=== PATIENT | female | born 1955 | race Caucasian/White ===

== ENCOUNTER → 2016-08-07 | Outpatient (CLI) | payer MEDICARE, OTHER ==
[2016-08-07 11:21] LABS: Non-African American GFR(MDRD) 60 (>60 ml/min/1.73 sqM)
--- NOTE | 2016-08-07 17:40 | MR ---
EXAMINATION TYPE: MR pancreas wo/w con DATE OF EXAM: 08/07/2016 12:12 PM COMPARISON: Correlation CT 04/28/2016 and 09/28/2015 HISTORY: 61-year-old female with abdominal pain, pancreatic lesion Technique: Multiplanar, multisequence images of the abdomen were obtained before and after administra tion of 15 mL intravenous MultiHance gadolinium contrast. FINDINGS: Liver shows no significant drop in signal on out of phase T1-weighted sequence to suggest fatty infil tration. There is a small 1.1 cm T2 hyperintense lesion along the inferior right hepatic lobe that shows perip heral nodular enhancement and gradual fill-in on the later contrast sequences. Otherwise, no focal li tho lesion. Portal venous system is patent. No biliary ductal dilatation. Gallbladder, adrenal glands, and spleen appear within normal limits. Redemonstrated round lesion along the anterior superior pancreatic body. This shows T2 hyperintensity and T1 dark signal without appreciable enhancement. There is thin rim enhancement without any suspic ious nodular or masslike enhancement. Pancreas otherwise unremarkable. There is moderate stool burden. No lymphadenopathy, ascites fluid, or lymphadenopathy identified in t he upper abdomen. IMPRESSION: 1. A 1.5 cm cystic lesion in the anterior superior pancreatic body is unchanged in size from CT of 09/28/2015. For a lesion with these characteristics, documenting one year of stability would be adequate after which, no further follow-up would be needed. A 6-12 month follow-up CT or MRI can be considered . The MRI could be performed without contrast. 2. Small 1.1 cm lesion inferior right hepatic lobe with enhancement characteristics suggesting a krupa ngioma.
== END | disposition home or self-care (01) ==
LOC: RADMRIMAIN 10:59
PROVIDERS: ATTEND Surgery
DX: K86.9 Disease of pancreas, unspecified (principal); K76.9 Liver disease, unspecified
CPT/HCPCS: 82565; 74183; A9577

== ENCOUNTER 2016-08-19 10:19 | Day surgery (SDC) | payer MEDICARE, OTHER ==
[2016-08-18 14:07] VITALS: BMI 30.9
[~2016-08-19 10:19] MED LIST: DEXAMETHASONE SOD PHOSPHATE 10 MG/ML 1 ML VIAL IV ONE; DEXAMETHASONE SOD PHOSPHATE 4 MG/ML 1 ML VIAL IV ONE; FAMOTIDINE 20 MG/2 ML VIAL IV ONE; LACTATED RINGERS 1,000 ML IV SCH; LIDOCAINE 1% 20 ML VIAL (10MG/ML) FOR IV START INTRADERMA PRN; MIDAZOLAM 2 MG/2 ML VIAL IV PRN; ONDANSETRON 4 MG/2 ML VIAL IVP ONE; SCOPOLAMINE 1.5MG/72HR PATCH TRANSDERM ONE; ceFAZolin 2 GM in SODIUM CHLORIDE 0.9% 100 ML IVPB ONE; metroNIDAZOLE-NS PMX 500 MG in SALINE 1 100ML.BAG IVPB ONE
[2016-08-19] MEDS ORDERED: LIDOCAINE 1% 20 ML VIAL (10MG/ML) FOR IV START INTRADERMA ONE (11:21)
[2016-08-19] MEDS ORDERED: DEXAMETHASONE SOD PHOS (MDV) 100 MG/10 ML VIAL ONE (14:03)
[2016-08-19] MEDS ORDERED: fentaNYL (PF) 50 MCG/ML 2 ML AMP ONE (14:03)
[2016-08-19] MEDS ORDERED: diphenhydrAMINE 50 MG/ML 1 ML VIAL ONE (14:03)
[2016-08-19] MEDS ORDERED: MIDAZOLAM 2 MG/2 ML VIAL ONE (14:03)
[2016-08-19] MEDS ORDERED: SODIUM BICARB 8.4% 50 ML VIAL (1 MEQ/ML) MISCELLANE ONE ×2 (14:24)
[2016-08-19] MEDS ORDERED: LIDOCAINE 1%-EPI 1:100,000 20 ML VIAL SQ ONE ×2 (14:24)
[2016-08-19] MEDS: HYDROmorphone 1 MG/ML 1 ML SYRINGE IVP PRN ×2 (16:06→16:11)
[2016-08-19 16:14] VITALS: TEMP 98.6
[2016-08-19] MEDS ORDERED: LACTATED RINGERS 1,000 ML IV ONE ×2 (16:29)
[2016-08-19 16:51] VITALS: PULSE 98; RESP 18
--- NOTE | 2016-08-19 16:54 | P.OP ---
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 There was no resolution the medialization was recommended. All risks benefits alternative therapies and complications were discussed in detail. Consent was obtained and all questions were answered. Operative Findings: Left vocal cord paralysis. Patient had excellent voice after #8 implant was inserted Description of Procedure: This patient was taken to the operative room and placed in the supine position. IV sedation was administered to the patient through a functioning IV line and monitored throughout the entire case by the department of anesthesia. A direct microscopic laryngoscopy was performed with use of a Zeiss microscope. Direct visualization was performed. We found a-LEFT VOCAL CORD PARALYSIS IN THE PARAMEDIAN POSITION. The neck was sterilely prepped and draped in usual fashion and the incision was marked. With use of lidocaine 1% with epinephrine 12 1000, the skin and deeper strap muscles were anesthetized. An incision was made over the lower portion of the thyroid cartilage horizontally in the neck. Hemostasis was obtained with use of electrocoagulation realizing a #12 setting without the flow of oxygen to prevent any fire risk. We dissected through the platysmas muscle to the strap muscles. We the strap muscles in the midline. We then exposed the thyroid cartilage the appropriate side of surgery. We then made a window into the lower portion of the thyroid cartilage in the usual fashion for Jones implant to be inserted. We then used with the sizer several different implants resistant to the voice and checked for stridor utilizing implants from #7-10. WE UTILIZED A #8 FEMALE JONES IMPLANT ON THE RIGHT SIDE. This was secured into position in the usual fashion. We then irrigated and then closed the strap muscles with 4-0 Vicryl in an interrupted type fashion. The close the platysmas layer of 4-0 Vicryl in an interrupted type fashion. We then closed the deep subcutaneous tissue with 4 -0 Monocryl in an interrupted type fashion. We then closed the skin with a 5-0 Prolene in a running nonlocking fashion. Bacitracin ointment and Telfa were applied along with a Medpor tape. The patient tolerated this well and the patient is to follow up with me in the office in 1 week. One week voice rest restrictions were given that her absolute area and no heavy lifting or bending. She was also advised that if any stridor should occur she should come to the emergency room. They have been given my cell phone number and contact information.
[2016-08-19 17:05] VITALS: BP 131/83
== END 2016-08-19 17:37 | disposition home or self-care (01) ==
LOC: OR 10:19
PROVIDERS: ATTEND Otolaryngology
DX: J38.01 Paralysis of vocal cords and larynx, unilateral (principal); J44.9 Chronic obstructive pulmonary disease, unspecified; J45.909 Unspecified asthma, uncomplicated; Z87.891 Personal history of nicotine dependence; G47.33 Obstructive sleep apnea (adult) (pediatric); F51.9 Sleep disorder not due to a substance or known physiological condition, unspecified; E07.9 Disorder of thyroid, unspecified; K21.9 Gastro-esophageal reflux disease without esophagitis; M06.9 Rheumatoid arthritis, unspecified; Z79.899 Other long term (current) drug therapy; Z91.09 Other allergy status, other than to drugs and biological substances
CPT/HCPCS: 31591; L8509; J2250; J1200; J1100 ×2; J0690; J2405; J3010; J1170

== ENCOUNTER → 2016-11-17 | Outpatient (CLI) | payer MEDICARE ==
--- NOTE | 2016-11-17 12:07 | FL ---
Modified barium swallow. HISTORY: Dysphagia. Modified barium swallow was performed with the department of speech pathology. The patient was prese nted with various consistencies of barium. There is no evidence for aspiration or penetration. Full report is to follow from the department of speech pathology. Impression: Normal study.
== END | disposition home or self-care (01) ==
LOC: RADFLMAIN 11:19
PROVIDERS: ATTEND Otolaryngology
DX: R13.10 Dysphagia, unspecified (principal); R49.0 Dysphonia
CPT/HCPCS: 74230

== ENCOUNTER 2017-09-07 09:53 | Emergency (ER) | payer MEDICARE ==
[2017-09-07 10:03] VITALS: RESP 18
[2017-09-07] MEDS ORDERED: HYDROcodone/APAP 5-325MG 1 EACH TAB PO STA (10:50)
[2017-09-07] MEDS ORDERED: IBUPROFEN 800 MG TAB PO STA (10:50)
--- NOTE | 2017-09-07 11:31 | XR ---
EXAMINATION TYPE: XR lumbar spine 3V DATE OF EXAM: 09/07/2017 COMPARISON: None HISTORY: 62-year-old female with low back pain after fall FINDINGS: 5 lumbar type vertebral bodies. There is osteopenia. Hypertrophic facet arthropathy throughout greate st in the mid to lower lumbar spine. Grade 1 anterolisthesis at L4-L5. Vertebral body heights are garima ntained. Mild endplate spondylosis throughout. IMPRESSION: 1. Osteopenia without vertebral compression collapse. 2. Hypertrophic facet arthropathy with grade 1 anterolisthesis at L4-L5. Mild endplate spondylosis th roughout.
--- NOTE | 2017-09-07 11:32 | XR ---
EXAMINATION TYPE: XR Hip Complete LT DATE OF EXAM: 09/07/2017 COMPARISON: NONE HISTORY: 62-year-old female with left hip pain after fall today TECHNIQUE: 2 views FINDINGS: There is osteopenia. Hip joint spaces relatively maintained. Minimal marginal spurring is present. No acute fracture, subluxation, or dislocation seen. IMPRESSION: Osteopenia without evidence for displaced hip fracture.
--- NOTE | 2017-09-07 11:39 | XR ---
Left knee HISTORY: Trauma and pain 3 views of the left knee No comparisons There is remodeling, marginal spurring is extensive with joint space loss especially in the medial co mpartment. Some lateral subluxation may be chronic at the knee joint. Bone mineralization mildly redu christiano. Suprapatellar joint effusion is present. Small ossific densities appear well-corticated and may represent loose bodies. IMPRESSION: No acute fracture or dislocation is suspected. Severe osteoarthritic changes are suspecte d with possible loose bodies, knee MRI to assess for internal derangement may be of benefit.
--- NOTE | 2017-09-07 11:58 | ED ---
General Adult HPI - General Chief complaint: Fall Stated complaint: Fall Time Seen by Provider: 09/07/17 10:32 Source: patient, EMS, RN notes reviewed, old records reviewed Mode of arrival: EMS Limitations: no limitations - History of Present Illness Initial comments: This is a 62-year-old female to the ER for evaluation status post fall. Patient fall and went to work today. Complaining of left leg pain. No other traumatic injury from fall. Patient had difficulty standing up at the time, no modifying factors for pain, patient no medications. - Related Data Home Medications Medication Instructions Recorded Confirmed Simvastatin [Zocor] 40 mg PO DAILY 09/28/15 09/07/17 Amitriptyline HCl [Elavil] 75 mg PO HS 09/29/15 09/07/17 Divalproex [Depakote] 500 mg PO BID 02/11/16 09/07/17 Folic Acid 0.8 mg PO HS 02/11/16 09/07/17 Methotrexate Sodium [Methotrexate] 10 mg PO FREY 02/11/16 09/07/17 Levothyroxine Sodium [Synthroid] 112 mcg PO DAILY 04/28/16 09/07/17 Ranitidine HCl [Zantac] 150 mg PO BID 04/28/16 09/07/17 Melatonin 10 mg PO HS 08/18/16 09/07/17 Citalopram Hydrobromide [CeleXA] 40 mg PO BID 09/07/17 09/07/17 Previous Rx's Medication Instructions Recorded HYDROcodone/APAP 5-325MG [Largo 1 tab PO Q6HR PRN #10 tab 09/07/17 5-325] Allergies Allergy/AdvReac Type Severity Reaction Status Date / Time Penicillins Allergy Rash/Hives Verified 09/07/17 10:26 Review of Systems ROS Statement: Those systems with pertinent positive or pertinent negative responses have been documented in the HPI. ROS Other: All systems not noted in ROS Statement are negative. Past Medical History Past Medical History: COPD, GERD/Reflux, Hyperlipidemia, Rheumatoid Arthritis ( RA), Sleep Apnea/CPAP/BIPAP, Thyroid Disorder Additional Past Medical History / Comment(s): GOUT, migraines, no cpap used, diff swallowing, colitis, pancreatitis, History of Any Multi-Drug Resistant Organisms: None Reported Past Surgical History: Orthopedic Surgery, Tonsillectomy Additional Past Surgical History / Comment(s): rt knee arthroscopy Past Anesthesia/Blood Transfusion Reactions: Motion Sickness Past Psychological History: Anxiety, Bipolar, Depression, Panic Disorder Smoking Status: Former smoker Past Alcohol Use History: None Reported Past Drug Use History: None Reported - Past Family History Father History Unknown: Yes Family Medical History: Dementia Additional Family Medical History / Comment(s): LEG AMP AT AGE 13 FROM TRAIN ACCIDENT. Mother History Unknown: Yes Family Medical History: No Reported History Additional Family Medical History / Comment(s): AGE 34 KIDNEY FAILURE General Exam Limitations: no limitations General appearance: alert, in no apparent distress Head exam: Present: atraumatic, normocephalic, normal inspection Eye exam: Present: normal appearance, PERRL, EOMI. Absent: scleral icterus, conjunctival injection, periorbital swelling ENT exam: Present: normal exam, mucous membranes moist Neck exam: Present: normal inspection. Absent: tenderness, meningismus, lymphadenopathy Respiratory exam: Present: normal lung sounds bilaterally. Absent: respiratory distress, wheezes, rales, rhonchi, stridor Cardiovascular Exam: Present: regular rate, normal rhythm, normal heart sounds. Absent: systolic murmur, diastolic murmur, rubs, gallop, clicks GI/Abdominal exam: Present: soft, normal bowel sounds. Absent: distended, tenderness, guarding, rebound, rigid Extremities exam: Present: normal inspection, full ROM, normal capillary refill. Absent: tenderness, pedal edema, joint swelling, calf tenderness Back exam: Present: normal inspection Neurological exam: Present: alert, oriented X3, CN II-XII intact Psychiatric exam: Present: normal affect, normal mood Skin exam: Present: warm, dry, intact, normal color. Absent: rash Course Vital Signs 09/07/17 09/07/17 10:01 12:26 Temperature 98.7 F 97.9 F Pulse Rate 83 81 Respiratory 18 18 Rate Blood Pressure 138/63 152/70 O2 Sat by Pulse 94 L 94 L Oximetry - Reevaluation(s) Reevaluation #1: Mild tenderness with range of motion Reevaluation #2: Patient is able to ambulate after pain control Medical Decision Making - Medical Decision Making 62 female the ER for evaluation of a mechanical trip and fall, no injury noted, sprain strain of left lower Shorty. Patient given pain control can be discharged home - Radiology Data Radiology results: report reviewed (X-ray last night, x-ray left hip x-ray left knee is negative for acute disease), image reviewed Disposition Clinical Impression: Fall, Left leg pain Disposition: HOME SELF-CARE Condition: Good Instructions: Fall Prevention for Older Adults (ED), Leg Pain (ED) Prescriptions: HYDROcodone/APAP 5-325MG [Largo 5-325] 1 tab PO Q6HR PRN #10 tab PRN Reason: Pain Referrals: Gregorio Dang MD [Primary Care Provider] - 1-2 days
[2017-09-07 12:28] VITALS: BP 152/70; PULSE 81; TEMP 97.9
== END 2017-09-07 12:27 | disposition home or self-care (01) ==
LOC: EC 09:53
DX: M79.605 Pain in left leg (principal); E78.5 Hyperlipidemia, unspecified; F41.9 Anxiety disorder, unspecified; F31.9 Bipolar disorder, unspecified; M06.9 Rheumatoid arthritis, unspecified; E07.9 Disorder of thyroid, unspecified; K21.9 Gastro-esophageal reflux disease without esophagitis; Z87.891 Personal history of nicotine dependence; Z79.899 Other long term (current) drug therapy; Z88.0 Allergy status to penicillin; W00.0XXA Fall on same level due to ice and snow, initial encounter; Z86.69 Personal history of other diseases of the nervous system and sense organs; Y93.K1 Activity, walking an animal; Y92.89 Other specified places as the place of occurrence of the external cause
CPT/HCPCS: 72100; 73502; 99284

== ENCOUNTER 2018-11-21 18:28 | Observation (INO) | payer MEDICARE ==
[2018-11-21] MEDS ORDERED: SODIUM CHLORIDE 0.9% 1,000 ML IV STA (18:51)
--- NOTE | 2018-11-21 18:52 | ED ---
Chest Pain HPI - General Chief Complaint: Chest Pain Stated Complaint: chest pain Time Seen by Provider: 11/21/18 18:30 Source: patient, RN notes reviewed, old records reviewed Mode of arrival: wheelchair - History of Present Illness Initial Comments: This is a 63 female the ER for evaluation presented today for evaluation chest pain and tightness and left-sided chest history of high cholesterol smoking. No prior history of chest pain. No chest pain today that is been going on and off for about 4 days. Patient has no fevers no cough or congestion recent travel history no sick contacts MD Complaint: chest pain -: days(s) (4) Onset: during rest Pain Location: left chest Pain Radiation: LUE, jaw/teeth Severity: moderate Quality: tightness, heaviness Consistency: intermittent Improves With: nothing Worsens With: nothing Treatments Prior to Arrival: none - Related Data Home Medications Medication Instructions Recorded Confirmed Simvastatin [Zocor] 40 mg PO HS 09/28/15 11/21/18 Amitriptyline HCl [Elavil] 75 mg PO HS 09/29/15 11/21/18 Divalproex [Depakote] 500 mg PO BID 02/11/16 11/21/18 Folic Acid 0.8 mg PO HS 02/11/16 11/21/18 Methotrexate Sodium [Methotrexate] 20 mg PO WE 02/11/16 11/21/18 Ranitidine HCl [Zantac] 150 mg PO BID 04/28/16 11/21/18 DULoxetine HCL [Cymbalta] 40 mg PO DAILY 11/21/18 11/21/18 Levothyroxine Sodium [Synthroid] 125 mcg PO DAILY 11/21/18 11/21/18 Potassium Chloride 10 meq PO BID 11/21/18 11/21/18 QUEtiapine [SEROquel] 100 mg PO HS 11/21/18 11/21/18 Allergies Allergy/AdvReac Type Severity Reaction Status Date / Time Penicillins Allergy Rash/Hives Verified 11/21/18 18:47 Review of Systems ROS Statement: Those systems with pertinent positive or pertinent negative responses have been documented in the HPI. ROS Other: All systems not noted in ROS Statement are negative. EKG Findings - EKG Comments: EKG Findings:: EKG shows normal sinus rhythm rate of 88, TN 142, QRS 90, QTc 445 Past Medical History Past Medical History: COPD, GERD/Reflux, Hyperlipidemia, Rheumatoid Arthritis (RA), Sleep Apnea/CPAP/BIPAP, Thyroid Disorder Additional Past Medical History / Comment(s): GOUT, migraines, no cpap used, diff swallowing, colitis, pancreatitis, History of Any Multi-Drug Resistant Organisms: None Reported Past Surgical History: Orthopedic Surgery, Tonsillectomy Additional Past Surgical History / Comment(s): rt knee arthroscopy Past Anesthesia/Blood Transfusion Reactions: Motion Sickness Past Psychological History: Anxiety, Bipolar, Depression, Panic Disorder Smoking Status: Former smoker Past Alcohol Use History: None Reported Past Drug Use History: None Reported - Past Family History Father History Unknown: Yes Family Medical History: Dementia Additional Family Medical History / Comment(s): LEG AMP AT AGE 13 FROM TRAIN ACCIDENT. Mother History Unknown: Yes Family Medical History: No Reported History Additional Family Medical History / Comment(s): AGE 34 KIDNEY FAILURE General Exam General appearance: alert, in no apparent distress Head exam: Present: atraumatic, normocephalic, normal inspection Eye exam: Present: normal appearance, PERRL, EOMI. Absent: scleral icterus, conjunctival injection, periorbital swelling ENT exam: Present: normal exam, mucous membranes moist Neck exam: Present: normal inspection. Absent: tenderness, meningismus, lymphadenopathy Respiratory exam: Present: normal lung sounds bilaterally. Absent: respiratory distress, wheezes, rales, rhonchi, stridor Cardiovascular Exam: Present: regular rate, normal rhythm, normal heart sounds. Absent: systolic murmur, diastolic murmur, rubs, gallop, clicks GI/Abdominal exam: Present: soft, normal bowel sounds. Absent: distended, tenderness, guarding, rebound, rigid Extremities exam: Present: normal inspection, full ROM, normal capillary refill. Absent: tenderness, pedal edema, joint swelling, calf tenderness Back exam: Present: normal inspection Neurological exam: Present: alert, oriented X3, CN II-XII intact Psychiatric exam: Present: normal affect, normal mood Skin exam: Present: warm, dry, intact, normal color. Absent: rash Course Vital Signs 11/21/18 11/21/18 18:41 19:31 Temperature 98.4 F Pulse Rate 86 82 Respiratory 20 16 Rate Blood Pressure 138/88 134/81 O2 Sat by Pulse 96 98 Oximetry - Reevaluation(s) Reevaluation #1: 11/21/18 20:04 Medical record is reviewed Reevaluation #2: 11/21/18 20:04 A she has recurrent chest pain Reevaluation #3: 11/21/18 20:05 Studies CTA chest negative for acute disease Chest Pain MDM - MDM 63 female the ER for evaluation, patient presents today for evaluation regards to chest pain positive for chest pain. Patient is having persistent chest pain. Patient is to be admitted for chest pain observation Critical Care Time Critical Care Time: Yes Total Critical Care Time: 31 Disposition Clinical Impression: Chest pain Disposition: ADMITTED IP TO THIS HOSP Condition: Undetermined Instructions (If sedation given, give patient instructions): Chest Pain (ED) Is patient prescribed a controlled substance at d/c from ED?: No Referrals: Bhumi Mcneill DO [Primary Care Provider] - 1-2 days
[2018-11-21 19:13] LABS: Basophils % (A) 0 %; Eosinophils # (A) 0.1 k/uL (0-0.7); Eosinophils % (A) 2 %; HCT 37.6 % (34.0-46.0); HGB 12.1 gm/dL (11.4-16.0); Lymphocytes # (A) 1.6 k/uL (1.0-4.8); Lymphocytes % (A) 26 %; MCH 30.2 pg (25.0-35.0); MCHC 32.2 g/dL (31.0-37.0); MCV 93.8 fL (80.0-100.0); Monocytes # (A) 0.3 k/uL (0-1.0); Monocytes % (A) 5 %; Neutrophils # (A) 4.1 k/uL (1.3-7.7); Neutrophils % (A) 65 %; Platelet Count 216 k/uL (150-450); RBC 4.01 m/uL (3.80-5.40); RDW 14.5 % (11.5-15.5); WBC 6.3 k/uL (3.8-10.6)
[2018-11-21 19:27] LABS: ALT 16 U/L (9-52); AST 19 U/L (14-36); Albumin 3.5 g/dL (3.5-5.0); Alkaline Phosphatase 78 U/L (38-126); Anion Gap 9 mmol/L; Blood Urea Nitrogen 7 mg/dL (7-17); Calcium 8.8 mg/dL (8.4-10.2); Carbon Dioxide 23 mmol/L (22-30); Chloride 107 mmol/L (98-107); Glucose 84 mg/dL (74-99); Lipase 69 U/L (23-300); Magnesium 1.8 mg/dL (1.6-2.3); Potassium 3.9 mmol/L (3.5-5.1); Sodium 139 mmol/L (137-145); Total Bilirubin 0.3 mg/dL (0.2-1.3); Total Protein 6.2 g/dL (6.3-8.2)
[2018-11-21 19:28] LABS: D-Dimer 0.45 mg/L FEU (<0.60); Prothrombin Time 10.6 sec (9.0-12.0)
--- NOTE | 2018-11-21 19:36 | CT ---
EXAMINATION TYPE: CT angio chest with contrast and with 3-D Reconstruction rendering DATE OF EXAM: 11/21/2018 7:15 PM COMPARISON: None HISTORY: Chest pain x4 days. CT DLP: 311.3 mGycm Automated exposure control for dose reduction was used. CONTRAST: 3-D reconstructionsCTA scan of the thorax is performed with IV Contrast, patient injected w ith 58ml mL of Isovue 370, pulmonary embolism protocol. . FINDINGS: AIRWAYS, LUNGS, PLEURAL SPACES: Severe emphysematous changes are noted, with associated mild diffuse cylindrical bronchiectasis. The lungs are clear. There is no pleural effusion or pneumothorax seen. T he tracheobronchial tree is patent. MEDIASTINUM: There is satisfactory enhancement of the pulmonary artery and its branches, there is no CT evidence for pulmonary embolism. Cardiac size top normal, with left and right coronary calcificat ions noted. No pericardial effusion is seen. No acute aortic findings. There are no greater than 1 cm hilar or mediastinal lymph nodes. OTHER: No additional significant abnormality is seen. IMPRESSION: 1. NEGATIVE FOR PULMONARY EMBOLISM. 2. INCIDENTAL: CORONARY CALCIFICATIONS. 3. EMPHYSEMA.
[2018-11-21] MEDS ORDERED: ASPIRIN 81 MG PO STA (19:56)
[2018-11-21] MEDS ORDERED: HEPARIN SODIUM,PORCINE 5,000 UNIT/ML 1 ML VIAL IV ONE (19:56)
[2018-11-21] MEDS ORDERED: HEPARIN SODIUM,PORCINE 5,000 UNIT/ML 1 ML VIAL IV PRN (19:56)
[2018-11-21] MEDS ORDERED: NITROGLYCERIN SL TABS 0.4 MG TAB SUBLINGUAL PRN (19:56)
[2018-11-21] MEDS ORDERED: HEPARIN SOD,PORK IN 0.45% NACL 25,000 UNIT in 0.45% NACL 1 250ML.BAG IV SCH (20:00)
[2018-11-21] MEDS ORDERED: ATORVASTATIN 20 MG TAB PO SCH (22:30)
[2018-11-21] MEDS ORDERED: FOLIC ACID 1 MG TAB PO SCH (22:30)
[2018-11-21] MEDS ORDERED: QUEtiapine 100 MG TAB PO SCH (22:30)
[2018-11-21] MEDS ORDERED: AMITRIPTYLINE HCL 25 MG TAB PO SCH (22:30)
[2018-11-21] MEDS: METOPROLOL TARTRATE 25 MG TAB PO SCH (22:37)
[2018-11-21] MEDS: FAMOTIDINE 20 MG TAB PO SCH (22:38)
[2018-11-21] MEDS: DIVALPROEX 500 MG TABLET.DR PO SCH (22:38)
[2018-11-22] MEDS ORDERED: LEVOTHYROXINE 125 MCG TAB PO SCH (06:30)
[2018-11-22 08:02] LABS: Mean Platelet Volume 7.1; Platelet Count 231 k/uL (150-450)
[2018-11-22 08:13] LABS: Cholesterol 157 mg/dL (<200); HDL Cholesterol 47 mg/dL (40-60); LDL Cholesterol,Calculated 91 mg/dL (0-99); Triglycerides 93 mg/dL (<150)
[2018-11-22 08:18] VITALS: RESP 18
[2018-11-22] MEDS ORDERED: DOBUTamine DRIP for NUC MED 500 MG in DEXTROSE/WATER 1 250ML.BAG IV ONE (08:39)
[2018-11-22] MEDS ORDERED: METHOTREXATE SODIUM 2.5 MG TAB PO SCH (09:00)
[2018-11-22] MEDS ORDERED: ASPIRIN 325 MG TAB PO SCH (09:00)
[2018-11-22] MEDS ORDERED: DULoxetine HCL 20 MG CAPSULE.DR PO SCH (09:00)
[2018-11-22] MEDS ORDERED: POTASSIUM CHLORIDE ER 10 MEQ TAB.ER.PRT PO SCH (09:00)
[2018-11-22] MEDS ORDERED: ATORVASTATIN 80 MG TAB PO SCH (09:00)
[2018-11-22 09:36] LABS: Basophils % (A) 0 %; Eosinophils # (A) 0.2 k/uL (0-0.7); Eosinophils % (A) 2 %; HCT 38.4 % (34.0-46.0); HGB 12.4 gm/dL (11.4-16.0); Lymphocytes # (A) 2.9 k/uL (1.0-4.8); Lymphocytes % (A) 47 %; MCH 30.2 pg (25.0-35.0); MCHC 32.3 g/dL (31.0-37.0); MCV 93.7 fL (80.0-100.0); Mean Platelet Volume 7.4; Monocytes # (A) 0.4 k/uL (0-1.0); Monocytes % (A) 7 %; Neutrophils # (A) 2.5 k/uL (1.3-7.7); Neutrophils % (A) 40 %; RBC 4.09 m/uL (3.80-5.40); RDW 14.9 % (11.5-15.5); WBC 6.2 k/uL (3.8-10.6)
[2018-11-22 09:41] LABS: Platelet Count 231 k/uL (150-450)
--- NOTE | 2018-11-22 10:08 | XR ---
EXAMINATION TYPE: XR ribs bilateral DATE OF EXAM: 11/22/2018 COMPARISON: NONE HISTORY: Pain post fall TECHNIQUE: 4 views of the ribs are obtained bilaterally. FINDINGS: Hypertrophic and degenerative change of the spine. There is a subtle deformity involving th e anterolateral left 10th rib. Remaining bilateral rib cage appears intact. Small nodules are seen in the right lung measuring less than 5 mm. May represent small granuloma IMPRESSION: 1. Correlate for a nondisplaced hairline fracture anterolateral margin left 10th rib.
[2018-11-22] MEDS: FAMOTIDINE 20 MG TAB PO SCH (10:24)
[2018-11-22] MEDS: METOPROLOL TARTRATE 25 MG TAB PO SCH (10:24)
[2018-11-22] MEDS: DIVALPROEX 500 MG TABLET.DR PO SCH (10:25)
--- NOTE | 2018-11-22 10:31 | ECHOF ---
Referral Reason:cp MEASUREMENTS -------- HEIGHT: 149.9 cm WEIGHT: 74.4 kg BP: 167/87 RVIDd: 3.0 cm (< 3.3) IVSd: 1.1 cm (0.6 - 1.1) LVIDd: 3.7 cm (3.9 - 5.3) LVPWd: 1.1 cm (0.6 - 1.1) IVSs: 1.5 cm LVIDs: 2.4 cm LVPWs: 1.6 cm LA Diam: 3.0 cm (2.7 - 3.8) LAESV Index (A-L): 23.13 ml/m Ao Diam: 3.0 cm (2.0 - 3.7) AV Cusp: 2.2 cm (1.5 - 2.6) MV EXCURSION: 11.540 mm (> 18.000) MV EF SLOPE: 33 mm/s (70 - 150) EPSS: 0.4 cm MV E Camilo: 1.04 m/s MV DecT: 212 ms MV A Camilo: 1.12 m/s MV E/A Ratio: 0.92 AR PHT: 624 ms RAP: 5.00 mmHg RVSP: 25.99 mmHg FINDINGS -------- Sinus rhythm. This was a technically good study. The left ventricular size is normal. There is borderline concentric left ventricular hypertrophy. Overall left ventricular systolic function is normal with, an EF between 60 - 65 %. The right ventricle is normal in size. Normal LA size by volume 22+/-6 ml/m2. The right atrium is normal in size. There is mild aortic valve sclerosis. There is mild aortic regurgitation. Moderate mitral annular calcification present. Mild tricuspid regurgitation present. Right ventricular systolic pressure is normal at < 35 mmHg. Trace/mild (physiologic) pulmonic regurgitation. The aortic root size is normal. Normal inferior vena cava with normal inspiratory collapse consistent with estimated right atrial pre ssure of 5 mmHg. There is no pericardial effusion. CONCLUSIONS -------- 1. Sinus rhythm. 2. This was a technically good study. 3. The left ventricular size is normal. 4. There is borderline concentric left ventricular hypertrophy. 5. Overall left ventricular systolic function is normal with, an EF between 60 - 65 %. 6. The right ventricle is normal in size. 7. Normal LA size by volume 22+/-6 ml/m2. 8. The right atrium is normal in size. 9. There is mild aortic valve sclerosis. 10. There is mild aortic regurgitation. 11. Moderate mitral annular calcification present. 12. Mild tricuspid regurgitation present. 13. Right ventricular systolic pressure is normal at < 35 mmHg. 14. Trace/mild (physiologic) pulmonic regurgitation. 15. The aortic root size is normal. 16. Normal inferior vena cava with normal inspiratory collapse consistent with estimated right atrial pressure of 5 mmHg. 17. There is no pericardial effusion. MACHINE WORKER: Felisa Pedroza RDCS
--- NOTE | 2018-11-22 10:31 | P.CRDCN ---
History of Present Illness History of present illness: This is a pleasant 63-year-old female past medical history significant for COPD, dyslipidemia, bipolar, depression and anxiety. She states approximately one week ago she suffered a fall at home. She did not get dizzy or have loss of consciousness. She simply tripped and fell ending on the left side of her body. She states it was a pretty significant fall and she has been pretty sore since this occurred. 4 days ago she started developing a pain in the left precordial region that was worse at night when she would lay down to sleep. The pain was described as a pressure sensation with radiation slightly into the left shoulder. She sat up her pain improved and it would come back every time she tried to lay down. She states she does have a history of having some reflux disease in the past however this did feel very different her typically her reflexes in the midsternal region burning sensation this was a pressure in the left precordial region. There was no shortness of breath, dizziness, nausea, vomiting or diaphoresis. EKG reveals sinus mechanism with minimal ST depression noted in the lateral leads. Consistent with EKG performed in 2016. No acute changes noted. CTA chest negative for pulmonary embolism with evidence of left and right coronary calcifications and underlying emphysema. Laboratory data reviewed, WBC 6.3, hemoglobin 12.1, platelets 231, d-dimer 0.45, sodium 139, potassium 3.9, creatinine 0.73, magnesium 1.8, cardiac enzymes negative 3, NT proBNP 144, LDL 91. Current cardiac medications include simvastatin 40 mg daily. At the time of my exam: CONSTITUTIONAL: Denies fever. Denies chills. EYES: Denies blurred vision. Denies vision changes. Denies eye pain. EARS, NOSE, MOUTH & THROAT: Denies headache. Denies sore throat. Denies ear pain. CARDIOVASCULAR: Denies chest pain. Denies shortness of breath. Denies orthopnea. Denies PND. Denies palpitations. RESPIRATORY: Denies cough. GASTROINTESTINAL: Denies abdominal pain. Denies diarrhea. Denies constipation. Denies nausea. Denies vomiting. MUSCULOSKELETAL: Denies myalgias. INTEGUMENTARY: Denies pruitis. Denies rash. NEUROLOGIC: Denies numbness. Denies tingling. Denies weakness. PSYCHIATRIC: Denies anxiety. Denies depression. ENDOCRINE: Denies fatigue. Denies weight change. Denies polydipsia. Denies polyurina. GENITOURINARY: Denies burning, hematuria or urgency with micturation. HEMATOLOGIC: Denies history of anemia. Denies bleeding. Blood pressure 130/75 heart rate 85 afebrile maintaining oxygen saturation on room air GENERAL: This is a 63-year-old female in no apparent distress at the time of my examination. HEENT: Head is atraumatic, normocephalic. Pupils are equal, round. Sclerae anicteric. Conjunctivae are clear. Mucous membranes of the mouth are moist. Neck is supple. There is no jugular venous distention. No carotid bruit is heard. LUNGS: Clear to auscultation no wheezes, rales or rhonchi. No chest wall tenderness is noted on palpation or with deep breathing. HEART: Regular rate and rhythm without murmurs, rubs or gallops. S1 and S2 heard. ABDOMEN: Soft, nontender. Bowel sounds are heard. No organomegaly noted. EXTREMITIES: No evidence of peripheral edema and no calf tenderness noted. VASCULAR: Radial and dorsalis pedis pulses palpated, no evidence of clubbing. NEUROLOGIC: Patient is awake, alert and oriented x3. ASSESSMENT Chest pain, atypical. An acute coronary event has been ruled out. Possibly related to recent fall with some musculoskeletal features. Recent mechanical fall on the left side of her body. Dyslipidemia COPD Former nicotine dependence Bipolar, depression and anxiety PLAN An acute coronary event has been ruled out. Obtain 2D echocardiogram and doppler study to assess cardiac structure and function. Check an xray of her ribs, if unremarkable we will pursue a stress test. Thank you kindly for this consultation. Nurse Practitioner note has been reviewed, I agree with a documented findings and plan of care. Patient was seen and examined. Past Medical History Past Medical History: Chest Pain / Angina, COPD, GERD/Reflux, Hyperlipidemia, Hypertension, Rheumatoid Arthritis (RA), Sleep Apnea/CPAP/BIPAP, Thyroid Disorder Additional Past Medical History / Comment(s): GOUT, migraines, no cpap used, diff swallowing, colitis, pancreatitis, History of Any Multi-Drug Resistant Organisms: None Reported Past Surgical History: Orthopedic Surgery, Tonsillectomy Additional Past Surgical History / Comment(s): rt knee arthroscopy,left thyroplasty Past Anesthesia/Blood Transfusion Reactions: Motion Sickness Past Psychological History: Anxiety, Bipolar, Depression, Panic Disorder Additional Psychological History / Comment(s): take depakote for bipolar and depression medication Smoking Status: Former smoker Past Alcohol Use History: None Reported Additional Past Alcohol Use History / Comment(s): STARTED SMOKING AT AGE 12, QUIT IN 2013,SMOKED 1 PPD Past Drug Use History: None Reported - Past Family History Father History Unknown: Yes Family Medical History: Dementia Additional Family Medical History / Comment(s): LEG AMP AT AGE 13 FROM TRAIN ACCIDENT. Mother History Unknown: Yes Family Medical History: No Reported History Additional Family Medical History / Comment(s): AGE 34 KIDNEY FAILURE Medications and Allergies Home Medications Medication Instructions Recorded Confirmed Type Simvastatin [Zocor] 40 mg PO HS 09/28/15 11/21/18 History Amitriptyline HCl [Elavil] 75 mg PO HS 09/29/15 11/21/18 History Divalproex [Depakote] 500 mg PO BID 02/11/16 11/21/18 History Folic Acid 0.8 mg PO HS 02/11/16 11/21/18 History Methotrexate Sodium [Methotrexate] 20 mg PO WE 02/11/16 11/21/18 History Ranitidine HCl [Zantac] 150 mg PO BID 04/28/16 11/21/18 History DULoxetine HCL [Cymbalta] 40 mg PO DAILY 11/21/18 11/21/18 History Levothyroxine Sodium [Synthroid] 125 mcg PO DAILY 11/21/18 11/21/18 History Potassium Chloride 10 meq PO BID 11/21/18 11/21/18 History QUEtiapine [SEROquel] 100 mg PO HS 11/21/18 11/21/18 History Allergies Allergy/AdvReac Type Severity Reaction Status Date / Time Penicillins Allergy Rash/Hives Verified 11/21/18 18:47 Physical Exam Vitals: Vital Signs Temp Pulse Pulse Resp BP BP Pulse Ox 11/22/18 08:00 85 18 11/22/18 07:25 97.7 F 85 18 130/75 97 11/22/18 04:10 79 16 11/22/18 03:54 97.8 F 77 16 132/78 95 11/22/18 01:05 72 16 11/21/18 23:40 97.5 F L 100 18 170/91 98 11/21/18 21:09 97.5 F L 85 16 160/87 97 11/21/18 21:00 87 18 11/21/18 20:47 98.4 F 91 16 150/70 96 11/21/18 19:31 82 16 134/81 98 11/21/18 18:41 98.4 F 86 20 138/88 96 Intake and Output 11/21/18 11/22/18 11/22/18 22:59 06:59 14:59 Intake Total 314.243 Balance 314.243 Intake: Intake, IV Titration 74.243 Amount Heparin Sod,Pork in 0.45% 74.243 NaCl 25,000 unit In 0.45 % NaCl 1 250ml.bag @ 12 UNITS/KG/HR 8.927 mls/hr IV .Q24H [facility] Rx#: [id number] Oral 240 Other: Voiding Method Toilet Toilet Toilet # Voids 3 Weight 74.389 kg Results 11/22/18 07:45 11/21/18 18:45 Cardiac Enzymes 11/21/18 11/21/18 11/22/18 Range/Units 18:45 18:45 00:36 AST 19 (14-36) U/L Troponin I <0.012 <0.012 (0.000-0.034) ng/mL 11/22/18 Range/Units 07:45 AST (14-36) U/L Troponin I <0.012 (0.000-0.034) ng/mL Coagulation 11/21/18 11/22/18 11/22/18 Range/Units 18:45 02:23 07:45 PT 10.6 (9.0-12.0) sec APTT 23.0 37.9 H 56.6 H (22.0-30.0) sec Lipids 11/22/18 Range/Units 07:45 Triglycerides 93 (<150) mg/dL Cholesterol 157 (<200) mg/dL HDL Cholesterol 47 (40-60) mg/dL CBC 11/21/18 11/22/18 Range/Units 18:45 07:45 WBC 6.3 (3.8-10.6) k/uL RBC 4.01 (3.80-5.40) m/uL Hgb 12.1 (11.4-16.0) gm/dL Hct 37.6 (34.0-46.0) % Plt Count 216 231 (150-450) k/uL Comprehensive Metabolic Panel 11/21/18 Range/Units 18:45 Sodium 139 (137-145) mmol/L Potassium 3.9 (3.5-5.1) mmol/L Chloride 107 (98-107) mmol/L Carbon Dioxide 23 (22-30) mmol/L BUN 7 (7-17) mg/dL Creatinine 0.73 (0.52-1.04) mg/dL Glucose 84 (74-99) mg/dL Calcium 8.8 (8.4-10.2) mg/dL AST 19 (14-36) U/L ALT 16 (9-52) U/L Alkaline Phosphatase 78 (38-126) U/L Total Protein 6.2 L (6.3-8.2) g/dL Albumin 3.5 (3.5-5.0) g/dL Current Medications Generic Name Dose Route Start Last Admin Trade Name Freq PRN Reason Stop Dose Admin Amitriptyline HCl 75 mg 11/21/18 22:30 11/21/18 22:38 Elavil PO 75 mg HS [facility] Administration Aspirin 325 mg 11/22/18 09:00 Aspirin PO DAILY [facility] Atorvastatin Calcium 20 mg 11/21/18 22:30 11/21/18 22:38 Lipitor PO 20 mg HS [facility] Administration Divalproex Sodium 500 mg 11/21/18 22:30 11/21/18 22:38 Depakote PO 500 mg BID [facility] Administration Duloxetine HCl 40 mg 11/22/18 09:00 Cymbalta PO DAILY [facility] Famotidine 20 mg 11/21/18 22:30 11/21/18 22:38 Pepcid PO 20 mg BID [facility] Administration Folic Acid 1 mg 11/21/18 22:30 11/21/18 22:39 Folic Acid PO 1 mg HS [facility] Administration Heparin Sodium (Porcine) 0 unit 11/21/18 19:56 Heparin IV Q6HR PRN Low PTT Protocol Dobutamine HCl/Dextrose 500 mg 250 mls @ 22.317 mls/hr 11/22/18 08:39 / IV Solution IV 11/22/18 19:51 .[id number] ONE Protocol 10 MCG/KG/MIN Levothyroxine Sodium 125 mcg 11/22/18 06:30 Synthroid PO DAILY@0630 [facility] Methotrexate 20 mg 11/22/18 09:00 Methotrexate PO We@0900 [facility] Metoprolol Tartrate 25 mg 11/21/18 21:00 11/21/18 22:37 Lopressor PO Not Given BID [facility] Nitroglycerin 0.4 mg 11/21/18 19:56 Nitrostat SUBLINGUAL Q5M PRN Chest Pain Potassium Chloride 10 meq 11/22/18 09:00 K-Dur 10 PO BID [facility] Quetiapine Fumarate 100 mg 11/21/18 22:30 11/21/18 22:39 Seroquel PO 100 mg HS [facility] Administration Intake and Output 11/21/18 11/22/18 11/22/18 22:59 06:59 14:59 Intake Total 314.243 Balance 314.243 Intake: Intake, IV Titration 74.243 Amount Heparin Sod,Pork in 0.45% 74.243 NaCl 25,000 unit In 0.45 % NaCl 1 250ml.bag @ 12 UNITS/KG/HR 8.927 mls/hr IV .Q24H [facility] Rx#: [id number] Oral 240 Other: Voiding Method Toilet Toilet Toilet # Voids 3 Weight 74.389 kg 11/22/18 07:45 11/21/18 18:45
[2018-11-22 10:44] LABS: ALT 17 U/L (9-52); AST 18 U/L (14-36); Albumin 3.2 g/dL (3.5-5.0); Alkaline Phosphatase 88 U/L (38-126); Anion Gap 8 mmol/L; Blood Urea Nitrogen 6 mg/dL (7-17); Calcium 8.8 mg/dL (8.4-10.2); Carbon Dioxide 24 mmol/L (22-30); Chloride 110 mmol/L (98-107); Glucose 85 mg/dL (74-99); Potassium 3.8 mmol/L (3.5-5.1); Sodium 142 mmol/L (137-145); Total Bilirubin 0.3 mg/dL (0.2-1.3); Total Protein 5.9 g/dL (6.3-8.2)
--- NOTE | 2018-11-22 10:50 | P.HPIM ---
History of Present Illness H&P Date: 11/22/18 This is a 63-year-old female patient who presented with complaints of chest pain. Patient reports that the chest pain has been intermittent for the past 4 days and feels like chest pressure. She also reports that she fell in the bathroom approximately 6 days ago and landed on the left side of her body on the floor. Patient denies loss of consciousness. Patient also reports that the pain does occur more with movement and stretching. Patient does have has been cleared history of COPD, GERD, hyperlipidemia, rheumatoid arthritis, sleep apnea, bowel, migraines, anxiety, bipolar and PTSD. Chest CT completed showing negative for pulmonary edema with some. Incidental coronary calcifications and emphysema. Troponins negative 3. EKG showing normal sinus rhythm. Moderate voltage criteria for LVH, maybe normal variant. At time cardiology services have been consulted. Repeat x-ray ordered. At this time patient denies chest pain or shortness breath. Patient denies nausea vomiting or diarrhea. Patient denies any urinary burning or frequency Review of Systems Please refer to HPI otherwise unremarkable Past Medical History Past Medical History: Chest Pain / Angina, COPD, GERD/Reflux, Hyperlipidemia, Hypertension, Rheumatoid Arthritis (RA), Sleep Apnea/CPAP/BIPAP, Thyroid Disorder Additional Past Medical History / Comment(s): GOUT, migraines, no cpap used, diff swallowing, colitis, pancreatitis, History of Any Multi-Drug Resistant Organisms: None Reported Past Surgical History: Orthopedic Surgery, Tonsillectomy Additional Past Surgical History / Comment(s): rt knee arthroscopy,left thyroplasty Past Anesthesia/Blood Transfusion Reactions: Motion Sickness Past Psychological History: Anxiety, Bipolar, Depression, Panic Disorder Additional Psychological History / Comment(s): take depakote for bipolar and depression medication Smoking Status: Former smoker Past Alcohol Use History: None Reported Additional Past Alcohol Use History / Comment(s): STARTED SMOKING AT AGE 12, QUIT IN 2013,SMOKED 1 PPD Past Drug Use History: None Reported - Past Family History Father History Unknown: Yes Family Medical History: Dementia Additional Family Medical History / Comment(s): LEG AMP AT AGE 13 FROM TRAIN ACCIDENT. Mother History Unknown: Yes Family Medical History: No Reported History Additional Family Medical History / Comment(s): AGE 34 KIDNEY FAILURE Medications and Allergies Home Medications Medication Instructions Recorded Confirmed Type Simvastatin [Zocor] 40 mg PO HS 09/28/15 11/21/18 History Amitriptyline HCl [Elavil] 75 mg PO HS 09/29/15 11/21/18 History Divalproex [Depakote] 500 mg PO BID 02/11/16 11/21/18 History Folic Acid 0.8 mg PO HS 02/11/16 11/21/18 History Methotrexate Sodium [Methotrexate] 20 mg PO WE 02/11/16 11/21/18 History Ranitidine HCl [Zantac] 150 mg PO BID 04/28/16 11/21/18 History DULoxetine HCL [Cymbalta] 40 mg PO DAILY 11/21/18 11/21/18 History Levothyroxine Sodium [Synthroid] 125 mcg PO DAILY 11/21/18 11/21/18 History Potassium Chloride 10 meq PO BID 11/21/18 11/21/18 History QUEtiapine [SEROquel] 100 mg PO HS 11/21/18 11/21/18 History Allergies Allergy/AdvReac Type Severity Reaction Status Date / Time Penicillins Allergy Rash/Hives Verified 11/21/18 18:47 Physical Exam Vitals: Vital Signs Temp Pulse Pulse Resp BP BP Pulse Ox 11/22/18 08:00 85 18 11/22/18 07:25 97.7 F 85 18 130/75 97 11/22/18 04:10 79 16 11/22/18 03:54 97.8 F 77 16 132/78 95 11/22/18 01:05 72 16 11/21/18 23:40 97.5 F L 100 18 170/91 98 11/21/18 21:09 97.5 F L 85 16 160/87 97 11/21/18 21:00 87 18 11/21/18 20:47 98.4 F 91 16 150/70 96 11/21/18 19:31 82 16 134/81 98 11/21/18 18:41 98.4 F 86 20 138/88 96 Intake and Output 11/21/18 11/22/18 11/22/18 22:59 06:59 14:59 Intake Total 314.243 Balance 314.243 Intake: Intake, IV Titration 74.243 Amount Heparin Sod,Pork in 0.45% 74.243 NaCl 25,000 unit In 0.45 % NaCl 1 250ml.bag @ 12 UNITS/KG/HR 8.927 mls/hr IV .Q24H [facility] Rx#: [id number] Oral 240 Other: Voiding Method Toilet Toilet Toilet # Voids 3 Weight 74.389 kg Head normocephalic Neck supple Lungs clear to auscultation bilaterally no wheezing or crackles Heart regular rate and rhythm S1-S2, no rub or gallop Abdomen is soft nontender nondistended positive bowel sounds no hepatosplenomegaly Extremities no edema Neuro alert and orientated to 3 Results CBC & Chem 7: 11/22/18 07:45 11/21/18 18:45 Labs: Abnormal Lab Results - Last 24 Hours (Table) 11/21/18 11/22/18 11/22/18 Range/Units 18:45 02:23 07:45 APTT 37.9 H 56.6 H (22.0-30.0) sec Total Protein 6.2 L (6.3-8.2) g/dL Thrombosis Risk Factor Assmnt - Choose All That Apply Any of the Below Risk Factors Present?: Yes Each Factor Represents 1 point: Abnormal pulmonary function (COPD), Obesity (BMI >25) Other Risk Factors: Yes Each Risk Factor Represents 2 Points: Age 61-74 years Other congenital or acquired thrombophilia - If yes, enter type in comment: No Thrombosis Risk Factor Assessment Total Risk Factor Score: 4 Thrombosis Risk Factor Assessment Level: Moderate Risk Assessment and Plan Assessment: 1. Chest pain. Cardiology services CTA of chest completed showing no evidence of PE. incidental coronary calcifications and emphysema. Troponins negative 3. 2-D echo completed showing EF 60-65%. Cardiology services are following stress test has been ordered 2. Rib fracture from fall. Rib x-ray completed showing correlation for a nondisplaced hairline fracture anterior lateral margin left 10th rib. 3. History of hyperlipidemia 4. History of COPD 5. Ex-smoker 6. History of bipolar depression and anxiety 7. History of GERD 8. History of essential hypertension 9. History of rheumatoid arthritis 10. History of sleep apnea 11. History of hypothyroidism 12. History of gout 13. History of migraines 14. History of pancreatitis Time with Patient: Greater than 30 (Greater than 60% of the total time spent in counseling and coordination of care. I performed an examination of the patient and discussed their management with the Nurse Practitioner. I have reviewed the Nurse Practitioner's notes and agree with the documented findings and plan of care)
[2018-11-22 11:30] VITALS: BP 161/74; PULSE 82; TEMP 97.5
--- NOTE | 2018-11-22 14:28 | P.DS ---
Providers Date of admission: 11/21/18 19:56 Expected date of discharge: 11/22/18 Attending physician: Raul Mariano Consults: 11/21/18 19:56 Consult Physician Urgent Consulting Provider: Marifer Drake Consult Reason/Comments: cp Do you want consulting provider notified?: Yes Primary care physician: Bhumi Mcne[facility] Course: Discharge diagnosis 1. Chest pain. Cardiology services CTA of chest completed showing no evidence of PE. incidental coronary calcifications and emphysema. Troponins negative 3. 2-D echo completed showing EF 60-65%. No stress test per cardiology has been likely from rib fracture. Patient to follow-up with cardiac services in 4 weeks 2. Rib fracture from fall. Rib x-ray completed showing correlation for a non displaced hairline fracture anterior lateral margin left 10th rib. Recommend limited left arm movement and lifting. Patient to follow-up with PCP for further monitoring and management 3. History of hyperlipidemia 4. History of COPD 5. Ex-smoker 6. History of bipolar depression and anxiety 7. History of GERD 8. History of essential hypertension. Patient having elevated blood pressure Lopressor 25 mg added per ER. Will resume and follow up with cardiology services 9. History of rheumatoid arthritis 10. History of sleep apnea 11. History of hypothyroidism 12. History of gout 13. History of migraines 14. History of pancreatitis Hospital course This is a 63-year-old female patient who presented with complaints of chest pain. Patient reports that the chest pain has been intermittent for the past 4 days and feels like chest pressure. She also reports that she fell in the bathroom approximately 6 days ago and landed on the left side of her body on the floor. Patient denies loss of consciousness. Patient also reports that the pain does occur more with movement and stretching. Patient does have has been cleared history of COPD, GERD, hyperlipidemia, rheumatoid arthritis, sleep apnea, bowel, migraines, anxiety, bipolar and PTSD. Chest CT completed showing negative for pulmonary edema with some. Incidental coronary calcifications and emphysema. Troponins negative 3. EKG showing normal sinus rhythm. Moderate voltage criteria for LVH, maybe normal variant. At time cardiology services have been consulted. Repeat x-ray ordered. At this time patient denies chest pain or shortness breath. Patient denies nausea vomiting or diarrhea. Patient denies any urinary burning or frequency Patient has been cleared for discharge from neurology standpoint. Chest pain likely due to rib fracture. Troponins negative 3. 2-D echo has confirmed been completed. Patient to follow-up with her PCP for further management. Patient follow-up with cardiology services in 4 weeks. Patient will be DC'd on Lopressor 25 twice a day for blood pressure control. Patient to follow-up with cardiology for further management. At this time patient denies chest pain or shortness breath. Patient denies nausea vomiting or diarrhea. Patient denies any urinary burning or frequency I performed an examination of the patient and discussed their management with the Nurse Practitioner. I have reviewed the Nurse Practitioner's notes and agree with the documented findings and plan of care Patient Condition at Discharge: Stable Plan - Discharge Summary Discharge Rx Participant: No New Discharge Prescriptions: New Metoprolol Tartrate [Lopressor] 25 mg PO BID 30 Days #60 tab Continue Simvastatin [Zocor] 40 mg PO HS Amitriptyline HCl [Elavil] 75 mg PO HS Methotrexate Sodium [Methotrexate] 20 mg PO WE Folic Acid 0.8 mg PO HS Divalproex [Depakote] 500 mg PO BID Ranitidine HCl [Zantac] 150 mg PO BID QUEtiapine [SEROquel] 100 mg PO HS Levothyroxine Sodium [Synthroid] 125 mcg PO DAILY DULoxetine HCL [Cymbalta] 40 mg PO DAILY Potassium Chloride 10 meq PO BID Discharge Medication List Simvastatin [Zocor] 40 mg PO HS 09/28/15 [History] Amitriptyline HCl [Elavil] 75 mg PO HS 09/29/15 [History] Divalproex [Depakote] 500 mg PO BID 02/11/16 [History] Folic Acid 0.8 mg PO HS 02/11/16 [History] Methotrexate Sodium [Methotrexate] 20 mg PO WE 02/11/16 [History] Ranitidine HCl [Zantac] 150 mg PO BID 04/28/16 [History] DULoxetine HCL [Cymbalta] 40 mg PO DAILY 11/21/18 [History] Levothyroxine Sodium [Synthroid] 125 mcg PO DAILY 11/21/18 [History] Potassium Chloride 10 meq PO BID 11/21/18 [History] QUEtiapine [SEROquel] 100 mg PO HS 11/21/18 [History] Metoprolol Tartrate [Lopressor] 25 mg PO BID 30 Days #60 tab 11/22/18 [Rx] Follow up Appointment(s)/Referral(s): Chan Farris MD [STAFF PHYSICIAN] - 4 Weeks Bhumi Mcneill DO [Primary Care Provider] - 1-2 days Activity/Diet/Wound Care/Special Instructions: Rib fracture, don't lift over 1 pound. Limited left arm movement for 6 weeks Diet regular
== END 2018-11-22 15:40 | disposition home or self-care (01) ==
LOC: EC 18:28 → 1SOBS 19:56
PROVIDERS: ADMIT Internal Medicine; ATTEND Internal Medicine
DX: R07.2 Precordial pain (principal); R07.89 Other chest pain; S22.32XA Fracture of one rib, left side, initial encounter for closed fracture; E78.5 Hyperlipidemia, unspecified; J44.9 Chronic obstructive pulmonary disease, unspecified; F31.9 Bipolar disorder, unspecified; F41.0 Panic disorder [episodic paroxysmal anxiety]; F43.10 Post-traumatic stress disorder, unspecified; K21.9 Gastro-esophageal reflux disease without esophagitis; I10 Essential (primary) hypertension; M06.9 Rheumatoid arthritis, unspecified; G47.30 Sleep apnea, unspecified; E03.9 Hypothyroidism, unspecified; M10.9 Gout, unspecified; G43.909 Migraine, unspecified, not intractable, without status migrainosus; E66.9 Obesity, unspecified; Z68.33 Body mass index [BMI] 33.0-33.9, adult; W01.0XXA Fall on same level from slipping, tripping and stumbling without subsequent striking against object, initial encounter; Z87.891 Personal history of nicotine dependence; Y92.002 Bathroom of unspecified non-institutional (private) residence as the place of occurrence of the external cause; Z79.899 Other long term (current) drug therapy; Z79.890 Hormone replacement therapy; Z88.0 Allergy status to penicillin; Z81.8 Family history of other mental and behavioral disorders; Z84.1 Family history of disorders of kidney and ureter
CPT/HCPCS: 96366 ×2; 96376; 96361; 96365; 99291; 36415; 93005; 93306; 85379; 83880; 80061; 80053 ×2; 83690; 83735; 84484 ×2; 85025 ×2; 85049; 85610; 85730 ×2; 71110; 71275; G0378 ×2; J1644 ×2; J8610; Q9967

== ENCOUNTER 2018-12-27 20:31 | Emergency (ER) | payer MEDICARE ==
[2018-12-27 20:44] VITALS: TEMP 97.9
--- NOTE | 2018-12-27 21:19 | ED ---
Fall HPI - General Chief Complaint: Fall Stated Complaint: Fall Time Seen by Provider: 12/27/18 21:09 Source: patient Mode of arrival: ambulatory - History of Present Illness Initial Comments: Mayito is a 63yo female who presents to the ED today for evaluation of buttock pain. Patient states she was standing on a chair when she lost her balance falling backward striking her buttock on the coffee table then falling backward and hitting her head. She did not lose consciousness, she is not on any anticoagulant or antiplatelet medications. Patient complains of pain in her buttock bilaterally. - Related Data Home Medications Medication Instructions Recorded Confirmed Simvastatin [Zocor] 40 mg PO HS 09/28/15 12/27/18 Divalproex [Depakote] 500 mg PO BID 02/11/16 12/27/18 Folic Acid 0.8 mg PO HS 02/11/16 12/27/18 Methotrexate Sodium [Methotrexate] 20 mg PO WE 02/11/16 12/27/18 Ranitidine HCl [Zantac] 150 mg PO BID 04/28/16 12/27/18 DULoxetine HCL [Cymbalta] 40 mg PO DAILY 11/21/18 12/27/18 Levothyroxine Sodium [Synthroid] 125 mcg PO DAILY 11/21/18 12/27/18 Potassium Chloride 10 meq PO DAILY 11/21/18 12/27/18 QUEtiapine [SEROquel] 100 mg PO HS 11/21/18 12/27/18 Amitriptyline HCl [Elavil] 100 mg PO HS 12/27/18 12/27/18 Previous Rx's Medication Instructions Recorded Cyclobenzaprine [Flexeril] 10 mg PO TID #60 tab 12/27/18 Ibuprofen [Motrin] 800 mg PO TID #60 tab 12/27/18 Allergies Allergy/AdvReac Type Severity Reaction Status Date / Time Penicillins Allergy Rash/Hives Verified 12/27/18 21:51 Review of Systems ROS Statement: Those systems with pertinent positive or pertinent negative responses have been documented in the HPI. ROS Other: All systems not noted in ROS Statement are negative. Past Medical History Past Medical History: Chest Pain / Angina, COPD, GERD/Reflux, Hyperlipidemia, Hypertension, Rheumatoid Arthritis (RA), Sleep Apnea/CPAP/BIPAP, Thyroid Disorder Additional Past Medical History / Comment(s): GOUT, migraines, no cpap used, diff swallowing, colitis, pancreatitis History of Any Multi-Drug Resistant Organisms: None Reported Past Surgical History: Orthopedic Surgery, Tonsillectomy Additional Past Surgical History / Comment(s): rt knee arthroscopy,left thyroplasty, Past Anesthesia/Blood Transfusion Reactions: Motion Sickness Past Psychological History: Anxiety, Bipolar, Depression, Panic Disorder Smoking Status: Former smoker Past Alcohol Use History: None Reported Past Drug Use History: None Reported - Past Family History Father History Unknown: Yes Family Medical History: Dementia Additional Family Medical History / Comment(s): LEG AMP AT AGE 13 FROM TRAIN ACCIDENT. Mother History Unknown: Yes Family Medical History: No Reported History Additional Family Medical History / Comment(s): AGE 34 KIDNEY FAILURE General Exam - General Exam Comments Initial Comments: Physical Exam GENERAL: Patient is well-developed and well-nourished. Patient is nontoxic and well-hydrated and is in no distress. HENT: Normocephalic, Atraumatic. EYES: PERRL, EOMI PULMONARY: Unlabored respirations. No audible rales rhonchi or wheezing was noted. CARDIOVASCULAR: RRR ABDOMEN: Soft and nontender with normal bowel sounds. SKIN: Skin is clear with no lesions or rashes and otherwise unremarkable. : Deferred NEUROLOGIC: Patient is alert and oriented x3. Moving all extremities spontaneously MUSCULOSKELETAL: Tenderness to palpation of bilateral ischial tuberosity, no tenderness to sacrum or coccyx Full ROM of hips, normal gait PSYCHIATRIC: Normal psychiatric evaluation Limitations: no limitations Course Vital Signs 12/27/18 12/28/18 20:41 00:39 Temperature 97.9 F Pulse Rate 93 68 Respiratory 18 16 Rate Blood Pressure 130/72 144/93 O2 Sat by Pulse 95 100 Oximetry Medical Decision Making - Medical Decision Making She was seen and evaluated history is obtained from the patient Patient had a fall from chair landing in a sitting position on a coffee table and then falling backwards and hitting her head of the ground she had no LOC she has no obvious head injuries Upon initial evaluation the patient was hunched over complaining of pain in her bilateral ischial tuberosities, no obvious bruising or injury Trauma workup was initiated Morphine was given for pain Imaging with no acute injuries noted She reported significant improvement in her pain after morphine she reports now she just feels as though her entire body has a "toothache" she requesting discharge home We'll give patient muscle relaxers and discharged home with Motrin and muscle relaxers patient's agreeable with this plan All questions pertaining care were answered return parameters were discussed patient was discharged home in stable condition. - Lab Data Result diagrams: 12/27/18 21:30 12/27/18 21:30 Lab Results 12/27/18 12/27/18 12/27/18 Range/Units 21:30 21:30 21:30 WBC 7.7 (3.8-10.6) k/uL RBC 4.40 (3.80-5.40) m/uL Hgb 13.0 (11.4-16.0) gm/dL Hct 41.5 (34.0-46.0) % MCV 94.2 (80.0-100.0) fL MCH 29.7 (25.0-35.0) pg MCHC 31.5 (31.0-37.0) g/dL RDW 15.3 (11.5-15.5) % Plt Count 253 (150-450) k/uL Neutrophils % 60 % Lymphocytes % 28 % Monocytes % 8 % Eosinophils % 3 % Basophils % 0 % Neutrophils # 4.6 (1.3-7.7) k/uL Lymphocytes # 2.2 (1.0-4.8) k/uL Monocytes # 0.6 (0-1.0) k/uL Eosinophils # 0.2 (0-0.7) k/uL Basophils # 0.0 (0-0.2) k/uL PT 10.1 (9.0-12.0) sec INR 0.9 (<1.2) APTT 23.8 (22.0-30.0) sec Sodium 141 (137-145) mmol/L Potassium 4.1 (3.5-5.1) mmol/L Chloride 105 (98-107) mmol/L Carbon Dioxide 27 (22-30) mmol/L Anion Gap 9 mmol/L BUN 13 (7-17) mg/dL Creatinine 1.07 H (0.52-1.04) mg/dL Est GFR (CKD-EPI)AfAm 64 (>60 ml/min/1.73 sqM) Est GFR (CKD-EPI)NonAf 56 (>60 ml/min/1.73 sqM) Glucose 90 (74-99) mg/dL Calcium 9.5 (8.4-10.2) mg/dL Total Bilirubin 0.2 (0.2-1.3) mg/dL AST 31 (14-36) U/L ALT 20 (9-52) U/L Alkaline Phosphatase 96 (38-126) U/L Troponin I (0.000-0.034) ng/mL Total Protein 7.4 (6.3-8.2) g/dL Albumin 4.2 (3.5-5.0) g/dL Serum Alcohol <10 mg/dL Blood Type Blood Type Recheck Antibody Screen Spec Expiration Date 12/27/18 12/27/18 Range/Units 21:30 21:30 WBC (3.8-10.6) k/uL RBC (3.80-5.40) m/uL Hgb (11.4-16.0) gm/dL Hct (34.0-46.0) % MCV (80.0-100.0) fL MCH (25.0-35.0) pg MCHC (31.0-37.0) g/dL RDW (11.5-15.5) % Plt Count (150-450) k/uL Neutrophils % % Lymphocytes % % Monocytes % % Eosinophils % % Basophils % % Neutrophils # (1.3-7.7) k/uL Lymphocytes # (1.0-4.8) k/uL Monocytes # (0-1.0) k/uL Eosinophils # (0-0.7) k/uL Basophils # (0-0.2) k/uL PT (9.0-12.0) sec INR (<1.2) APTT (22.0-30.0) sec Sodium (137-145) mmol/L Potassium (3.5-5.1) mmol/L Chloride (98-107) mmol/L Carbon Dioxide (22-30) mmol/L Anion Gap mmol/L BUN (7-17) mg/dL Creatinine (0.52-1.04) mg/dL Est GFR (CKD-EPI)AfAm (>60 ml/min/1.73 sqM) Est GFR (CKD-EPI)NonAf (>60 ml/min/1.73 sqM) Glucose (74-99) mg/dL Calcium (8.4-10.2) mg/dL Total Bilirubin (0.2-1.3) mg/dL AST (14-36) U/L ALT (9-52) U/L Alkaline Phosphatase (38-126) U/L Troponin I <0.012 (0.000-0.034) ng/mL Total Protein (6.3-8.2) g/dL Albumin (3.5-5.0) g/dL Serum Alcohol mg/dL Blood Type A Positive Blood Type Recheck CABO Indicated Antibody Screen NEGATIVE Spec Expiration Date 12/30/2018 - 233 Disposition Clinical Impression: Fall Disposition: HOME SELF-CARE Condition: Stable Instructions (If sedation given, give patient instructions): Fall Prevention for Older Adults (ED) Prescriptions: Cyclobenzaprine [Flexeril] 10 mg PO TID #60 tab Ibuprofen [Motrin] 800 mg PO TID #60 tab Is patient prescribed a controlled substance at d/c from ED?: No Referrals: Bhumi Mcneill DO [Primary Care Provider] - 1-2 days
[2018-12-27] MEDS ORDERED: MORPHINE SULFATE 4 MG/ML SYRINGE IVP STA (21:25)
[2018-12-27 21:58] LABS: Basophils % (A) 0 %; Eosinophils # (A) 0.2 k/uL (0-0.7); Eosinophils % (A) 3 %; HCT 41.5 % (34.0-46.0); Lymphocytes # (A) 2.2 k/uL (1.0-4.8); Lymphocytes % (A) 28 %; MCH 29.7 pg (25.0-35.0); MCHC 31.5 g/dL (31.0-37.0); MCV 94.2 fL (80.0-100.0); Monocytes # (A) 0.6 k/uL (0-1.0); Monocytes % (A) 8 %; Neutrophils # (A) 4.6 k/uL (1.3-7.7); Neutrophils % (A) 60 %; Platelet Count 253 k/uL (150-450); RDW 15.3 % (11.5-15.5); WBC 7.7 k/uL (3.8-10.6)
[2018-12-27 22:03] LABS: ALT 20 U/L (9-52); AST 31 U/L (14-36); Albumin 4.2 g/dL (3.5-5.0); Alcohol <10 mg/dL; Alkaline Phosphatase 96 U/L (38-126); Anion Gap 9 mmol/L; Blood Urea Nitrogen 13 mg/dL (7-17); Calcium 9.5 mg/dL (8.4-10.2); Carbon Dioxide 27 mmol/L (22-30); Chloride 105 mmol/L (98-107); Glucose 90 mg/dL (74-99); Potassium 4.1 mmol/L (3.5-5.1); Sodium 141 mmol/L (137-145); Total Bilirubin 0.2 mg/dL (0.2-1.3); Total Protein 7.4 g/dL (6.3-8.2)
[2018-12-27 22:18] LABS: INR 0.9 (<1.2); Partial Thromboplastin Time 23.8 sec (22.0-30.0); Prothrombin Time 10.1 sec (9.0-12.0)
--- NOTE | 2018-12-27 22:54 | CT ---
EXAM: CT Head Without Intravenous Contrast CLINICAL HISTORY: ITS.REASON CT Reason: trauma TECHNIQUE: Axial computed tomography images of the head/brain without intravenous contrast. CTDI is 45.2 mGy and DLP is 1048 mGy-cm. This CT exam was performed using one or more of the following dose reduction techniques: automated exposure control, adjustment of the mA and/or kV according to patient size, and/or use of iterative reconstruction technique. COMPARISON: CT head on 02/11/2016 and MRI brain on 02/11/2016. FINDINGS: Brain: No acute infarct or hemorrhage identified. No extra-axial fluid collection. No mass effect or midline shift. Stable areas of hypoattenuation in the supratentorial white matter likely represent chronic small vessel ischemic changes. Ventricles and sulci: Stable prominence of the ventricles and sulci is likely secondary to cerebral volume loss. Skull: Hyperostosis frontalis interna. No bony lesion or fracture. Subcutaneous tissues: Normal. Sinuses: Normal. No air-fluid levels or mucosal thickening. Orbits: Grossly unremarkable. Other: Atherosclerotic calcifications in the intracranial vasculature. Dental disease. IMPRESSION: 1. No acute intracranial abnormality. 2. Stable mild chronic small vessel ischemic changes and cerebral volume loss. EXAM: CT Cervical Spine Without Intravenous Contrast CLINICAL HISTORY: ITS.REASON CT Reason: trauma TECHNIQUE: Axial computed tomography images of the cervical spine without intravenous contrast. CTDI is 11.4 mGy and DLP is 322.8 mGy-cm. This CT exam was performed using one or more of the following dose reduction techniques: automated exposure control, adjustment of the mA and/or kV according to patient size, and/or use of iterative reconstruction technique. COMPARISON: None FINDINGS: Bones: Normal alignment. No acute fracture or bony lesion in the cervical spine. Small ossification in the nuchal ligament is likely related to remote trauma. Age indeterminate but possibly chronic mild superior endplate compression deformity of the T3 vertebral body. Disc spaces: No subluxation. Degenerative changes of the spine. Soft tissues: Normal. Other: Emphysematous changes in the visualized upper lungs. Atherosclerotic changes of the vasculature. IMPRESSION: No acute traumatic abnormality in the cervical spine. Age indeterminate but possibly chronic mild superior endplate compression deformity of the T3 vertebral body.
--- NOTE | 2018-12-27 23:04 | CT ---
EXAM: CT Chest With Intravenous Contrast CLINICAL HISTORY: ITS.REASON CT Reason: trauma TECHNIQUE: Axial computed tomography images of the chest with intravenous contrast. CTDI is 10.2 mGy and DLP is 740 mGy-cm. This CT exam was performed using one or more of the following dose reduction techniques: automated exposure control, adjustment of the mA and/or kV according to patient size, and/or use of iterative reconstruction technique. COMPARISON: CT chest on 11/21/2018 FINDINGS: Lung parenchyma: Centrilobular emphysematous changes. Mild dependent atelectasis bilaterally. No focal consolidation. No nodule. Pleural space: Normal. No pleural effusion or pneumothorax. Mediastinum/marcin: Nonspecific small mediastinal lymph nodes which may be reactive. Heart: Normal. No cardiomegaly or pericardial effusion. Vasculature: No pulmonary embolus, but this was not performed as a PE study. Aorta: Mild atherosclerotic calcifications. No aneurysm or dissection. Airways: Patent. Bones: Old left-sided rib fracture deformities. Degenerative changes of the spine. Stable chronic mild superior endplate compression deformity of the T3 vertebral body. Muscles: No mass. Subcutaneous tissues: Normal. IMPRESSION: No acute traumatic abnormality in the chest. EXAM: CT Abdomen and Pelvis With Intravenous Contrast CLINICAL HISTORY: ITS.REASON CT Reason: trauma TECHNIQUE: Axial computed tomography images of the abdomen and pelvis with intravenous contrast. CTDI is 10.2 mGy and DLP is 740 mGy-cm. This CT exam was performed using one or more of the following dose reduction techniques: automated exposure control, adjustment of the mA and/or kV according to patient size, and/or use of iterative reconstruction technique. COMPARISON: CT abdomen/pelvis on 04/28/2016 FINDINGS: Liver: Normal. No focal lesion. Spleen: Lobulated spleen. No focal lesion. Gallbladder: Normal. No stones or biliary dilatation. Pancreas: No acute inflammation. Similar nonspecific 1.3 cm hypodense lesion in the pancreatic body. Adrenal glands: Normal. No mass. Kidneys: Normal. No hydronephrosis or stone. No mass. Bowel: Diverticulosis without evidence of diverticulitis. Large amount of stool in the colon. Normal appendix. No bowel obstruction or inflammation. Urinary bladder: Nonspecific mild prominence of the bladder wall. Reproductive organs: Calcified uterine fibroids. Retroverted uterus. Muscles: No mass. Subcutaneous tissues: Small fat-containing umbilical hernia. Peritoneal space: Normal. No free fluid. Lymph nodes: Normal. No lymphadenopathy. Vessels: Atherosclerotic changes of the vasculature. No aneurysm or dissection. Bones: Degenerative changes of the spine. Degenerative grade 1 anterolisthesis of L4 on L5. No acute fracture or bony lesion. IMPRESSION: No acute traumatic abnormality in the abdomen or pelvis. Again seen is a similar 1.3 cm hypodense lesion in the pancreatic body.
--- NOTE | 2018-12-27 23:10 | CT ---
EXAM: CT Thoracic Spine Without Intravenous Contrast CLINICAL HISTORY: ITS.REASON CT Reason: trauma TECHNIQUE: Axial computed tomography images of the thoracic spine without intravenous contrast. CTDI is 10.2 mGy and DLP is 740 mGy-cm. This CT exam was performed using one or more of the following dose reduction techniques: automated exposure control, adjustment of the mA and/or kV according to patient size, and/or use of iterative reconstruction technique. COMPARISON: CT chest on 11/21/2018 FINDINGS: Bones: Normal alignment. No acute fracture or bony lesion. Stable mild superior endplate compression deformity of the T3 vertebral body. Disc spaces: No subluxation. Degenerative changes of the spine. Soft tissues: Normal. Other: Please see accompanying CT chest. IMPRESSION: No acute traumatic abnormality in the thoracic spine. EXAM: CT Lumbar Spine Without Intravenous Contrast CLINICAL HISTORY: ITS.REASON CT Reason: trauma TECHNIQUE: Axial computed tomography images of the lumbar spine without intravenous contrast. CTDI is 10.2 mGy and DLP is 740 mGy-cm. This CT exam was performed using one or more of the following dose reduction techniques: automated exposure control, adjustment of the mA and/or kV according to patient size, and/or use of iterative reconstruction technique. COMPARISON: CT abdomen/pelvis on 04/28/2016 FINDINGS: Bones: Normal alignment. No acute fracture or bony lesion. Disc spaces: Degenerative changes of the spine. Degenerative grade 1 anterolisthesis of L4 on L5. Soft tissues: Normal. Other: Please see accompanying CT abdomen/pelvis. IMPRESSION: No acute traumatic abnormality in the lumbar spine.
[2018-12-27] MEDS ORDERED: DIAZEPAM 5 MG/ML 2 ML INJ IVP STA (23:49)
[2018-12-28 00:41] VITALS: BP 144/93; PULSE 68; RESP 16
== END 2018-12-28 00:41 | disposition home or self-care (01) ==
LOC: EC 20:31
DX: M54.5 Low back pain (principal); E78.5 Hyperlipidemia, unspecified; I10 Essential (primary) hypertension; K21.9 Gastro-esophageal reflux disease without esophagitis; M06.9 Rheumatoid arthritis, unspecified; F31.9 Bipolar disorder, unspecified; F41.0 Panic disorder [episodic paroxysmal anxiety]; Z87.891 Personal history of nicotine dependence; Z79.890 Hormone replacement therapy; Z79.899 Other long term (current) drug therapy; Z88.0 Allergy status to penicillin; W07.XXXA Fall from chair, initial encounter
CPT/HCPCS: 36415; 86900; 86901; 80053; 84484; 85025; 85610; 85730; 86850; 72129; 72125; 72132; 70450; 71260; 74177; 99284; 96374; 96375; G0480; J2270; Q9967; 80320

== ENCOUNTER 2019-01-18 23:46 | Emergency (ER) | payer MEDICARE ==
[2019-01-19] MEDS ORDERED: SODIUM CHLORIDE 0.9% 500 ML 500 ML IV ONE ×2 (00:25→01:12)
[2019-01-19] MEDS ORDERED: HYDROcodone/APAP 5-325MG 1 EACH TAB PO STA (00:26)
[2019-01-19 00:41] LABS: Basophils % (A) 0 %; Eosinophils # (A) 0.3 k/uL (0-0.7); Eosinophils % (A) 3 %; HCT 40.8 % (34.0-46.0); HGB 12.9 gm/dL (11.4-16.0); Lymphocytes # (A) 1.6 k/uL (1.0-4.8); Lymphocytes % (A) 18 %; MCH 29.7 pg (25.0-35.0); MCHC 31.5 g/dL (31.0-37.0); MCV 94.3 fL (80.0-100.0); Mean Platelet Volume 6.8; Monocytes # (A) 0.6 k/uL (0-1.0); Monocytes % (A) 7 %; Neutrophils # (A) 6.4 k/uL (1.3-7.7); Neutrophils % (A) 70 %; Platelet Count 290 k/uL (150-450); RBC 4.33 m/uL (3.80-5.40); RDW 15.5 % (11.5-15.5); WBC 9.1 k/uL (3.8-10.6)
[2019-01-19 00:52] LABS: Albumin 4.1 g/dL (3.5-5.0); Calcium 9.2 mg/dL (8.4-10.2); Magnesium 2.1 mg/dL (1.6-2.3); Total Bilirubin 0.4 mg/dL (0.2-1.3); Total Protein 7.3 g/dL (6.3-8.2)
--- NOTE | 2019-01-19 00:55 | XR ---
EXAM: XR Lumbar Spine, 2 or 3 Views CLINICAL HISTORY: Its. reason XR Reason: Pain TECHNIQUE: Frontal and lateral views of the lumbar spine. COMPARISON: L-spine radiography 09/07/17 FINDINGS: Vertebrae: Grade 1 degenerative anterolisthesis of L4 on L5. No acute or healing fracture or other malalignment. Disc spaces: No acute findings. No significant narrowing. Soft tissues: Unremarkable. IMPRESSION: Grade 1 degenerative anterolisthesis of L4 on L5. No acute or healing fracture or other malalignment.
[2019-01-19 01:58] LABS: Appearance,Urine Clear (Clear); Bacteria,Urine Rare /hpf; Bilirubin,Urine Negative (Negative); Blood,Urine Negative (Negative); Cellular Casts,Urine 3 /lpf (0); Color,Urine Yellow; Glucose,Urine (UA) Negative (Negative); Hyaline Casts,Urine 28 /lpf (0-2); Ketones,Urine Negative (Negative); Leukocyte Esterase,Urine Large (Negative); Mucus,Urine Rare /hpf; Nitrite,Urine Negative (Negative); PH, Urine 6.5 (5.0-8.0); Protein,Urine Trace (Negative); RBC,Urine 1 /hpf (0-5); Specific Gravity,Urine 1.017 (1.001-1.035); Squamous Epithelial Cell,Urine 3 /hpf (0-4); Urobilinogen,Urine <2.0 mg/dL (<2.0)
--- NOTE | 2019-01-19 02:15 | ED ---
General Adult HPI - General Chief complaint: Fall Stated complaint: Fall Time Seen by Provider: 01/18/19 23:52 Source: patient Mode of arrival: ambulatory - History of Present Illness Initial comments: 63-year-old female patient presents to the emergency department today for evalu ation of low back pain and frequent falls. Patient states that over the last month she has had 4 falls. Patient states that her last fall was one week ago. States that she did fall landing on her buttocks. States she's been having pain just above her gluteal cleft since. Patient states that the pain is a throbbing type pain. States she cannot take it any longer so she presented here for furt her evaluation. Patient states she is able to walk without assistance however occasionally her legs give out causing the falls. States occasionally she feels dizzy but this is not new for her. She denies any numbness or tingling to the lower extremities. Denies any loss of bowel or bladder control. Denies any saddle anesthesia. She denies hitting her head or losing consciousness with the falls. Denies any chest pain or shortness of breath. Patient denies any recent rash, fever, chills, abdominal pain, nausea, vomiting, diarrhea, constipation, dizziness, weakness, hematuria, dysuria, urinary urgency, urinary frequency, headache, visual changes, or any other complaints. - Related Data Home Medications Medication Instructions Recorded Confirmed Simvastatin [Zocor] 40 mg PO HS 09/28/15 12/27/18 Divalproex [Depakote] 500 mg PO BID 02/11/16 12/27/18 Folic Acid 0.8 mg PO HS 02/11/16 12/27/18 Methotrexate Sodium [Methotrexate] 20 mg PO WE 02/11/16 12/27/18 Ranitidine HCl [Zantac] 150 mg PO BID 04/28/16 12/27/18 DULoxetine HCL [Cymbalta] 40 mg PO DAILY 11/21/18 12/27/18 Levothyroxine Sodium [Synthroid] 125 mcg PO DAILY 11/21/18 12/27/18 Potassium Chloride 10 meq PO DAILY 11/21/18 12/27/18 QUEtiapine [SEROquel] 100 mg PO HS 11/21/18 12/27/18 Amitriptyline HCl [Elavil] 100 mg PO HS 12/27/18 12/27/18 Previous Rx's Medication Instructions Recorded Cyclobenzaprine [Flexeril] 10 mg PO TID #60 tab 12/27/18 Ibuprofen [Motrin] 800 mg PO TID #60 tab 12/27/18 Allergies Allergy/AdvReac Type Severity Reaction Status Date / Time Penicillins Allergy Rash/Hives Verified 12/27/18 21:51 Review of Systems ROS Statement: Those systems with pertinent positive or pertinent negative responses have been documented in the HPI. ROS Other: All systems not noted in ROS Statement are negative. Past Medical History Past Medical History: Chest Pain / Angina, COPD, GERD/Reflux, Hyperlipidemia, Hypertension, Rheumatoid Arthritis (RA), Sleep Apnea/CPAP/BIPAP, Thyroid Disorder Additional Past Medical History / Comment(s): GOUT, migraines, no cpap used, diff swallowing, colitis, pancreatitis History of Any Multi-Drug Resistant Organisms: None Reported Past Surgical History: Orthopedic Surgery, Tonsillectomy Additional Past Surgical History / Comment(s): rt knee arthroscopy,left thyroplasty, Past Anesthesia/Blood Transfusion Reactions: Motion Sickness Past Psychological History: Anxiety, Bipolar, Depression, Panic Disorder Smoking Status: Former smoker Past Alcohol Use History: None Reported Past Drug Use History: None Reported - Past Family History Father History Unknown: Yes Family Medical History: Dementia Additional Family Medical History / Comment(s): LEG AMP AT AGE 13 FROM TRAIN ACCIDENT. Mother History Unknown: Yes Family Medical History: No Reported History Additional Family Medical History / Comment(s): AGE 34 KIDNEY FAILURE General Exam General appearance: alert, in no apparent distress, other (This is a well- developed, well-nourished adult female patient in no acute distress. Vital signs upon presentation are temperature 98.1F, pulse 81, respirations 16, blood pressure 127/79, pulse ox 96% on room air.) Eye exam: Present: normal appearance, PERRL, EOMI. Absent: scleral icterus, conjunctival injection, periorbital swelling ENT exam: Present: normal exam, normal oropharynx, mucous membranes moist, TM's normal bilaterally Neck exam: Present: normal inspection, full ROM, other (Nontender, no step-off, no deformity to firm midline palpation of the posterior cervical spine. Full range of motion without pain or limitation.). Absent: tenderness, meningismus, lymphadenopathy Respiratory exam: Present: normal lung sounds bilaterally. Absent: respiratory distress, wheezes, rales, rhonchi, stridor Cardiovascular Exam: Present: regular rate, normal rhythm, normal heart sounds. Absent: systolic murmur, diastolic murmur, rubs, gallop, clicks GI/Abdominal exam: Present: soft, normal bowel sounds. Absent: distended, ten derness, guarding, rebound, rigid Extremities exam: Present: normal inspection, full ROM, normal capillary refill, other (Skin to the lower extremities is pink, warm, dry. Cap refills less than 3 seconds. Pedal pulses 2+ and equal bilaterally.). Absent: tenderness, pedal edema, joint swelling, calf tenderness Back exam: Present: normal inspection, vertebral tenderness (Lower lumbar tenderness) Neurological exam: Present: alert, oriented X3, CN II-XII intact Psychiatric exam: Present: normal affect, normal mood Skin exam: Present: warm, dry, intact, normal color. Absent: rash Course Vital Signs 01/18/19 01/19/19 01/19/19 23:51 02:18 02:59 Temperature 98.1 F 98.6 F Pulse Rate 81 70 Respiratory 16 14 Rate Blood Pressure 127/79 139/95 146/80 O2 Sat by Pulse 96 96 98 Oximetry EKG Findings - EKG Comments: EKG Findings:: EKG obtained at 0002 shows normal sinus rhythm with a ventricular rate of 76, ME interval 170, QRS duration 90, QT 386, QTc 434. No evidence of ST elevation or depression. Medical Decision Making - Medical Decision Making 63-year-old female patient presents to the emergency department today for evaluation of low back pain after experiencing multiple falls this month. Physical examination did reveal some lower lumbar tenderness. She was neurologically intact with no focal deficits. No concerning symptoms for cauda equina. Labs reviewed and are unremarkable. Urinalysis showed large leukocyte esterase, no white blood cells, presence of bacteria, this was sent for culture. She is not having any urinary symptoms at this time. X-ray of the lumbar sacral spine was obtained and showed no acute fractures noted healing fractures, there was L4 and L5 anterolisthesis noted. I did discuss findings and results with the patient. We did discuss using ambulatory aides to prevent falling. She is instructed to follow-up with her primary care physician for further evaluation and any further pain medication. Return parameters were discussed in detail. She verbalizes understanding and agrees with this plan. - Lab Data Result diagrams: 01/19/19 00:18 01/19/19 00:18 Lab Results 01/19/19 01/19/19 01/19/19 Range/Units 00:18 00:18 01:40 WBC 9.1 (3.8-10.6) k/uL RBC 4.33 (3.80-5.40) m/uL Hgb 12.9 (11.4-16.0) gm/dL Hct 40.8 (34.0-46.0) % MCV 94.3 (80.0-100.0) fL MCH 29.7 (25.0-35.0) pg MCHC 31.5 (31.0-37.0) g/dL RDW 15.5 (11.5-15.5) % Plt Count 290 (150-450) k/uL Neutrophils % 70 % Lymphocytes % 18 % Monocytes % 7 % Eosinophils % 3 % Basophils % 0 % Neutrophils # 6.4 (1.3-7.7) k/uL Lymphocytes # 1.6 (1.0-4.8) k/uL Monocytes # 0.6 (0-1.0) k/uL Eosinophils # 0.3 (0-0.7) k/uL Basophils # 0.0 (0-0.2) k/uL Sodium 141 (137-145) mmol/L Potassium 4.0 (3.5-5.1) mmol/L Chloride 106 (98-107) mmol/L Carbon Dioxide 24 (22-30) mmol/L Anion Gap 11 mmol/L BUN 27 H (7-17) mg/dL Creatinine 1.15 H (0.52-1.04) mg/dL Est GFR (CKD-EPI)AfAm 59 (>60 ml/min/1.73 sqM) Est GFR (CKD-EPI)NonAf 51 (>60 ml/min/1.73 sqM) Glucose 82 (74-99) mg/dL Calcium 9.2 (8.4-10.2) mg/dL Magnesium 2.1 (1.6-2.3) mg/dL Total Bilirubin 0.4 (0.2-1.3) mg/dL AST 35 (14-36) U/L ALT 27 (9-52) U/L Alkaline Phosphatase 142 H (38-126) U/L Total Protein 7.3 (6.3-8.2) g/dL Albumin 4.1 (3.5-5.0) g/dL Urine Color Yellow Urine Appearance Clear (Clear) Urine pH 6.5 (5.0-8.0) Ur Specific [place] 1.017 (1.001-1.035) Urine Protein Trace H (Negative) Urine Glucose (UA) Negative (Negative) Urine Ketones Negative (Negative) Urine Blood Negative (Negative) Urine Nitrite Negative (Negative) Urine Bilirubin Negative (Negative) Urine Urobilinogen <2.0 (<2.0) mg/dL Ur Leukocyte Esterase Large H (Negative) Urine RBC 1 (0-5) /hpf Urine WBC 25 H (0-5) /hpf Ur Squamous Epith Cells 3 (0-4) /hpf Urine Bacteria Rare H (None) /hpf Cellular Casts 3 (0) /lpf Hyaline Casts 28 H (0-2) /lpf Urine Mucus Rare H (None) /hpf - Radiology Data Radiology results: report reviewed, image reviewed 3 views of the lumbar sacral spine was obtained. Report was reviewed in its entirety. Impression by Dr. House shows grade 1 degenerative anterolisthesis of L4 on L5. No acute or healing fracture or other malalignment. Disposition Clinical Impression: Acute low back pain Disposition: HOME SELF-CARE Condition: Good Instructions (If sedation given, give patient instructions): Fall Prevention for Older Adults (ED), Back Pain (ED) Additional Instructions: Increase fluids. Follow-up with your primary care physician for recheck in 1-2 days. Use ambulatory aid such as a walker or cane to assist with prevention of falling. Return to the emergency department immediately for any new, worsening, or concerning symptoms. Is patient prescribed a controlled substance at d/c from ED?: No Referrals: Bhumi Mcneill DO [Primary Care Provider] - 1-2 days Time of Disposition: 02:19
[2019-01-19 03:03] VITALS: BP 146/80; PULSE 70; RESP 14; TEMP 98.6
[2019-01-19] MEDS ORDERED: ACET/COD 300 MG/30 MG STARTER PACK 6 TAB BTL PO STA (03:08)
== END 2019-01-19 02:59 | disposition home or self-care (01) ==
LOC: EC 23:46
DX: M54.5 Low back pain (principal); M43.16 Spondylolisthesis, lumbar region; E78.5 Hyperlipidemia, unspecified; M06.9 Rheumatoid arthritis, unspecified; K21.9 Gastro-esophageal reflux disease without esophagitis; I10 Essential (primary) hypertension; E07.9 Disorder of thyroid, unspecified; F41.0 Panic disorder [episodic paroxysmal anxiety]; G47.30 Sleep apnea, unspecified; F31.9 Bipolar disorder, unspecified; Z79.899 Other long term (current) drug therapy; Z79.890 Hormone replacement therapy; Z88.0 Allergy status to penicillin; Z87.891 Personal history of nicotine dependence
CPT/HCPCS: 36415; 72110; 80053; 81001; 83735; 85025; 87086; 99284

== ENCOUNTER 2019-01-23 14:13 | Emergency (ER) | payer MEDICARE ==
[2019-01-23 14:25] VITALS: BP 130/59; PULSE 83; RESP 18; TEMP 98.2
[2019-01-23] MEDS ORDERED: KETOROLAC 60 MG/2 ML VIAL IM STA (14:36)
[2019-01-23] MEDS ORDERED: HYDROcodone/APAP 5-325MG 1 EACH TAB PO STA (14:36)
[2019-01-23] MEDS ORDERED: CYCLOBENZAPRINE 10 MG TAB PO STA (14:36)
--- NOTE | 2019-01-23 14:55 | XR ---
Right hip HISTORY: Pain 2 views of the right hip Bone mineralization slightly reduced, joint spaces and alignment are maintained. IMPRESSION: No fracture or dislocation. If occult fracture is suspected clinically then alternate denton ging may be of increased sensitivity.
--- NOTE | 2019-01-23 15:08 | ED ---
Back Pain HPI - General Chief Complaint: Back Pain/Injury Stated Complaint: lower back pain Time Seen by Provider: 01/23/19 14:17 Source: patient Limitations: no limitations - History of Present Illness Initial Comments: 63yo female presenting today for cc of low back pain x 4 weeks. Patient states that she has had multiple falls over the course of the past 4 weeks. With last b eing 1-2 weeks ago. Patient states that since she hasn't had a knot like feeling in the center of her low back. Near her tailbone. Patient denies loss of bowel bladder control urinary retention or urinary incontinence. Patient denies leg weakness or loss sensation lower extremity. Patient denies fevers. Patient states she is able to walk on his increases the pain in the back. Patient denies any radiation of the pain down the legs. Patient denies any head injury or recent falls the last week. Remaining review of systems negative upon arrival patient appears well no signs acute distress. Patient was put into the emergency room by EMS. Patient states she presented because of pain with is not controlled. - Related Data Home Medications Medication Instructions Recorded Confirmed Simvastatin [Zocor] 40 mg PO HS 09/28/15 12/27/18 Divalproex [Depakote] 500 mg PO BID 02/11/16 12/27/18 Folic Acid 0.8 mg PO HS 02/11/16 12/27/18 Methotrexate Sodium [Methotrexate] 20 mg PO WE 02/11/16 12/27/18 Ranitidine HCl [Zantac] 150 mg PO BID 04/28/16 12/27/18 DULoxetine HCL [Cymbalta] 40 mg PO DAILY 11/21/18 12/27/18 Levothyroxine Sodium [Synthroid] 125 mcg PO DAILY 11/21/18 12/27/18 Potassium Chloride 10 meq PO DAILY 11/21/18 12/27/18 QUEtiapine [SEROquel] 100 mg PO HS 11/21/18 12/27/18 Amitriptyline HCl [Elavil] 100 mg PO HS 12/27/18 12/27/18 Previous Rx's Medication Instructions Recorded Cyclobenzaprine [Flexeril] 10 mg PO TID #60 tab 12/27/18 Ibuprofen [Motrin] 800 mg PO TID #60 tab 12/27/18 Cyclobenzaprine [Flexeril] 10 mg PO HS PRN 7 Days #7 tab 01/23/19 HYDROcodone/APAP 5-325MG [[place] 1 tab PO Q6HR PRN 3 Days #12 tab 01/23/19 5-325] Sulfamethox-Tmp 800-160Mg [Bactrim 1 tab PO Q12HR 3 Days #6 tab 01/23/19 DS 800-160 mg] Allergies Allergy/AdvReac Type Severity Reaction Status Date / Time Penicillins Allergy Rash/Hives Verified 12/27/18 21:51 Review of Systems ROS Statement: Those systems with pertinent positive or pertinent negative responses have been documented in the HPI. ROS Other: All systems not noted in ROS Statement are negative. Past Medical History Past Medical History: Chest Pain / Angina, COPD, GERD/Reflux, Hyperlipidemia, Hypertension, Rheumatoid Arthritis (RA), Sleep Apnea/CPAP/BIPAP, Thyroid Disorder Additional Past Medical History / Comment(s): GOUT, migraines, no cpap used, d iff swallowing, colitis, pancreatitis bells palsy History of Any Multi-Drug Resistant Organisms: None Reported Past Surgical History: Orthopedic Surgery, Tonsillectomy Additional Past Surgical History / Comment(s): rt knee arthroscopy,left thyroplasty, Past Anesthesia/Blood Transfusion Reactions: Motion Sickness Past Psychological History: Anxiety, Bipolar, Depression, Panic Disorder Smoking Status: Former smoker Past Alcohol Use History: None Reported Past Drug Use History: None Reported - Past Family History Father History Unknown: Yes Family Medical History: Dementia Additional Family Medical History / Comment(s): LEG AMP AT AGE 13 FROM TRAIN ACCIDENT. Mother History Unknown: Yes Family Medical History: No Reported History Additional Family Medical History / Comment(s): AGE 34 KIDNEY FAILURE General Exam - General Exam Comments Initial Comments: General: The patient is awake and alert, in no distress, and does not appear a cutely ill. Eye: +2 mm pupils are equal, round and reactive to light, extra-ocular movements are intact. No nystagmus. There is normal conjunctiva bilaterally. No signs of icterus. Ears, nose, mouth and throat: There are moist mucous membranes and no oral lesions. Neck: The neck is supple, there is no tenderness or JVD. Cardiovascular: There is a regular rate and rhythm. No murmur, rub or gallop is appreciated. Respiratory: Lungs are clear to auscultation, respirations are non-labored, breath sounds are equal. No wheezes, stridor, rales, or rhonchi. Gastrointestinal: Soft, non-distended, non-tender abdomen without masses or or ganomegaly noted. There is no rebound or guarding present. No CVA tenderness. Bowel sounds are unremarkable. Musculoskeletal: Normal inspection cervical thoracic and lumbar spine. Patient has midline tenderness to palpation near the coccyx/sacral region. No thigh number paravertebral tenderness. Normal ROM, no tenderness. Strength 5/5 of the lower extremities equal and comparison bilaterally.. Negative logroll Sensation intact of the lower extremities equal comparison bilaterally including the saddle region. DP pulses equal bilaterally 2+. Patient able to ambualte without difficulty, patient climbed back into the bed independently. Neurological: A&O x 3. CN II-XII intact, There are no obvious motor or sensory deficits. Coordination appears grossly intact. Speech is normal. Skin: Skin is warm and dry and no rashes or lesions are noted. Psychiatric: Cooperative, appropriate mood & affect, normal judgment. Limitations: no limitations Course Vital Signs 01/23/19 01/23/19 14:21 15:29 Temperature 98.2 F 98.2 F Pulse Rate 83 83 Respiratory 18 18 Rate Blood Pressure 130/59 130/59 O2 Sat by Pulse 97 97 Oximetry Medical Decision Making - Medical Decision Making Well-appearing 63-year-old female presented for low back pain. Patient has history of recent fall. Patient did have CT of the lumbar spine as well as the abdomen and pelvis revealing no fractures. Patient states she did fall last week and her lumbar spine x-rays revealed no fractures. Patient pain was midline near the area of the sacrum or coccyx. X-ray of the right hip has patient states he felt more right-sided were obtained today revealing no acute osseous injury. Patient has negative leg roll. Patient able to ambulate and get into the bed independently. Patient is neurovascularly intact. There is no history findings or physical examination findings consistent with cauda equina. At this time feel patient is stable for discharge she will be given a prescription of [place] for breakthrough pain as well as muscle relaxant. The use of medications were discussed at length as well as the risks involved. Patient is agreeable For discharge at this time, as well a return parameters. I discussed the case with any provider Dr. Okeefe was agreeable to plan patient's discharge at this time. Patient states she was also told she had a UTI last visit and was not treated and is concerned, admits to occasional dysuria, denies fevers, abdominal pain, flank pain. Patient will be treated with bactrim. Disposition Clinical Impression: Low back pain, History of fall, UTI (urinary tract infection) Disposition: HOME SELF-CARE Condition: Good Instructions (If sedation given, give patient instructions): Acute Low Back Pain (ED) Additional Instructions: Please use medication as discussed. Do not use the Flexeril and [place] together, do not use medications while driving or operating machinery are working. Please follow-up with family doctor in the next 2 days. Please follow-up with orthopedic surgery if symptoms persist > 2 weeks. Please return to emergency room if the symptoms increase or worsen or for any other concerns, loss of bowel bladder control loss of sensation or weakness of the legs bilaterally. Prescriptions: Sulfamethox-Tmp 800-160Mg [Bactrim DS 800-160 mg] 1 tab PO Q12HR 3 Days #6 tab Cyclobenzaprine [Flexeril] 10 mg PO HS PRN 7 Days #7 tab PRN Reason: Muscle Spasm HYDROcodone/APAP 5-325MG [[place] 5-325] 1 tab PO Q6HR PRN 3 Days #12 tab PRN Reason: Severe Pain Is patient prescribed a controlled substance at d/c from ED?: Yes When asked, does pt state using other controlled substances?: No If prescribed controlled substance>3 days was MAPS reviewed?: Yes If opioid is for acute pain is fill amount 7 days or less?: Yes If Rx opioid, was Start Talking consent form obtained?: Yes Referrals: Bhumi Mcneill DO [Primary Care Provider] - 1-2 days
== END 2019-01-23 15:29 | disposition home or self-care (01) ==
LOC: EC 14:13
DX: N39.0 Urinary tract infection, site not specified (principal); M54.5 Low back pain; K21.9 Gastro-esophageal reflux disease without esophagitis; E78.5 Hyperlipidemia, unspecified; I10 Essential (primary) hypertension; M06.9 Rheumatoid arthritis, unspecified; E07.9 Disorder of thyroid, unspecified; G43.909 Migraine, unspecified, not intractable, without status migrainosus; F31.9 Bipolar disorder, unspecified; F41.0 Panic disorder [episodic paroxysmal anxiety]; Z87.891 Personal history of nicotine dependence; Z79.890 Hormone replacement therapy; Z79.899 Other long term (current) drug therapy; Z88.0 Allergy status to penicillin; Z91.81 History of falling
CPT/HCPCS: 73502; 96372; 99284; J1885

== ENCOUNTER 2020-01-19 10:56 | Inpatient (IN) | payer MEDICARE ==
--- NOTE | 2020-01-19 12:28 | XR ---
EXAMINATION TYPE: XR chest 2V DATE OF EXAM: 01/19/2020 HISTORY: Weakness. REFERENCE: Previous study dated 04/28/2016. FINDINGS: The lungs are clear. Pleural space are clear. The heart is not enlarged. IMPRESSION: NO ACTIVE INTRATHORACIC DISEASE.
--- NOTE | 2020-01-19 12:31 | XR ---
EXAMINATION TYPE: XR knee complete bilateral , 6 VIEWS DATE OF EXAM ORDERED: 01/19/2020 HISTORY: fall. COMPARISON: Previous study dated 09/07/2017. FINDINGS: There is medial joint space loss bilaterally. There is tricompartment remodeling change bi laterally. There are intra-articular loose bodies present on the right and I suspect also on the left . There is a small left knee joint effusion. No acute fracture or dislocation is seen. IMPRESSION: 1. NO ACUTE FRACTURES IDENTIFIED. 2. SEVERE TRICOMPARTMENT OSTEOARTHRITIS. 3. INTRA-ARTICULAR LOOSE BODIES ON THE RIGHT AND PROBABLY ON THE LEFT. 4. LEFT KNEE JOINT EFFUSION.
--- NOTE | 2020-01-19 12:34 | ED ---
Weakness HPI - General Chief complaint: Weakness Stated complaint: Weakness Time Seen by Provider: 01/19/20 11:00 Source: EMS Mode of arrival: EMS Limitations: no limitations - History of Present Illness Initial comments: Patient is a 64-year-old female past history of COPD, hypertension, hyperlipidemia, rheumatoid arthritis and bipolar disorder who presents emergency Department with reported weakness. States that she has felt lightheaded over the past several weeks. She has sustained multiple falls. Patient reports that she fell last night and also this morning. States that today she was putting down to crab picker her dog, felt lightheaded and fell. Denies losing consciousness. She had her head and has a mild headache rated 2 out of 10. She denies any neck or back pain. No flank pain. No chest pain or shortness of breath. Denies any abdominal pain. No pain in her extremities. She was unable to get up and therefore called on the floor. EMS was called. States she has a history of bipolar but has not been taking her meds for the past 6 days. Recently had her Seroquel adjusted. States she is taking all of her other medications. No fevers or chills. No other alleviating, precipitating or modifying factors - Related Data Home Medications Medication Instructions Recorded Confirmed Simvastatin [Zocor] 40 mg PO HS 09/28/15 01/19/20 Divalproex [Depakote] 500 mg PO BID 02/11/16 01/19/20 Methotrexate Sodium [Methotrexate] 20 mg PO FR 02/11/16 01/19/20 Ranitidine HCl [Zantac] 150 mg PO BID 04/28/16 01/19/20 DULoxetine HCL [Cymbalta] 40 mg PO DAILY 11/21/18 01/19/20 Levothyroxine Sodium [Synthroid] 125 mcg PO DAILY 11/21/18 01/19/20 QUEtiapine [SEROquel] 100 mg PO HS 11/21/18 01/19/20 Amitriptyline HCl [Elavil] 100 mg PO HS 12/27/18 01/19/20 Ketorolac [Toradol] 10 mg PO QID PRN 01/19/20 01/19/20 Previous Rx's Medication Instructions Recorded Fludrocortisone [Florinef] 0.1 mg PO DAILY #7 tab 01/22/20 Folic Acid 1 mg PO DAILY@1200 #0 tab 01/22/20 Multivitamins, Thera [Multivitamin 1 each PO DAILY@1200 #0 tab 01/22/20 (formulary)] Thiamine [Vitamin B-1] 100 mg PO DAILY@1200 tab 01/22/20 Allergies Allergy/AdvReac Type Severity Reaction Status Date / Time Penicillins Allergy Rash/Hives Verified 01/19/20 15:19 Review of Systems ROS Statement: Those systems with pertinent positive or pertinent negative responses have been documented in the HPI. ROS Other: All systems not noted in ROS Statement are negative. Past Medical History Past Medical History: Chest Pain / Angina, COPD, GERD/Reflux, Hyperlipidemia, Hypertension, Rheumatoid Arthritis (RA), Sleep Apnea/CPAP/BIPAP, Thyroid Disorder Additional Past Medical History / Comment(s): GOUT, migraines, no cpap used, diff swallowing, colitis, pancreatitis bells palsy History of Any Multi-Drug Resistant Organisms: None Reported Past Surgical History: Orthopedic Surgery, Tonsillectomy Additional Past Surgical History / Comment(s): rt knee arthroscopy,left thyroplasty, Past Anesthesia/Blood Transfusion Reactions: Motion Sickness Past Psychological History: Anxiety, Bipolar, Depression, Panic Disorder Smoking Status: Former smoker Past Alcohol Use History: None Reported Past Drug Use History: None Reported - Past Family History Father History Unknown: Yes Family Medical History: Dementia Additional Family Medical History / Comment(s): LEG AMP AT AGE 13 FROM TRAIN ACCIDENT. Mother History Unknown: Yes Family Medical History: No Reported History Additional Family Medical History / Comment(s): AGE 34 KIDNEY FAILURE General Exam Limitations: no limitations General appearance: alert, in no apparent distress Head exam: Present: normocephalic, normal inspection, other (bruise left jaw) Eye exam: Present: normal appearance, PERRL, EOMI. Absent: scleral icterus, conjunctival injection, periorbital swelling ENT exam: Present: normal exam, mucous membranes moist Neck exam: Present: normal inspection. Absent: tenderness, meningismus, lymphadenopathy Respiratory exam: Present: normal lung sounds bilaterally. Absent: respiratory distress, wheezes, rales, rhonchi, stridor Cardiovascular Exam: Present: regular rate, normal rhythm, normal heart sounds. Absent: systolic murmur, diastolic murmur, rubs, gallop, clicks GI/Abdominal exam: Present: soft, normal bowel sounds. Absent: distended, tenderness, guarding, rebound, rigid Extremities exam: Present: normal inspection, full ROM, normal capillary refill. Absent: tenderness, pedal edema, joint swelling, calf tenderness Back exam: Present: normal inspection Neurological exam: Present: alert, oriented X3, CN II-XII intact Psychiatric exam: Present: normal affect, normal mood Skin exam: Present: warm, dry, intact, normal color, abrasion (bilateral anterior knees). Absent: rash Course Vital Signs 01/19/20 01/19/20 01/19/20 10:56 15:33 16:00 Temperature 98.1 F Pulse Rate 85 82 Respiratory 18 18 16 Rate Blood Pressure 126/85 138/81 O2 Sat by Pulse 94 L 97 Oximetry EKG Findings - EKG Comments: EKG Findings:: EKG demonstrates sinus rhythm with frequent PVCs. Rate of 85. RI interval 200. QRS 94. QTC of 45. No acute ST segment elevations or depressions concerning for ischemic changes Medical Decision Making - Medical Decision Making Upon arrival patient placed into room 8. A thorough history and physical exam was performed. Peripheral IV was established. The patient was started on gentle fluid hydration. Laboratory studies were conducted. Lactic acid is elevated at 4.5. CK is 5253. Valproic acid is 75.5. CT of the brain and cervical spine demonstrates no acute intra-cranial process or cervical fractures. Bilateral knee x-ray demonstrates significant arthritis changes. Chest x-ray demonstrates no acute intrathoracic process. Patient does provide a urine sample however does missed the toilet. Urinalysis is still pending at this time. I recommended hospital admission for fluid hydration for to patient did agree to. I discussed the case with Dr. Galvin who accepted admission. She is pending transfer the floor - Lab Data Result diagrams: 01/22/20 06:46 01/22/20 06:46 Lab Results 01/19/20 01/19/20 01/19/20 Range/Units 11:44 11:44 11:44 WBC 11.2 H (3.8-10.6) k/uL RBC 3.85 (3.80-5.40) m/uL Hgb 12.3 (11.4-16.0) gm/dL Hct 37.5 (34.0-46.0) % MCV 97.3 (80.0-100.0) fL MCH 31.9 (25.0-35.0) pg MCHC 32.7 (31.0-37.0) g/dL RDW 13.9 (11.5-15.5) % Plt Count 151 (150-450) k/uL Neutrophils % 81 % Lymphocytes % 11 % Monocytes % 6 % Eosinophils % 1 % Basophils % 0 % Neutrophils # 9.1 H (1.3-7.7) k/uL Lymphocytes # 1.2 (1.0-4.8) k/uL Monocytes # 0.7 (0-1.0) k/uL Eosinophils # 0.1 (0-0.7) k/uL Basophils # 0.0 (0-0.2) k/uL PT 10.5 (9.0-12.0) sec INR 1.0 (<1.2) APTT 22.6 (22.0-30.0) sec Sodium 138 (137-145) mmol/L Potassium 3.7 (3.5-5.1) mmol/L Chloride 104 (98-107) mmol/L Carbon Dioxide 22 (22-30) mmol/L Anion Gap 12 mmol/L BUN 16 (7-17) mg/dL Creatinine 0.77 (0.52-1.04) mg/dL Est GFR (CKD-EPI)AfAm >90 (>60 ml/min/1.73 sqM) Est GFR (CKD-EPI)NonAf 82 (>60 ml/min/1.73 sqM) Glucose 93 (74-99) mg/dL Lactic Ac Sepsis Rflx Plasma Lactic Acid Aurelio (0.7-2.0) mmol/L Calcium 9.1 (8.4-10.2) mg/dL Magnesium 1.9 (1.6-2.3) mg/dL Total Bilirubin 0.4 (0.2-1.3) mg/dL AST 56 H (14-36) U/L ALT 22 (4-34) U/L Alkaline Phosphatase 71 (38-126) U/L Creatine Kinase 5253 H* (30-135) U/L Troponin I (0.000-0.034) ng/mL Total Protein 6.4 (6.3-8.2) g/dL Albumin 3.5 (3.5-5.0) g/dL TSH 0.184 L (0.465-4.680) mIU/L Free T4 1.45 (0.78-2.19) ng/dL Valproic Acid 75.5 ug/mL 01/19/20 01/19/20 01/19/20 Range/Units 11:44 11:44 13:00 WBC (3.8-10.6) k/uL RBC (3.80-5.40) m/uL Hgb (11.4-16.0) gm/dL Hct (34.0-46.0) % MCV (80.0-100.0) fL MCH (25.0-35.0) pg MCHC (31.0-37.0) g/dL RDW (11.5-15.5) % Plt Count (150-450) k/uL Neutrophils % % Lymphocytes % % Monocytes % % Eosinophils % % Basophils % % Neutrophils # (1.3-7.7) k/uL Lymphocytes # (1.0-4.8) k/uL Monocytes # (0-1.0) k/uL Eosinophils # (0-0.7) k/uL Basophils # (0-0.2) k/uL PT (9.0-12.0) sec INR (<1.2) APTT (22.0-30.0) sec Sodium (137-145) mmol/L Potassium (3.5-5.1) mmol/L Chloride (98-107) mmol/L Carbon Dioxide (22-30) mmol/L Anion Gap mmol/L BUN (7-17) mg/dL Creatinine (0.52-1.04) mg/dL Est GFR (CKD-EPI)AfAm (>60 ml/min/1.73 sqM) Est GFR (CKD-EPI)NonAf (>60 ml/min/1.73 sqM) Glucose (74-99) mg/dL Lactic Ac Sepsis Rflx Y Plasma Lactic Acid Aurelio 4.5 H* (0.7-2.0) mmol/L Calcium (8.4-10.2) mg/dL Magnesium (1.6-2.3) mg/dL Total Bilirubin (0.2-1.3) mg/dL AST (14-36) U/L ALT (4-34) U/L Alkaline Phosphatase (38-126) U/L Creatine Kinase (30-135) U/L Troponin I <0.012 (0.000-0.034) ng/mL Total Protein (6.3-8.2) g/dL Albumin (3.5-5.0) g/dL TSH (0.465-4.680) mIU/L Free T4 (0.78-2.19) ng/dL Valproic Acid ug/mL Disposition Clinical Impression: Lactic acidosis, Rhabdomyolysis, Frequent falls, Blunt head trauma Disposition: ADMITTED IP TO THIS HOSP Is patient prescribed a controlled substance at d/c from ED?: No Decision to Admit Reason: Admit from EC Decision Date: 01/19/20 Decision Time: 14:40
[2020-01-19 12:36] LABS: Partial Thromboplastin Time 22.6 sec (22.0-30.0); Prothrombin Time 10.5 sec (9.0-12.0)
[2020-01-19 12:37] LABS: ALT 22 U/L (4-34); AST 56 U/L (14-36); African American GFR (CKD) >90 (>60 ml/min/1.73 sqM); Albumin 3.5 g/dL (3.5-5.0); Alkaline Phosphatase 71 U/L (38-126); Anion Gap 12 mmol/L; Blood Urea Nitrogen 16 mg/dL (7-17); Calcium 9.1 mg/dL (8.4-10.2); Carbon Dioxide 22 mmol/L (22-30); Chloride 104 mmol/L (98-107); Glucose 93 mg/dL (74-99); Magnesium 1.9 mg/dL (1.6-2.3); Non-African American GFR(CKD) 82 (>60 ml/min/1.73 sqM); Potassium 3.7 mmol/L (3.5-5.1); Sodium 138 mmol/L (137-145); Total Bilirubin 0.4 mg/dL (0.2-1.3); Total Protein 6.4 g/dL (6.3-8.2)
--- NOTE | 2020-01-19 12:41 | CT ---
EXAMINATION TYPE: CT brain traeine wo con DATE OF EXAM: 01/19/2020 COMPARISON: Previous study dated 12/27/2018. HISTORY: Frequent falls, generalized weakness CT DLP: 1401.7 mGycm Automated exposure control for dose reduction was used. TECHNIQUE: CT scan of the head and cervical spine are performed without contrast. FINDINGS: BRAIN: There are generalized changes of sulcal prominence and ventriculomegaly, compatible with mild atrophic change. There is diffuse periventricular white matter lucency, compatible with chronic white matter ischemic change. There is no acute focal lesion, mass effect or midline shift identified. I d o not see evidence of intracranial blood. Visualized portions of the paranasal sinuses and mastoids are clear. The bony calvarium is intact. IMPRESSION: 1. NO ACUTE INTRACRANIAL ABNORMALITY. 2. MILD DEGENERATIVE CHANGE. CERVICAL SPINE: There are diffuse changes of emphysema throughout the visualized lungs. There is ther e is groundglass opacity suggesting ongoing alveolitis. The thyroid gland is not visualized. Preverte bral soft tissues are otherwise unremarkable. Vertebral body height and alignment are maintained. Atlantoaxial relationships are normal. There is hypertrophic spondylosis throughout the lower cervical spine. No definite protrusion is seen . No fracture is identified. IMPRESSION: 1. NO ACUTE OSSEOUS LESION. 2. DEGENERATIVE CHANGE.
[2020-01-19 12:56] LABS: Basophils % (A) 0 %; Eosinophils # (A) 0.1 k/uL (0-0.7); Eosinophils % (A) 1 %; HCT 37.5 % (34.0-46.0); HGB 12.3 gm/dL (11.4-16.0); Lymphocytes # (A) 1.2 k/uL (1.0-4.8); Lymphocytes % (A) 11 %; MCH 31.9 pg (25.0-35.0); MCHC 32.7 g/dL (31.0-37.0); MCV 97.3 fL (80.0-100.0); Mean Platelet Volume 9.1; Monocytes # (A) 0.7 k/uL (0-1.0); Monocytes % (A) 6 %; Neutrophils # (A) 9.1 k/uL (1.3-7.7); Neutrophils % (A) 81 %; Platelet Count 151 k/uL (150-450); RBC 3.85 m/uL (3.80-5.40); RDW 13.9 % (11.5-15.5); WBC 11.2 k/uL (3.8-10.6)
[2020-01-19] MEDS ORDERED: SODIUM CHLORIDE 0.9% 1,000 ML IV ONE (13:05)
[2020-01-19 13:26] LABS: Creatine Kinase 5253 U/L (30-135)
[2020-01-19 13:41] LABS: Valproic Acid (Depakene) 75.5 ug/mL
[2020-01-19 13:56] LABS: T4, Free (Free Thyroxine) 1.45 ng/dL (0.78-2.19)
[2020-01-19] MEDS ORDERED: NALOXONE 0.4 MG/ML 1 ML VIAL IV PRN (14:40)
[2020-01-19 15:11] LABS: Appearance,Urine Clear (Clear); Bilirubin,Urine Negative (Negative); Blood,Urine Negative (Negative); Color,Urine Light Yellow; Glucose,Urine (UA) Negative (Negative); Ketones,Urine Negative (Negative); Leukocyte Esterase,Urine Negative (Negative); Nitrite,Urine Negative (Negative); PH, Urine 6.5 (5.0-8.0); Protein,Urine Negative (Negative); Specific Gravity,Urine 1.005 (1.001-1.035); Urobilinogen,Urine <2.0 mg/dL (<2.0)
[2020-01-19] MEDS: SODIUM CHLORIDE 0.9% 1,000 ML IV SCH (15:32)
[2020-01-19] MEDS: DULoxetine HCL 20 MG CAPSULE.DR PO SCH (18:08)
[2020-01-19] MEDS ORDERED: HYDROcodone/APAP 5-325MG 1 EACH TAB PO PRN (20:28)
[2020-01-19] MEDS: HEPARIN SODIUM,PORCINE 5,000 UNIT/ML 1 ML VIAL SQ SCH (20:40)
[2020-01-19] MEDS: DIVALPROEX 500 MG TABLET.DR PO SCH (20:40)
[2020-01-19] MEDS: AMITRIPTYLINE HCL 50 MG TAB PO SCH (20:40)
[2020-01-19] MEDS: QUEtiapine 100 MG TAB PO SCH (20:40)
[2020-01-19] MEDS ORDERED: ATORVASTATIN 20 MG TAB PO SCH (21:00)
--- NOTE | 2020-01-19 22:19 | US ---
EXAMINATION TYPE: US carotid duplex BILAT DATE OF EXAM: 01/19/2020 COMPARISON: NONE CLINICAL HISTORY: stroke. Stroke EXAM MEASUREMENTS: RIGHT: Peak Systolic Velocity (PSV) cm/sec ----- Right CCA: 42.6 ----- Right ICA: 65.9 ----- Right ECA: 104.7 ICA/CCA ratio: 1.5 RIGHT: End Diastole cm/sec ----- Right CCA: 12.7 ----- Right ICA: 18.0 ----- Right ECA: 16.7 LEFT: Peak Systolic Velocity (PSV) cm/sec ----- Left CCA: 61.9 ----- Left ICA: 86.7 ----- Left ECA: 74.6 ICA/CCA ratio: 1.4 LEFT: End Diastole cm/sec ----- Left CCA: 15.6 ----- Left ICA: 31.8 ----- Left ECA: 10.9 VERTEBRALS (direction of flow): Right Vertebral: Antegrade Left Vertebral: Antegrade Rhythm: Arrhythmia No significant stenosis seen IMPRESSION: There is antegrade flow in the vertebral arteries. The images and measurements suggest less than 20% stenosis in both internal carotid arteries. Criteria for Assigning % of Stenosis / Diameter reduction (Estimation based on the indirect measurements of the internal carotid artery velocities (ICA PSV). 1. Normal (no stenosis)=ICA PSV < 125 cm/s: ratio < 2.0: ICA EDV<40 cm/s. 2. Less than 50% stenosis=ICA PSV < 125 cm/s: ratio < 2.0: ICA EDV<40 cm/s. 3. 50 to 69% stenosis=ICA PSV of 125 to 230 cm/s: ration 2.0 ? 4.0: ICA EDV 40-100 cm/s. 4. Greater than 70% stenosis to near occlusion= ICA PSV > 230 cm/s: ratio > 4.0: ICA EDV > 100 cm/s. 5. Near occlusion= ICA PSV velocities may be low or undetectable: variable ratio and ICA EDV. 6. Total occlusion=unable to detect flow.
--- NOTE | 2020-01-19 23:17 | HP ---
HISTORY AND PHYSICAL CHIEF COMPLAINT: Weakness and fall. HISTORY OF PRESENT ILLNESS: This 64-year-old woman with a past medical history of multiple medical problems including history of chest pain, COPD, GERD, hypertension, rheumatoid arthritis, history of migraine, being followed by Dr. Bhumi Mcneill, also history of anxiety, bipolar depression, panic disorder. The patient apparently was getting progressively weak and the patient also feeling lightheaded, especially when getting up and patient sustained multiple falls and the patient also fell last night in this morning. Patient has some contusions of face. There is no history of any fever, rigors. No history of seizures. Patient had some mild headache and the patient admitted for further evaluation and treatment. Lab lopez in the ER, the lactic acid was elevated but otherwise WBC 11.2 and creatinine kinase found to be 5253 and AST was 56. There is no history of any alcohol. The patient had multiple evaluations including chest x-ray which showed no active disease and CT scan of the brain and cervical spine was done which was reviewed personally by me showed no acute intracranial abnormalities, mild degenerative changes are noted. PAST MEDICAL HISTORY: History of chest pain, COPD, GERD, hyperlipidemia, hypertension, rheumatoid arthritis, sleep apnea. MEDICATIONS: Prior to admission include home medications are: Motrin 400 mg q.8 p.r.n. and Toradol 10 mg. Zocor, Zantac, Seroquel, methotrexate, Synthroid, Depakene, Cymbalta, Elavil. ALLERGIES: PENICILLIN. FAMILY HISTORY: No history of heart disease, except kidney failure. SOCIAL HISTORY: No history of current smoking. Previous history of smoking. REVIEW OF SYSTEMS: ENT: No diminished vision, hearing. CARDIOVASCULAR SYSTEM: As mentioned earlier. RESPIRATORY: As mentioned earlier. GI no nausea or vomiting. no dysuria. Nervous system: As mentioned earlier. Allergy/Immunology: No asthma or hayfever. Musculoskeletal as mentioned earlier. Hematology/Oncology: No history of anemia. Endocrine: No history of diabetes or hypothyroidism present. Constitutional as mentioned earlier. DERMATOLOGY: Negative. RHEUMATOLOGY negative. PSYCHIATRY as mentioned earlier. PHYSICAL EXAMINATION: Alert and oriented times three. Pulse is 81. Blood pressure 155/87, respirations 16, temperature 97.9, pulse ox 94% on room air. HEENT is conjunctivae normal. Oral mucosa moist. NECK is no jugular venous distention. No carotid bruit. No lymph node enlargement. CARDIOVASCULAR: S1, S2 muffled. Respirations: Breath sounds diminished in the bases. Scattered rhonchi and crackles. ABDOMEN: Soft, nontender. No mass palpable. LEGS: No edema. No swelling. NERVOUS SYSTEM: Higher functions as mentioned earlier. Moves all 4 limbs. No focal motor or sensory deficits. Lymphatics: No lymph nodes palpable in the neck, axillae or groin. JOINTS: No active deforming arthropathy. LABS: WBC 7.2, hemoglobin 12.3. INR is 1. Sodium 138, potassium 3.7. Lactic acid 2.8 and AST is 56 and creatinine kinase 5253 and TSH is 0.184 and free T4 is normal. ASSESSMENT: 1. Multiple falls and gait dysfunction, rule out orthostatic hypotension. 2. Rule out transient ischemic attack. 3. Elevated plasma lactic acid of undetermined etiology, rule out sepsis. 4. Elevated creatinine kinase with rhabdomyolysis. 5. Increased AST. 6. Decreased TSH and normal free T4, possibly sick euthyroid syndrome. 7. Increased WBC. 8. History of chronic obstructive pulmonary disease. 9. Gastroesophageal reflux disease. 10.Hypertension. 11.Hyperlipidemia. 12.Rheumatoid arthritis. 13.Sleep apnea. 14.Hypothyroidism. 15.Migraine. 16.History of pancreatitis. 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 18.History of colitis. 19.History of anxiety/bipolar/depression/panic disorder. 20.Remote history of nicotine dependence. 21.History of ischemic colitis. RECOMMENDATIONS AND DISCUSSION: This 64-year-old woman who presented with multiple complex medical issues, we will recommend to continue the current medications. Continue symptomatic treatment. Otherwise at this time I recommend orthostatic vitals. A full neurovascular workup, 2D echo, carotid Doppler. Recommend to continue the rest of medications. PT/OT evaluation, possible ECF rehab. Prognosis extremely guarded because of multiple complex medical issues. I would also recommend pain medication as well. See orders for details. A copy of dictation will be forwarded to Dr. Bhumi Mcneill who is the primary physician. MMODL / IJN: [id number] /
[2020-01-20] MEDS: SODIUM CHLORIDE 0.9% 1,000 ML IV SCH ×2 (05:23→16:47)
[2020-01-20] MEDS: LEVOTHYROXINE 125 MCG TAB PO SCH (05:44)
[2020-01-20 07:16] LABS: Basophils % (A) 0 %; Eosinophils # (A) 0.1 k/uL (0-0.7); Eosinophils % (A) 2 %; HCT 36.9 % (34.0-46.0); HGB 12.1 gm/dL (11.4-16.0); Lymphocytes % (A) 33 %; MCH 31.8 pg (25.0-35.0); MCHC 32.7 g/dL (31.0-37.0); MCV 97.2 fL (80.0-100.0); Mean Platelet Volume 7.2; Monocytes # (A) 0.3 k/uL (0-1.0); Monocytes % (A) 4 %; Neutrophils # (A) 3.6 k/uL (1.3-7.7); Neutrophils % (A) 60 %; Platelet Count 189 k/uL (150-450); RDW 14.1 % (11.5-15.5)
[2020-01-20 07:24] LABS: ALT 31 U/L (4-34); AST 71 U/L (14-36); African American GFR (CKD) >90 (>60 ml/min/1.73 sqM); Albumin 2.9 g/dL (3.5-5.0); Alkaline Phosphatase 73 U/L (38-126); Anion Gap 5 mmol/L; Blood Urea Nitrogen 9 mg/dL (7-17); Calcium 8.1 mg/dL (8.4-10.2); Carbon Dioxide 26 mmol/L (22-30); Chloride 109 mmol/L (98-107); Glucose 84 mg/dL (74-99); Non-African American GFR(CKD) >90 (>60 ml/min/1.73 sqM); Potassium 3.2 mmol/L (3.5-5.1); Sodium 140 mmol/L (137-145); Total Bilirubin 0.5 mg/dL (0.2-1.3); Total Protein 5.7 g/dL (6.3-8.2)
[2020-01-20 09:17] LABS: Creatine Kinase 5297 U/L (30-135)
[2020-01-20] MEDS ORDERED: Potassium Replacement Protocol 1 EACH MISC MISCELLANE PRN (09:42)
[2020-01-20] MEDS: DIVALPROEX 500 MG TABLET.DR PO SCH ×2 (09:43→21:34)
[2020-01-20] MEDS: HEPARIN SODIUM,PORCINE 5,000 UNIT/ML 1 ML VIAL SQ SCH ×2 (09:43→21:34)
[2020-01-20] MEDS: PANTOPRAZOLE 40 MG TABLET PO SCH (09:43)
[2020-01-20] MEDS: DULoxetine HCL 20 MG CAPSULE.DR PO SCH (09:44)
[2020-01-20] MEDS: POTASSIUM CHLORIDE ER 20 MEQ TAB.ER PO SCH ×2 (09:49→10:21)
[2020-01-20 11:40] LABS: Amphetamine Screen,Urine Not Detected (NotDetected); Barbiturate Screen,Urine Not Detected (NotDetected); Benzodiazepines Screen,Urine Not Detected (NotDetected); Cocaine Screen,Urine Not Detected (NotDetected); Methadone Screen, Urine Not Detected (NotDetected); Opiate Screen,Urine Not Detected (NotDetected); Oxycodone Screen, Urine Not Detected (NotDetected); Phencyclidine Screen,Urine Not Detected (NotDetected); Tricyclic Antidepressant,Urine Detected (NotDetected); Urn Cannabinoid Scrn Not Detected (NotDetected)
[2020-01-20] MEDS: MULTIVITAMINS, THERA 1 EACH TAB PO SCH (12:19)
[2020-01-20] MEDS: FOLIC ACID 1 MG TAB PO SCH (12:19)
[2020-01-20] MEDS: THIAMINE 100 MG TAB PO SCH (12:19)
[2020-01-20 15:01] LABS: Appearance,Urine Clear (Clear); Bilirubin,Urine Negative (Negative); Blood,Urine Negative (Negative); Color,Urine Yellow; Glucose,Urine (UA) Negative (Negative); Ketones,Urine Negative (Negative); Leukocyte Esterase,Urine Negative (Negative); Nitrite,Urine Negative (Negative); PH, Urine 6.5 (5.0-8.0); Protein,Urine Negative (Negative); Specific Gravity,Urine 1.009 (1.001-1.035); Urobilinogen,Urine <2.0 mg/dL (<2.0)
--- NOTE | 2020-01-20 17:07 | PN ---
PROGRESS NOTE DATE OF SERVICE: 01/20/2020 This 64-year-old woman was admitted with weakness and fall, had multiple falls. The patient also had elevated creatinine kinase and rhabdomyolysis also. The patient is being closely monitored. No chest pain. No palpitations. Past medical history reviewed. REVIEW OF SYSTEMS: CARDIOVASCULAR SYSTEM: No angina. RESPIRATION as mentioned earlier. GI as mentioned earlier. : No dysuria or retention. NERVOUS SYSTEM: No numbness or weakness. CURRENT MEDICATIONS: Reviewed and include: Irwin 5 mg q.6 p.r.n., Elavil 100 mg at bedtime, Lipitor, Cymbalta, folic acid, heparin, Synthroid, methotrexate, multivitamins, Narcan, Protonix, Seroquel, Vitamin B1. PHYSICAL EXAM: Patient is alert, oriented times three. Pulse is 86, blood pressure 160/70, respirations 17, temperature 98.2, pulse ox 93 percent on room air. HEENT: Conjunctivae normal. Oral mucosa moist. NECK is no jugular venous distention. No carotid bruit. No lymph node enlargement. CARDIOVASCULAR: S1, S2 muffled. RESPIRATIONS: Breath sounds diminished in the bases. Scattered rhonchi and crackles. ABDOMEN: Soft, nontender. LEGS are no edema. No swelling. NERVOUS SYSTEM: No focal deficits. LABS: CBC within normal limits. Sodium 140. Potassium 3.2, creatinine kinase 5297. The drug screen is positive for tricyclics and antidepressants. ASSESSMENT: 1. Multiple falls and gait dysfunction. Rule out orthostatic hypotension. 2. Rule out transient ischemic attack. 3. Elevated plasma lactic acid, undetermined etiology possibly from dehydration, rule out sepsis. 4. Elevated creatinine kinase with rhabdomyolysis, present on admission. 5. History of increased AST. 6. Decreased TSH and normal free T4 possibly sick euthyroid syndrome. 7. Increased WBC. 8. History of chronic obstructive pulmonary disease. 9. Gastroesophageal reflux disease. 10.Hypertension. 11.Hyperlipidemia. 12.History of rheumatoid arthritis. 13.History of sleep apnea. 14.Hypothyroidism. 15.Migraines. 16.History of pancreatitis. 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 18.History of colitis. 19.History of anxiety, depression/bipolar depression, panic disorder. 20.Remote history of nicotine dependence. 21.History of ischemic colitis. 22.FULL CODE. RECOMMENDATIONS AND DISCUSSION: Recommend to continue current medications, continue to monitoring, and symptomatic treatment. Otherwise, at this time, I would recommend PT/OT evaluation. I would recommend to hold the Lipitor because of elevated CK and repeat labs. DVT prophylaxis. PT/OT evaluation, possible ECF rehab. Guarded prognosis because of multiple complex medical issues. Further recommendations to follow. MMCASHL / RENEN: [id number] /
[2020-01-20] MEDS: AMITRIPTYLINE HCL 50 MG TAB PO SCH (21:34)
[2020-01-20] MEDS: QUEtiapine 100 MG TAB PO SCH (21:34)
[2020-01-21] MEDS: LEVOTHYROXINE 125 MCG TAB PO SCH (06:04)
[2020-01-21] MEDS: SODIUM CHLORIDE 0.9% 1,000 ML IV SCH ×2 (06:06→21:32)
[2020-01-21 07:54] LABS: Basophils % (A) 0 %; Eosinophils # (A) 0.1 k/uL (0-0.7); Eosinophils % (A) 2 %; HCT 35.5 % (34.0-46.0); HGB 11.1 gm/dL (11.4-16.0); Lymphocytes # (A) 2.4 k/uL (1.0-4.8); Lymphocytes % (A) 51 %; MCH 30.4 pg (25.0-35.0); MCHC 31.4 g/dL (31.0-37.0); MCV 96.6 fL (80.0-100.0); Mean Platelet Volume 7.5; Monocytes # (A) 0.2 k/uL (0-1.0); Monocytes % (A) 4 %; Neutrophils % (A) 42 %; Platelet Count 190 k/uL (150-450); RBC 3.67 m/uL (3.80-5.40); RDW 14.1 % (11.5-15.5); WBC 4.7 k/uL (3.8-10.6)
[2020-01-21 08:10] LABS: ALT 35 U/L (4-34); AST 63 U/L (14-36); African American GFR (CKD) >90 (>60 ml/min/1.73 sqM); Albumin 2.8 g/dL (3.5-5.0); Alkaline Phosphatase 70 U/L (38-126); Anion Gap 4 mmol/L; Blood Urea Nitrogen 7 mg/dL (7-17); Calcium 8.1 mg/dL (8.4-10.2); Carbon Dioxide 28 mmol/L (22-30); Chloride 108 mmol/L (98-107); Glucose 81 mg/dL (74-99); Non-African American GFR(CKD) >90 (>60 ml/min/1.73 sqM); Potassium 3.3 mmol/L (3.5-5.1); Sodium 140 mmol/L (137-145); Total Bilirubin 0.4 mg/dL (0.2-1.3); Total Protein 5.5 g/dL (6.3-8.2)
[2020-01-21 08:22] LABS: Creatine Kinase 2238 U/L (30-135)
[2020-01-21] MEDS: HEPARIN SODIUM,PORCINE 5,000 UNIT/ML 1 ML VIAL SQ SCH ×2 (08:26→21:32)
[2020-01-21] MEDS: DIVALPROEX 500 MG TABLET.DR PO SCH ×2 (08:27→21:32)
[2020-01-21] MEDS: PANTOPRAZOLE 40 MG TABLET PO SCH (08:27)
[2020-01-21] MEDS: DULoxetine HCL 20 MG CAPSULE.DR PO SCH (09:39)
[2020-01-21] MEDS: FOLIC ACID 1 MG TAB PO SCH (11:09)
[2020-01-21] MEDS: THIAMINE 100 MG TAB PO SCH (11:09)
[2020-01-21] MEDS: MULTIVITAMINS, THERA 1 EACH TAB PO SCH (11:09)
--- NOTE | 2020-01-21 12:20 | ECHOF ---
Referral Reason:Stroke MEASUREMENTS -------- HEIGHT: 152.4 cm WEIGHT: 65.8 kg BP: 135/74 RVIDd: 2.7 cm (< 3.3) IVSd: 1.2 cm (0.6 - 1.1) LVIDd: 3.6 cm (3.9 - 5.3) LVPWd: 1.2 cm (0.6 - 1.1) IVSs: 1.6 cm LVIDs: 2.4 cm LVPWs: 1.7 cm LA Diam: 2.9 cm (2.7 - 3.8) LAESV Index (A-L): 25.63 ml/m Ao Diam: 3.3 cm (2.0 - 3.7) AV Cusp: 2.0 cm (1.5 - 2.6) MV EXCURSION: 11.351 mm (> 18.000) MV EF SLOPE: 38 mm/s (70 - 150) EPSS: 0.3 cm MV E Camilo: 0.79 m/s MV DecT: 255 ms MV A Camilo: 0.95 m/s MV E/A Ratio: 0.82 AR PHT: 1112 ms RAP: 5.00 mmHg RVSP: 18.98 mmHg FINDINGS -------- Sinus rhythm. This was a technically adequate study. The left ventricular size is normal. There is borderline concentric left ventricular hypertrophy. Overall left ventricular systolic function is normal with, an EF between 60 - 65 %. The right ventricle is normal in size. Normal LA size by volume 22+/-6 ml/m2. The right atrium is normal in size. Interatrial and interventricular septum intact. There is mild aortic valve sclerosis. There is mild aortic regurgitation. The mitral valve leaflets are mildly thickened. Mild mitral annular calcification present. Mild tricuspid regurgitation present. Right ventricular systolic pressure is normal at < 35 mmHg. Trace/mild (physiologic) pulmonic regurgitation. The aortic root size is normal. Normal inferior vena cava with normal inspiratory collapse consistent with estimated right atrial pre ssure of 5 mmHg. There is no pericardial effusion. CONCLUSIONS -------- 1. Sinus rhythm. 2. This was a technically adequate study. 3. The left ventricular size is normal. 4. There is borderline concentric left ventricular hypertrophy. 5. Overall left ventricular systolic function is normal with, an EF between 60 - 65 %. 6. The right ventricle is normal in size. 7. Normal LA size by volume 22+/-6 ml/m2. 8. The right atrium is normal in size. 9. Interatrial and interventricular septum intact. 10. There is mild aortic valve sclerosis. 11. There is mild aortic regurgitation. 12. The mitral valve leaflets are mildly thickened. 13. Mild mitral annular calcification present. 14. Mild tricuspid regurgitation present. 15. Right ventricular systolic pressure is normal at < 35 mmHg. 16. Trace/mild (physiologic) pulmonic regurgitation. 17. The aortic root size is normal. 18. Normal inferior vena cava with normal inspiratory collapse consistent with estimated right atrial pressure of 5 mmHg. 19. There is no pericardial effusion. [employer]: STEFANI Seay
[2020-01-21] MEDS ORDERED: Magnesium Replacement Protocol 1 EACH MISC MISCELLANE PRN (15:12)
--- NOTE | 2020-01-21 15:28 | P.PN ---
Subjective Progress Note Date: 01/21/20 This is a 64-year-old female admitted with generalized weakness, multiple falls, rhabdomyolysis and multiple other medical issues. Maintained on IV fluid hydration. Creatinine kinase down to 2238, creatinine maintained at 0.6. Potassium 3.3. Evaluated by PT with subacute rehab recommended at discharge. Denies chest pain, palpitations or shortness of breath. Positive for orthostatic hypotension last night, orthostatics pending for today. Echo reporting normal LV function, EF 60-65%. Objective - Vital Signs Vital signs: Vital Signs Temp 98.2 F 01/21/20 07:00 Pulse 73 01/21/20 07:00 Resp 16 01/21/20 08:00 BP 129/73 01/21/20 07:00 Pulse Ox 92 L 01/21/20 07:00 Intake & Output 01/20/20 01/21/20 01/21/20 18:59 06:59 18:59 Intake Total 300 200 Output Total 460 1200 Balance -460 -900 200 Intake: Oral 300 200 Output: Urine 360 1200 Straight 360 600 Post Void Residual 100 Other: Voiding Method Toilet Toilet Toilet # Voids 4 0 2 - Exam PHYSICAL EXAM: VITAL SIGNS: As above GENERAL: Sitting up in bed, no acute distress HEENT: Conjunctivae normal. eyes normal. Oral mucosa moist NECK: No JVD. No thyroid enlargement. No LNs CARDIOVASCULAR: S1, S2 regular. No murmur RESPIRATION: Breath sounds diminished in the bases. Scattered rhonchi and crackles. No bronchial breathing. ABDOMEN: Soft, nontender . No guarding. no masses palpable. No ascites, No hepatosplenomegaly.Bowel sounds heard. LEGS: No edema. no swelling PSYCHIATRY: Alert and oriented X3, mood and affect normal. NERVOUS SYSTEM: Cranial N 2-12 grossly normal. Moves all 4 limbs. Diffuse weakness, No focal deficits. Strength and sensation grossly intact.. Skin: Warm and dry, no rash Lymphatic system. No LN neck axilla. - Labs CBC & Chem 7: 01/21/20 07:13 01/21/20 07:13 Labs: Abnormal Lab Results - Last 24 Hours (Table) 01/21/20 01/21/20 Range/Units 07:13 07:13 RBC 3.67 L (3.80-5.40) m/uL Hgb 11.1 L (11.4-16.0) gm/dL Potassium 3.3 L (3.5-5.1) mmol/L Chloride 108 H (98-107) mmol/L Calcium 8.1 L (8.4-10.2) mg/dL AST 63 H (14-36) U/L ALT 35 H (4-34) U/L Creatine Kinase 2238 H* (30-135) U/L Total Protein 5.5 L (6.3-8.2) g/dL Albumin 2.8 L (3.5-5.0) g/dL Assessment and Plan Assessment: Multiple falls, gait dysfunction, positive for orthostatic hypotension Rhabdomyolysis, laid on the floor for greater than 12 hours Possible TIA Possible sick euthyroid syndrome Hypothyroidism COPD stable Gastroesophageal reflux disease Hypertension Hyperlipidemia History of Anxiety, depression, bipolar depression, panic disorder Hypokalemia Plan: Continue on current medication regime ,monitoring and symptomatic treatment. Statin remains on hold secondary to rhabdomyolysis. Coumadin replacement as per protocol, magnesium level pending. Close monitoring of renal function, creatinine kinase, electrolytes with repeat labs ordered for tomorrow. Florinef added to med regime, orthostatic vital signs every shift. Discharge planning in progress for subacute rehab tomorrow. The impression and plan of care has been dictated as directed. : I performed a history and examination of this patient, discussed the same with the dictator. I agree with the dictator's note ,documented as a scribe. Any additional findings or plans will be noted.
[2020-01-21] MEDS: FLUDROCORTISONE 0.1 MG TAB PO SCH (16:50)
[2020-01-21] MEDS: QUEtiapine 100 MG TAB PO SCH (20:14)
[2020-01-21] MEDS: AMITRIPTYLINE HCL 50 MG TAB PO SCH (20:14)
[2020-01-22] MEDS: LEVOTHYROXINE 125 MCG TAB PO SCH (05:30)
[2020-01-22 07:26] LABS: Basophils % (A) 1 %; Eosinophils # (A) 0.2 k/uL (0-0.7); Eosinophils % (A) 3 %; HCT 37.5 % (34.0-46.0); HGB 11.9 gm/dL (11.4-16.0); Lymphocytes # (A) 2.7 k/uL (1.0-4.8); Lymphocytes % (A) 45 %; MCH 30.4 pg (25.0-35.0); MCHC 31.7 g/dL (31.0-37.0); Mean Platelet Volume 7.2; Monocytes # (A) 0.2 k/uL (0-1.0); Monocytes % (A) 4 %; Neutrophils # (A) 2.7 k/uL (1.3-7.7); Neutrophils % (A) 45 %; Platelet Count 219 k/uL (150-450); RBC 3.91 m/uL (3.80-5.40); RDW 13.9 % (11.5-15.5)
[2020-01-22 07:31] LABS: ALT 39 U/L (4-34); AST 55 U/L (14-36); African American GFR (CKD) >90 (>60 ml/min/1.73 sqM); Albumin 3.2 g/dL (3.5-5.0); Alkaline Phosphatase 79 U/L (38-126); Anion Gap 7 mmol/L; Blood Urea Nitrogen 8 mg/dL (7-17); Calcium 8.6 mg/dL (8.4-10.2); Carbon Dioxide 28 mmol/L (22-30); Chloride 104 mmol/L (98-107); Creatine Kinase 903 U/L (30-135); Glucose 86 mg/dL (74-99); Magnesium 1.7 mg/dL (1.6-2.3); Non-African American GFR(CKD) >90 (>60 ml/min/1.73 sqM); Potassium 3.2 mmol/L (3.5-5.1); Sodium 139 mmol/L (137-145); Total Bilirubin 0.4 mg/dL (0.2-1.3); Total Protein 6.2 g/dL (6.3-8.2)
[2020-01-22] MEDS: DIVALPROEX 500 MG TABLET.DR PO SCH (07:42)
[2020-01-22] MEDS: PANTOPRAZOLE 40 MG TABLET PO SCH (07:42)
[2020-01-22] MEDS: FLUDROCORTISONE 0.1 MG TAB PO SCH (07:44)
[2020-01-22] MEDS: HEPARIN SODIUM,PORCINE 5,000 UNIT/ML 1 ML VIAL SQ SCH (07:46)
[2020-01-22] MEDS: SODIUM CHLORIDE 0.9% 1,000 ML IV SCH (07:48)
[2020-01-22 08:38] VITALS: BP 151/91; PULSE 75; RESP 16; TEMP 98.2
[2020-01-22] MEDS: DULoxetine HCL 20 MG CAPSULE.DR PO SCH (09:57)
[2020-01-22] MEDS ORDERED: Potassium Replacement Protocol 1 EACH MISC MISCELLANE PRN (10:09)
--- NOTE | 2020-01-22 10:18 | P.DS ---
Providers Date of admission: 01/19/20 14:40 Expected date of discharge: 01/22/20 Attending physician: Dandy Gregory MD Primary care physician: Bhumi Mcneill [facility] Course: Final Diagnoses: Multiple falls, gait dysfunction, positive for orthostatic hypotension Rhabdomyolysis, laid on the floor for greater than 12 hours Possible TIA Possible sick euthyroid syndrome Hypothyroidism COPD stable Gastroesophageal reflux disease Hypertension Hyperlipidemia History of Anxiety, depression, bipolar depression, panic disorder Hypokalemia Hospital course:This is a 64-year-old female admitted with generalized weakness, multiple falls, rhabdomyolysis and multiple other medical issues. Maintained on IV fluid hydration. Creatinine kinase down to 2238, creatinine maintained at 0.6. Potassium 3.3. Evaluated by PT with subacute rehab recommended at discharge. Denies chest pain, palpitations or shortness of breath. Positive for orthostatic hypotension last night, orthostatics pending for today. Echo reporting normal LV function, EF 60-65%. Evaluated by PT/OT ,subacute rehab recommended. Discussed with patient discharged to subacute rehab, and multiple falls, unsafe for discharge home, patient declining. Patient concerned over her pet. Patient is leaving AMA. The impression and plan of care has been dictated as directed. : I performed a history and examination of this patient, discussed the same with the dictator. I agree with the dictator's note ,documented as a scribe. Any additional findings or plans will be noted. Plan - Discharge Summary Discharge Rx Participant: Yes New Discharge Prescriptions: New Fludrocortisone [Florinef] 0.1 mg PO DAILY #7 tab Folic Acid 1 mg PO DAILY@1200 #0 tab Multivitamins, Thera [Multivitamin (formulary)] 1 each PO DAILY@1200 #0 tab Thiamine [Vitamin B-1] 100 mg PO DAILY@1200 tab Continue Simvastatin [Zocor] 40 mg PO HS Methotrexate Sodium [Methotrexate] 20 mg PO FR Divalproex [Depakote] 500 mg PO BID Ranitidine HCl [Zantac] 150 mg PO BID QUEtiapine [SEROquel] 100 mg PO HS Levothyroxine Sodium [Synthroid] 125 mcg PO DAILY DULoxetine HCL [Cymbalta] 40 mg PO DAILY Amitriptyline HCl [Elavil] 100 mg PO HS Ketorolac [Toradol] 10 mg PO QID PRN PRN Reason: Pain Discontinued Ibuprofen [Motrin Ib] 400 mg PO Q8H PRN PRN Reason: Pain Discharge Medication List Simvastatin [Zocor] 40 mg PO HS 09/28/15 [History] Divalproex [Depakote] 500 mg PO BID 02/11/16 [History] Methotrexate Sodium [Methotrexate] 20 mg PO FR 02/11/16 [History] Ranitidine HCl [Zantac] 150 mg PO BID 04/28/16 [History] DULoxetine HCL [Cymbalta] 40 mg PO DAILY 11/21/18 [History] Levothyroxine Sodium [Synthroid] 125 mcg PO DAILY 11/21/18 [History] QUEtiapine [SEROquel] 100 mg PO HS 11/21/18 [History] Amitriptyline HCl [Elavil] 100 mg PO HS 12/27/18 [History] Ketorolac [Toradol] 10 mg PO QID PRN 01/19/20 [History] Fludrocortisone [Florinef] 0.1 mg PO DAILY #7 tab 01/22/20 [Rx] Folic Acid 1 mg PO DAILY@1200 #0 tab 01/22/20 [Rx] Multivitamins, Thera [Multivitamin (formulary)] 1 each PO DAILY@1200 #0 tab 01/22/20 [Rx] Thiamine [Vitamin B-1] 100 mg PO DAILY@1200 tab 01/22/20 [Rx] Follow up Appointment(s)/Referral(s): [facility], [NON-STAFF] - Dandy Gregory MD [STAFF PHYSICIAN] - 3 Days Activity/Diet/Wound Care/Special Instructions: Electrolyte supplementation as per replacement protocol as prior to discharge. Recommended subacute rehab, patient declining. Patient will be leaving AMA. Instructed to follow-up with Dr. Dandy Gregory in 2-3 days. Discharge Disposition: Left Against Medical Advice
[2020-01-22] MEDS ORDERED: MAGNESIUM SULFATE-D5W PMX 1 GM in DEXTROSE/WATER 1 100ML.BAG IVPB ONE (10:25)
[2020-01-22] MEDS: POTASSIUM CHLORIDE ER 20 MEQ TAB.ER PO SCH ×2 (10:43→12:11)
[2020-01-22] MEDS: MULTIVITAMINS, THERA 1 EACH TAB PO SCH (12:11)
[2020-01-22] MEDS: FOLIC ACID 1 MG TAB PO SCH (12:11)
[2020-01-22] MEDS: THIAMINE 100 MG TAB PO SCH (12:11)
--- NOTE | 2020-01-24 23:46 | CDI ---
Documentation Clarification Form Date: 01/25/2020 From: Humberto Sanchez Phone: If you have a question about this query, please contact Hoda Chavira Counter Top Maker at [phone] between 8am and 5pm. Admit Date: 01/19/2020 Discharge Date: 01/22/2020 Patient Name: Mayito Salcido Visit Number: [id number] ATTENTION: The Clinical Documentation Specialists (CDI) and [facility] Coding Staff appreciate your assistance in clarifying documentation. Please respond to the clarification below the line at the bottom and electronically sign. The CDI & [facility] Coding staff will review the response and follow-up if needed. Please note: Queries are made part of the Legal Health Record. If you have any questions, please contact the author of this message via ITS. Dear Dandy Amado., This is a 64-year-old female admitted with generalized weakness, multiple falls, rhabdomyolysis and multiple other medical issues. History/Risk Factors: HTN, Repeated falls, COPD, GERD Treatment:Maintained on IV fluid hydration.Creatinine kinase down to 2238, She has sustained multiple falls.Patient reports that she fell last night and also this morning.States that today she was putting down to pickle solution maker her dog, felt lightheaded and fell. Rhabdomyolysis, laid on the floor for greater than 12 hours In your professional opinion, can you please clarify the etiology of the condition? Traumatic rhabdomyolysis due to fall Traumatic rhabdomyolysis due to prolonged immobility Non traumatic rhabdomyolysis_ Other, please specify Unable to determine Traumatic rhabdomyolysis due to prolonged immobility MTDD
[2020-01-25] MEDS ORDERED: METHOTREXATE SODIUM 2.5 MG TAB PO SCH (09:00)
== END 2020-01-22 12:48 | disposition left against medical advice (07) | DRG 565 ==
LOC: EC 10:56 → 4SSUR 14:40
PROVIDERS: ADMIT Family Medicine; ATTEND Family Medicine
DX: T79.6XXA Traumatic ischemia of muscle, initial encounter (principal); F31.30 Bipolar disorder, current episode depressed, mild or moderate severity, unspecified; E87.2 Acidosis; G45.9 Transient cerebral ischemic attack, unspecified; I95.1 Orthostatic hypotension; I10 Essential (primary) hypertension; G47.30 Sleep apnea, unspecified; J44.9 Chronic obstructive pulmonary disease, unspecified; K21.9 Gastro-esophageal reflux disease without esophagitis; M06.9 Rheumatoid arthritis, unspecified; G43.909 Migraine, unspecified, not intractable, without status migrainosus; M19.90 Unspecified osteoarthritis, unspecified site; F41.0 Panic disorder [episodic paroxysmal anxiety]; F41.9 Anxiety disorder, unspecified; S00.83XA Contusion of other part of head, initial encounter; W19.XXXA Unspecified fall, initial encounter; R29.6 Repeated falls; E07.81 Sick-euthyroid syndrome; E78.5 Hyperlipidemia, unspecified; E03.9 Hypothyroidism, unspecified; E87.6 Hypokalemia; Z11.59 Encounter for screening for other viral diseases; Z79.890 Hormone replacement therapy; Z88.0 Allergy status to penicillin; Z90.89 Acquired absence of other organs; Z98.890 Other specified postprocedural states; Z87.891 Personal history of nicotine dependence; Z81.8 Family history of other mental and behavioral disorders; Z84.1 Family history of disorders of kidney and ureter; Z87.19 Personal history of other diseases of the digestive system
CPT/HCPCS: 36415; 70450; 71046; 72125; 80053; 80164; 80306; 80320; 81003; 82550; 83605; 83735; 84132; 84439; 84443; 84484; 85025; 85610; 85730; 93005; 93306; 93880; 96360; 99285

== ENCOUNTER 2020-01-26 19:26 | Emergency (ER) | payer MEDICARE ==
--- NOTE | 2020-01-26 20:44 | ED ---
General Adult HPI - General Chief complaint: Fall Stated complaint: Fall Time Seen by Provider: 01/26/20 19:47 Source: patient, family Mode of arrival: ambulatory Limitations: no limitations - History of Present Illness Initial comments: Dictation was produced using [employer] dictation software. please excuse any grammatical, word or spelling errors. This patient was cared for during a federal and state declared state of emergency secondary to Covid 19 Chief Complaint: 64-year-old female presents after fall. History of Present Illness: She is 64-year-old female she states she was walking her dogs for she tried to step over some sort of metal obstacle when her foot got caught. She fell landing on her left side. She is complaining of left- sided chest pain. Patient states that she deals with chronic dizziness. She states she's been dizzy for several weeks. Patient was seen here last week for dizziness a and fall. States that she is constantly dizzy. She states that her dizziness is worse with movement. She also reports that her dizziness is present when at rest. She states that it's really bad when she looks down. Patient was offered inpatient admission further evaluation of her symptoms however she refused because she has 2 dogs take care of at home. The ROS documented in this emergency department record has been reviewed and confirmed by me. Those systems with pertinent positive or negative responses have been documented in the HPI. All other systems are other negative and/or noncontributory. PHYSICAL EXAM: General Impression: Alert and oriented x3, not in acute distress HEENT: Normocephalic atraumatic, extra-ocular movements intact, pupils equal and reactive to light bilaterally, mucous membranes moist. Cardiovascular: Heart regular rate and rhythm Chest: Able to complete full sentences, no retractions, no tachypnea Abdomen: abdomen soft, non-tender, non-distended, no organomegaly Musculoskeletal: Pulses present and equal in all extremities, no peripheral edema Motor: no focal deficits noted Neurological: CN II-XII grossly intact, no focal motor or sensory deficits noted, no nystagmus Skin: Intact with no visualized rashes Psych: Normal affect and mood ED course: 64-year-old female presents today for mechanical fall. She does have a complaining that she's been very dizzy. She was seen here in emergency department on 01/19/2020. She was advised by Dr. Driscoll at that time. Vital signs upon arrival are within acceptable limits. Chart review was performed. Patient was seen in the emergency department on 01/19/2020. She is advised by Dr. Driscoll. She is found to have acidosis and rhabdomyolysis. She is admitted to the hospital for 3 days. Discharge summary from that admission shows that patient was diagnosed with gait dysfunction, orthostatic hypertension, rhabdomyolysis.Laboratory evaluation obtained. CBC, coag panel, metabolic panel is unremarkable. Abdominal labs unremarkable. No rhabdomyolysis. Urinalysis is negative. Computed tomography scan of the brain and C-spin shows no acute processes. Chest x-ray and rib x-ray shows acute fracture of the left seventh rib. Patient's pain is controlled at bedside after administration of Lidoderm patch. Patient ambulated with no complications. Patient offered admission to the hospital where she refer to go home. Believe this is reasonable disposition considering patient has at home care. Patient given return precautions per she is told to seek medical attention with any worsening chest pain, shortness of breath. Patient given prescription for Lidoderm patches. She states she has pain medications at home that she can take. EKG interpretation: Ventricular rate 84, normal sinus rhythm,. 174, QRS 94, QTC 437. No TX prolongation, no QTC prolongation, no ST or T-wave changes noted. EKG compared to 01/19/2020 showing no changes. Overall, this EKG is unremarkable - Related Data Home Medications Medication Instructions Recorded Confirmed Simvastatin [Zocor] 40 mg PO HS 09/28/15 01/26/20 Divalproex [Depakote] 500 mg PO BID 02/11/16 01/26/20 Methotrexate Sodium [Methotrexate] 20 mg PO FR 02/11/16 01/26/20 DULoxetine HCL [Cymbalta] 40 mg PO DAILY 11/21/18 01/26/20 Levothyroxine Sodium [Synthroid] 125 mcg PO DAILY 11/21/18 01/26/20 QUEtiapine [SEROquel] 100 mg PO HS 11/21/18 01/26/20 Amitriptyline HCl [Elavil] 100 mg PO HS 12/27/18 01/26/20 Ketorolac [Toradol] 10 mg PO DAILY PRN 01/19/20 01/26/20 Previous Rx's Medication Instructions Recorded Fludrocortisone [Florinef] 0.1 mg PO DAILY #7 tab 01/22/20 Folic Acid 1 mg PO DAILY@1200 #0 tab 01/22/20 Multivitamins, Thera [Multivitamin 1 each PO DAILY@1200 #0 tab 01/22/20 (formulary)] Thiamine [Vitamin B-1] 100 mg PO DAILY@1200 tab 01/22/20 Lidocaine [Lidoderm 5% Patch] 1 patch TRANSDERM DAILY 3 Days #3 01/26/20 patch Allergies Allergy/AdvReac Type Severity Reaction Status Date / Time Penicillins Allergy Rash/Hives Verified 01/26/20 22:09 Review of Systems ROS Statement: Those systems with pertinent positive or pertinent negative responses have been documented in the HPI. ROS Other: All systems not noted in ROS Statement are negative. Past Medical History Past Medical History: Chest Pain / Angina, COPD, GERD/Reflux, Hyperlipidemia, Hypertension, Rheumatoid Arthritis (RA), Sleep Apnea/CPAP/BIPAP, Thyroid Disorder Additional Past Medical History / Comment(s): GOUT, migraines, no cpap used, diff swallowing, colitis, pancreatitis bells palsy History of Any Multi-Drug Resistant Organisms: None Reported Past Surgical History: Orthopedic Surgery, Tonsillectomy Additional Past Surgical History / Comment(s): rt knee arthroscopy,left thyroplasty, Past Anesthesia/Blood Transfusion Reactions: Motion Sickness Past Psychological History: Anxiety, Bipolar, Depression, Panic Disorder Smoking Status: Former smoker Past Alcohol Use History: None Reported Past Drug Use History: None Reported - Past Family History Father History Unknown: Yes Family Medical History: Dementia Additional Family Medical History / Comment(s): LEG AMP AT AGE 13 FROM TRAIN ACCIDENT. Mother History Unknown: Yes Family Medical History: No Reported History Additional Family Medical History / Comment(s): AGE 34 KIDNEY FAILURE General Exam Limitations: no limitations Course Vital Signs 01/26/20 01/26/20 01/26/20 19:42 21:12 21:30 Temperature 98.1 F Pulse Rate 84 81 Respiratory 16 19 Rate Blood Pressure 116/64 O2 Sat by Pulse 96 95 97 Oximetry 01/26/20 22:00 Temperature Pulse Rate 80 Respiratory 19 Rate Blood Pressure 151/79 O2 Sat by Pulse 96 Oximetry Medical Decision Making - Lab Data Result diagrams: 01/26/20 21:15 01/26/20 21:15 Lab Results 01/26/20 01/26/20 01/26/20 Range/Units 21:15 21:15 21:15 WBC 8.5 (3.8-10.6) k/uL RBC 4.16 (3.80-5.40) m/uL Hgb 12.9 (11.4-16.0) gm/dL Hct 40.4 (34.0-46.0) % MCV 97.2 (80.0-100.0) fL MCH 30.9 (25.0-35.0) pg MCHC 31.8 (31.0-37.0) g/dL RDW 14.5 (11.5-15.5) % Plt Count 229 (150-450) k/uL Neutrophils % 76 % Lymphocytes % 16 % Monocytes % 5 % Eosinophils % 2 % Basophils % 0 % Neutrophils # 6.4 (1.3-7.7) k/uL Lymphocytes # 1.3 (1.0-4.8) k/uL Monocytes # 0.5 (0-1.0) k/uL Eosinophils # 0.1 (0-0.7) k/uL Basophils # 0.0 (0-0.2) k/uL PT 10.3 (9.0-12.0) sec INR 1.0 (<1.2) APTT 22.5 (22.0-30.0) sec Sodium 139 (137-145) mmol/L Potassium 3.9 (3.5-5.1) mmol/L Chloride 105 (98-107) mmol/L Carbon Dioxide 27 (22-30) mmol/L Anion Gap 7 mmol/L BUN 12 (7-17) mg/dL Creatinine 0.69 (0.52-1.04) mg/dL Est GFR (CKD-EPI)AfAm >90 (>60 ml/min/1.73 sqM) Est GFR (CKD-EPI)NonAf >90 (>60 ml/min/1.73 sqM) Glucose 79 (74-99) mg/dL Plasma Lactic Acid Aurelio (0.7-2.0) mmol/L Calcium 9.1 (8.4-10.2) mg/dL Magnesium 2.0 (1.6-2.3) mg/dL Total Bilirubin 0.4 (0.2-1.3) mg/dL AST 43 H (14-36) U/L ALT 37 H (4-34) U/L Alkaline Phosphatase 95 (38-126) U/L Creatine Kinase 240 H (30-135) U/L Total Protein 6.7 (6.3-8.2) g/dL Albumin 3.9 (3.5-5.0) g/dL Urine Color Urine Appearance (Clear) Urine pH (5.0-8.0) Ur Specific [place] (1.001-1.035) Urine Protein (Negative) Urine Glucose (UA) (Negative) Urine Ketones (Negative) Urine Blood (Negative) Urine Nitrite (Negative) Urine Bilirubin (Negative) Urine Urobilinogen (<2.0) mg/dL Ur Leukocyte Esterase (Negative) Urine RBC (0-5) /hpf Urine WBC (0-5) /hpf Ur Squamous Epith Cells (0-4) /hpf Urine Bacteria (None) /hpf Hyaline Casts (0-2) /lpf Urine Mucus (None) /hpf 01/26/20 01/26/20 Range/Units 21:15 21:25 WBC (3.8-10.6) k/uL RBC (3.80-5.40) m/uL Hgb (11.4-16.0) gm/dL Hct (34.0-46.0) % MCV (80.0-100.0) fL MCH (25.0-35.0) pg MCHC (31.0-37.0) g/dL RDW (11.5-15.5) % Plt Count (150-450) k/uL Neutrophils % % Lymphocytes % % Monocytes % % Eosinophils % % Basophils % % Neutrophils # (1.3-7.7) k/uL Lymphocytes # (1.0-4.8) k/uL Monocytes # (0-1.0) k/uL Eosinophils # (0-0.7) k/uL Basophils # (0-0.2) k/uL PT (9.0-12.0) sec INR (<1.2) APTT (22.0-30.0) sec Sodium (137-145) mmol/L Potassium (3.5-5.1) mmol/L Chloride (98-107) mmol/L Carbon Dioxide (22-30) mmol/L Anion Gap mmol/L BUN (7-17) mg/dL Creatinine (0.52-1.04) mg/dL Est GFR (CKD-EPI)AfAm (>60 ml/min/1.73 sqM) Est GFR (CKD-EPI)NonAf (>60 ml/min/1.73 sqM) Glucose (74-99) mg/dL Plasma Lactic Acid Aurelio 1.4 (0.7-2.0) mmol/L Calcium (8.4-10.2) mg/dL Magnesium (1.6-2.3) mg/dL Total Bilirubin (0.2-1.3) mg/dL AST (14-36) U/L ALT (4-34) U/L Alkaline Phosphatase (38-126) U/L Creatine Kinase (30-135) U/L Total Protein (6.3-8.2) g/dL Albumin (3.5-5.0) g/dL Urine Color Yellow Urine Appearance Cloudy H (Clear) Urine pH 6.5 (5.0-8.0) Ur Specific [place] 1.010 (1.001-1.035) Urine Protein Negative (Negative) Urine Glucose (UA) Negative (Negative) Urine Ketones Negative (Negative) Urine Blood Negative (Negative) Urine Nitrite Negative (Negative) Urine Bilirubin Negative (Negative) Urine Urobilinogen <2.0 (<2.0) mg/dL Ur Leukocyte Esterase Negative (Negative) Urine RBC <1 (0-5) /hpf Urine WBC 1 (0-5) /hpf Ur Squamous Epith Cells 2 (0-4) /hpf Urine Bacteria Rare H (None) /hpf Hyaline Casts 5 H (0-2) /lpf Urine Mucus Few H (None) /hpf Disposition Clinical Impression: Fall, Rib fracture Disposition: HOME SELF-CARE Condition: Fair Instructions (If sedation given, give patient instructions): Fall Prevention for Older Adults (ED), Rib Fracture (ED) Prescriptions: Lidocaine [Lidoderm 5% Patch] 1 patch TRANSDERM DAILY 3 Days #3 patch Is patient prescribed a controlled substance at d/c from ED?: No Referrals: Bhumi Mcneill DO [Primary Care Provider] - 1-2 days Time of Disposition: 22:26
--- NOTE | 2020-01-26 21:00 | CT ---
EXAMINATION TYPE: CT brain [place] wo con DATE OF EXAM: 01/26/2020 COMPARISON: 01/19/2020 HISTORY: Frequent falls. CT DLP: 1412.5 mGycm Automated exposure control for dose reduction was used. Multiple axial sections were obtained of the brain without contrast. Multiple axial sections were obt ained from the skull base to T1 vertebra without contrast. FINDINGS: The ventricles have normal size. There is mild cerebral cortical atrophy. There is no mass effect nor midline shift. There is no sign of intracranial hemorrhage. The calvarium is intact. There is no anna dence of cerebral edema. Skull base is intact. Cervical vertebra have normal alignment. Disc spaces are fairly normal. There is mild anterior spurri ng at C4-5 and C5-6. Facet joints are intact. IMPRESSION: Cerebral atrophy. No acute intracranial abnormality. No change. Mild degenerative disc changes in the cervical spine. No fracture. No change.
--- NOTE | 2020-01-26 21:20 | XR ---
EXAMINATION TYPE: XR chest 2V DATE OF EXAM: 01/26/2020 COMPARISON: 01/19/2020 HISTORY: Fall. Chest pain. TECHNIQUE: FINDINGS: Heart and mediastinum are normal. There is slight coarsening of interstitial markings. Ther e are no hilar masses. Thoracic aorta is atheromatous. I see no thoracic compression fracture. There is slight blunting left costophrenic angle. IMPRESSION: Minimal pleural reaction left lung base. Normal heart. No pneumothorax.
[2020-01-26 21:23] LABS: Basophils % (A) 0 %; Eosinophils # (A) 0.1 k/uL (0-0.7); Eosinophils % (A) 2 %; HCT 40.4 % (34.0-46.0); HGB 12.9 gm/dL (11.4-16.0); Lymphocytes # (A) 1.3 k/uL (1.0-4.8); Lymphocytes % (A) 16 %; MCH 30.9 pg (25.0-35.0); MCHC 31.8 g/dL (31.0-37.0); MCV 97.2 fL (80.0-100.0); Mean Platelet Volume 7.5; Monocytes # (A) 0.5 k/uL (0-1.0); Monocytes % (A) 5 %; Neutrophils # (A) 6.4 k/uL (1.3-7.7); Neutrophils % (A) 76 %; Platelet Count 229 k/uL (150-450); RBC 4.16 m/uL (3.80-5.40); RDW 14.5 % (11.5-15.5); WBC 8.5 k/uL (3.8-10.6)
--- NOTE | 2020-01-26 21:24 | XR ---
EXAMINATION TYPE: XR ribs LT DATE OF EXAM: 01/26/2020 COMPARISON: NONE HISTORY: Left side rib pain TECHNIQUE: 4 views FINDINGS: There is minimal pleural thickening at the lateral left lung base. I see no pneumothorax. T here is nondisplaced fracture lateral left seventh rib. IMPRESSION: Acute fracture left seventh rib. Minimal pleural reaction.
[2020-01-26 21:34] LABS: Partial Thromboplastin Time 22.5 sec (22.0-30.0); Prothrombin Time 10.3 sec (9.0-12.0)
[2020-01-26 21:39] LABS: Appearance,Urine Cloudy (Clear); Bacteria,Urine Rare /hpf; Bilirubin,Urine Negative (Negative); Blood,Urine Negative (Negative); Color,Urine Yellow; Glucose,Urine (UA) Negative (Negative); Hyaline Casts,Urine 5 /lpf (0-2); Ketones,Urine Negative (Negative); Leukocyte Esterase,Urine Negative (Negative); Mucus,Urine Few /hpf; Nitrite,Urine Negative (Negative); PH, Urine 6.5 (5.0-8.0); Protein,Urine Negative (Negative); RBC,Urine <1 /hpf (0-5); Squamous Epithelial Cell,Urine 2 /hpf (0-4); Urobilinogen,Urine <2.0 mg/dL (<2.0); WBC,Urine 1 /hpf (0-5)
[2020-01-26 21:52] LABS: ALT 37 U/L (4-34); AST 43 U/L (14-36); African American GFR (CKD) >90 (>60 ml/min/1.73 sqM); Albumin 3.9 g/dL (3.5-5.0); Alkaline Phosphatase 95 U/L (38-126); Anion Gap 7 mmol/L; Blood Urea Nitrogen 12 mg/dL (7-17); Calcium 9.1 mg/dL (8.4-10.2); Carbon Dioxide 27 mmol/L (22-30); Chloride 105 mmol/L (98-107); Creatine Kinase 240 U/L (30-135); Glucose 79 mg/dL (74-99); Non-African American GFR(CKD) >90 (>60 ml/min/1.73 sqM); Potassium 3.9 mmol/L (3.5-5.1); Sodium 139 mmol/L (137-145); Total Bilirubin 0.4 mg/dL (0.2-1.3); Total Protein 6.7 g/dL (6.3-8.2)
[2020-01-26] MEDS ORDERED: LIDOCAINE 5% PATCH TOPICAL STA (22:07)
[2020-01-26 22:15] VITALS: PULSE 80
[2020-01-26 22:52] VITALS: BP 131/70; RESP 15; TEMP 98.3
== END 2020-01-26 23:03 | disposition home or self-care (01) ==
LOC: EC 19:26
DX: S22.32XA Fracture of one rib, left side, initial encounter for closed fracture (principal); R42 Dizziness and giddiness; E87.2 Acidosis; R26.89 Other abnormalities of gait and mobility; I95.1 Orthostatic hypotension; G47.30 Sleep apnea, unspecified; M62.82 Rhabdomyolysis; E78.5 Hyperlipidemia, unspecified; F41.9 Anxiety disorder, unspecified; F31.9 Bipolar disorder, unspecified; M06.9 Rheumatoid arthritis, unspecified; M19.90 Unspecified osteoarthritis, unspecified site; E07.9 Disorder of thyroid, unspecified; Z79.899 Other long term (current) drug therapy; Z79.890 Hormone replacement therapy; Z88.0 Allergy status to penicillin; Z87.891 Personal history of nicotine dependence; Z99.89 Dependence on other enabling machines and devices; W18.31XA Fall on same level due to stepping on an object, initial encounter; Y93.K1 Activity, walking an animal
CPT/HCPCS: 36415; 70450; 71046; 72125; 80053; 80165; 81001; 82550; 83605; 83735; 85025; 85610; 85730; 93005; 99285

== ENCOUNTER 2020-03-25 01:50 | Inpatient (IN) | payer MEDICARE, OTHER ==
--- NOTE | 2020-03-25 02:41 | CT ---
EXAMINATION TYPE: CT brain wo con DATE OF EXAM: 03/25/2020 COMPARISON: 01/26/2020 HISTORY: Vertigo CT DLP: 1164.4 mGycm Automated exposure control for dose reduction was used. Images were obtained of the brain without contrast. There is cerebral cortical atrophy. There is no mass effect nor midline shift. There is no sign of in tracranial hemorrhage. The calvarium is intact. There is normal aeration of the temporal bones. IMPRESSION: Cerebral atrophy. No acute intracranial abnormality. No change compared to old exam.
[2020-03-25 02:46] LABS: Basophils % (A) 0 %; Eosinophils # (A) 0.2 k/uL (0-0.7); Eosinophils % (A) 2 %; HGB 13.7 gm/dL (11.4-16.0); Lymphocytes # (A) 1.7 k/uL (1.0-4.8); Lymphocytes % (A) 17 %; MCH 31.4 pg (25.0-35.0); MCV 98.2 fL (80.0-100.0); Mean Platelet Volume 7.8; Monocytes # (A) 0.5 k/uL (0-1.0); Monocytes % (A) 5 %; Neutrophils # (A) 7.4 k/uL (1.3-7.7); Neutrophils % (A) 75 %; Platelet Count 205 k/uL (150-450); RBC 4.38 m/uL (3.80-5.40); WBC 9.8 k/uL (3.8-10.6)
[2020-03-25 02:56] LABS: Albumin 4.1 g/dL (3.5-5.0); Calcium 9.3 mg/dL (8.4-10.2); Potassium 3.9 mmol/L (3.5-5.1); Total Bilirubin 0.5 mg/dL (0.2-1.3)
[2020-03-25 03:09] LABS: Appearance,Urine Cloudy (Clear); Bacteria,Urine Moderate /hpf; Bilirubin,Urine Negative (Negative); Blood,Urine Negative (Negative); Color,Urine Yellow; Glucose,Urine (UA) Negative (Negative); Granular Casts,Urine 3 /lpf (0); Hyaline Casts,Urine 399 /lpf (0-2); Ketones,Urine 1+ (Negative); Leukocyte Esterase,Urine Large (Negative); Mucus,Urine Moderate /hpf; Nitrite,Urine Negative (Negative); PH, Urine 6.5 (5.0-8.0); Protein,Urine Trace (Negative); RBC,Urine 14 /hpf (0-5); Specific Gravity,Urine 1.012 (1.001-1.035); Squamous Epithelial Cell,Urine 2 /hpf (0-4); Urobilinogen,Urine <2.0 mg/dL (<2.0); WBC,Urine 93 /hpf (0-5)
[2020-03-25] MEDS ORDERED: MECLIZINE 12.5 MG TAB PO STA (03:24)
--- NOTE | 2020-03-25 03:24 | ED ---
Dizziness HPI - General Chief Complaint: Dizziness Stated Complaint: vertigo Time Seen by Provider: 03/25/20 02:01 Source: patient, EMS Mode of arrival: EMS Limitations: no limitations - History of Present Illness Initial Comments: Mayito is a 64yo female who presents to the ER today via ambulance for evaluation of vertigo and multiple falls. Patient reports tuesday she had vertigo for part of the day. Patient reports she has a history of vertigo but does not take any medications. Patient reports she was feeling better when she went to bed Tuesday night but when she woke up Tuesday she had severe vertigo to the point where she didn't feel safe walking. Patient states that she tried to stand a couple of times but fell backwards striking the back of her head. Patient reports she decided she would scoot around her house rather than trying to walk and did this throughout the day however vertigo persisted which prompted her to come to the ER. Patient denies headache, vision changes or recent illness. - Related Data Home Medications Medication Instructions Recorded Confirmed Simvastatin [Zocor] 40 mg PO HS 09/28/15 03/25/20 Divalproex [Depakote] 500 mg PO BID 02/11/16 03/25/20 metHOTREXate sodium [Methotrexate] 20 mg PO FR 02/11/16 03/25/20 DULoxetine HCL [Cymbalta] 40 mg PO DAILY 11/21/18 03/25/20 QUEtiapine [SEROquel] 100 mg PO HS 11/21/18 03/25/20 Amitriptyline HCl [Elavil] 100 mg PO HS 12/27/18 03/25/20 Ketorolac [Toradol] 10 mg PO DAILY PRN 01/19/20 03/25/20 Folic Acid 1 mg PO DAILY 03/25/20 03/25/20 Levothyroxine Sodium [Synthroid] 112 mcg PO DAILY 03/25/20 03/25/20 Meclizine [Antivert] 25 mg PO TID PRN 03/25/20 03/25/20 Multivitamins, Thera [Multivitamin 1 tab PO DAILY 03/25/20 03/25/20 (formulary)] Thiamine [Vitamin B-1] 100 mg PO DAILY 03/25/20 03/25/20 Allergies Allergy/AdvReac Type Severity Reaction Status Date / Time Penicillins Allergy Rash/Hives Verified 03/25/20 07:04 Review of Systems ROS Statement: Those systems with pertinent positive or pertinent negative responses have been documented in the HPI. ROS Other: All systems not noted in ROS Statement are negative. Past Medical History Past Medical History: Chest Pain / Angina, COPD, GERD/Reflux, Hyperlipidemia, Hypertension, Rheumatoid Arthritis (RA), Sleep Apnea/CPAP/BIPAP, Thyroid Disorder Additional Past Medical History / Comment(s): GOUT, migraines, no cpap used, diff swallowing, colitis, pancreatitis bells palsy History of Any Multi-Drug Resistant Organisms: None Reported Past Surgical History: Orthopedic Surgery, Tonsillectomy Additional Past Surgical History / Comment(s): rt knee arthroscopy,left thyroplasty, Past Anesthesia/Blood Transfusion Reactions: Motion Sickness Past Psychological History: Anxiety, Bipolar, Depression, Panic Disorder Past Alcohol Use History: None Reported Past Drug Use History: None Reported - Past Family History Father History Unknown: Yes Family Medical History: Dementia Additional Family Medical History / Comment(s): LEG AMP AT AGE 13 FROM TRAIN ACCIDENT. Mother History Unknown: Yes Family Medical History: No Reported History Additional Family Medical History / Comment(s): AGE 34 KIDNEY FAILURE General Exam - General Exam Comments Initial Comments: Physical Exam GENERAL: Patient is well-developed and well-nourished. Patient is nontoxic and well- hydrated and is in no distress. HENT: Normocephalic, Atraumatic. EYES: PERRL, EOMI PULMONARY: Unlabored respirations. No audible rales rhonchi or wheezing was noted. CARDIOVASCULAR: There is a regular rate and rhythm without any murmurs gallops or rubs. ABDOMEN: Soft and nontender with normal bowel sounds. SKIN: Skin is clear with no lesions or rashes and otherwise unremarkable. : Deferred NEUROLOGIC: Horizontal nystagmus noted on head turning, more prominent with turning head to the left MUSCULOSKELETAL: Normal extremities with adequate strength and full range of motion. No lower extremity swelling or edema. No calf tenderness. PSYCHIATRIC: Normal psychiatric evaluation. Limitations: no limitations Course Vital Signs 03/25/20 03/25/20 03/25/20 01:53 03:54 05:30 Temperature 98.3 F Pulse Rate 83 69 80 Respiratory 18 18 16 Rate Blood Pressure 136/72 123/69 121/65 O2 Sat by Pulse 96 96 95 Oximetry 03/25/20 06:33 Temperature Pulse Rate 79 Respiratory 16 Rate Blood Pressure 116/59 O2 Sat by Pulse 95 Oximetry Medical Decision Making - Medical Decision Making The patient was seen and evaluated history is obtained from patient is an 64-year-old female with significant vertigo causing multiple falls Labs and CT was ordered results with no acute findings Computed tomography scan of the cervical spine results with arthritic changes no acute injury Urinalysis did reveal urinary tract infection with evidence of dehydration multiple hyaline casts, Rocephin was ordered The patient's age, she lives alone she has had multiple falls and she had significant vertigo we will plan to admit for rehydration, IV antibiotics for urinary tract infection and evaluation by neurology for vertigo - Lab Data Result diagrams: 03/25/20 02:20 03/25/20 02:20 Lab Results 03/25/20 03/25/20 03/25/20 Range/Units 02:20 02:20 02:20 WBC 9.8 (3.8-10.6) k/uL RBC 4.38 (3.80-5.40) m/uL Hgb 13.7 (11.4-16.0) gm/dL Hct 43.0 (34.0-46.0) % MCV 98.2 (80.0-100.0) fL MCH 31.4 (25.0-35.0) pg MCHC 32.0 (31.0-37.0) g/dL RDW 15.0 (11.5-15.5) % Plt Count 205 (150-450) k/uL Neutrophils % 75 % Lymphocytes % 17 % Monocytes % 5 % Eosinophils % 2 % Basophils % 0 % Neutrophils # 7.4 (1.3-7.7) k/uL Lymphocytes # 1.7 (1.0-4.8) k/uL Monocytes # 0.5 (0-1.0) k/uL Eosinophils # 0.2 (0-0.7) k/uL Basophils # 0.0 (0-0.2) k/uL Sodium 138 (137-145) mmol/L Potassium 3.9 (3.5-5.1) mmol/L Chloride 102 (98-107) mmol/L Carbon Dioxide 27 (22-30) mmol/L Anion Gap 9 mmol/L BUN 17 (7-17) mg/dL Creatinine 1.01 (0.52-1.04) mg/dL Est GFR (CKD-EPI)AfAm 68 (>60 ml/min/1.73 sqM) Est GFR (CKD-EPI)NonAf 59 (>60 ml/min/1.73 sqM) Glucose 86 (74-99) mg/dL Calcium 9.3 (8.4-10.2) mg/dL Total Bilirubin 0.5 (0.2-1.3) mg/dL AST 37 H (14-36) U/L ALT 23 (4-34) U/L Alkaline Phosphatase 102 (38-126) U/L Total Protein 7.0 (6.3-8.2) g/dL Albumin 4.1 (3.5-5.0) g/dL Urine Color Yellow Urine Appearance Cloudy H (Clear) Urine pH 6.5 (5.0-8.0) Ur Specific [place] 1.012 (1.001-1.035) Urine Protein Trace H (Negative) Urine Glucose (UA) Negative (Negative) Urine Ketones 1+ H (Negative) Urine Blood Negative (Negative) Urine Nitrite Negative (Negative) Urine Bilirubin Negative (Negative) Urine Urobilinogen <2.0 (<2.0) mg/dL Ur Leukocyte Esterase Large H (Negative) Urine RBC 14 H (0-5) /hpf Urine WBC 93 H (0-5) /hpf Urine WBC Clumps Few H (None) /hpf Ur Squamous Epith Cells 2 (0-4) /hpf Urine Bacteria Moderate H (None) /hpf Hyaline Casts 399 H (0-2) /lpf Granular Casts 3 (0) /lpf Urine Mucus Moderate H (None) /hpf Disposition Clinical Impression: Vertigo, UTI (urinary tract infection) Disposition: ADMITTED IP TO THIS HOSP Condition: Stable Is patient prescribed a controlled substance at d/c from ED?: No
[2020-03-25] MEDS ORDERED: IBUPROFEN 400 MG TAB PO PRN (03:25)
[2020-03-25] MEDS ORDERED: NALOXONE 0.4 MG/ML 1 ML VIAL IV PRN (03:25)
[2020-03-25] MEDS ORDERED: cefTRIAXone IN SWFI 1,000 MG/10 ML SYRINGE IVP STA (03:25)
[2020-03-25] MEDS ORDERED: ACETAMINOPHEN TAB 325 MG TAB PO PRN (03:25)
[2020-03-25] MEDS: SODIUM CHLORIDE 0.9% 1,000 ML IV SCH ×3 (03:48→16:21)
--- NOTE | 2020-03-25 04:01 | CT ---
EXAMINATION TYPE: CT cervical spine wo con DATE OF EXAM: 03/25/2020 COMPARISON: 01/26/2020 HISTORY: Fall Neck pain CT DLP: 317.3 mGycm Automated exposure control for dose reduction was used. The cervical vertebra have fairly normal alignment. There is no significant disc space narrowing. The re is hypertrophic anterior spurring at C4-5 and C5-6. The facet joints are intact. There is mild hyp ertrophic facet arthropathy. Prevertebral soft tissues are not enlarged. The skull base is intact. Te mporal bones appear intact. There are emphysematous changes in the upper lobes. IMPRESSION: Mild spondylotic changes. No fracture. Pulmonary emphysema. No significant change compared to old exa m.
[2020-03-25] MEDS: DIVALPROEX 500 MG TABLET.DR PO SCH ×2 (10:43→20:53)
[2020-03-25] MEDS: DULoxetine HCL 20 MG CAPSULE.DR PO SCH (10:43)
[2020-03-25] MEDS: LEVOTHYROXINE 112 MCG TAB PO SCH (10:43)
[2020-03-25] MEDS ORDERED: MECLIZINE 12.5 MG TAB PO PRN (12:41)
--- NOTE | 2020-03-25 13:00 | P.CNNES ---
History of Present Illness Consult date: 03/25/20 Requesting physician: Cortney Deal Chief complaint: vertigo History of Present Illness: This is a 64-year-old right-handed female with history of Topete's Palsy over the right (5 years ago), hypertension, hyperlipidemia, sleep apnea, hypothyroidism Ex-tobacco use (quit 5 years ago) who presented to the emergency department on 03/25/2020 for vertigo and multiple falls. Yesterday (03/24/20) upon waking up at 9am she felt dizzy and felt the room was spining around her. She noticed the dizziness upon moving and resolved upon resting. Upon walking she felt she was leaning towards the right and felt her right side was weak. She fell about 20 times a result but did not lose consciousness. She denies urinary or bowel incontinence. She denies visual disturbance, slurring speech or numbness or tingling. She denies visual disturbance or hearing loss. But has ringing in bilateral ears for past 15 years. She denies history of stroke or Transient Ischemic Attack. Prior to yesterday patient was last normal the night of Tuesday upon going to bed. She denies fever, cough, chills or night sweats. She denies being on new medication. Regarding patient history of Tobacco use, she smoked 1pack per day for past 40 years and stopped 5 years ago. She is not on ASA at home. She had history of Topete's Palsy affecting the right side and stated it is resolved to completely resolved. Initial vitals was a blood pressure 136/72, heart rate is 83, respiratory is 18, temperature is 98.3 Fahrenheit orally, pulse ox is [address] of the head the on 03/25/2020 was reported as cerebral atrophy. No acute intracranial abnormality. No change compared to old exam (01/26/2020). Personally reviewed the CT of the head and I didn't see any acute ischemia or acute hemorrhage. Also there is no at noticeable encephalomalacia seen. CT of cervical spine was reported as mild spondylitic changes at. There is no fracture. Pulmonary emphysema. No signal change compared to old exam. UA was done and shows the appearance was cloudy urine nitrite was negative leukocyte esterase was large, urine 1 blood cell was few bacteria was moderate, hyaline casts was 399. Review of Systems Review of system: The 12 point system was reviewed and apparent positive and negative per HPI. 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 History of Any Multi-Drug Resistant Organisms: None Reported Past Surgical History: Orthopedic Surgery, Tonsillectomy Additional Past Surgical History / Comment(s): rt knee arthroscopy,left thyroplasty, colonoscopy Past Anesthesia/Blood Transfusion Reactions: No Reported Reaction, Motion Sickness Smoking Status: Former smoker - Past Family History Father History Unknown: Yes Family Medical History: Dementia Additional Family Medical History / Comment(s): LEG AMP AT AGE 13 FROM TRAIN ACCIDENT. Mother History Unknown: Yes Family Medical History: Renal Disease Additional Family Medical History / Comment(s): AGE 34 KIDNEY FAILURE Medications and Allergies Home Medications Medication Instructions Recorded Confirmed Type Simvastatin [Zocor] 40 mg PO HS 09/28/15 03/25/20 History Divalproex [Depakote] 500 mg PO BID 02/11/16 03/25/20 History metHOTREXate sodium [Methotrexate] 20 mg PO FR 02/11/16 03/25/20 History DULoxetine HCL [Cymbalta] 40 mg PO DAILY 11/21/18 03/25/20 History QUEtiapine [SEROquel] 100 mg PO HS 11/21/18 03/25/20 History Amitriptyline HCl [Elavil] 100 mg PO HS 12/27/18 03/25/20 History Ketorolac [Toradol] 10 mg PO DAILY PRN 01/19/20 03/25/20 History Folic Acid 1 mg PO DAILY 03/25/20 03/25/20 History Levothyroxine Sodium [Synthroid] 112 mcg PO DAILY 03/25/20 03/25/20 History Meclizine [Antivert] 25 mg PO TID PRN 03/25/20 03/25/20 History Multivitamins, Thera [Multivitamin 1 tab PO DAILY 03/25/20 03/25/20 History (formulary)] Thiamine [Vitamin B-1] 100 mg PO DAILY 03/25/20 03/25/20 History Allergies Allergy/AdvReac Type Severity Reaction Status Date / Time Penicillins Allergy Rash/Hives Verified 03/25/20 07:04 Physical Examination - Vital Signs Vital Signs: Vital Signs Temp Pulse Resp BP Pulse Ox 03/25/20 10:45 84 18 100/51 93 L 03/25/20 06:33 79 16 116/59 95 03/25/20 05:30 80 16 121/65 95 03/25/20 03:54 69 18 123/69 96 03/25/20 01:53 98.3 F 83 18 136/72 96 Intake and Output 03/24/20 03/25/20 03/25/20 22:59 06:59 14:59 Other: Weight 74.389 kg 74.389 kg GENERAL: The patient is lying in bed and is not in acute distress. CHEST: The heart rate is regular rate rhythm. No murmurs to auscultation. No carotid bruit bilaterally. LUNG: Clear to auscultation bilaterally no wheezing noted throughout. Not labored breathing. ABDOMEN/GI: Bowel sounds present in all 4 quadrants. No tenderness to palpation throughout. NEUROLOGICAL: Higher mental function: The patient is awake, alert, oriented to self, place and time. Patient is following commands. No aphasia and no neglect. Cranial nerves: The pupils are round, equal and reactive to light and accommodation. Visual conklin are full to confrontation throughout. Extraocular movement is intact no nystagmus is noted. Facial sensation is normal to touch throughout. The facial strength, minimal ptosis over the right eye (chronic per patient from Topete's Palsy) otherwise normal throughout. Hearing is normal bilaterally to hand rub. Tongue is midline and moved [id number] without any difficulty. No dysarthria is noted. Shoulder shrug is normal bilaterally. Motor: Gait was attempted but patient was feeling dizzy going from lying position to sitting position. The strength is 5 over 5 throughout. Normal tone and bulk. Cerebellum: Normal finger to nose heel to chin bilaterally. Patient had essential tremor noted on bilateral upper extremities Sensation: Sensation is normal to touch throughout. Reflexes (right/left): 2+ throughout except 1+ bilaterally. Plantars are downgoing bilaterally. Results AST of 37, ALP of 23. - Laboratory Findings CBC and BMP: 03/25/20 02:20 03/25/20 02:20 Abnormal Lab Findings: Abnormal Labs 03/25/20 03/25/20 02:20 02:20 AST 37 H Urine Appearance Cloudy H Urine Protein Trace H Urine Ketones 1+ H Ur Leukocyte Esterase Large H Urine RBC 14 H Urine WBC 93 H Urine WBC Clumps Few H Urine Bacteria Moderate H Hyaline Casts 399 H Urine Mucus Moderate H Assessment and Plan Assessment: 64-year-old right-handed female with history of Topete's Palsy over the right (5 years ago), hypertension, hyperlipidemia, sleep apnea, hypothyroidism Ex-tobacco use (quit 5 years ago) who presented to the emergency department on 03/25/2020 for vertigo and multiple falls that started at 9am on 03/24/20. She stated she felt he right side was weak. Benign Positional Vertigo (patient stated she had weakness on the right side associated with vertigo, so cannot rule out stroke. On examination no focality noted) Urinary tract infection Topete's Palsy (right) Chronic Tinnitus Hyperlipidemia Hypothyroidism Ex-Tobacco use Plan: Regarding the vertigo she was placed on meclizine 25 mg once. Since the patient likely has benign positional vertigo can, I will start the patient on meclizine 12.5 mg twice a day. Regarding the patient's of vertigo as well as mentioning that she had right- sided weakness will get MRI of the brain as well as CTA of the head and neck to rule out the any stroke especially in the posterior circulation distribution. If the patient the images revealed that she has a stroke then we'll proceed with the rest of the stroke workup as well as start her on antiplatelet that. Currently she is on the Lipitor 20 mg daily for her hyperlipidemia. Currently the patient is on ceftriaxone for her UTI. We'll defer the management to the primary team. Thank you for the consult. Aftab Berry M.D. Neuro-hospitalist Time with Patient: Greater than 30
--- NOTE | 2020-03-25 15:44 | CT ---
EXAMINATION TYPE: CT angio head neck DATE OF EXAM: 03/25/2020 COMPARISON: Correlation CT brain same day HISTORY: 64-year-old female Right sided weakness with headache TECHNIQUE: Contiguous axial scanning of the head and neck performed with IV Contrast, patient injecte d with 65 mL of Isovue 370. Coronal/sagittal MIP reconstructions performed. 3-D reconstructions gener ated on a dedicated workstation. CT DLP: 443.2 mGycm Automated exposure control for dose reduction was used. FINDINGS: NECK: Moderate emphysema in the visualized upper lungs. Mild atherosclerotic arch calcifications. Conventional arch vessel branching anatomy. Dominant left vertebral artery. The vertebral arteries are patent throughout the course. The right common carotid artery is patent. Mild atherosclerotic calcifications right carotid bifurcation. Mild atherosclerotic narrowing of less than 25% at the proximal right ICA. The remainder of the right ICA is patent. Left common carotid artery is patent with mild atherosclerotic change at the bifurcation. Minimal, 15% narrowing proximal left ICA. Remainder of the left ICA is patent. There is some soft tissue symmetry at the level of the larynx with some ossification along the left-s ided cartilage defect can be assessed with direct visualization. HEAD: Left vertebral artery is again noted to be dominant. Both vertebral and basilar arteries are patent. Remainder of the posterior circulation is patent. Minimal atherosclerotic calcifications at the carotid siphons, left greater than right, without any a bnormal narrowing. Anterior circulations are patent. No aneurysmal change is seen. IMPRESSION: 1. NECK: MILD, LESS THAN 25% ATHEROSCLEROTIC NARROWING AT THE PROXIMAL ICA'S. DOMINANT LEFT VERTEBRAL ARTERY. COPD WITH MODERATE EMPHYSEMA. 2. NECK: SLIGHT SOFT TISSUE ASYMMETRY AT THE LARYNX WITH SOME LEFT-SIDED CARTILAGINOUS OSSIFICATION. DIRECT VISUALIZATION RECOMMENDED TO EXCLUDE A MUCOSAL LESION. FINDINGS MAY BE SEQUELA OF PRIOR TRAUMA . 3. HEAD: NO LARGE VESSEL INTRACRANIAL ARTERIAL OCCLUSION, SIGNIFICANT STENOSIS, OR ANEURYSMAL CHANGE IS SEEN.
[2020-03-25] MEDS: AMITRIPTYLINE HCL 50 MG TAB PO SCH (21:32)
[2020-03-25] MEDS: QUEtiapine 100 MG TAB PO SCH (21:32)
[2020-03-25] MEDS: ATORVASTATIN 20 MG TAB PO SCH (21:33)
--- NOTE | 2020-03-25 22:08 | P.HPIM ---
History of Present Illness H&P Date: 03/25/20 Chief Complaint: dizzness Mayito Salcido is a 64 yo F with PMH of RA HLD, hx tobacco use who presented to the ED complaining of persistent severe dizziness. She states she had some vertigo initially over the weekend that seemed to come and go, then yesterday when she woke up she felt severely dizzy. She was not able to stand or walk without feeling like she was being pulled to the ground. She stayed home from work and tried to wait for her symptoms to resolve but instead worsened. She endorses nausea, denies vomiting, chest pain, shortness of breath, numbness, tingling, we akness or change in speech. On presentation her vitals and labs were stable, urine with large LE and bacteria. She was given antivert with improvement in her symptoms. Review of Systems All systems: negative Constitutional: Denies chills, Denies fever Eyes: denies blurred vision, denies pain Ears, nose, mouth and throat: Denies headache, Denies sore throat Cardiovascular: Denies chest pain, Denies shortness of breath Respiratory: Denies cough Gastrointestinal: Denies abdominal pain, Denies diarrhea, Denies nausea, Denies vomiting Genitourinary: Denies dysuria, Denies hematuria Musculoskeletal: Denies myalgias Integumentary: Denies pruritus, Denies rash Neurological: Reports as per HPI, Reports vertigo, Denies numbness, Denies weakness Psychiatric: Denies anxiety, Denies depression Endocrine: Denies fatigue, Denies weight change Past Medical History Past Medical History: Chest Pain / Angina, COPD, GERD/Reflux, Hyperlipidemia, Hypertension, Rheumatoid Arthritis (RA), Sleep Apnea/CPAP/BIPAP, Thyroid Disorder Additional Past Medical History / Comment(s): Orthostatic hypotension, vertigo, falls, possible TIA, possible sick euthyroid syndrome, 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 History of Any Multi-Drug Resistant Organisms: None Reported Past Surgical History: Orthopedic Surgery, Tonsillectomy Additional Past Surgical History / Comment(s): rt knee arthroscopy,left thyroplasty, colonoscopy Past Anesthesia/Blood Transfusion Reactions: No Reported Reaction, Motion Sickness Smoking Status: Former smoker - Past Family History Father History Unknown: Yes Family Medical History: Dementia Additional Family Medical History / Comment(s): LEG AMP AT AGE 13 FROM TRAIN ACCIDENT. Mother History Unknown: Yes Family Medical History: Renal Disease Additional Family Medical History / Comment(s): AGE 34 KIDNEY FAILURE Medications and Allergies Home Medications Medication Instructions Recorded Confirmed Type Simvastatin [Zocor] 40 mg PO HS 09/28/15 03/25/20 History Divalproex [Depakote] 500 mg PO BID 02/11/16 03/25/20 History metHOTREXate sodium [Methotrexate] 20 mg PO FR 02/11/16 03/25/20 History DULoxetine HCL [Cymbalta] 40 mg PO DAILY 11/21/18 03/25/20 History QUEtiapine [SEROquel] 100 mg PO HS 11/21/18 03/25/20 History Amitriptyline HCl [Elavil] 100 mg PO HS 12/27/18 03/25/20 History Ketorolac [Toradol] 10 mg PO DAILY PRN 01/19/20 03/25/20 History Folic Acid 1 mg PO DAILY 03/25/20 03/25/20 History Levothyroxine Sodium [Synthroid] 112 mcg PO DAILY 03/25/20 03/25/20 History Meclizine [Antivert] 25 mg PO TID PRN 03/25/20 03/25/20 History Multivitamins, Thera [Multivitamin 1 tab PO DAILY 03/25/20 03/25/20 History (formulary)] Thiamine [Vitamin B-1] 100 mg PO DAILY 03/25/20 03/25/20 History Allergies Allergy/AdvReac Type Severity Reaction Status Date / Time Penicillins Allergy Rash/Hives Verified 03/25/20 07:04 Physical Exam Vitals: Vital Signs Temp Pulse Pulse Resp BP BP Pulse Ox 03/25/20 16:14 98.5 F 85 16 106/69 94 L 03/25/20 15:05 98.3 F 79 18 139/84 95 03/25/20 10:45 84 18 100/51 93 L 03/25/20 06:33 79 16 116/59 95 03/25/20 05:30 80 16 121/65 95 03/25/20 03:54 69 18 123/69 96 03/25/20 01:53 98.3 F 83 18 136/72 96 Intake and Output 03/25/20 03/25/20 03/25/20 06:59 14:59 22:59 Other: Voiding Method Toilet # Voids 0 Weight 74.389 kg 74.389 kg General: well nourished, well developed, NAD. Vitals reviewed Eyes: PERRL, EOMI, conjunctiva normal HENT: normocephalic, mucus membranes moist Neck: supple, no JVD Lungs: normal respiratory effort, no wheezes or rales CV: Regular rate and rhythm, no murmur. Peripheral pulses 2+ Abdomen: soft, nondistended, no organomegaly Lymph: no cervical or axillary LAD Skin: warm and dry. Neuro: A&Ox3, normal mood and affect. no nystagmus. Motor strength normal Results CBC & Chem 7: 03/25/20 02:20 03/25/20 02:20 Labs: Abnormal Lab Results - Last 24 Hours (Table) 03/25/20 03/25/20 Range/Units 02:20 02:20 AST 37 H (14-36) U/L Urine Appearance Cloudy H (Clear) Urine Protein Trace H (Negative) Urine Ketones 1+ H (Negative) Ur Leukocyte Esterase Large H (Negative) Urine RBC 14 H (0-5) /hpf Urine WBC 93 H (0-5) /hpf Urine WBC Clumps Few H (None) /hpf Urine Bacteria Moderate H (None) /hpf Hyaline Casts 399 H (0-2) /lpf Urine Mucus Moderate H (None) /hpf Thrombosis Risk Factor Assmnt - Choose All That Apply Any of the Below Risk Factors Present?: Yes Each Factor Represents 1 point: Abnormal pulmonary function (COPD), Obesity (BMI >25) Other Risk Factors: Yes Each Risk Factor Represents 2 Points: Age 61-74 years Other congenital or acquired thrombophilia - If yes, enter type in comment: No Thrombosis Risk Factor Assessment Total Risk Factor Score: 4 Thrombosis Risk Factor Assessment Level: Moderate Risk Assessment and Plan (1) Vertigo Current Visit: Yes Status: Acute Code(s): R42 - DIZZINESS AND GIDDINESS SNOMED Code(s): 974934287 (2) Acute cystitis Current Visit: Yes Status: Acute Code(s): N30.00 - ACUTE CYSTITIS WITHOUT HEMATURIA SNOMED Code(s): 99282614 (3) Hypertension Current Visit: Yes Status: Acute Code(s): I10 - ESSENTIAL (PRIMARY) HYPERTENSION SNOMED Code(s): 35919927 (4) Hyperlipidemia Current Visit: Yes Status: Acute Code(s): E78.5 - HYPERLIPIDEMIA, UNSPECIFIED SNOMED Code(s): 64117559 Plan: 1. Vertigo. Based on onset suspect BPPV. Neurology consult to rule out CVA. Antivert prn 2. HLD. Continue lipitor 3. Mood disorder. Continue depakote and seroquel 4. Acute cystitis. IV rocephin 1 gm daily 5. RA. Hold MTX while inpatient
[2020-03-26] MEDS: SODIUM CHLORIDE 0.9% 1,000 ML IV SCH ×5 (02:24→23:31)
[2020-03-26] MEDS: LEVOTHYROXINE 112 MCG TAB PO SCH (06:27)
[2020-03-26] MEDS: DIVALPROEX 500 MG TABLET.DR PO SCH ×2 (08:26→21:02)
[2020-03-26] MEDS: DULoxetine HCL 20 MG CAPSULE.DR PO SCH (08:26)
--- NOTE | 2020-03-26 08:55 | CT ---
EXAMINATION TYPE: CT brain wo con DATE OF EXAM: 03/26/2020 COMPARISON: CT brain 03/25/2020, MR brain 03/26/2020 HISTORY: Fall today with injury. CT DLP: 1158.4 mGycm Automated exposure control for dose reduction was used. Helical imaging through the brain. FINDINGS: Cortical atrophy is again noted. Periventricular white matter shows patchy low attenuation. There is no hemorrhage or hydrocephalus. Cerebral vascular calcifications are present. The orbits show symmetr ic appearance. Calvarium is intact. Paranasal sinuses and mastoid air cells as visualized are unremar kable. IMPRESSION: NO ACUTE ABNORMALITY.
--- NOTE | 2020-03-26 08:58 | MR ---
MR brain without contrast HISTORY: Vertigo and right-sided weakness Multiplanar multisequence imaging through the brain Correlation to CT brain same date, prior brain MRI dated 02/11/2016 There is no restricted diffusion. Confluent and scattered hyperintensities are present in the periven tricular, subcortical white matter, juxtacortical white matter similar to prior exam. There is no hem orrhage or hydrocephalus. Orbits show symmetric appearance. Cerebellopontine angles, corpus callosum, pituitary, cervical medullary junction are within normal limits. Paranasal sinuses and mastoid air c ells are well aerated. IMPRESSION: Age-related changes of atrophy and chronic small vessel ischemia. No subacute infarct is evident.
[2020-03-26] MEDS ORDERED: methylPREDNISolone SOD SUCCI 125 MG/2 ML VIAL IV STA (10:16)
--- NOTE | 2020-03-26 11:50 | P.PN ---
Subjective Progress Note Date: 03/26/20 Patient was seen at bedside and and seems somewhat drowsy today compared to yesterday. Per the patient's nurse the patient got up to use the sink and that she was feeling dizzy and the she hit her head. The patient does recall the episode and she denied any urinary incontinence. He stated that she was feeling dizzy. The she is currently on has at at a bed alert. She continues to feel dizzy upon standing but improves upon lying down. Objective - Vital Signs Vital signs: Vital Signs Temp 97.6 F 03/26/20 08:21 Pulse 60 03/26/20 08:51 Resp 16 03/26/20 08:51 BP 97/47 03/26/20 08:21 Pulse Ox 97 03/26/20 08:21 Intake & Output 03/25/20 03/26/20 03/26/20 18:59 06:59 18:59 Intake Total 440 Balance 440 Weight 74.389 kg Intake: Oral 240 Other 200 Other: Voiding Method Toilet Toilet # Voids 0 1 - Exam GENERAL: The patient is lying in bed and is not in acute distress. CHEST: The heart rate is regular rate rhythm. No murmurs to auscultation. LUNG: Clear to auscultation bilaterally no wheezing noted throughout. Not labored breathing. ABDOMEN/GI: Bowel sounds present in all 4 quadrants. No tenderness to palpation throughout. NEUROLOGICAL: Higher mental function: The patient is drowsy but is awakeable to voice. She is oriented to self place regarding the time as she correctly stated that was the 2019 but when he came to the month she initially stated that was the December after that she said December again than later she said it was not December was not January and was in February but we had to ask her what what came after February and she said it was March. She was following commands but was slow the following commands. She was able to perform few complex commands like taking the thumb touching the left ear is taking the tongue but was slow in performing it. No aphasia and no neglect. Cranial nerves: The pupils are round, equal and reactive to light and accommodation. Visual conklin are full to confrontation throughout. Extraocular movement is intact no nystagmus is noted. Facial sensation is normal to touch throughout. The facial strength, minimal ptosis over the right eye (chronic per patient from Topete's Palsy) otherwise normal throughout. Hearing is normal bilaterally to hand rub. Tongue is midline and moved [id number] without any difficulty. No dysarthria is noted. Shoulder shrug is normal bilaterally. Motor: Gait wasn't attempted andwas a having very cautious steps to go very few steps and then she was feeling dizzy. She was leaning towards one side or the other. The strength is 5 over 5 throughout. Normal tone and bulk. Cerebellum: Normal finger to nose heel to chin bilaterally. Patient had essential tremor noted on bilateral upper extremities Sensation: Sensation is normal to touch throughout. Reflexes (right/left): 2+ throughout except 1+ bilaterally. Plantars are downgoing bilaterally. - Labs CBC & Chem 7: 03/25/20 02:20 03/25/20 02:20 Assessment and Plan Assessment: 64-year-old right-handed female with history of Topete's Palsy over the right (5 years ago), hypertension, hyperlipidemia, sleep apnea, hypothyroidism Ex-tobacco use (quit 5 years ago) who presented to the emergency department on 03/25/2020 for vertigo and multiple falls that started at 9am on 03/24/20. She stated she felt he right side was weak. Benign Positional Vertigo Urinary tract infection Topete's Palsy (right) Chronic Tinnitus Hyperlipidemia Hypothyroidism Ex-Tobacco use Plan: Regarding the vertigo she was placed on meclizine 25 mg once. Since the patient likely has benign positional vertigo can, I will start the patient on meclizine 12.5 mg twice a day. MRI Brain: Was reported as age-related changes of atrophy and chronic small vessel ischemia. No subacute acute ischemic infarct is evident. I reviewed the MRI of the brain and I didn't see any evidence of acute ischemia. CT angiogram of the head and neck was reported as the the head there is no large vessel intracranial arterial occlusion, significant stenosis or aneurysm at change is seen. Neck there is mild, less than 25 atherosclerotic narrowing at the proximal ICAs. Dominant left vertebral artery. COPD with multiple moderate emphysema. Also reported as slight soft tissue asymmetry at the larynx was some left-sided cartilaginous ossification. Direct visualization recommended to exclude a mucosal lesion. Finding may be sequela of prior trauma. She had a repeat CT of the head on 03/26/2020 after a fall and that was reported as no acute abnormality. I ordered orthostatic vitals. Currently she is on the Lipitor 20 mg daily for her hyperlipidemia. We'll defer further workup of the larynx finding on the CT angiogram if needed to the primary team. Currently the patient is on ceftriaxone for her UTI. We'll defer the management to the primary team. From a neurology perspective I feel the patient is the not stable to be discharged home she had a recent fall today since she was dizzy also she seemed more drowsy today compared to yesterday. I recommended the patient the to be discharged to rehab since consider the patient will have further falls and the might injure herself. The patient was notified of my recommendation and she said that she wants to go home. The plan was discussed with the patient nurse. Aftab Berry M.D. Neuro-hospitalist Time with Patient: Greater than 30
--- NOTE | 2020-03-26 16:42 | P.PN ---
Subjective Progress Note Date: 03/26/20 Mayito Salcido is a 64 yo F with PMH of RA HLD, hx tobacco use who presented to the ED complaining of persistent severe dizziness. She states she had some vertigo initially over the weekend that seemed to come and go, then yesterday when she woke up she felt severely dizzy. She was not able to stand or walk without feeling like she was being pulled to the ground. She stayed home from work and tried to wait for her symptoms to resolve but instead worsened. She endorses nausea, denies vomiting, chest pain, shortness of breath, numbness, tingling, weakness or change in speech. On presentation her vitals and labs were stable, urine with large LE and bacteria. She was given antivert with improvement in her symptoms. 03/26/20 16. Staff reports patient is up to the bathroom sink became dizzy and sustained a fall. Denies syncope. Positive for orthostatic hypotension. Brain MRI reported no subacute ischemic infarct, age-related atrophy,'s chronic small vessel ischemia. Repeat head CT status post fall reported no acute abnormality. Sensorium improving, conversing appropriately. Objective - Vital Signs Vital signs: Vital Signs Temp 97.6 F 03/26/20 08:21 Pulse 87 03/26/20 11:54 Resp 16 03/26/20 11:40 BP 151/71 03/26/20 11:54 Pulse Ox 93 L 03/26/20 11:40 Intake & Output 03/25/20 03/26/20 03/26/20 18:59 06:59 18:59 Intake Total 440 Balance 440 Weight 74.389 kg Intake: Oral 240 Other 200 Other: Voiding Method Toilet Toilet # Voids 0 1 - Exam General: Sitting up in bed, NAD. Vitals reviewed Eyes: PERRL, EOMI, conjunctiva normal HENT: normocephalic, mucus membranes moist Neck: supple, no JVD Lungs: normal respiratory effort, no wheezes or rales CV: Regular rate and rhythm, no murmur. Peripheral pulses 2+ Abdomen: soft, nondistended, no organomegaly Lymph: no cervical or axillary LAD Skin: warm and dry. Neuro: A&Ox3, normal mood and affect. no nystagmus. Motor strength normal - Labs CBC & Chem 7: 03/25/20 02:20 03/25/20 02:20 Assessment and Plan Assessment: (1) Vertigo, suspect BPV Current Visit: Yes Status: Acute Code(s): R42 - DIZZINESS AND GIDDINESS SNOMED Code(s): 523367653 (2) Acute cystitis Current Visit: Yes Status: Acute Code(s): N30.00 - ACUTE CYSTITIS WITHOUT HEMATURIA SNOMED Code(s): 49136982 (3) Hypertension Current Visit: Yes Status: Acute Code(s): I10 - ESSENTIAL (PRIMARY) HYPERT ENSION SNOMED Code(s): 26284722 (4) Hyperlipidemia Current Visit: Yes Status: Acute Code(s): E78.5 - HYPERLIPIDEMIA, UNSPECIFIED SNOMED Code(s): 25865246 (5) orthostatic hypotension (6) mood disorder (7) rheumatoid arthritis (8) moderate emphysema (9) slight soft tissue asymmetry at the later next with some left-sided cartilaginous ossification, possible mucosal lesion, possibly sequel of prior trauma, per CT. further workup outpatient Plan: Continue current medication regime ,monitoring and symptomatic treatment. Patient sustained a fall, increased confusion, positive orthostatic hypotension. Maintain IV fluid hydration. Orthostatic vital signs every shift. Evaluated by neurology with recommendations noted and appreciated. PT/OT, potential subacute rehab at discharge. Recommend PT/Bonnie-Hallpike maneuvers. The impression and plan of care has been dictated as directed. : I performed a history and examination of this patient, discussed the same with the dictator. I agree with the dictator's note ,documented as a scribe. Any additional findings or plans will be noted.
[2020-03-26] MEDS: ATORVASTATIN 20 MG TAB PO SCH (21:01)
[2020-03-26] MEDS: AMITRIPTYLINE HCL 50 MG TAB PO SCH (21:03)
[2020-03-26] MEDS: QUEtiapine 100 MG TAB PO SCH (21:04)
[2020-03-26] MEDS: MECLIZINE 12.5 MG TAB PO SCH (21:04)
[2020-03-27] MEDS: SODIUM CHLORIDE 0.9% 1,000 ML IV SCH ×4 (03:18→23:50)
[2020-03-27] MEDS: LEVOTHYROXINE 112 MCG TAB PO SCH (06:04)
[2020-03-27 07:47] LABS: Basophils % (A) 0 %; Eosinophils # (A) 0.1 k/uL (0-0.7); Eosinophils % (A) 1 %; HCT 34.2 % (34.0-46.0); HGB 10.8 gm/dL (11.4-16.0); Lymphocytes # (A) 1.2 k/uL (1.0-4.8); Lymphocytes % (A) 13 %; MCH 31.5 pg (25.0-35.0); MCHC 31.6 g/dL (31.0-37.0); MCV 99.6 fL (80.0-100.0); Macrocytosis Slight; Mean Platelet Volume 7.9; Monocytes # (A) 0.6 k/uL (0-1.0); Monocytes % (A) 6 %; Neutrophils # (A) 7.4 k/uL (1.3-7.7); Neutrophils % (A) 79 %; Platelet Count 166 k/uL (150-450); RBC 3.43 m/uL (3.80-5.40); RDW 15.2 % (11.5-15.5); WBC 9.4 k/uL (3.8-10.6)
[2020-03-27 08:01] LABS: African American GFR (CKD) >90 (>60 ml/min/1.73 sqM); Anion Gap 4 mmol/L; Blood Urea Nitrogen 9 mg/dL (7-17); Calcium 8.4 mg/dL (8.4-10.2); Carbon Dioxide 24 mmol/L (22-30); Chloride 112 mmol/L (98-107); Glucose 84 mg/dL (74-99); Non-African American GFR(CKD) >90 (>60 ml/min/1.73 sqM); Potassium 3.5 mmol/L (3.5-5.1); Sodium 140 mmol/L (137-145)
[2020-03-27] MEDS: DIVALPROEX 500 MG TABLET.DR PO SCH ×2 (09:13→21:17)
[2020-03-27] MEDS: MECLIZINE 12.5 MG TAB PO SCH ×2 (09:14→21:19)
[2020-03-27] MEDS: DULoxetine HCL 20 MG CAPSULE.DR PO SCH (09:14)
[2020-03-27] MEDS: SODIUM CHLORIDE TAB 1 GM TAB PO SCH ×2 (10:17→21:18)
--- NOTE | 2020-03-27 13:13 | P.PN ---
Subjective Progress Note Date: 03/27/20 Patient was seen at bedside and she said that she's doing better she wants to go home. She said that the she continues to feel somewhat dizzy if she gets up and is improved when the she is lying. Objective - Vital Signs Vital signs: Vital Signs Temp 98.0 F 03/27/20 07:45 Pulse 83 03/27/20 07:45 Resp 17 03/27/20 07:45 BP 174/76 03/27/20 07:45 Pulse Ox 90 L 03/27/20 07:45 Intake & Output 03/26/20 03/27/20 03/27/20 18:59 06:59 18:59 Intake Total 440 1395 Output Total 600 Balance 440 795 Intake: Intake, IV Titration 1275 Amount Sodium Chloride 0.9% 1, 1275 000 ml @ 130 mls/hr IV . [facility] Rx#:[id number] Oral 240 120 Other 200 Output: Urine 600 Other: Voiding Method Toilet Bedside Commode Bedside Commode # Voids 1 3 - Exam GENERAL: The patient is lying in bed and is not in acute distress. CHEST: The heart rate is regular rate rhythm. No murmurs to auscultation. LUNG: Clear to auscultation bilaterally no wheezing noted throughout. Not labored breathing. ABDOMEN/GI: Bowel sounds present in all 4 quadrants. No tenderness to palpation throughout. NEUROLOGICAL: Higher mental function: The patient is drowsy but is awakeable to voice. She is oriented to self place regarding the time as she correctly stated that was the 2019 but when he came to the month she initially stated that was the December after that she said December again than later she said it was not December was not January and was in February but we had to ask her what what came after February and she said it was March. She was following commands but was slow the following commands. She was able to perform few complex commands like taking the thumb touching the left ear is taking the tongue but was slow in performing it. No aphasia and no neglect. Cranial nerves: The pupils are round, equal and reactive to light and accommodation. Visual conklin are full to confrontation throughout. Proptosis of left eye. Extraocular movement is intact no nystagmus is noted. Facial sensation is normal to touch throughout. The facial strength, minimal ptosis over the right eye (chronic per patient from Topete's Palsy) otherwise normal throughout. Hearing is normal bilaterally to hand rub. Tongue is midline and moved [id number] without any difficulty. No dysarthria is noted. Shoulder shrug is normal bilaterally. Motor: Gait wasn't attempted andwas a having very cautious steps to go very few steps and then she was feeling dizzy. She was leaning towards one side or the other. The strength is 5 over 5 throughout. Normal tone and bulk. Cerebellum: Normal finger to nose heel to chin bilaterally. Patient has very subtle tremor with both hands upon getting close to the objects. Sensation: Sensation is normal to touch throughout. Reflexes (right/left): 2+ throughout except 1+ bilaterally. Plantars are downgoing bilaterally. - Labs CBC & Chem 7: 03/27/20 07:02 03/27/20 07:02 Labs: Abnormal Lab Results - Last 24 Hours (Table) 03/27/20 03/27/20 Range/Units 07:02 07:02 RBC 3.43 L (3.80-5.40) m/uL Hgb 10.8 L (11.4-16.0) gm/dL Chloride 112 H (98-107) mmol/L Assessment and Plan Assessment: 64-year-old right-handed female with history of Topete's Palsy over the right (5 years ago), hypertension, hyperlipidemia, sleep apnea, hypothyroidism Ex-tobacco use (quit 5 years ago) who presented to the emergency department on 03/25/2020 for vertigo and multiple falls that started at 9am on 03/24/20. She stated she felt he right side was weak. Orthostatic hypotension (felt dizzy with movement and had +ve orthostatic). Urinary tract infection Topete's Palsy (right) Chronic Tinnitus Hyperlipidemia Hypothyroidism Ex-Tobacco use Plan: Regarding the vertigo she was placed on meclizine 25 mg once. Since the patient likely has benign positional vertigo can, I will start the patient on meclizine 12.5 mg twice a day. MRI Brain: Was reported as age-related changes of atrophy and chronic small vessel ischemia. No subacute acute ischemic infarct is evident. I reviewed the MRI of the brain and I didn't see any evidence of acute ischemia. CT angiogram of the head and neck was reported as the the head there is no large vessel intracranial arterial occlusion, significant stenosis or aneurysm at change is seen. Neck there is mild, less than 25 atherosclerotic narrowing at the proximal ICAs. Dominant left vertebral artery. COPD with multiple moderate emphysema. Also reported as slight soft tissue asymmetry at the larynx was some left-sided cartilaginous ossification. Direct visualization recommended to exclude a mucosal lesion. Finding may be sequela of prior trauma. She had a repeat CT of the head on 03/26/2020 after a fall and that was reported as no acute abnormality. Orthostatic vitals (03/26/20): Supine blood pressure was 170/69 with a heart rate of 56; sitting blood pressure of 143/64 with a heart rate of 62; standing blood [id number] and a heart rate is 80. Her orthostatic were consistent of orthostatic hypotension. The patient was placed on the sodium salt 1 g twice a day. The recommend head of the bed elevated about 30. Recommend compression stocking. Patient is on meclizine 12.5 mg twice a day as since benign positional vertigo was a possible differential. Currently she is on the Lipitor 20 mg daily for her hyperlipidemia. We'll defer further workup of the larynx finding on the CT angiogram that was detected to the primary team. Currently the patient is on ceftriaxone for her UTI. We'll defer the management to the primary team. Aftab Berry M.D. Neuro-hospitalist Time with Patient: Greater than 30
--- NOTE | 2020-03-27 13:24 | P.CN ---
Psychiatric Consult - . Consult date: 03/27/20 Consult:: 03/27/20 13:12 IDENTIFYING DATA: This patient is a 64-year-old female currently lives alone in apartment is currently and has 2 kids and collects Social Security disability. HISTORY OF PRESENT ILLNESS: The patient presented to the hospital initially for planes of vertigo and multiple falls at home. Patient does have a chronic history of vertigo and claimed that she woke up Tuesday morning with severe vertigo and was not able to get out of bed and was not able to stand and fell backwards. Patient claimed that she called the fire Department who took her into the hospital. On examination in the ER patient has horizontal nystagmus on head turning and especially on the left side. Patient had a CT scan of her head which was negative for any acute changes. Patient had a UTI and was dehydrated and admitted for treatment. Psychiatrist consulted for "cognitive depression and capacity". Patient was seen at bedside and was able to speak with the business writer today. She claims that she was having falls and fell against the cement. She states that it was hard for her to get up and claims that the vertigo has been getting worse for the past 2 months. She states that she was laying down on the floor and the vertigo gets worse when she stands up. The current plan was to send patient to rehab from the hospital due to her poor condition and then to be discharged home afterwards however patient has been refusing to go to rehab. She spoke mainly about needing to take care of her dogs however did state that her friend is taking care of her dogs at the moment. She was minimizing her condition and her medical problems and claims that she doesn't usually listen to doctors as "they're always after money". She was not able to appropriately evaluate the risks of going home without rehab and states that "the fire department will does bring me back in" and ignores the fact that she cannot care for herself at this time. She claims that she does have a history of manic episodes in the past but states that her mood is "okay now" and denies any depression. She states that she's been sleeping well at night. She was alert and oriented 3 and knows the current president and the previous Pres. She has poor abstraction and fair attention span. At this time patient denies any suicidal or homical ideations, intent or plan. Patient denies any auditory, visual hallucinations and denies any paranoia or delusions. Patients admits to using no recreational drugs or cigarettes. PAST PSYCHIATRIC HISTORY: Patient has a a history of bipolar disorder. Patient is currently on Cymbalta 40 mg daily, Seroquel 100 mg daily at bedtime, Elavil 100 mg daily at bedtime and Depakote 500 mg twice a day Patient denies any previous psychiatric hospitalizations. Patient denies any psychiatric outpatient follow-up however she states that she used to follow up with a psychiatrist that she does not remember who it is and currently follows up with her PCP for her psychiatric medications.. Patient denies any history of suicide attempts in the past. PAST MEDICAL HISTORY: COPD, angina, GERD, HI, hypertension, rheumatoid arthritis, obstructive sleep apnea, thyroid disorder, vertigo and Topete's palsy.. ALLERGIES: as per EMR. CHEMICAL DEPENDENCY HISTORY: as per HPI. FAMILY PSYCHIATRIC/SUBSTANCE USE HISTORY: She states that her brother overdosed and committed suicide. SOCIAL HISTORY: Patient was born and raised in [facility] and claims that she completed her GED. 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 She denies any legal or history. She states that she currently lives alone in an apartment is has 2 kids and collects Social Security disability.. MENTAL STATUS EXAM: General Appearance: Patient appears to be stated age is alert, directable, and cooperative yet was stubborn. Patient appears to have fair hygiene and grooming wearing hospital gown with fair eye contact. Behavior: Patient is calmly lying in bed without any agitated behavior. Stubborn yet tending to be cooperative. Speech: Patient's speech is fluent and nonpressured. Mood/Affect: Patient reports their mood is "ok now", affect is congruent Suicidality/Homicidality: Patient denies having any suicidal or homicidal ideation intent or plan. Perceptions: Patient denies any visual hallucinations and denies any auditory hallucinations Though content/process: There is no evidence of any delusional thought content and thought process is linear. Minimizing her condition and her medical problems. Mistrust towards doctors. Memory and concentration: AOX3, grossly intact for the purposes of this session. Can spell "WORLD" backwards Judgment and insight: poor IMPRESSIONS: Bipolar disorder type I PLAN: -At this time patient DOES NOT meet criteria for inpatient psychiatric admissio n. -Patient DOES NOT have decision making capacity with regards to her care at home and ability to refuse rehab placement at this time and is unable to reason through and communicate/appreciate the risks, benefits and alternatives to treatment and rehab. Patient is in denial about her limitations and minimizing her condition, underestimating the severe risks of going home at this point. -Delirium precautions recommended with patient including - avoiding use of narcotics and SEGMENTAL WALL INSTALLER sedatives, limit anticholinergic medications when possible, frequent re-orientation, minimize use of restraints, open window shades during the day and close them at night -Would recommend the following medication changes/additions: Decreased Elavil to 50 mg daily at bedtime with plan to gradually titrate off as patient may be experiencing adverse reactions and this may be contributing to her dizziness/vertigo. Increase Cymbalta to 30 mg twice a day for anxiety/mood. Increase Seroquel to 150 mg daily at bedtime for mood stabilization/insomnia. Continue with Depakote 500 mg twice a day. -Will continue to follow along to see if medications need to be adjusted further. -Continue with treatment of underlying medical condition and appreciate neurology recommendations, feedback and follow-up. -Agree with plan for eventual discharge to rehab. -Psychiatry will sign off at this point, please contact with any questions.
--- NOTE | 2020-03-27 15:03 | P.PN ---
Subjective Progress Note Date: 03/27/20 Mayito Salcido is a 64 yo F with PMH of RA HLD, hx tobacco use who presented to the ED complaining of persistent severe dizziness. She states she had some vertigo initially over the weekend that seemed to come and go, then yesterday when she woke up she felt severely dizzy. She was not able to stand or walk without feeling like she was being pulled to the ground. She stayed home from work and tried to wait for her symptoms to resolve but instead worsened. She endorses nausea, denies vomiting, chest pain, shortness of breath, numbness, tingling, weakness or change in speech. On presentation her vitals and labs were stable, urine with large LE and bacteria. She was given antivert with improvement in her symptoms. 03/26/20 16. Staff reports patient is up to the bathroom sink became dizzy and sustained a fall. Denies syncope. Positive for orthostatic hypotension. Brain MRI reported no subacute ischemic infarct, age-related atrophy,'s chronic small vessel ischemia. Repeat head CT status post fall reported no acute abnormality. Sensorium improving, conversing appropriately. 2015 reports dizziness has resolved. Orthostatic hypotension resolved Declining rehab, very concerned about her dogs at home, requesting homecare with PT. States she has no means of transportation, uses CABS. Reports she is estranged from her family , daughter in [place] and her son locally does not speak to her .states her friend checks over her addition/subtraction in her checkbook ,when she is writing her bills out. Staff reported confusion throughout the night and this morning. Patient is alert and oriented 3 yet could not answer correctly the majority of questions of mental status exam with the score of about 18/30; unable to spell world, unable to subtract 7 from 100, disoriented to month, day of the week. Denies any chest pain, palpitations or shortness of breath. Objective - Vital Signs Vital signs: Vital Signs Temp 98.0 F 03/27/20 07:45 Pulse 83 03/27/20 07:45 Resp 17 03/27/20 07:45 BP 174/76 03/27/20 07:45 Pulse Ox 90 L 03/27/20 07:45 Intake & Output 03/26/20 03/27/20 03/27/20 18:59 06:59 18:59 Intake Total 440 1395 Output Total 600 Balance 440 795 Intake: Intake, IV Titration 1275 Amount Sodium Chloride 0.9% 1, 1275 000 ml @ 130 mls/hr IV . Q7H42M [facility] Rx#:[id number] Oral 240 120 Other 200 Output: Urine 600 Other: Voiding Method Toilet Bedside Commode Bedside Commode # Voids 1 3 - Exam General: Sitting up in bed, NAD. Vitals reviewed Eyes: PERRL, EOMI, conjunctiva normal HENT: normocephalic, mucus membranes moist Neck: supple, no JVD Lungs: normal respiratory effort, no wheezes or rales CV: Regular rate and rhythm, no murmur. Peripheral pulses 2+ Abdomen: soft, nondistended, no organomegaly Lymph: no cervical or axillary LAD Skin: warm and dry. Neuro: A&Ox3, normal mood and affect. no nystagmus. Motor strength normal - Labs CBC & Chem 7: 03/27/20 07:02 03/27/20 07:02 Labs: Abnormal Lab Results - Last 24 Hours (Table) 03/27/20 03/27/20 Range/Units 07:02 07:02 RBC 3.43 L (3.80-5.40) m/uL Hgb 10.8 L (11.4-16.0) gm/dL Chloride 112 H (98-107) mmol/L Assessment and Plan Assessment: (1) Vertigo, suspect BPV Current Visit: Yes Status: Acute Code(s): R42 - DIZZINESS AND GIDDINESS SNOMED Code(s): 541155562 (2) Acute cystitis Current Visit: Yes Status: Acute Code(s): N30.00 - ACUTE CYSTITIS WITHOUT HEMATURIA SNOMED Code(s): 43251414 (3) Hypertension Current Visit: Yes Status: Acute Code(s): I10 - ESSENTIAL (PRIMARY) HYPERTENSION SNOMED Code(s): 49667220 (4) Hyperlipidemia Current Visit: Yes Status: Acute Code(s): E78.5 - HYPERLIPIDEMIA, UNSPECIFIED SNOMED Code(s): 30353321 (5) orthostatic hypotension (6) bipolar disorder (7) rheumatoid arthritis (8) moderate emphysema (9) slight soft tissue asymmetry at the later next with some left-sided cartilaginous ossification, possible mucosal lesion, possibly sequel of prior trauma, per CT. further workup outpatient (10) acute delirium, acute metabolic encephalopathy, multifactorial. Plan: Continue current medication regime ,monitoring and symptomatic treatment. Given patient's cognitive impairment,psychiatry consulted. Social work notified regarding disposition planning. Discharge planning pending. The impression and plan of care has been dictated as directed. : I performed a history and examination of this patient, discussed the same with the dictator. I agree with the dictator's note ,documented as a scribe. Any additional findings or plans will be noted.
[2020-03-27] MEDS ORDERED: AMITRIPTYLINE HCL 50 MG TAB PO SCH (21:00)
[2020-03-27] MEDS: ATORVASTATIN 20 MG TAB PO SCH (21:18)
[2020-03-27] MEDS: QUEtiapine 50 MG TAB PO SCH (21:19)
[2020-03-27] MEDS: DULoxetine HCL 30 MG CAPSULE.DR PO SCH (21:19)
[2020-03-28] MEDS: LEVOTHYROXINE 112 MCG TAB PO SCH (05:46)
[2020-03-28] MEDS: SODIUM CHLORIDE 0.9% 1,000 ML IV SCH ×2 (07:02→15:35)
[2020-03-28] MEDS: DIVALPROEX 500 MG TABLET.DR PO SCH ×2 (08:21→21:10)
[2020-03-28] MEDS: DULoxetine HCL 30 MG CAPSULE.DR PO SCH ×2 (08:24→21:10)
[2020-03-28] MEDS: MECLIZINE 12.5 MG TAB PO SCH (08:25)
[2020-03-28] MEDS: SODIUM CHLORIDE TAB 1 GM TAB PO SCH ×2 (08:25→21:09)
--- NOTE | 2020-03-28 13:47 | P.DS ---
Providers Date of admission: 03/26/20 12:42 Expected date of discharge: 03/28/20 Attending physician: Dandy Gregory MD Consults: 03/25/20 07:47 Consult Physician Urgent Consulting Provider: Aftab Berry Consult Reason/Comments: vertigo Do you want consulting provider notified?: Yes, Notify in am 03/27/20 10:11 Consult Physician Routine Consulting Provider: Dheeraj Chan Consult Reason/Comments: COGNITIVE DEPRESSION AND COMPETENCY Do you want consulting provider notified?: Yes Primary care physician: Bhumi Mcneill - Discharge Diagnosis(es) (1) Vertigo Current Visit: Yes Status: Acute (2) Acute cystitis Current Visit: Yes Status: Acute (3) Hypertension Current Visit: Yes Status: Acute (4) Hyperlipidemia Current Visit: Yes Status: Acute Hospital Course: Mayito Salcido is a 64 yo F with PMH of RA HLD, bipolar disorder, hx tobacco use who presented to the ED complaining of persistent severe dizziness. She states she had some vertigo initially over the weekend that seemed to come and go, then yesterday when she woke up she felt severely dizzy. She was not able to stand or walk without feeling like she was being pulled to the ground. She stayed home from work and tried to wait for her symptoms to resolve but instead worsened. She endorses nausea, denies vomiting, chest pain, shortness of breath, numbness, tingling, weakness or change in speech. On presentation her vitals and labs were stable, urine with large LE and bacteria. She was given antivert with improvement in her symptoms. 03/26/20. Staff reports patient is up to the bathroom sink became dizzy and sustained a fall. Denies syncope. Positive for orthostatic hypotension. Brain MRI reported no subacute ischemic infarct, age-related atrophy,'s chronic small vessel ischemia. Repeat head CT status post fall reported no acute abnormality. Sensorium improving, conversing appropriately. 03/27/20. reports dizziness has resolved. Orthostatic hypotension resolved Declining rehab, very concerned about her dogs at home, requesting homecare with PT. States she has no means of transportation, uses CABS. Reports she is estranged from her family , daughter in [place] and her son locally does not speak to her .states her friend checks over her addition/subtraction in her checkbook ,when she is writing her bills out. Staff reported confusion throughout the night and this morning. Patient is alert and oriented 3 yet could not answer correctly the majority of questions of mental status exam with the score of about 18/30; unable to spell world, unable to subtract 7 from 100, disoriented to month, day of the week. Denies any chest pain, palpitations or shortness of breath. She was evaluated by psychiatry and felt to NOT have medical capacity to make own decisions at this time. Her psychiatric medications were adjusted to minimize anticholinergic side effects and possibility of contributing to c onfusion. We discussed benefits of rehab with patient again on day of discharge and she is agreeable to go. She is discharged in stable condition and will work with PT and OT. Her mental status will be reassessed as an outpatient and further recommendations pending. Gen: well developed female in NAD HEENT: nc/at, mmm CV: RRR, no murmur Lungs: normal effort, clear throughout Neuro: AAOx3, no focal deficits. Poor insight and judgement Patient Condition at Discharge: Stable Plan - Discharge Summary Discharge Rx Participant: No New Discharge Prescriptions: New Meclizine [Antivert] 12.5 mg PO TID PRN #30 tablet PRN Reason: Vertigo Cefuroxime Axetil [Ceftin] 500 mg PO BID 3 Days #8 tab DULoxetine HCL [Cymbalta] 30 mg PO BID #60 capsule. Amitriptyline HCl [Elavil] 50 mg PO HS #30 tab QUEtiapine [SEROquel] 150 mg PO HS #30 tab Continue Simvastatin [Zocor] 40 mg PO HS metHOTREXate sodium [Methotrexate] 20 mg PO FR Divalproex [Depakote] 500 mg PO BID QUEtiapine [SEROquel] 100 mg PO HS Ketorolac [Toradol] 10 mg PO DAILY PRN PRN Reason: Pain Meclizine [Antivert] 25 mg PO TID PRN PRN Reason: Vertigo Levothyroxine Sodium [Synthroid] 112 mcg PO DAILY Thiamine [Vitamin B-1] 100 mg PO DAILY Multivitamins, Thera [Multivitamin (formulary)] 1 tab PO DAILY Folic Acid 1 mg PO DAILY Discontinued DULoxetine HCL [Cymbalta] 40 mg PO DAILY Amitriptyline HCl [Elavil] 100 mg PO HS Discharge Medication List Simvastatin [Zocor] 40 mg PO HS 09/28/15 [History] Divalproex [Depakote] 500 mg PO BID 02/11/16 [History] metHOTREXate sodium [Methotrexate] 20 mg PO FR 02/11/16 [History] QUEtiapine [SEROquel] 100 mg PO HS 11/21/18 [History] Ketorolac [Toradol] 10 mg PO DAILY PRN 01/19/20 [History] Folic Acid 1 mg PO DAILY 03/25/20 [History] Levothyroxine Sodium [Synthroid] 112 mcg PO DAILY 03/25/20 [History] Meclizine [Antivert] 25 mg PO TID PRN 03/25/20 [History] Multivitamins, Thera [Multivitamin (formulary)] 1 tab PO DAILY 03/25/20 [History] Thiamine [Vitamin B-1] 100 mg PO DAILY 03/25/20 [History] Cefuroxime Axetil [Ceftin] 500 mg PO BID 3 Days #8 tab 03/26/20 [Rx] Meclizine [Antivert] 12.5 mg PO TID PRN #30 tablet 03/26/20 [Rx] Amitriptyline HCl [Elavil] 50 mg PO HS #30 tab 03/28/20 [Rx] DULoxetine HCL [Cymbalta] 30 mg PO BID #60 capsule. 03/28/20 [Rx] QUEtiapine [SEROquel] 150 mg PO HS #30 tab 03/28/20 [Rx] Follow up Appointment(s)/Referral(s): Bhumi Mcneill DO [Primary Care Provider] - 3 Days Activity/Diet/Wound Care/Special Instructions: Pending final DC recommendations and clearance from neurology Follow-up blood pressure pending Bonnie-Hallpike exercises as per outpatient PT, re:vertigo Discharge Disposition: TRANSFER TO SNF/ECF
--- NOTE | 2020-03-28 13:48 | P.PN ---
Subjective Progress Note Date: 03/28/20 Patient was seen at bedside and wants to go home and is persistent is going. She said she is doing better and has no issues. Objective - Vital Signs Vital signs: Vital Signs Temp 97.8 F 03/28/20 07:30 Pulse 79 03/28/20 07:30 Resp 14 03/28/20 08:31 BP 154/76 03/28/20 07:30 Pulse Ox 92 L 03/28/20 07:30 Intake & Output 03/27/20 03/28/20 03/28/20 18:59 06:59 18:59 Intake Total 1220 Output Total 425 Balance 795 Intake: Intake, IV Titration 950 Amount Sodium Chloride 0.9% 1, 950 000 ml @ 130 mls/hr IV . Q7H42M [facility] Rx#:[id number] Oral 270 Output: Urine 425 Other: Voiding Method Bedside Commode Bedside Commode Bedside Commode # Voids 1 1 0 # Bowel Movements 1 1 - Exam GENERAL: The patient is lying in bed and is not in acute distress. CHEST: The heart rate is regular rate rhythm. No murmurs to auscultation. LUNG: Clear to auscultation bilaterally no wheezing noted throughout. Not labored breathing. ABDOMEN/GI: Bowel sounds present in all 4 quadrants. No tenderness to palpation throughout. NEUROLOGICAL: Higher mental function: The patient is drowsy but is awakeable to voice. She is oriented to self place regarding the time as she correctly stated that was the 2019 but when he came to the month she initially stated that was the December after that she said December again than later she said it was not Arlene was not January and was in February but we had to ask her what what came after February and she said it was March. She was following commands but was slow the following commands. She was able to perform few complex commands like taking the thumb touching the left ear is taking the tongue but was slow in performing it. No aphasia and no neglect. Cranial nerves: The pupils are round, equal and reactive to light and accommodation. Visual conklin are full to confrontation throughout. Proptosis of left eye. Extraocular movement is intact no nystagmus is noted. Facial sensation is normal to touch throughout. The facial strength, minimal ptosis over the right eye (chronic per patient from Topete's Palsy) otherwise normal throughout. Hearing is normal bilaterally to hand rub. Tongue is midline and moved [id number] without any difficulty. No dysarthria is noted. Shoulder shrug is normal bilaterally. Motor: Gait wasn't attempted andwas a having very cautious steps to go very few steps and then she was feeling dizzy. She was leaning towards one side or the other. The strength is 5 over 5 throughout. Normal tone and bulk. Cerebellum: Normal finger to nose heel to chin bilaterally. Patient has very subtle tremor with both hands upon getting close to the objects. Sensation: Sensation is normal to touch throughout. Reflexes (right/left): 2+ throughout except 1+ bilaterally. Plantars are downgoing bilaterally. - Labs CBC & Chem 7: 03/27/20 07:02 03/27/20 07:02 Assessment and Plan Assessment: 64-year-old right-handed female with history of Topete's Palsy over the right (5 years ago), hypertension, hyperlipidemia, sleep apnea, hypothyroidism Ex-tobacco use (quit 5 years ago) who presented to the emergency department on 03/25/2020 for vertigo and multiple falls that started at 9am on 03/24/20. She stated she felt he right side was weak. Orthostatic hypotension (felt dizzy with movement and had +ve orthostatic). Urinary tract infection Topete's Palsy (right) Chronic Tinnitus Hyperlipidemia Hypothyroidism Ex-Tobacco use Plan: Regarding the vertigo she was placed on meclizine 25 mg once. Since the patient likely has benign positional vertigo can, I will start the patient on meclizine 12.5 mg twice a day. MRI Brain: Was reported as age-related changes of atrophy and chronic small vessel ischemia. No subacute acute ischemic infarct is evident. I reviewed the MRI of the brain and I didn't see any evidence of acute ischemia. CT angiogram of the head and neck was reported as the the head there is no large vessel intracranial arterial occlusion, significant stenosis or aneurysm at change is seen. Neck there is mild, less than 25 atherosclerotic narrowing at the proximal ICAs. Dominant left vertebral artery. COPD with multiple moderate emphysema. Also reported as slight soft tissue asymmetry at the larynx was some left-sided cartilaginous ossification. Direct visualization recommended to exclude a mucosal lesion. Finding may be sequela of prior trauma. She had a repeat CT of the head on 03/26/2020 after a fall and that was reported as no acute abnormality. Orthostatic vitals (03/26/20): Supine blood pressure was 170/69 with a heart rate of 56; sitting blood pressure of 143/64 with a heart rate of 62; standing blood [id number] and a heart rate is 80. Her orthostatic were consistent of orthostatic hypotension. The patient was placed on the sodium salt 1 g twice a day. The recommend head of the bed elevated about 30. Recommend compression stocking. Psychiatry is on board and they felt she does not have decision making capacity. I agree of decreasing Elavil since has anticholingeric effect and worsens mentation. I also stopped Meclizine since has anticholingeric effect and would worsens mentation. Currently she is on the Lipitor 20 mg daily for her hyperlipidemia. We'll defer further workup of the larynx finding on the CT angiogram that was detected to the primary team. Currently the patient is on ceftriaxone for her UTI. We'll defer the management to the primary team. Aftab Berry M.D. Neuro-hospitalist Time with Patient: Greater than 30
[2020-03-28] MEDS ORDERED: HALOPERIDOL LACTATE 5 MG/ML 1 ML VIAL IM PRN (13:49)
--- NOTE | 2020-03-28 14:00 | P.PN ---
Progress Note - Text Progress Note Date: 03/28/20 Interval History: Patient was seen today for psychiatric follow-up related to patient's bipolar disorder. Patients nurse claims that patient has been improving with regards to her physical abilities and her dizziness however appear to be frustrated today and demanding discharge and was refusing to go to rehab and wanting to be released back home to take care of her dogs. Patient was seen today at the bedside and was agreeable to speak with selling underwriter. Patient did recognize selling underwriter from yesterday however appeared to be irritable today and states that she received 2 phone calls from her family members speaking about her dogs and patient became more upset afterwards and was focused on discharge. Patient continues to demonstrate poor insight and poor impulse control. She also accuses selling underwriter of "messing with my medications". She states that her mood is "fine" and denies any depression today or any anxiety. She states that she was able to sleep better last night on the Seroquel. She continues to lack capacity in her decision-making process to refuse medical treatment and placement and cannot go over the potential risks of going home without this care. At this time patient denies any suicidal or homical ideations, intent or plan. Patient denies any auditory, visual hallucinations. Patient denies any side effects from the medications and has been compliant with meds. Mental Status Exam: General Appearance: Patient appears to be stated age is alert, irritable today and difficult to redirect. Patient appears to have fair hygiene and grooming wearing hospital gown with fair eye contact. Behavior: Patient is calmly lying in bed without any agitated behavior. Stubborn and difficult to redirect. Speech: Patient's speech is fluent and nonpressured. Mood/Affect: Patient reports their mood is "fine", affect is congruent and irritable at times. Suicidality/Homicidality: Patient denies having any suicidal or homicidal ideation intent or plan. Perceptions: Patient denies any visual hallucinations and denies any auditory hallucinations Though content/process: There is no evidence of any delusional thought content and thought process is linear. Minimizing her condition and her medical problems. Mistrust towards doctors and staff. Memory and concentration: AOX2-3, believes that it is "sometime in March 2020". grossly intact for the purposes of this session. Can go through the days of the week backwards Judgment and insight: poor/impulsive Assessment Bipolar disorder type I Plan: -At this time patient DOES NOT meet criteria for inpatient psychiatric admission however we'll continue to evaluate patient to see if she may meet criteria for inpatient psychiatric hospitalization. -Patient DOES NOT have decision making capacity with regards to her care at home and ability to refuse rehab placement at this time and is unable to reason through and communicate/appreciate the risks, benefits and alternatives to treatment and rehab. Patient is in denial about her limitations and minimizing her condition, underestimating the severe risks of going home at this point. -Delirium precautions recommended with patient including - avoiding use of narcotics and HOSPITALIST PROGRAM DIRECTOR sedatives, limit anticholinergic medications when possible, frequent re-orientation, minimize use of restraints, open window shades during the day and close them at night -Would recommend the following medication changes/additions: Continue with Elavil to 50 mg daily at bedtime for tonight and decrease to 25 mg daily at bedtime for tomorrow night with plan to gradually titrate off as patient may be experiencing adverse reactions and this may be contributing to her dizziness/vertigo. Continue with Cymbalta to 30 mg twice a day for anxiety/mood. Increase Seroquel to 150 mg daily HS + 25 daily for mood stabilization/insomnia. Continue with Depakote 500 mg twice a day. I added Haldol IM 3 mg every 8 hours when necessary for agitation. -Will continue to follow along -Continue with treatment of underlying medical condition and appreciate neurology recommendations, feedback and follow-up. -Please contact with any questions.
[2020-03-28] MEDS ORDERED: AMITRIPTYLINE HCL 50 MG TAB PO SCH (21:00)
[2020-03-28] MEDS: ATORVASTATIN 20 MG TAB PO SCH (21:09)
[2020-03-28] MEDS: QUEtiapine 50 MG TAB PO SCH (21:10)
[2020-03-29] MEDS: SODIUM CHLORIDE 0.9% 1,000 ML IV SCH ×3 (01:21→14:58)
[2020-03-29] MEDS: LEVOTHYROXINE 112 MCG TAB PO SCH (05:57)
[2020-03-29] MEDS: DIVALPROEX 500 MG TABLET.DR PO SCH ×2 (07:20→21:16)
[2020-03-29] MEDS: SODIUM CHLORIDE TAB 1 GM TAB PO SCH ×2 (07:20→21:16)
[2020-03-29] MEDS: QUEtiapine 25 MG TAB PO SCH (07:20)
[2020-03-29] MEDS: DULoxetine HCL 30 MG CAPSULE.DR PO SCH ×2 (07:20→21:16)
--- NOTE | 2020-03-29 12:59 | P.PN ---
Progress Note - Text Progress Note Date: 03/29/20 Interval History: Patient was seen today for psychiatric follow-up related to patient's bipolar disorder and patient refusing rehab. Patient was seen at the bedside and was sleeping this afternoon. She states that she feels calmer today and appeared to be in brighter mood. She had improvement in her impulse control and mild improvement in her insight. She continues to ask to be discharge home however is more polite today. She spoke about her dogs briefly. She claims that she has visiting PT to help her and states that her dizziness and balance have been improving. She states that her mood is "good" and denies any depression today or any anxiety. She states that she was able to sleep better last night. At this time patient denies any suicidal or homical ideations, intent or plan. Patient denies any auditory, visual hallucinations. Patient denies any side effects from the medications and has been compliant with meds. Mental Status Exam: General Appearance: Patient appears to be stated age is alert, more directable today and attempts to cooperate. Patient appears to have fair hygiene and grooming wearing hospital gown with fair eye contact. Behavior: Patient is calmly lying in bed without any agitated behavior. More cooperative today. Speech: Patient's speech is fluent and nonpressured. Mood/Affect: Patient reports their mood is "good", affect is congruent Suicidality/Homicidality: Patient denies having any suicidal or homicidal ideation intent or plan. Perceptions: Patient denies any visual hallucinations and denies any auditory hallucinations Though content/process: There is no evidence of any delusional thought content and thought process is linear. Continues to be focused on discharge. Memory and concentration: AOX2-3, believes that it is "sometime in March 2020". grossly intact for the purposes of this session. Can go through the days of the week backwards Judgment and insight: poor/impulsive, improving mildly. Assessment Bipolar disorder type I Plan: -At this time patient DOES NOT meet criteria for inpatient psychiatric admission. -Patient DOES NOT have decision making capacity with regards to her care at home and ability to refuse rehab placement at this time and is unable to reason through and communicate/appreciate the risks, benefits and alternatives to treatment and rehab. Patient is in denial about her limitations and minimizing her condition, underestimating the severe risks of going home at this point. -Delirium precautions recommended with patient including - avoiding use of narcotics and ALTERNATIVE ENERGY ENGINEER sedatives, limit anticholinergic medications when possible, frequent re-orientation, minimize use of restraints, open window shades during the day and close them at night -Would recommend the following medication changes/additions: Continue with Elavil 25 mg daily at bedtime for tonight with plan to gradually titrate off as patient may be experiencing adverse reactions and this may be contributing to her dizziness/vertigo. Continue with Cymbalta to 30 mg twice a day for anxiety/mood. Continue with Seroquel to 150 mg daily HS + 25 daily for mood stabilization/insomnia. Continue with Depakote 500 mg twice a day. I added Haldol IM 3 mg every 8 hours when necessary for agitation. -Will continue to follow along if needed. Social work and primary team continue to work with patient to find a reasonable plan for discharge as she is still refusing rehab. Continue with daily PT while in the hospital. -Continue with treatment of underlying medical condition and appreciate neurology recommendations, feedback and follow-up. -We'll sign off at this time and follow along peripherally while patient is in the hospital, please contact with any concerns or questions.
[2020-03-29] MEDS ORDERED: AMITRIPTYLINE HCL 25 MG TAB PO SCH (21:00)
[2020-03-29] MEDS: ATORVASTATIN 20 MG TAB PO SCH (21:16)
[2020-03-29] MEDS: AMITRIPTYLINE HCL 25 MG TAB PO SCH (21:16)
[2020-03-29] MEDS: QUEtiapine 50 MG TAB PO SCH (21:16)
[2020-03-30] MEDS: SODIUM CHLORIDE 0.9% 1,000 ML IV SCH ×4 (01:55→20:26)
[2020-03-30] MEDS: LEVOTHYROXINE 112 MCG TAB PO SCH (04:40)
[2020-03-30] MEDS: DIVALPROEX 500 MG TABLET.DR PO SCH ×2 (08:01→22:28)
[2020-03-30] MEDS: DULoxetine HCL 30 MG CAPSULE.DR PO SCH ×2 (08:01→22:28)
[2020-03-30] MEDS: SODIUM CHLORIDE TAB 1 GM TAB PO SCH ×2 (08:01→22:29)
[2020-03-30] MEDS: QUEtiapine 25 MG TAB PO SCH (08:01)
--- NOTE | 2020-03-30 17:29 | P.PN ---
Subjective Progress Note Date: 03/29/20 Principal diagnosis: UTI Debility 64 yo F with PMH of RA HLD, hx tobacco use who presented to the ED complaining of persistent severe dizziness. She states she had some vertigo initially over the weekend that seemed to come and go, then yesterday when she woke up she felt severely dizzy. She was not able to stand or walk without feeling like she was being pulled to the ground. She stayed home from work and tried to wait for her symptoms to resolve but instead worsened. She endorses nausea, denies vomiting, chest pain, shortness of breath, numbness, tingling, weakness or change in speech. On presentation her vitals and labs were stable, urine with large LE and bacteria. She was given antivert with improvement in her symptoms. 03/29/2020 Patient is seen and evaluated resting comfortably in bed; vital signs remained stable Patient has been evaluated by psych and does not meet inpatient psychiatric admission criteria; according to psych patient does not have decision-making capacity with regards to her care at home versus rehab; psych recommending to avoid use of narcotics and FIELD SCOUT sedatives, limited use of anticholinergic medications and possible with frequent reorientation to minimize use of restraints; patient will be continued on Elavil 50 mg daily tonight after a period we decreased to 25 mg at bedtime, Cymbalta will be resumed as 30 mg twice a day; increase Seroquel to 55 g daily at bedtime with 25 mg 1 time daily use as needed Case management on board for discharge planning Objective - Vital Signs Vital signs: Vital Signs Temp 97.5 F L 03/29/20 07:18 Pulse 75 03/29/20 07:18 Resp 16 03/29/20 07:18 BP 127/74 03/29/20 07:18 Pulse Ox 95 03/29/20 07:18 Intake & Output 03/28/20 03/29/20 03/29/20 18:59 06:59 18:59 Intake Total 425 Balance 425 Intake: Intake, IV Titration 425 Amount Sodium Chloride 0.9% 1, 375 000 ml @ 130 mls/hr IV . Q7H42M [facility] Rx#:[id number] cefTRIAXone 1 gm In 50 Sodium Chloride 0.9% 50 ml @ 100 mls/hr IVPB Q24HR [facility] Rx#:[id number] Other: Voiding Method Bedside Commode # Voids 1 1 3 - Exam - Constitutional General appearance: Present: average body habitus, cooperative, no acute distress - EENT Eyes: Present: anicteric sclerae, EOMI, PERRLA, normal appearance ENT: Present: hearing grossly normal, normal oropharynx Ears: bilateral: normal - Neck Neck: Present: normal ROM. Absent: lymphadenopathy, rigidity, thyromegaly Carotids: negative: bruit present Thyroid: bilateral: normal size, negative: enlarged, nodule - Respiratory Respiratory: bilateral: CTA, negative: rales, rhonchi, wheezing - Cardiovascular Rhythm: regular Heart sounds: normal: S1, S2 Abnormal Heart Sounds: Absent: systolic murmur, diastolic murmur - Gastrointestinal General gastrointestinal: Present: normal bowel sounds, soft. Absent: distended, organomegaly, tenderness - Genitourinary Genitourinary Comment(s): deferred - Integumentary Integumentary: Present: normal turgor. Absent: jaundiced, rash, ulcer - Neurologic Neurologic: Present: CNII-XII intact. Absent: focal deficits - Musculoskeletal Musculoskeletal: Present: gait normal, strength equal bilaterally - Psychiatric Psychiatric: Present: A&O x's 3, appropriate affect, intact judgment & insight - Labs CBC & Chem 7: 03/27/20 07:02 03/27/20 07:02 Assessment and Plan Assessment: 1. Possible BPPV; no further complaints of dizziness 2. Acute cystitis; patient remains on IV ceftriaxone to final culture results are available 3. Hypertension; patient not on any antihypertensive therapy at this time; blood pressure remains stable 4. Hyperlipidemia; Lipitor 20 mg by mouth daily at bedtime 5. Hypothyroidism; levothyroxin 112 MCG daily 5. Bipolar disorder; medications are being adjusted by psych DVT prophylaxis; SCDs CODE STATUS; full code
--- NOTE | 2020-03-30 17:30 | P.PN ---
Subjective Progress Note Date: 03/30/20 Principal diagnosis: UTI Debility 64 yo F with PMH of RA HLD, hx tobacco use who presented to the ED complaining of persistent severe dizziness. She states she had some vertigo initially over the weekend that seemed to come and go, then yesterday when she woke up she felt severely dizzy. She was not able to stand or walk without feeling like she was being pulled to the ground. She stayed home from work and tried to wait for her symptoms to resolve but instead worsened. She endorses nausea, denies vomiting, chest pain, shortness of breath, numbness, tingling, weakness or change in speech. On presentation her vitals and labs were stable, urine with large LE and bacteria. She was given antivert with improvement in her symptoms. 03/29/2020 Patient is seen and evaluated resting comfortably in bed; vital signs remained stable Patient has been evaluated by psych and does not meet inpatient psychiatric admission criteria; according to psych patient does not have decision-making capacity with regards to her care at home versus rehab; psych recommending to avoid use of narcotics and VICE PRESIDENT BUSINESS DEVELOPMENT sedatives, limited use of anticholinergic medications and possible with frequent reorientation to minimize use of restraints; patient will be continued on Elavil 50 mg daily tonight after a period we decreased to 25 mg at bedtime, Cymbalta will be resumed as 30 mg twice a day; increase Seroquel to 55 g daily at bedtime with 25 mg 1 time daily use as needed Case management on board for discharge planning 03/30/2020; patient resting comfortably in bed; no specific complaints reported by nursing staff Medications are being adjusted by psych service; patient is planned to be discharged to skilled rehab however patient remains adamant and refused Case management is on board for discharge planning once arrangements are made Objective - Vital Signs Vital signs: Vital Signs Temp 97.8 F 03/30/20 07:05 Pulse 75 03/30/20 07:05 Resp 16 03/30/20 07:05 BP 140/73 03/30/20 07:05 Pulse Ox 97 03/30/20 07:05 Intake & Output 03/29/20 03/30/20 03/30/20 18:59 06:59 18:59 Intake Total 940 400 50 Balance 940 400 50 Intake: IV 50 cefTRIAXone 1 gm In 50 Sodium Chloride 0.9% 50 ml @ 100 mls/hr IVPB Q24HR [facility] Rx#:[id number] Oral 940 400 Other: Voiding Method Toilet # Voids 3 1 - Exam - Constitutional General appearance: Present: average body habitus, cooperative, no acute distress - EENT Eyes: Present: anicteric sclerae, EOMI, PERRLA, normal appearance ENT: Present: hearing grossly normal, normal oropharynx Ears: bilateral: normal - Neck Neck: Present: normal ROM. Absent: lymphadenopathy, rigidity, thyromegaly Carotids: negative: bruit present Thyroid: bilateral: normal size, negative: enlarged, nodule - Respiratory Respiratory: bilateral: CTA, negative: rales, rhonchi, wheezing - Cardiovascular Rhythm: regular Heart sounds: normal: S1, S2 Abnormal Heart Sounds: Absent: systolic murmur, diastolic murmur - Gastrointestinal General gastrointestinal: Present: normal bowel sounds, soft. Absent: distended, organomegaly, tenderness - Genitourinary Genitourinary Comment(s): deferred - Integumentary Integumentary: Present: normal turgor. Absent: jaundiced, rash, ulcer - Neurologic Neurologic: Present: CNII-XII intact. Absent: focal deficits - Musculoskeletal Musculoskeletal: Present: gait normal, strength equal bilaterally - Psychiatric Psychiatric: Present: A&O x's 3, appropriate affect, intact judgment & insight - Labs CBC & Chem 7: 03/27/20 07:02 03/27/20 07:02 Assessment and Plan Assessment: 1. Possible BPPV; no further complaints of dizziness 2. Acute cystitis; patient remains on IV ceftriaxone to final culture results are available 3. Hypertension; patient not on any antihypertensive therapy at this time; blood pressure remains stable 4. Hyperlipidemia; Lipitor 20 mg by mouth daily at bedtime 5. Hypothyroidism; levothyroxin 112 MCG daily 5. Bipolar disorder; medications are being adjusted by psych DVT prophylaxis; SCDs CODE STATUS; full code
[2020-03-30] MEDS: AMITRIPTYLINE HCL 25 MG TAB PO SCH (22:28)
[2020-03-30] MEDS: ATORVASTATIN 20 MG TAB PO SCH (22:28)
[2020-03-30] MEDS: QUEtiapine 50 MG TAB PO SCH (22:29)
[2020-03-31] MEDS: SODIUM CHLORIDE 0.9% 1,000 ML IV SCH ×3 (01:40→22:53)
[2020-03-31] MEDS: LEVOTHYROXINE 112 MCG TAB PO SCH (05:38)
[2020-03-31] MEDS: DULoxetine HCL 30 MG CAPSULE.DR PO SCH ×2 (07:06→20:09)
[2020-03-31] MEDS: QUEtiapine 25 MG TAB PO SCH (07:07)
[2020-03-31] MEDS: DIVALPROEX 500 MG TABLET.DR PO SCH ×2 (07:07→20:09)
[2020-03-31] MEDS: SODIUM CHLORIDE TAB 1 GM TAB PO SCH ×2 (07:08→20:09)
--- NOTE | 2020-03-31 11:04 | P.PN ---
Subjective Progress Note Date: 03/31/20 Patient was seen at bedside and stated she she's doing well. She denies any further episodes of dizziness lightheadedness upon lying or standing up. Patient orthostatic vitals still showed that the patient continues to have orthostatic hypotension. Patient orthostatic on 03/30/2020 around 1909 supine is 119/62 sitting is 107/66 and standing is 98/56 Objective - Vital Signs Vital signs: Vital Signs Temp 98.1 F 03/31/20 07:00 Pulse 75 03/31/20 07:00 Resp 14 03/31/20 07:00 BP 107/73 03/31/20 08:54 Pulse Ox 97 03/31/20 07:00 Intake & Output 03/30/20 03/31/20 03/31/20 18:59 06:59 18:59 Intake Total 530 100 Balance 530 100 Intake: IV 50 cefTRIAXone 1 gm In 50 Sodium Chloride 0.9% 50 ml @ 100 mls/hr IVPB Q24HR [facility] Rx#:[id number] Oral 480 100 Other: Voiding Method Toilet Toilet # Voids 1 1 - Exam GENERAL: The patient is lying in bed and is not in acute distress. CHEST: The heart rate is regular rate rhythm. No murmurs to auscultation. LUNG: Clear to auscultation bilaterally no wheezing noted throughout. Not labored breathing. ABDOMEN/GI: Bowel sounds present in all 4 quadrants. No tenderness to palpation throughout. NEUROLOGICAL: Higher mental function: The patient is drowsy but is awakeable to voice. She is oriented to self place regarding the time as she correctly stated that was the 2019 but when he came to the month she initially stated that was the December after that she said December again than later she said it was not December was not January and was in February but we had to ask her what what came after February and she said it was March. She was following commands but was slow the following commands. She was able to perform few complex commands like taking the thumb touching the left ear is taking the tongue but was slow in performing it. No aphasia and no neglect. Cranial nerves: The pupils are round, equal and reactive to light and accommodation. Visual conklin are full to confrontation throughout. Proptosis of left eye. Extraocular movement is intact no nystagmus is noted. Facial sensation is normal to touch throughout. The facial strength, minimal ptosis over the right eye (chronic per patient from Topete's Palsy) otherwise normal throughout. Hearing is normal bilaterally to hand rub. Tongue is midline and moved [id number] without any difficulty. No dysarthria is noted. Shoulder shrug is normal bilaterally. Motor: Gait wasn't attempted andwas a having very cautious steps to go very few steps and then she was feeling dizzy. She was leaning towards one side or the other. The strength is 5 over 5 throughout. Normal tone and bulk. Cerebellum: Normal finger to nose bilaterally. Patient has very subtle tremor with both hands upon getting close to the objects. Sensation: Sensation is normal to touch throughout. Reflexes (right/left): 2+ throughout except 1+ bilaterally. Plantars are downgoing bilaterally. - Labs CBC & Chem 7: 03/27/20 07:02 03/27/20 07:02 Assessment and Plan Assessment: 64-year-old right-handed female with history of Topete's Palsy over the right (5 years ago), hypertension, hyperlipidemia, sleep apnea, hypothyroidism Ex-tobacco use (quit 5 years ago) who presented to the emergency department on 03/25/2020 for vertigo and multiple falls that started at 9am on 03/24/20. She stated she felt he right side was weak. Orthostatic hypotension (felt dizzy with movement and had +ve orthostatic). Urinary tract infection ?Topete's Palsy (right) Chronic Tinnitus Hyperlipidemia Hypothyroidism Ex-Tobacco use Plan: Regarding the vertigo she was placed on meclizine 25 mg once. Since the patient likely has benign positional vertigo can, I will start the patient on meclizine 12.5 mg twice a day. MRI Brain: Was reported as age-related changes of atrophy and chronic small vessel ischemia. No subacute acute ischemic infarct is evident. I reviewed the MRI of the brain and I didn't see any evidence of acute ischemia. CT angiogram of the head and neck was reported as the the head there is no large vessel intracranial arterial occlusion, significant stenosis or aneurysm at change is seen. Neck there is mild, less than 25 atherosclerotic narrowing at the proximal ICAs. Dominant left vertebral artery. COPD with multiple moderate emphysema. Also reported as slight soft tissue asymmetry at the larynx was some left-sided cartilaginous ossification. Direct visualization recommended to exclude a mucosal lesion. Finding may be sequela of prior trauma. She had a repeat CT of the head on 03/26/2020 after a fall and that was reported as no acute abnormality. Orthostatic vitals (03/26/20): Supine blood pressure was 170/69 with a heart rate of 56; sitting blood pressure of 143/64 with a heart rate of 62; standing blood [id number] and a heart rate is 80. Her orthostatic were consistent of orthostatic hypotension. The patient was placed on the sodium salt 1 g twice a day. The recommend head of the bed elevated about 30. Recommend compression stocking. I started patient on fludrocortisone 0.1 mg daily. And if continues to have the orthostatic hypotension all increased at 2.1 mg twice a day. Psychiatry is on board and they felt she does not have decision making capacity. I agree of decreasing Elavil since has anticholingeric effect and worsens mentation. I also stopped Meclizine since has anticholingeric effect and would worsens mentation. Currently she is on the Lipitor 20 mg daily for her hyperlipidemia. We'll defer further workup of the larynx finding on the CT angiogram that was detected to the primary team. Currently the patient is on ceftriaxone for her UTI. We'll defer the management to the primary team. Aftab Berry M.D. Neuro-hospitalist Time with Patient: Greater than 30
[2020-03-31] MEDS: FLUDROCORTISONE 0.1 MG TAB PO SCH (12:03)
[2020-03-31] MEDS: QUEtiapine 50 MG TAB PO SCH (20:09)
[2020-03-31] MEDS: ATORVASTATIN 20 MG TAB PO SCH (20:09)
--- NOTE | 2020-04-01 03:01 | PN ---
PROGRESS NOTE I am covering for Dr. Gregory. HISTORY OF PRESENT ILLNESS: This 64-year-old woman was admitted with dizziness, had possibly benign positional vertigo and the patient also also patient on antibiotics. The cultures are negative so far. No chest pain or palpitations. No fever. PHYSICAL EXAMINATION: The patient is alert and oriented x3. Pulse 82, blood pressure 148/95, respiration 20, temperature normal, pulse ox 96% on room air. HEENT: Conjunctivae normal. NECK: No jugular venous distention. CARDIOVASCULAR: S1, S2 muffled. RESPIRATORY: Breath sounds diminished at the bases. No rhonchi, no crackles. ABDOMEN: Soft, nontender. LEGS: No edema. NERVOUS SYSTEM: No focal deficits. LABS: Hemoglobin 10.8. UA noted. ASSESSMENT: 1. Dizziness, possible benign positional vertigo. 2. Acute cystitis and urinary tract infection, present on admission. 3. Hypertension. 4. Hyperlipidemia. 5. Hypothyroidism. 6. Bipolar disorder. 7. Anemia, normocytic anemia of chronic disease. RECOMMENDATIONS AND DISCUSSION: Recommend to continue current medications, continue symptomatic treatment. We will repeat CBC, BMP, and symptomatic treatment. Continue the antibiotics and Dr. Gregory will follow tomorrow. Dr. Berry has seen the patient from Neurology point of view, input appreciated. MMODL / IJN: [id number] /
[2020-04-01] MEDS: SODIUM CHLORIDE 0.9% 1,000 ML IV SCH ×2 (05:44→13:45)
[2020-04-01] MEDS: LEVOTHYROXINE 112 MCG TAB PO SCH (05:45)
[2020-04-01] MEDS: DULoxetine HCL 30 MG CAPSULE.DR PO SCH (07:25)
[2020-04-01] MEDS: FLUDROCORTISONE 0.1 MG TAB PO SCH (07:25)
[2020-04-01] MEDS: DIVALPROEX 500 MG TABLET.DR PO SCH (07:26)
[2020-04-01] MEDS: SODIUM CHLORIDE TAB 1 GM TAB PO SCH (07:26)
[2020-04-01] MEDS: QUEtiapine 25 MG TAB PO SCH (07:26)
[2020-04-01 08:42] VITALS: BP 134/82; PULSE 82; RESP 18; TEMP 98.7
[2020-04-01 09:29] LABS: Basophils % (A) 1 %; Eosinophils # (A) 0.3 k/uL (0-0.7); Eosinophils % (A) 3 %; HCT 38.7 % (34.0-46.0); HGB 11.9 gm/dL (11.4-16.0); Hypochromasia Slight; Lymphocytes # (A) 2.5 k/uL (1.0-4.8); Lymphocytes % (A) 34 %; MCH 31.1 pg (25.0-35.0); MCHC 30.9 g/dL (31.0-37.0); MCV 100.8 fL (80.0-100.0); Macrocytosis Slight; Mean Platelet Volume 7.6; Monocytes # (A) 0.5 k/uL (0-1.0); Monocytes % (A) 6 %; Neutrophils # (A) 4.1 k/uL (1.3-7.7); Neutrophils % (A) 55 %; Platelet Count 204 k/uL (150-450); RBC 3.84 m/uL (3.80-5.40); RDW 15.2 % (11.5-15.5); WBC 7.5 k/uL (3.8-10.6)
[2020-04-01 09:33] LABS: African American GFR (CKD) >90 (>60 ml/min/1.73 sqM); Anion Gap 8 mmol/L; Blood Urea Nitrogen 18 mg/dL (7-17); Calcium 8.5 mg/dL (8.4-10.2); Carbon Dioxide 25 mmol/L (22-30); Chloride 108 mmol/L (98-107); Glucose 120 mg/dL (74-99); Non-African American GFR(CKD) >90 (>60 ml/min/1.73 sqM); Potassium 3.4 mmol/L (3.5-5.1); Sodium 141 mmol/L (137-145)
[2020-04-01 14:12] VITALS: BMI 30.9
--- NOTE | 2020-04-01 15:29 | P.DS ---
Providers Date of admission: 03/26/20 12:42 Expected date of discharge: 04/01/20 Attending physician: Dandy Gregory MD Consults: 03/25/20 07:47 Consult Physician Urgent Consulting Provider: Aftab Berry Consult Reason/Comments: vertigo Do you want consulting provider notified?: Yes, Notify in am 03/27/20 10:11 Consult Physician Routine Consulting Provider: Dheeraj Chan Consult Reason/Comments: COGNITIVE DEPRESSION AND COMPETENCY Do you want consulting provider notified?: Yes Primary care physician: Bhumi Mcneill Hospital Course: Final diagnoses: (1) Vertigo, suspect BPV, meclizine discontinued as per neurology Current Visit: Yes Status: Acute (2) Acute cystitis, completed antibiotic Current Visit: Yes Status: Acute (3) Hypertension Current Visit: Yes Status: Acute (4) Hyperlipidemia Current Visit: Yes Status: Acute Hospital Course: (5) bipolar disorder (6) orthostatic hypotension, improved on Florinef (7) rheumatoid arthritis (8) moderate emphysema, stable (9) slight soft tissue asymmetry at the later next with some left-sided cartilaginous ossification, possible mucosal lesion, possibly sequel of prior trauma, per CT. 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 elavil weaned off. Significant clinical improvement. Hospital course:Mayito Salcido is a 64 yo F with PMH of RA HLD, bipolar disorder, hx tobacco use who presented to the ED complaining of persistent severe dizziness. She states she had some vertigo initially over the weekend that seemed to come and go, then yesterday when she woke up she felt severely dizzy. She was not able to stand or walk without feeling like she was being pulled to the ground. She stayed home from work and tried to wait for her symptoms to resolve but inst ead worsened. She endorses nausea, denies vomiting, chest pain, shortness of breath, numbness, tingling, weakness or change in speech. On presentation her vitals and labs were stable, urine with large LE and bacteria. She was given antivert with improvement in her symptoms. 03/26/20. Staff reports patient is up to the bathroom sink became dizzy and sustained a fall. Denies syncope. Positive for orthostatic hypotension. Brain MRI reported no subacute ischemic infarct, age-related atrophy,'s chronic small vessel ischemia. Repeat head CT status post fall reported no acute abnormality. Sensorium improving, conversing appropriately. 03/27/20. reports dizziness has resolved. Orthostatic hypotension resolved Declining rehab, very concerned about her dogs at home, requesting homecare with PT. States she has no means of transportation, uses [facility]. Reports she is estranged from her family , daughter in [place] and her son locally does not speak to her .states her friend checks over her addition/subtraction in her checkbook ,when she is writing her bills out. Staff reported confusion throughout the night and this morning. Patient is alert and oriented 3 yet could not answer correctly the majority of questions of mental status exam with the score of about 18/30; unable to spell world, unable to subtract 7 from 100, disoriented to month, day of the week. Denies any chest pain, palpitations or shortness of breath. She was evaluated by psychiatry and felt to NOT have medical capacity to make own decisions at this time. Her psychiatric medications were adjusted to minimize anticholinergic side effects and possibility of contributing to confusion. We discussed benefits of rehab with patient again on day of discharge and she is agreeable to go. She is discharged in stable condition and will work with PT and OT. Her mental status will be reassessed as an outpatient and further recommendations pending. Evaluated by psychiatry initially, lack of insight and judgment, not medically competent. Social work, psych and neurology following. Social work was assisting with emergent guardianship. 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 Patient reports both family and friend assistance/support .Today much more alert, good insight and judgment .significant clinical improvement. Patient's case discussed today clintw myronn PCP Dr. Gregory and psychiatrist Dr. Chan. Patient will be discharged home on current med regimen, as mentioned above, in a stable condition with guarded prognosis. Gen: well developed female in NAD HEENT: nc,OMM, CV: RRR, no murmur Lungs: normal effort, clear throughout Neuro: AAOx3, no focal deficits. Appears to have good insight and judgement The impression and plan of care has been dictated as directed. : I performed a history and examination of this patient, discussed the same with the dictator. I agree with the dictator's note ,documented as a scribe. Any additional findings or plans will be noted. Patient Condition at Discharge: Stable Plan - Discharge Summary Discharge Rx Participant: No New Discharge Prescriptions: New DULoxetine HCL [Cymbalta] 30 mg PO BID #60 capsule. QUEtiapine [SEROquel] 150 mg PO HS #30 tab Sodium Chloride Tab 1 gm PO BID #20 tab QUEtiapine [SEROquel] 25 mg PO DAILY #30 tab Fludrocortisone [Florinef] 0.1 mg PO DAILY #30 tab Continue Simvastatin [Zocor] 40 mg PO HS metHOTREXate sodium [Methotrexate] 20 mg PO FR Divalproex [Depakote] 500 mg PO BID Ketorolac [Toradol] 10 mg PO DAILY PRN PRN Reason: Pain Levothyroxine Sodium [Synthroid] 112 mcg PO DAILY Thiamine [Vitamin B-1] 100 mg PO DAILY Multivitamins, Thera [Multivitamin (formulary)] 1 tab PO DAILY Folic Acid 1 mg PO DAILY Discontinued DULoxetine HCL [Cymbalta] 40 mg PO DAILY Amitriptyline HCl [Elavil] 100 mg PO HS Meclizine [Antivert] 25 mg PO TID PRN PRN Reason: Vertigo Discharge Medication List Simvastatin [Zocor] 40 mg PO HS 09/28/15 [History] Divalproex [Depakote] 500 mg PO BID 02/11/16 [History] metHOTREXate sodium [Methotrexate] 20 mg PO FR 02/11/16 [History] Ketorolac [Toradol] 10 mg PO DAILY PRN 01/19/20 [History] Folic Acid 1 mg PO DAILY 03/25/20 [History] Levothyroxine Sodium [Synthroid] 112 mcg PO DAILY 03/25/20 [History] Multivitamins, Thera [Multivitamin (formulary)] 1 tab PO DAILY 03/25/20 [History] Thiamine [Vitamin B-1] 100 mg PO DAILY 03/25/20 [History] DULoxetine HCL [Cymbalta] 30 mg PO BID #60 capsule. 03/28/20 [Rx] QUEtiapine [SEROquel] 150 mg PO HS #30 tab 03/28/20 [Rx] Fludrocortisone [Florinef] 0.1 mg PO DAILY #30 tab 04/01/20 [Rx] QUEtiapine [SEROquel] 25 mg PO DAILY #30 tab 04/01/20 [Rx] Sodium Chloride Tab 1 gm PO BID #20 tab 04/01/20 [Rx] Follow up Appointment(s)/Referral(s): Dr. IOANA psychiatry [Other] - 1 Week Dung Robles DO [Doctor of Osteopathic Medicine] - 1 Week (Re: Slight soft tissue asymmetry of Larynx, some left sided cartilaginous ossification) Bhumi Mcneill DO [Primary Care Provider] - 3 Days Activity/Diet/Wound Care/Special Instructions: Pending final DC recommendations and clearance from neurology. Per discussion between PCP, Dr. Gregory and psychiatrist , both agree that patient may now be dcd home. Completed antibiotic therapy Discharge Disposition: TRANSFER TO SNF/ECF
--- NOTE | 2020-04-01 16:11 | P.PN ---
Subjective Progress Note Date: 04/01/20 She was seen at bedside and she said that she's doing well. As she has no further episode of dizziness lightheadedness. Patient stated today that she was walking through physical and occupation therapy and she had no episodes of dizziness lightheadedness. As she had no further episodes of falls. Objective - Vital Signs Vital signs: Vital Signs Temp 98.7 F 04/01/20 07:29 Pulse 82 04/01/20 07:29 Resp 18 04/01/20 07:29 BP 134/82 04/01/20 07:29 Pulse Ox 92 L 04/01/20 07:29 Intake & Output 03/31/20 04/01/20 04/01/20 18:59 06:59 18:59 Intake Total 180 540 Balance 180 540 Weight 74.389 kg Intake: Oral 180 540 Other: Voiding Method Toilet Toilet Toilet # Voids 3 1 2 - Exam GENERAL: The patient is lying in bed and is not in acute distress. CHEST: The heart rate is regular rate rhythm. No murmurs to auscultation. LUNG: Clear to auscultation bilaterally no wheezing noted throughout. Not labored breathing. ABDOMEN/GI: Bowel sounds present in all 4 quadrants. No tenderness to palpation throughout. NEUROLOGICAL: Higher mental function: Patient is awake alert oriented to self place and time. She was following commands. No aphasia and no neglect. Cranial nerves: The pupils are round, equal and reactive to light and accom modation. Visual conklin are full to confrontation throughout. Proptosis of left eye. Extraocular movement is intact no nystagmus is noted. Facial sensation is normal to touch throughout. The facial strength, minimal ptosis over the right eye (chronic per patient from Topete's Palsy) otherwise normal throughout. Hearing is normal bilaterally to hand rub. Tongue is midline and moved [id number] without any difficulty. No dysarthria is noted. Shoulder shrug is normal bilaterally. Motor: Gait is normal. The strength is 5 over 5 throughout. Normal tone and bulk. Cerebellum: Normal finger to nose bilaterally. Patient has very subtle tremor with both hands upon getting close to the objects. Sensation: Sensation is normal to touch throughout. Reflexes (right/left): 2+ throughout except 1+ bilaterally. Plantars are downgoing bilaterally. - Labs CBC & Chem 7: 04/01/20 08:24 04/01/20 08:24 Labs: Abnormal Lab Results - Last 24 Hours (Table) 04/01/20 04/01/20 Range/Units 08:24 08:24 MCV 100.8 H (80.0-100.0) fL MCHC 30.9 L (31.0-37.0) g/dL Potassium 3.4 L (3.5-5.1) mmol/L Chloride 108 H (98-107) mmol/L BUN 18 H (7-17) mg/dL Glucose 120 H (74-99) mg/dL Assessment and Plan Assessment: 64-year-old right-handed female with history of Topete's Palsy over the right (5 years ago), hypertension, hyperlipidemia, sleep apnea, hypothyroidism Ex-tobacco use (quit 5 years ago) who presented to the emergency department on 03/25/2020 for vertigo and multiple falls that started at 9am on 03/24/20. She stated she felt he right side was weak. Orthostatic hypotension (felt dizzy with movement and had +ve orthostatic). Urinary tract infection ?Topete's Palsy (right) Chronic Tinnitus Hyperlipidemia Hypothyroidism Ex-Tobacco use Plan: Regarding the vertigo she was placed on meclizine 25 mg once. Since the patient likely has benign positional vertigo can, I will start the patient on meclizine 12.5 mg twice a day. MRI Brain: Was reported as age-related changes of atrophy and chronic small vessel ischemia. No subacute acute ischemic infarct is evident. I reviewed the MRI of the brain and I didn't see any evidence of acute ischemia. CT angiogram of the head and neck was reported as the the head there is no large vessel intracranial arterial occlusion, significant stenosis or aneurysm at change is seen. Neck there is mild, less than 25 atherosclerotic narrowing at the proximal ICAs. Dominant left vertebral artery. COPD with multiple moderate emphysema. Also reported as slight soft tissue asymmetry at the larynx was some left-sided cartilaginous ossification. Direct visualization recommended to exclude a mucosal lesion. Finding may be sequela of prior trauma. She had a repeat CT of the head on 03/26/2020 after a fall and that was reported as no acute abnormality. Orthostatic vitals (03/26/20): Supine blood pressure was 170/69 with a heart rate of 56; sitting blood pressure of 143/64 with a heart rate of 62; standing blood [id number] and a heart rate is 80. Her orthostatic were consistent of orthostatic hypotension. The patient was placed on the sodium salt 1 g twice a day. The recommend head of the bed elevated about 30. Recommend compression stocking. Currently on fludrocortisone 0.1 mg daily and seems to be doing better. If she continues to have Drop in systolic blood pressure > 20 from lying to sitting or standing or >10 drop in diastolic then recommend increasing it to 0.1mg bid. Psychiatry is on board and they felt she does not have decision making capacity. I agree of decreasing Elavil since has anticholingeric effect and worsens mentation. I also stopped Meclizine since has anticholingeric effect and would worsens ment ation. Currently she is on the Lipitor 20 mg daily for her hyperlipidemia. We'll defer further workup of the larynx finding on the CT angiogram that was detected to the primary team. Currently the patient is on ceftriaxone for her UTI. We'll defer the management to the primary team. The patient is going to be discharged today. She needs to follow up with a neurologist as an outpatient. There is no further workup from neurology standpoint. Aftab Berry M.D. Neuro-hospitalist Time with Patient: Greater than 30
[2020-04-01] MEDS ORDERED: FLUDROCORTISONE 0.1 MG TAB PO SCH (21:00)
[2020-04-02] MEDS ORDERED: FLUDROCORTISONE 0.1 MG TAB PO SCH (09:00)
== END 2020-04-01 16:59 | disposition home health service (06) | DRG 149 ==
LOC: EC 01:50 → 1SOBS 03:25 → OBSVTOIN 03-26 12:42 → 4SSUR 03-26 17:21
PROVIDERS: ADMIT Family Medicine; ATTEND Family Medicine
DX: H81.10 Benign paroxysmal vertigo, unspecified ear (principal); G92 Toxic encephalopathy; N30.01 Acute cystitis with hematuria; D63.8 Anemia in other chronic diseases classified elsewhere; E03.9 Hypothyroidism, unspecified; E78.5 Hyperlipidemia, unspecified; F31.9 Bipolar disorder, unspecified; F41.0 Panic disorder [episodic paroxysmal anxiety]; G51.0 Bell's palsy; G47.30 Sleep apnea, unspecified; E86.0 Dehydration; H93.19 Tinnitus, unspecified ear; I10 Essential (primary) hypertension; I95.1 Orthostatic hypotension; J43.9 Emphysema, unspecified; Z60.2 Problems related to living alone; M06.9 Rheumatoid arthritis, unspecified; R29.6 Repeated falls; W19.XXXA Unspecified fall, initial encounter; Z63.8 Other specified problems related to primary support group; Z79.890 Hormone replacement therapy; Z79.899 Other long term (current) drug therapy; Z87.891 Personal history of nicotine dependence; Z88.0 Allergy status to penicillin
CPT/HCPCS: 36415; 70450; 70496; 70498; 70551; 72125; 80048; 80053; 81001; 85025; 96374; 99285

== ENCOUNTER 2020-10-25 14:09 | Inpatient (IN) | payer MEDICARE, OTHER ==
[2020-10-25] MEDS ORDERED: SODIUM CHLORIDE 0.9% 1,000 ML IV STA (14:36)
--- NOTE | 2020-10-25 14:44 | ED ---
General Adult HPI - General Chief complaint: Shortness of Breath Stated complaint: Anxiety Time Seen by Provider: 10/25/20 14:28 Source: patient, EMS, RN notes reviewed Mode of arrival: EMS Limitations: no limitations - History of Present Illness Initial comments: 65-year-old white female patient presents to the emergency room with complaints of weakness for the past 2 weeks. Patient had covid diagnosis 2 weeks ago and has been at home. did not need to be hospitalized but states has not been getting better. Patient states feels very weak and gets short of breath with exertion. Patient states does not have much energy to get up and walk to the b athroom she waits until she actually can't hold it anymore because she gets dizzy when she gets up. Patient denies any falls, injuries or chest pain. Patient states has been drinking Coke but not eating much or drinking fluids. Patient denies fevers, nausea, vomiting or diarrhea. Patient states she lives alone in an apartment. -: week(s) (2) Improves with: rest Worsens with: movement (exertion) Associated Symptoms: shortness of breath, weakness Treatments Prior to Arrival: none - Related Data Home Medications Medication Instructions Recorded Confirmed Simvastatin [Zocor] 40 mg PO HS 09/28/15 03/25/20 Divalproex [Depakote] 500 mg PO BID 02/11/16 03/25/20 metHOTREXate sodium [Methotrexate] 20 mg PO FR 02/11/16 03/25/20 Ketorolac [Toradol] 10 mg PO DAILY PRN 01/19/20 03/25/20 Folic Acid 1 mg PO DAILY 03/25/20 03/25/20 Levothyroxine Sodium [Synthroid] 112 mcg PO DAILY 03/25/20 03/25/20 Multivitamins, Thera [Multivitamin 1 tab PO DAILY 03/25/20 03/25/20 (formulary)] Thiamine [Vitamin B-1] 100 mg PO DAILY 03/25/20 03/25/20 Previous Rx's Medication Instructions Recorded DULoxetine HCL [Cymbalta] 30 mg PO BID #60 capsule. 03/28/20 QUEtiapine [SEROquel] 150 mg PO HS #30 tab 03/28/20 Fludrocortisone [Florinef] 0.1 mg PO DAILY #30 tab 04/01/20 QUEtiapine [SEROquel] 25 mg PO DAILY #30 tab 04/01/20 Sodium Chloride Tab 1 gm PO BID #20 tab 04/01/20 Allergies Allergy/AdvReac Type Severity Reaction Status Date / Time Penicillins Allergy Rash/Hives Verified 10/25/20 14:17 Review of Systems ROS Statement: Those systems with pertinent positive or pertinent negative responses have been documented in the HPI. ROS Other: All systems not noted in ROS Statement are negative. 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 History of Any Multi-Drug Resistant Organisms: None Reported Past Surgical History: Orthopedic Surgery, Tonsillectomy Additional Past Surgical History / Comment(s): rt knee arthroscopy,left thyroplasty, colonoscopy Past Anesthesia/Blood Transfusion Reactions: No Reported Reaction, Motion Sickness Past Psychological History: Anxiety, Bipolar, Depression, Panic Disorder Smoking Status: Former smoker Past Alcohol Use History: None Reported Past Drug Use History: None Reported - Past Family History Father History Unknown: Yes Family Medical History: Dementia Additional Family Medical History / Comment(s): LEG AMP AT AGE 13 FROM TRAIN ACCIDENT. Mother History Unknown: Yes Family Medical History: Renal Disease Additional Family Medical History / Comment(s): AGE 34 KIDNEY FAILURE General Exam Limitations: no limitations General appearance: alert, in no apparent distress Head exam: Present: atraumatic, normocephalic, normal inspection Eye exam: Present: normal appearance, PERRL, EOMI. Absent: scleral icterus, conjunctival injection, periorbital swelling ENT exam: Present: mucous membranes dry (sticky), TM's normal bilaterally, normal external ear exam (poor dentition) Neck exam: Present: normal inspection, full ROM. Absent: tenderness, meningismus, lymphadenopathy Respiratory exam: Present: normal lung sounds bilaterally. Absent: respiratory distress, wheezes, rales, rhonchi, stridor, chest wall tenderness, accessory muscle use Cardiovascular Exam: Present: regular rate, normal heart sounds. Absent: JVD (no pedal edema) GI/Abdominal exam: Present: soft, normal bowel sounds. Absent: distended, tende rness, guarding, rebound, rigid Extremities exam: Present: normal inspection, full ROM, normal capillary refill. Absent: tenderness, pedal edema, joint swelling, calf tenderness Back exam: Present: normal inspection. Absent: tenderness, CVA tenderness (R), CVA tenderness (L) Neurological exam: Present: alert, oriented X3, CN II-XII intact Psychiatric exam: Present: normal affect, normal mood Skin exam: Present: warm, dry, intact, normal color. Absent: rash, diaphoretic Course Vital Signs 10/25/20 10/25/20 10/25/20 14:18 14:28 15:00 Temperature 99.4 F Pulse Rate 81 79 Respiratory 18 18 Rate Blood Pressure 82/52 101/60 O2 Sat by Pulse 84 L 92 L 94 L Oximetry 10/25/20 10/25/20 16:30 17:45 Temperature 98.6 F Pulse Rate 83 76 Respiratory 18 18 Rate Blood Pressure 103/60 123/74 O2 Sat by Pulse 90 L 91 L Oximetry Medical Decision Making - Medical Decision Making Chest x-ray shows slight blunting of the left costophrenic angle, bilateral interstitial pulmonary infiltrates increased compared to old exam. Potassium 3.1, replaced with 40 of K-Dur. Patient given IV fluid bolus for rehydration. D-dimer 0.86, troponin 0.059 case discussed with . CTA shows pulmonary emphysema, mild left effusions bilateral posterior infiltrates but negative for PE. Patient will be admitted to Dr. Gonzalez with pulmonary on consult. Blood cultures drawn and antibiotics started. Patient states her ALLERGY to penicillin was many many years ago with red spots on her head - Lab Data Result diagrams: 10/25/20 14:39 10/25/20 14:39 Lab Results 10/25/20 10/25/20 10/25/20 Range/Units 14:39 14:39 14:39 WBC 4.0 (3.8-10.6) k/uL RBC 3.77 L (3.80-5.40) m/uL Hgb 11.9 (11.4-16.0) gm/dL Hct 35.9 (34.0-46.0) % MCV 95.3 (80.0-100.0) fL MCH 31.6 (25.0-35.0) pg MCHC 33.1 (31.0-37.0) g/dL RDW 14.3 (11.5-15.5) % Plt Count 144 L (150-450) k/uL MPV 7.5 Neutrophils % (Manual) 50 % Band Neuts % (Manual) 6 % Lymphocytes % (Manual) 28 % Monocytes % (Manual) 15 % Eosinophils % (Manual) 1 % Metamyelocytes % 2 % Myelocytes % 1 % Neutrophils # (Manual) 2.20 (1.3-7.7) k/uL Lymphocytes # (Manual) 1.12 (1.0-4.8) k/uL Monocytes # (Manual) 0.60 (0-1.0) k/uL Eosinophils # (Manual) 0.04 (0-0.7) k/uL Metamyelocytes # (Man) 0.08 H (0) k/uL Myelocytes # (Manual) 0.04 H (0) k/uL Nucleated RBCs 0 (0-0) /100 WBC Manual Slide Review Performed Toxic Vacuolation Present PT 10.2 (9.0-12.0) sec INR 1.0 (<1.2) APTT 24.9 (22.0-30.0) sec D-Dimer 0.86 H (<0.60) mg/L FEU Sodium 139 (137-145) mmol/L Potassium 3.1 L (3.5-5.1) mmol/L Chloride 103 (98-107) mmol/L Carbon Dioxide 27 (22-30) mmol/L Anion Gap 9 mmol/L BUN 16 (7-17) mg/dL Creatinine 1.09 H (0.52-1.04) mg/dL Est GFR (CKD-EPI)AfAm 62 (>60 ml/min/1.73 sqM) Est GFR (CKD-EPI)NonAf 54 (>60 ml/min/1.73 sqM) Glucose 92 (74-99) mg/dL Plasma Lactic Acid Aurelio (0.7-2.0) mmol/L Calcium 8.0 L (8.4-10.2) mg/dL Magnesium 2.1 (1.6-2.3) mg/dL Total Bilirubin 0.4 (0.2-1.3) mg/dL AST 52 H (14-36) U/L ALT 36 H (4-34) U/L Alkaline Phosphatase 82 (38-126) U/L Troponin I (0.000-0.034) ng/mL NT-Pro-B Natriuret Pep pg/mL Total Protein 5.8 L (6.3-8.2) g/dL Albumin 2.9 L (3.5-5.0) g/dL Coronavirus (PCR) (Not Detectd) 10/25/20 10/25/20 10/25/20 Range/Units 14:39 14:39 14:57 WBC (3.8-10.6) k/uL RBC (3.80-5.40) m/uL Hgb (11.4-16.0) gm/dL Hct (34.0-46.0) % MCV (80.0-100.0) fL MCH (25.0-35.0) pg MCHC (31.0-37.0) g/dL RDW (11.5-15.5) % Plt Count (150-450) k/uL MPV Neutrophils % (Manual) % Band Neuts % (Manual) % Lymphocytes % (Manual) % Monocytes % (Manual) % Eosinophils % (Manual) % Metamyelocytes % % Myelocytes % % Neutrophils # (Manual) (1.3-7.7) k/uL Lymphocytes # (Manual) (1.0-4.8) k/uL Monocytes # (Manual) (0-1.0) k/uL Eosinophils # (Manual) (0-0.7) k/uL Metamyelocytes # (Man) (0) k/uL Myelocytes # (Manual) (0) k/uL Nucleated RBCs (0-0) /100 WBC Manual Slide Review Toxic Vacuolation PT (9.0-12.0) sec INR (<1.2) APTT (22.0-30.0) sec D-Dimer (<0.60) mg/L FEU Sodium (137-145) mmol/L Potassium (3.5-5.1) mmol/L Chloride (98-107) mmol/L Carbon Dioxide (22-30) mmol/L Anion Gap mmol/L BUN (7-17) mg/dL Creatinine (0.52-1.04) mg/dL Est GFR (CKD-EPI)AfAm (>60 ml/min/1.73 sqM) Est GFR (CKD-EPI)NonAf (>60 ml/min/1.73 sqM) Glucose (74-99) mg/dL Plasma Lactic Acid Aurelio 1.5 (0.7-2.0) mmol/L Calcium (8.4-10.2) mg/dL Magnesium (1.6-2.3) mg/dL Total Bilirubin (0.2-1.3) mg/dL AST (14-36) U/L ALT (4-34) U/L Alkaline Phosphatase (38-126) U/L Troponin I 0.059 H* (0.000-0.034) ng/mL NT-Pro-B Natriuret Pep 312 pg/mL Total Protein (6.3-8.2) g/dL Albumin (3.5-5.0) g/dL Coronavirus (PCR) (Not Detectd) 10/25/20 Range/Units 16:30 WBC (3.8-10.6) k/uL RBC (3.80-5.40) m/uL Hgb (11.4-16.0) gm/dL Hct (34.0-46.0) % MCV (80.0-100.0) fL MCH (25.0-35.0) pg MCHC (31.0-37.0) g/dL RDW (11.5-15.5) % Plt Count (150-450) k/uL MPV Neutrophils % (Manual) % Band Neuts % (Manual) % Lymphocytes % (Manual) % Monocytes % (Manual) % Eosinophils % (Manual) % Metamyelocytes % % Myelocytes % % Neutrophils # (Manual) (1.3-7.7) k/uL Lymphocytes # (Manual) (1.0-4.8) k/uL Monocytes # (Manual) (0-1.0) k/uL Eosinophils # (Manual) (0-0.7) k/uL Metamyelocytes # (Man) (0) k/uL Myelocytes # (Manual) (0) k/uL Nucleated RBCs (0-0) /100 WBC Manual Slide Review Toxic Vacuolation PT (9.0-12.0) sec INR (<1.2) APTT (22.0-30.0) sec D-Dimer (<0.60) mg/L FEU Sodium (137-145) mmol/L Potassium (3.5-5.1) mmol/L Chloride (98-107) mmol/L Carbon Dioxide (22-30) mmol/L Anion Gap mmol/L BUN (7-17) mg/dL Creatinine (0.52-1.04) mg/dL Est GFR (CKD-EPI)AfAm (>60 ml/min/1.73 sqM) Est GFR (CKD-EPI)NonAf (>60 ml/min/1.73 sqM) Glucose (74-99) mg/dL Plasma Lactic Acid Aurelio (0.7-2.0) mmol/L Calcium (8.4-10.2) mg/dL Magnesium (1.6-2.3) mg/dL Total Bilirubin (0.2-1.3) mg/dL AST (14-36) U/L ALT (4-34) U/L Alkaline Phosphatase (38-126) U/L Troponin I (0.000-0.034) ng/mL NT-Pro-B Natriuret Pep pg/mL Total Protein (6.3-8.2) g/dL Albumin (3.5-5.0) g/dL Coronavirus (PCR) Detected A (Not Detectd) - EKG Data EKG shows normal: sinus rhythm, intervals (Ventricular rate of 81, ID interval 0.15, QRS of 0.78, QTc 0.462) Disposition Clinical Impression: Hypoxia, Pneumonia Disposition: ADMITTED IP TO THIS [facility] Condition: Fair Referrals: None,Stated [Primary Care Provider] - 1-2 days Decision Date: 10/25/20 Decision Time: 18:10
--- NOTE | 2020-10-25 15:24 | XR ---
EXAMINATION TYPE: XR chest 2V DATE OF EXAM: 10/25/2020 COMPARISON: 01/26/2020 HISTORY: Fall. Left-sided rib pain. TECHNIQUE: 2 views FINDINGS: There is bilateral patchy interstitial infiltrate. Heart size is normal. There is no hilar masses. Mediastinum is normal. Thoracic aorta is atheromatous. There is slight blunting of the left c ostophrenic angle. There are chest leads. The thoracic spine appears intact. I see no rib fracture. N o pneumothorax. IMPRESSION: There is bilateral interstitial pulmonary infiltrates increased compared to old exam. Mil d pleural reaction left lung base increased. No obvious rib fracture. No pneumothorax.
[2020-10-25 15:29] LABS: Albumin 2.9 g/dL (3.5-5.0); Magnesium 2.1 mg/dL (1.6-2.3); Potassium 3.1 mmol/L (3.5-5.1); Total Bilirubin 0.4 mg/dL (0.2-1.3); Total Protein 5.8 g/dL (6.3-8.2)
[2020-10-25] MEDS ORDERED: POTASSIUM CHLORIDE ER 20 MEQ TAB.ER PO STA (15:35)
[2020-10-25 15:38] LABS: Partial Thromboplastin Time 24.9 sec (22.0-30.0); Prothrombin Time 10.2 sec (9.0-12.0)
[2020-10-25 15:58] LABS: HCT 35.9 % (34.0-46.0); HGB 11.9 gm/dL (11.4-16.0); MCH 31.6 pg (25.0-35.0); MCHC 33.1 g/dL (31.0-37.0); MCV 95.3 fL (80.0-100.0); Mean Platelet Volume 7.5; Platelet Count 144 k/uL (150-450); RBC 3.77 m/uL (3.80-5.40); RDW 14.3 % (11.5-15.5)
[2020-10-25 16:12] LABS: D-Dimer 0.86 mg/L FEU (<0.60)
[2020-10-25] MEDS ORDERED: ASPIRIN 81 MG PO STA (16:15)
[2020-10-25 16:33] LABS: Band Neutrophils % 6 %; Eosinophils # (M) 0.04 k/uL (0-0.7); Lymphocytes # (M) 1.12 k/uL (1.0-4.8); Metamyelocytes # (M) 0.08 k/uL (0); Metamyelocytes % 2 %; Myelocytes # (M) 0.04 k/uL (0); Myelocytes % 1 %; Neutrophils % (M) 50 %; Nucleated Red Blood Cells 0 /100 WBC (0-0); Total Cells Counted 200
[2020-10-25 16:34] LABS: Toxic Vacuolation Present
--- NOTE | 2020-10-25 17:10 | CT ---
EXAMINATION TYPE: CT chest angio for PE DATE OF EXAM: 10/25/2020 COMPARISON: Chest CT scan 12/27/2018 HISTORY: Elevated d-dimer and hypoxia. CT DLP: 282.8 mGycm Automated exposure control for dose reduction was used. CONTRAST: Performed with IV Contrast, patient injected with 49ml mL of Isovue 370. There are 3-D post processed images. There is mild left pleural effusion. There is bilateral posterior lung base infiltrate and atelectasi s. Heart size is normal. There is no pericardial effusion. There is pulmonary emphysema. There is coa rse interstitial infiltrate in both lungs. There is some coalescent density in the periphery of both lungs. There are a few paratracheal and mediastinal lymph nodes that measure up to 1.5 cm. There is normal contrast opacification of the pulmonary arteries. There are no filling defects. Thoracic aorta is intact. There is no aneurysm or dissection. Thoracic spine is intact. Sternum is in tact. IMPRESSION: No evidence of pulmonary embolism. Bilateral pneumonia. Basilar pulmonary atelectasis. Mediastinal and bronchial adenopathy probably due to inflammatory disease. Pulmonary emphysema. Pneumonia and atelectasis is new compared to old exam.
[2020-10-25] MEDS ORDERED: NALOXONE 0.4 MG/ML 1 ML VIAL IV PRN (17:57)
[2020-10-25] MEDS ORDERED: cefTRIAXone IN SWFI 1,000 MG/10 ML SYRINGE IVP STA (18:04)
[2020-10-25] MEDS ORDERED: AZITHROMYCIN 500 MG in SODIUM CHLORIDE 0.9% 250 ML IVPB STA (18:04)
[2020-10-25] MEDS: DEXAMETHASONE SOD PHOSPHATE 10 MG/ML 1 ML VIAL IV SCH (18:55)
[2020-10-26] MEDS ORDERED: IBUPROFEN 400 MG TAB PO PRN (08:31)
[2020-10-26] MEDS ORDERED: ACETAMINOPHEN TAB 325 MG TAB PO PRN (08:31)
[2020-10-26] MEDS: DEXAMETHASONE SOD PHOSPHATE 10 MG/ML 1 ML VIAL IV SCH (08:42)
[2020-10-26] MEDS: LEVOTHYROXINE 100 MCG TAB PO SCH (08:47)
[2020-10-26] MEDS: DULoxetine HCL 30 MG CAPSULE.DR PO SCH (08:48)
[2020-10-26] MEDS: ATORVASTATIN 20 MG TAB PO SCH (08:48)
[2020-10-26] MEDS: DIVALPROEX 500 MG TABLET.DR PO SCH ×2 (08:48→20:45)
[2020-10-26 09:13] LABS: C Reactive Protein 71.2 mg/L (<10.0); Potassium 3.4 mmol/L (3.5-5.1)
[2020-10-26 09:22] LABS: Basophils % (A) 1 %; Eosinophils % (A) 0 %; HCT 35.2 % (34.0-46.0); Lymphocytes # (A) 0.9 k/uL (1.0-4.8); Lymphocytes % (A) 27 %; MCH 32.9 pg (25.0-35.0); MCV 96.9 fL (80.0-100.0); Mean Platelet Volume 7.7; Monocytes # (A) 0.2 k/uL (0-1.0); Monocytes % (A) 6 %; Neutrophils % (A) 61 %; Platelet Count 127 k/uL (150-450); RBC 3.64 m/uL (3.80-5.40); RDW 13.9 % (11.5-15.5); WBC 3.2 k/uL (3.8-10.6)
[2020-10-26 11:48] LABS: Ferritin 362.9 ng/mL (10.0-291.0)
[2020-10-26 12:31] LABS: Glucose,Whole Blood 131 mg/dL (75-99)
[2020-10-26 12:47] LABS: Appearance,Urine Clear (Clear); Bilirubin,Urine Negative (Negative); Blood,Urine Negative (Negative); Color,Urine Yellow; Glucose,Urine (UA) Negative (Negative); Ketones,Urine Negative (Negative); Leukocyte Esterase,Urine Negative (Negative); Nitrite,Urine Negative (Negative); PH, Urine 6.5 (5.0-8.0); Protein,Urine Trace (Negative); Specific Gravity,Urine 1.032 (1.001-1.035)
[2020-10-26] MEDS: ASCORBIC ACID 500 MG TAB PO SCH (15:05)
[2020-10-26] MEDS: ZINC SULFATE 220 MG CAP PO SCH (15:05)
[2020-10-26] MEDS: CHOLECALCIFEROL 10 MCG (400 IU) TABLET PO SCH (15:06)
--- NOTE | 2020-10-26 15:32 | P.HPIM ---
History of Present Illness H&P Date: 10/26/20 Chief Complaint: Shortness of breath 65-year-old white female patient presents to the emergency room with complaints of weakness for the past 2 weeks. Patient had covid diagnosis 2 weeks ago and has been at home. did not need to be hospitalized but states has not been gettin g better. Patient states feels very weak and gets short of breath with exertion. Patient states does not have much energy to get up and walk to the bathroom she waits until she actually can't hold it anymore because she gets dizzy when she gets up. Patient denies any falls, injuries or chest pain. Patient states has been drinking Coke but not eating much or drinking fluids. Patient denies fevers, nausea, vomiting or diarrhea. Patient states she lives alone in an apartment. Patient was evaluated in ED including Chest x-ray shows slight blunting of the left costophrenic angle, bilateral interstitial pulmonary infiltrates increased compared to old exam. Potassium 3.1, replaced with 40 of K-Dur. Patient given IV fluid bolus for rehydration. D-dimer 0.86, troponin 0.059; CTA shows pulm onary emphysema, mild left effusions bilateral posterior infiltrates but negative for PE. Patient will be admitted for further treatment and pulmonary on consult. Blood cultures drawn and antibiotics started. Review of Systems REVIEW OF SYSTEMS: CONSTITUTIONAL: No fever, no malaise, no fatigue. HEENT: No recent visual problems or hearing problems. Denied any sore throat. CARDIOVASCULAR: No chest pain, orthopnea, PND, no palpitations, no syncope. PULMONARY: No shortness of breath, no cough, no hemoptysis. GASTROINTESTINAL: No diarrhea, no nausea, no vomiting, no abdominal pain. NEUROLOGICAL: No headaches, no weakness, no numbness. HEMATOLOGICAL: Denies any bleeding or petechiae. GENITOURINARY: Denies any burning micturition, frequency, or urgency. MUSCULOSKELETAL/RHEUMATOLOGICAL: Denies any joint pain, swelling, or any muscle pain. ENDOCRINE: Denies any polyuria or polydipsia. The rest of the 14-point review of systems is negative. 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 History of Any Multi-Drug Resistant Organisms: None Reported Past Surgical History: Orthopedic Surgery, Tonsillectomy Additional Past Surgical History / Comment(s): rt knee arthroscopy,left thyroplasty, colonoscopy Past Anesthesia/Blood Transfusion Reactions: No Reported Reaction, Motion Sickness Past Psychological History: Anxiety, Bipolar, Depression, Panic Disorder Additional Psychological History / Comment(s): Pt resides alone with her 2 dogs. She has falls and uses a walker to ambulate. She states she is currently receiving home physical therapy but cannot remember name of agency. She cannot drive d/t vertigo, her girlfriend takes her to [facility]. She states she is having difficulty managing his own medications. Smoking Status: Former smoker Past Alcohol Use History: None Reported Additional Past Alcohol Use History / Comment(s): STARTED SMOKING AT AGE 12, QUIT IN 2013,SMOKED 1 PPD Past Drug Use History: None Reported - Past Family History Father History Unknown: Yes Family Medical History: Dementia Additional Family Medical History / Comment(s): LEG AMP AT AGE 13 FROM TRAIN ACCIDENT. Mother History Unknown: Yes Family Medical History: Renal Disease Additional Family Medical History / Comment(s): AGE 34 KIDNEY FAILURE Medications and Allergies Home Medications Medication Instructions Recorded Confirmed Type Simvastatin [Zocor] 40 mg PO DAILY 09/28/15 10/25/20 History Divalproex [Depakote] 500 mg PO BID 02/11/16 10/25/20 History metHOTREXate sodium [Methotrexate] 20 mg PO FR 02/11/16 10/25/20 History Multivitamins, Thera [Multivitamin 1 tab PO DAILY 03/25/20 10/25/20 History (formulary)] Fludrocortisone [Florinef] 0.1 mg PO DAILY #30 tab 04/01/20 10/25/20 Rx Acetaminophen [Tylenol Arthritis] 1,300 mg PO Q6H PRN 10/25/20 10/25/20 History DULoxetine HCL [Cymbalta] 30 mg PO DAILY 10/25/20 10/25/20 History Ibuprofen [Motrin Ib] 400 mg PO Q6H PRN 10/25/20 10/25/20 History Levothyroxine Sodium [Synthroid] 100 mcg PO DAILY 10/25/20 10/25/20 History QUEtiapine [SEROquel] 150 mg PO HS 10/25/20 10/25/20 History Allergies Allergy/AdvReac Type Severity Reaction Status Date / Time Penicillins Allergy Rash/Hives Verified 10/25/20 18:39 Physical Exam Vitals: Vital Signs Temp Pulse Pulse Resp BP BP Pulse Ox 10/26/20 03:51 97.5 F L 78 16 120/68 91 L 10/26/20 00:00 85 16 125/75 91 L 10/25/20 23:09 98.4 F 78 18 121/67 91 L 10/25/20 21:00 71 18 117/66 91 L 10/25/20 19:00 98.4 F 76 18 105/75 96 10/25/20 17:45 98.6 F 76 18 123/74 91 L 10/25/20 16:30 83 18 103/60 90 L 10/25/20 15:00 79 18 101/60 94 L 10/25/20 14:28 92 L 10/25/20 14:18 99.4 F 81 18 82/52 84 L Intake and Output 10/25/20 10/26/20 10/26/20 22:59 06:59 14:59 Other: # Voids 1 Weight 71.94 kg 75.5 kg General appearance: alert, in no apparent distress Head exam: Present: atraumatic, normocephalic, normal inspection Eye exam: Present: normal appearance, PERRL, EOMI. Absent: scleral icterus, conjunctival injection, periorbital swelling ENT exam: Present: mucous membranes dry (sticky), TM's normal bilaterally, normal external ear exam (poor dentition) Neck exam: Present: normal inspection, full ROM. Absent: tenderness, meningismus, lymphadenopathy Respiratory exam: Present: normal lung sounds bilaterally. Absent: respiratory distress, wheezes, rales, rhonchi, stridor, chest wall tenderness, accessory muscle use Cardiovascular Exam: Present: regular rate, normal heart sounds. Absent: JVD (no pedal edema) GI/Abdominal exam: Present: soft, normal bowel sounds. Absent: distended, tenderness, guarding, rebound, rigid Extremities exam: Present: normal inspection, full ROM, normal capillary refill. Absent: tenderness, pedal edema, joint swelling, calf tenderness Back exam: Present: normal inspection. Absent: tenderness, CVA tenderness (R), CVA tenderness (L) Neurological exam: Present: alert, oriented X3, CN II-XII intact Psychiatric exam: Present: normal affect, normal mood Skin exam: Present: warm, dry, intact, normal color. Absent: rash, diaphoretic Results CBC & Chem 7: 10/26/20 08:39 10/26/20 08:39 Labs: Abnormal Lab Results - Last 24 Hours (Table) 10/25/20 10/25/20 10/25/20 Range/Units 14:39 14:39 14:39 RBC 3.77 L (3.80-5.40) m/uL Plt Count 144 L (150-450) k/uL Metamyelocytes # (Man) 0.08 H (0) k/uL Myelocytes # (Manual) 0.04 H (0) k/uL D-Dimer 0.86 H (<0.60) mg/L FEU Potassium 3.1 L (3.5-5.1) mmol/L Creatinine 1.09 H (0.52-1.04) mg/dL Calcium 8.0 L (8.4-10.2) mg/dL AST 52 H (14-36) U/L ALT 36 H (4-34) U/L Troponin I (0.000-0.034) ng/mL Total Protein 5.8 L (6.3-8.2) g/dL Albumin 2.9 L (3.5-5.0) g/dL Coronavirus (PCR) (Not Detectd) 10/25/20 10/25/20 Range/Units 14:39 16:30 RBC (3.80-5.40) m/uL Plt Count (150-450) k/uL Metamyelocytes # (Man) (0) k/uL Myelocytes # (Manual) (0) k/uL D-Dimer (<0.60) mg/L FEU Potassium (3.5-5.1) mmol/L Creatinine (0.52-1.04) mg/dL Calcium (8.4-10.2) mg/dL AST (14-36) U/L ALT (4-34) U/L Troponin I 0.059 H* (0.000-0.034) ng/mL Total Protein (6.3-8.2) g/dL Albumin (3.5-5.0) g/dL Coronavirus (PCR) Detected A (Not Detectd) Thrombosis Risk Factor Assmnt - Choose All That Apply Any of the Below Risk Factors Present?: Yes Each Factor Represents 1 point: Abnormal pulmonary function (COPD), Obesity (BMI >25) Other Risk Factors: Yes Each Risk Factor Represents 2 Points: Age 61-74 years Other congenital or acquired thrombophilia - If yes, enter type in comment: No Thrombosis Risk Factor Assessment Total Risk Factor Score: 4 Thrombosis Risk Factor Assessment Level: Moderate Risk Assessment and Plan Assessment: 1. Bilateral interstitial infiltrates; possible COVID 19 viral pneumonia versus CAP - Patient is started on IV azithromycin and Rocephin; we will continue current antibiotic; order blood and sputum cultures - Bronchodilator treatment with Ventolin inhaler 2 puffs 4 times a day when necessary - Patient is started on IV dexamethasone 6 mg daily - We will add vitamin C, vitamin D and zinc sulfate - Monitor inflammatory markers in form of LDH, ferritin, CPK, pro-calcitonin - Pulmonary is consulted for further recommendations 2. Elevated troponin; possibly related to hypoxia - We will trend troponin every 43; monitor EKG; recommend 2-D echo and cardiology consultation if troponin continues to trend up 3. Neutropenia; slight trending down of white blood count to 3.2 with platelet count trending down from 144 yesterday down to 127; possibly related to Covid 19 infection; we will continue to monitor CBC closely and consult hematology if blood counts continue to trend down 4. Hypothyroidism; levothyroxin 112 MCG daily 5. Hyperlipidemia; Zocor 40 mg by mouth daily at bedtime 6. Rheumatoid arthritis; controlled with methotrexate; we will hold methotrexate and patient is more stable DVT prophylaxis; SCDs/subcu Lovenox CODE STATUS; full code
--- NOTE | 2020-10-26 16:28 | P.CNPUL ---
History of Present Illness Consult date: 10/26/20 Reason for consult: hypoxemia, pneumonia Chief complaint: Multiple constitutional symptoms including weakness, cough, shortness of br History of present illness: This is a 65-year-old female with history of rheumatoid arthritis. Obstructive sleep apnea syndrome. History of hypertension, previous TIA, patient was admi tted through the emergency room with 2-3 weeks history of multiple constitutional symptoms. Her symptoms included cough, shortness of breath, weakness, fatigue, low-grade fever, headaches, but no GI symptoms. She also had no loss of sensation of taste or smell. Patient was actually diagnosed with positive covid 19 infection about 2 weeks ago. Continues to do poorly, patient lives by herself in an apartment, hence she decided to come to the hospital for further evaluation and treatment. Chest x-ray and CT angiogram of the chest showed bilateral pneumonia bibasilar pulmonary atelectasis. And reactive lymphadenopathy. O2 saturation on room air was as low as 84%, as the patient required to be placed on oxygen, and she is now on 3 L nasal cannula with O2 saturation of 93% patient was noted to have relative leukopenia, relative thrombocytopenia and lymphopenia, elevated LDH of 891 and elevated C-reactive protein of 71. Her pro calcitonin was 0.08, normal. And she had borderline elevated troponin. Obviously the patient is out of the window for REM, and she does not qualify for toci, patient does qualify for Decadron, and a Covid 19 cocktail, and this was already started. Review of Systems CONSTITUTIONAL: Multiple constitutional symptoms as noted in HPI. HEENT: No recent visual problems or hearing problems. Denied any sore throat. CARDIOVASCULAR: No chest pain, orthopnea, PND, no palpitations, no syncope. PULMONARY: Cough shortness of breath as noted in HPI.. GASTROINTESTINAL: No diarrhea, no nausea, no vomiting, no abdominal pain. NEUROLOGICAL: Intermittent headaches otherwise no other neurological symptoms as noted in HPI. HEMATOLOGICAL: Denies any bleeding or petechiae. GENITOURINARY: Denied dysuria frequency urgency or hematuria. MUSCULOSKELETAL/RHEUMATOLOGICAL: Patient has underlying rheumatoid arthritis, presently stable and she does have aches and pains related to her covid 19 infection. ENDOCRINE: Denies any polyuria or polydipsia. 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 History of Any Multi-Drug Resistant Organisms: None Reported Past Surgical History: Orthopedic Surgery, Tonsillectomy Additional Past Surgical History / Comment(s): rt knee arthroscopy,left thyroplasty, colonoscopy Past Anesthesia/Blood Transfusion Reactions: No Reported Reaction, Motion Sickness Past Psychological History: Anxiety, Bipolar, Depression, Panic Disorder Additional Psychological History / Comment(s): Pt resides alone with her 2 dogs. She has falls and uses a walker to ambulate. She states she is currently receiving home physical therapy but cannot remember name of agency. She cannot drive d/t [employer], her girlfriend takes her to [employer]. She states she is having difficulty managing his own medications. Smoking Status: Former smoker Past Alcohol Use History: None Reported Additional Past Alcohol Use History / Comment(s): STARTED SMOKING AT AGE 12, QUIT IN 2013,SMOKED 1 PPD Past Drug Use History: None Reported - Past Family History Father History Unknown: Yes Family Medical History: Dementia Additional Family Medical History / Comment(s): LEG AMP AT AGE 13 FROM TRAIN ACCIDENT. Mother History Unknown: Yes Family Medical History: Renal Disease Additional Family Medical History / Comment(s): AGE 34 KIDNEY FAILURE Medications and Allergies Home Medications Medication Instructions Recorded Confirmed Type Simvastatin [Zocor] 40 mg PO DAILY 09/28/15 10/25/20 History Divalproex [Depakote] 500 mg PO BID 02/11/16 10/25/20 History metHOTREXate sodium [Methotrexate] 20 mg PO FR 02/11/16 10/25/20 History Multivitamins, Thera [Multivitamin 1 tab PO DAILY 03/25/20 10/25/20 History (formulary)] Fludrocortisone [Florinef] 0.1 mg PO DAILY #30 tab 04/01/20 10/25/20 Rx Acetaminophen [Tylenol Arthritis] 1,300 mg PO Q6H PRN 10/25/20 10/25/20 History DULoxetine HCL [Cymbalta] 30 mg PO DAILY 10/25/20 10/25/20 History Ibuprofen [Motrin Ib] 400 mg PO Q6H PRN 10/25/20 10/25/20 History Levothyroxine Sodium [Synthroid] 100 mcg PO DAILY 10/25/20 10/25/20 History QUEtiapine [SEROquel] 150 mg PO HS 10/25/20 10/25/20 History Allergies Allergy/AdvReac Type Severity Reaction Status Date / Time Penicillins Allergy Rash/Hives Verified 10/25/20 18:39 Physical Exam Vitals: Vital Signs Temp Pulse Pulse Resp BP BP Pulse Ox 10/26/20 15:09 98 F 81 18 133/70 93 L 10/26/20 13:56 16 10/26/20 11:07 97.6 F 71 16 127/74 90 L 10/26/20 08:00 97.6 F 77 16 116/54 90 L 10/26/20 03:51 97.5 F L 78 16 120/68 91 L 10/26/20 00:00 85 16 125/75 91 L 10/25/20 23:09 98.4 F 78 18 121/67 91 L 10/25/20 21:00 71 18 117/66 91 L 10/25/20 19:00 98.4 F 76 18 105/75 96 10/25/20 17:45 98.6 F 76 18 123/74 91 L 10/25/20 16:30 83 18 103/60 90 L Intake and Output 10/26/20 10/26/20 10/26/20 06:59 14:59 22:59 Intake Total 10 Balance 10 Intake: IV 10 0.9 10 Other: # Voids 1 Weight 75.5 kg General appearance: Revealed a very pleasant 65-year-old female in no distress. Head exam: Atraumatic, normocephalic. Eye exam: PERRLA, EOMI, nonicteric. ENT exam: Moist mucous membranes, no neck masses nasal mucosa is normal. Neck exam: Supple, no neck masses no thyromegaly. No stridor. Respiratory exam: Minimal fine crackles at the bases bilaterally. No rhonchi and no wheezes. Cardiovascular Exam: Normal S1 and S2, no S3 gallop. GI/Abdominal exam: Soft nontender no megaly no rebound no guarding. Extremities exam: No clubbing edema or cyanosis. Neurological exam: Alert oriented 3 focal deficits. Psychiatric exam: Normal mood affect and normal mental status examination. Skin exam: Rashes. Results - Laboratory Findings CBC and BMP: 10/26/20 08:39 10/26/20 08:39 PT/INR, D-dimer PT 10.2 sec (9.0-12.0) 10/25/20 14:39 INR 1.0 (<1.2) 10/25/20 14:39 D-Dimer 0.86 mg/L FEU (<0.60) H 10/25/20 14:39 Abnormal lab findings: Abnormal Labs 10/25/20 10/25/20 10/25/20 14:39 14:39 14:39 WBC RBC 3.77 L Plt Count 144 L Lymphocytes # Metamyelocytes # (Man) 0.08 H Myelocytes # (Manual) 0.04 H D-Dimer 0.86 H Potassium 3.1 L BUN Creatinine 1.09 H Glucose POC Glucose (mg/dL) Calcium 8.0 L Ferritin AST 52 H ALT 36 H Lactate Dehydrogenase Troponin I C-Reactive Protein Total Protein 5.8 L Albumin 2.9 L Urine Protein Coronavirus (PCR) 10/25/20 10/25/20 10/26/20 14:39 16:30 08:39 WBC 3.2 L RBC 3.64 L Plt Count 127 L Lymphocytes # 0.9 L Metamyelocytes # (Man) Myelocytes # (Manual) D-Dimer Potassium BUN Creatinine Glucose POC Glucose (mg/dL) Calcium Ferritin AST ALT Lactate Dehydrogenase Troponin I 0.059 H* C-Reactive Protein Total Protein Albumin Urine Protein Coronavirus (PCR) Detected A 10/26/20 10/26/20 10/26/20 08:39 08:43 11:52 WBC RBC Plt Count Lymphocytes # Metamyelocytes # (Man) Myelocytes # (Manual) D-Dimer Potassium 3.4 L BUN 21 H Creatinine Glucose 154 H POC Glucose (mg/dL) 131 H Calcium 8.0 L Ferritin 362.9 H AST ALT Lactate Dehydrogenase 891 H Troponin I 0.045 H* C-Reactive Protein 71.2 H Total Protein Albumin Urine Protein Coronavirus (PCR) 10/26/20 12:30 WBC RBC Plt Count Lymphocytes # Metamyelocytes # (Man) Myelocytes # (Manual) D-Dimer Potassium BUN Creatinine Glucose POC Glucose (mg/dL) Calcium Ferritin AST ALT Lactate Dehydrogenase Troponin I C-Reactive Protein Total Protein Albumin Urine Protein Trace H Coronavirus (PCR) - Diagnostic Findings Chest x-ray: image reviewed CT scan - chest: image reviewed (As noted in HPI.) Assessment and Plan Assessment: Impression: Acute hypoxic respiratory failure secondary to acute covid 19 pneumonitis. History of rheumatoid arthritis. History of hypothyroidism. Neutropenia and thrombocytopenia secondary to acute Covid 19 infection. Recommendation: Patient is out of the window for REM. Suggest stopping antibiotics since her pro calcitonin level is normal. Continue the Covid 19 cocktail. Continue IV Decadron. Continue to monitor inflammatory markers. Continue bronchodilators. Continue Lovenox. We will continue to follow with you. Time with Patient: Greater than 30
[2020-10-26] MEDS ORDERED: Potassium Replacement Protocol 1 EACH MISC MISCELLANE PRN (16:43)
[2020-10-26] MEDS: ENOXAPARIN 40 MG/0.4 ML SYRINGE SQ SCH (17:19)
[2020-10-26] MEDS: POTASSIUM CHLORIDE ER 20 MEQ TAB.ER PO SCH ×2 (17:19→18:22)
[2020-10-26] MEDS ORDERED: ALPRAZolam 0.25 MG TAB PO STA (17:28)
[2020-10-26 17:39] LABS: Glucose,Whole Blood 139 mg/dL (75-99)
[2020-10-26 19:51] LABS: Glucose,Whole Blood 154 mg/dL (75-99)
[2020-10-26 20:21] LABS: Magnesium 2.5 mg/dL (1.6-2.3); Potassium 3.6 mmol/L (3.5-5.1)
[2020-10-26] MEDS: QUEtiapine 50 MG TAB PO SCH (20:45)
[2020-10-27 06:12] LABS: Glucose,Whole Blood 118 mg/dL (75-99)
[2020-10-27] MEDS: LEVOTHYROXINE 100 MCG TAB PO SCH (06:20)
[2020-10-27 08:07] LABS: Basophils # (A) 0.1 k/uL (0-0.2); Basophils % (A) 1 %; Eosinophils % (A) 0 %; HCT 33.1 % (34.0-46.0); HGB 11.1 gm/dL (11.4-16.0); Lymphocytes # (A) 1.1 k/uL (1.0-4.8); Lymphocytes % (A) 13 %; MCH 32.1 pg (25.0-35.0); MCHC 33.5 g/dL (31.0-37.0); MCV 95.7 fL (80.0-100.0); Mean Platelet Volume 7.8; Monocytes # (A) 0.8 k/uL (0-1.0); Monocytes % (A) 9 %; Neutrophils # (A) 6.5 k/uL (1.3-7.7); Neutrophils % (A) 74 %; Platelet Count 159 k/uL (150-450); RBC 3.46 m/uL (3.80-5.40); RDW 13.8 % (11.5-15.5); WBC 8.7 k/uL (3.8-10.6)
[2020-10-27 08:34] LABS: African American GFR (CKD) >90 (>60 ml/min/1.73 sqM); Anion Gap 3 mmol/L; Blood Urea Nitrogen 24 mg/dL (7-17); Calcium 8.2 mg/dL (8.4-10.2); Carbon Dioxide 29 mmol/L (22-30); Chloride 107 mmol/L (98-107); Glucose 115 mg/dL (74-99); LDH 825 U/L (313-618); Non-African American GFR(CKD) 80 (>60 ml/min/1.73 sqM); Potassium 3.5 mmol/L (3.5-5.1); Sodium 139 mmol/L (137-145)
[2020-10-27] MEDS: ENOXAPARIN 40 MG/0.4 ML SYRINGE SQ SCH (09:15)
[2020-10-27] MEDS: DEXAMETHASONE SOD PHOSPHATE 10 MG/ML 1 ML VIAL IV SCH (09:15)
[2020-10-27] MEDS: ASCORBIC ACID 500 MG TAB PO SCH (09:15)
[2020-10-27] MEDS: DULoxetine HCL 30 MG CAPSULE.DR PO SCH (09:15)
[2020-10-27] MEDS: DIVALPROEX 500 MG TABLET.DR PO SCH ×2 (09:15→20:26)
[2020-10-27] MEDS: ATORVASTATIN 20 MG TAB PO SCH (09:15)
[2020-10-27] MEDS: ZINC SULFATE 220 MG CAP PO SCH (09:15)
[2020-10-27] MEDS: CHOLECALCIFEROL 10 MCG (400 IU) TABLET PO SCH (09:16)
--- NOTE | 2020-10-27 11:38 | P.PN ---
Subjective Patient is admitted for the Covid19 pneumonia patient remains on 3 L of oxygen. Patient is presently on Decadron and covid vitamins. Social work was consulted because of the family's concern regarding her home situation patient troponins trended down no further intervention troponin elevation is secondary to infection. Patient can be transferred out of cardiac floor without telemetry. Constitutional: Denied any fatigue denied any fever. Cardio vascular: denied any chest pain, palpitations Gastrointestinal denied any nausea vomiting Pulmonary: Denied any shortness of breath cough Neurologic denied any new focal deficits All inpatient medications were reviewed and appropriate changes in these medications as dictated in the interval history and assessment and plan. Objective - Vital Signs Vital signs: Vital Signs Temp 97.7 F 10/27/20 08:00 Pulse 72 10/27/20 08:00 Resp 16 10/27/20 04:00 BP 115/66 10/27/20 08:00 Pulse Ox 93 L 10/27/20 08:00 Intake & Output 10/26/20 10/27/20 10/27/20 18:59 06:59 18:59 Intake Total 10 500 118 Output Total 100 Balance 10 400 118 Weight 78.6 kg Intake: IV 10 0.9 10 Oral 500 118 Output: Urine 100 Other: # Voids 1 - Exam PHYSICAL EXAMINATION: GENERAL: The patient is alert and oriented x3, not in any acute distress. Well developed, well nourished. HEENT: Pupils are round and equally reacting to light. EOMI. No scleral icterus. No conjunctival pallor. Normocephalic, atraumatic. No pharyngeal erythema. No thyromegaly. CARDIOVASCULAR: S1 and S2 present. No murmurs, rubs, or gallops. PULMONARY: Chest is clear to auscultation, no wheezing or crackles. ABDOMEN: Soft, nontender, nondistended, normoactive bowel sounds. No palpable organomegaly. MUSCULOSKELETAL: No joint swelling or deformity. EXTREMITIES: No cyanosis, clubbing, or pedal edema. NEUROLOGICAL: Gross neurological examination did not reveal any focal deficits. SKIN: No rashes. Note: Because of COVID 19 isolation, some of the history and physical exam findings are indirect and obtained from nursing staff, and other physician examinations to avoid unnecessary contact with the patient. - Labs CBC & Chem 7: 10/27/20 07:26 10/27/20 07:26 Labs: Abnormal Lab Results - Last 24 Hours (Table) 10/26/20 10/26/20 10/26/20 Range/Units 08:39 11:52 12:30 RBC (3.80-5.40) m/uL Hgb (11.4-16.0) gm/dL Hct (34.0-46.0) % BUN (7-17) mg/dL Glucose (74-99) mg/dL POC Glucose (mg/dL) 131 H (75-99) mg/dL Calcium (8.4-10.2) mg/dL Magnesium (1.6-2.3) mg/dL Ferritin 362.9 H (10.0-291.0) ng/mL Lactate Dehydrogenase (313-618) U/L Urine Protein Trace H (Negative) 10/26/20 10/26/20 10/26/20 Range/Units 17:38 19:41 19:50 RBC (3.80-5.40) m/uL Hgb (11.4-16.0) gm/dL Hct (34.0-46.0) % BUN (7-17) mg/dL Glucose (74-99) mg/dL POC Glucose (mg/dL) 139 H 154 H (75-99) mg/dL Calcium (8.4-10.2) mg/dL Magnesium 2.5 H (1.6-2.3) mg/dL Ferritin (10.0-291.0) ng/mL Lactate Dehydrogenase (313-618) U/L Urine Protein (Negative) 10/27/20 10/27/20 10/27/20 Range/Units 06:10 07:26 07:26 RBC 3.46 L (3.80-5.40) m/uL Hgb 11.1 L (11.4-16.0) gm/dL Hct 33.1 L (34.0-46.0) % BUN 24 H (7-17) mg/dL Glucose 115 H (74-99) mg/dL POC Glucose (mg/dL) 118 H (75-99) mg/dL Calcium 8.2 L (8.4-10.2) mg/dL Magnesium (1.6-2.3) mg/dL Ferritin (10.0-291.0) ng/mL Lactate Dehydrogenase 825 H (313-618) U/L Urine Protein (Negative) Microbiology - Last 24 Hours (Table) 10/25/20 18:45 Blood Culture - Preliminary Blood No Growth after 24 hours 10/25/20 18:36 Blood Culture - Preliminary Blood No Growth after 24 hours Assessment and Plan Plan: -Covid 19 pneumonia: Continue with the Decadron, Covid vitamins. Wean off oxygen as tolerated. The patient is presently on 3 L of oxygen -Troponin elevation secondary to hypoxia and infection as mentioned above -Hypothyroidism next and-hyperlipidemia -Rheumatoid arthritis - DVT prophylaxis Lovenox
[2020-10-27 12:41] LABS: Glucose,Whole Blood 152 mg/dL (75-99)
[2020-10-27] MEDS: ALBUTEROL HFA INHALER INHALATION PRN ×2 (13:14→20:58)
[2020-10-27 16:45] LABS: Glucose,Whole Blood 124 mg/dL (75-99)
--- NOTE | 2020-10-27 18:36 | P.PN ---
Subjective Progress Note Date: 10/27/20 Principal diagnosis: Acute hypoxemic respiratory failure. This is a 65-year-old female with history of rheumatoid arthritis. Obstructive sleep apnea syndrome. History of hypertension, previous TIA, patient was admitted through the emergency room with 2-3 weeks history of multiple constitutional symptoms. Her symptoms included cough, shortness of breath, weakness, fatigue, low-grade fever, headaches, but no GI symptoms. She also had no loss of sensation of taste or smell. Patient was actually diagnosed with positive covid 19 infection about 2 weeks ago. Continues to do poorly, patient lives by herself in an apartment, hence she decided to come to the hospital for further evaluation and treatment. Chest x-ray and CT angiogram of the chest showed bilateral pneumonia bibasilar pulmonary atelectasis. And reactive lymphadenopathy. O2 saturation on room air was as low as 84%, as the patient required to be placed on oxygen, and she is now on 3 L nasal cannula with O2 saturation of 93% patient was noted to have relative leukopenia, relative thrombocytopenia and lymphopenia, elevated LDH of 891 and elevated C-reactive protein of 71. Her pro calcitonin was 0.08, normal. And she had borderline elevated troponin. Obviously the patient is out of the window for REM, and she does not qualify for toci, patient does qualify for Decadron, and a Covid 19 cocktail, and this was already started. Progress note dated 10/25/2020. This is a 65-year-old female, admitted with a diagnosis of acute hypoxemic respiratory failure secondary to COVID 19 pneumonia. She also has a history of rheumatoid arthritis, hypothyroidism, and both neutropenia and thrombocytopenia secondary to COVID infection. She was seen by my partner yesterday in consultation. She was not a candidate for REM. The patient did receive IV Decadron, Lovenox, bronchodilators, and vitamins. She is currently on 3 L nasal cannula, with a saturation of 92%. White count was 8.7, hemoglobin 11.1, hematocrit 33.1, and a platelet count was normal. Sodium, potassium, chloride, CO2, anion gap were all normal. BUN was 24, with a creatinine 0.79. Pro- calcitonin level was 0.06. CT angiogram showed no evidence of pulmonary embolism but did show bilateral patchy pneumonia. Objective - Vital Signs Vital signs: Vital Signs Temp 97.7 F 10/27/20 08:00 Pulse 79 10/27/20 16:00 Resp 16 10/27/20 04:00 BP 124/75 10/27/20 16:00 Pulse Ox 92 L 10/27/20 16:00 Intake & Output 10/26/20 10/27/20 10/27/20 18:59 06:59 18:59 Intake Total 10 500 336 Output Total 100 Balance 10 400 336 Weight 78.6 kg Intake: IV 10 0.9 10 Oral 500 336 Output: Urine 100 Other: # Voids 1 1 - Exam No acute distress, oriented 3. Currently on 3 L nasal cannula. Saturations 92-93%. No use of accessory muscles. HEENT examination is grossly unremarkable. Neck supple. Full range of motion. No adenopathy thyromegaly or neck vein distention. Cardiovascular examination reveals regular rhythm rate. S1-S2 normal. No S3 or S4. No discernible murmur noted. Heart rate 79 bpm. Lungs reveal scattered bilateral crackles. No rhonchi or wheezes. Breath sounds equal bilaterally. Abdomen soft bowel sounds are heard. No masses or tenderness. Extremities are intact. No cyanosis clubbing or edema. Skin is without rash or lesion. Neurologic examination is brief but nonfocal. - Labs CBC & Chem 7: 10/27/20 07:26 10/27/20 07:26 Labs: Abnormal Lab Results - Last 24 Hours (Table) 10/26/20 10/26/20 10/27/20 Range/Units 19:41 19:50 06:10 RBC (3.80-5.40) m/uL Hgb (11.4-16.0) gm/dL Hct (34.0-46.0) % BUN (7-17) mg/dL Glucose (74-99) mg/dL POC Glucose (mg/dL) 154 H 118 H (75-99) mg/dL Calcium (8.4-10.2) mg/dL Magnesium 2.5 H (1.6-2.3) mg/dL Lactate Dehydrogenase (313-618) U/L 10/27/20 10/27/20 10/27/20 Range/Units 07:26 07:26 12:37 RBC 3.46 L (3.80-5.40) m/uL Hgb 11.1 L (11.4-16.0) gm/dL Hct 33.1 L (34.0-46.0) % BUN 24 H (7-17) mg/dL Glucose 115 H (74-99) mg/dL POC Glucose (mg/dL) 152 H (75-99) mg/dL Calcium 8.2 L (8.4-10.2) mg/dL Magnesium (1.6-2.3) mg/dL Lactate Dehydrogenase 825 H (313-618) U/L 10/27/20 Range/Units 16:33 RBC (3.80-5.40) m/uL Hgb (11.4-16.0) gm/dL Hct (34.0-46.0) % BUN (7-17) mg/dL Glucose (74-99) mg/dL POC Glucose (mg/dL) 124 H (75-99) mg/dL Calcium (8.4-10.2) mg/dL Magnesium (1.6-2.3) mg/dL Lactate Dehydrogenase (313-618) U/L Microbiology - Last 24 Hours (Table) 10/25/20 18:45 Blood Culture - Preliminary Blood No Growth after 24 hours 10/25/20 18:36 Blood Culture - Preliminary Blood No Growth after 24 hours Assessment and Plan Assessment: Acute hypoxemic respiratory failure secondary to COVID 19 pneumonitis. History of rheumatoid arthritis. History of hypothyroidism. Plan: Plan dated 10/27/2020. The patient remains on albuterol inhaler, vitamin C, vitamin D3, Decadron, Lovenox, and zinc. The patient appears to be doing relatively well. The patient is currently only on 3 L nasal cannula. We will continue to follow along and make recommendations were appropriate. Prognosis is guarded. Additional recommendations and suggestions to follow. Time with Patient: Less than 30
[2020-10-27 20:17] LABS: Glucose,Whole Blood 142 mg/dL (75-99)
[2020-10-27] MEDS: QUEtiapine 50 MG TAB PO SCH (20:26)
[2020-10-27 23:13] LABS: Ferritin 302.1 ng/mL (10.0-291.0)
[2020-10-28] MEDS: LEVOTHYROXINE 100 MCG TAB PO SCH (05:45)
[2020-10-28 06:07] LABS: Glucose,Whole Blood 91 mg/dL (75-99)
[2020-10-28] MEDS: ALBUTEROL HFA INHALER INHALATION PRN ×4 (08:38→19:36)
[2020-10-28] MEDS: ATORVASTATIN 20 MG TAB PO SCH (08:57)
[2020-10-28] MEDS: DIVALPROEX 500 MG TABLET.DR PO SCH ×2 (08:57→20:38)
[2020-10-28] MEDS: ASCORBIC ACID 500 MG TAB PO SCH (08:57)
[2020-10-28] MEDS: DULoxetine HCL 30 MG CAPSULE.DR PO SCH (08:57)
[2020-10-28] MEDS: CHOLECALCIFEROL 10 MCG (400 IU) TABLET PO SCH (08:57)
[2020-10-28] MEDS: ZINC SULFATE 220 MG CAP PO SCH (08:57)
[2020-10-28] MEDS: ENOXAPARIN 40 MG/0.4 ML SYRINGE SQ SCH (08:57)
[2020-10-28] MEDS: DEXAMETHASONE SOD PHOSPHATE 10 MG/ML 1 ML VIAL IV SCH (08:58)
[2020-10-28 11:50] LABS: Glucose,Whole Blood 126 mg/dL (75-99)
--- NOTE | 2020-10-28 13:08 | P.PN ---
Subjective Patient is admitted for the Covid19 pneumonia patient remains on 3 L of oxygen. Patient is presently on Decadron and covid vitamins. Social work was consulted because of the family's concern regarding her home situation patient troponins trended down no further intervention troponin elevation is secondary to infection. Patient can be transferred out of cardiac floor without telemetry. 10/28/2020 Patient is saturating at 96% on 3 L will try to wean off oxygen. Family is trying to get guardianship as patient is not making ideations and her home situation is not really well. Constitutional: Denied any fatigue denied any fever. Cardio vascular: denied any chest pain, palpitations Gastrointestinal denied any nausea vomiting Pulmonary: Denied any shortness of breath cough Neurologic denied any new focal deficits All inpatient medications were reviewed and appropriate changes in these medications as dictated in the interval history and assessment and plan. Objective - Vital Signs Vital signs: Vital Signs Temp 97.7 F 10/28/20 11:41 Pulse 70 10/28/20 11:41 Resp 20 10/28/20 11:41 BP 138/83 10/28/20 11:41 Pulse Ox 96 10/28/20 11:41 Intake & Output 10/27/20 10/28/20 10/28/20 18:59 06:59 18:59 Intake Total 336 220 125 Balance 336 220 125 Weight 77.7 kg Intake: Oral 336 220 125 Other: # Voids 1 1 - Exam PHYSICAL EXAMINATION: GENERAL: The patient is alert and oriented x3, not in any acute distress. Well developed, well nourished. HEENT: Pupils are round and equally reacting to light. EOMI. No scleral icterus. No conjunctival pallor. Normocephalic, atraumatic. No pharyngeal erythema. No thyromegaly. CARDIOVASCULAR: S1 and S2 present. No murmurs, rubs, or gallops. PULMONARY: Chest is clear to auscultation, no wheezing or crackles. ABDOMEN: Soft, nontender, nondistended, normoactive bowel sounds. No palpable organomegaly. MUSCULOSKELETAL: No joint swelling or deformity. EXTREMITIES: No cyanosis, clubbing, or pedal edema. NEUROLOGICAL: Gross neurological examination did not reveal any focal deficits. SKIN: No rashes. Note: Because of COVID 19 isolation, some of the history and physical exam findings are indirect and obtained from nursing staff, and other physician examinations to avoid unnecessary contact with the patient. - Labs CBC & Chem 7: 10/27/20 07:26 10/27/20 07:26 Labs: Abnormal Lab Results - Last 24 Hours (Table) 10/27/20 10/27/20 10/27/20 Range/Units 07:26 16:33 20:16 POC Glucose (mg/dL) 124 H 142 H (75-99) mg/dL Ferritin 302.1 H (10.0-291.0) ng/mL 10/28/20 Range/Units 11:46 POC Glucose (mg/dL) 126 H (75-99) mg/dL Ferritin (10.0-291.0) ng/mL Microbiology - Last 24 Hours (Table) 10/25/20 18:45 Blood Culture - Preliminary Blood No Growth after 48 hours 10/25/20 18:36 Blood Culture - Preliminary Blood No Growth after 48 hours Assessment and Plan Plan: -Covid 19 pneumonia: Continue with the Decadron, Covid vitamins. Wean off oxygen as tolerated. The patient is presently on 3 L of oxygen -Troponin elevation secondary to hypoxia and infection as mentioned above -Hypothyroidism next and-hyperlipidemia -Rheumatoid arthritis - DVT prophylaxis Lovenox
[2020-10-28 16:45] LABS: Glucose,Whole Blood 141 mg/dL (75-99)
--- NOTE | 2020-10-28 17:58 | P.PN ---
Subjective Progress Note Date: 10/28/20 Principal diagnosis: Acute hypoxemic respiratory failure. This is a 65-year-old female with history of rheumatoid arthritis. Obstructive sleep apnea syndrome. History of hypertension, previous TIA, patient was admitted through the emergency room with 2-3 weeks history of multiple constitutional symptoms. Her symptoms included cough, shortness of breath, weakness, fatigue, low-grade fever, headaches, but no GI symptoms. She also had no loss of sensation of taste or smell. Patient was actually diagnosed with positive covid 19 infection about 2 weeks ago. Continues to do poorly, patient lives by herself in an apartment, hence she decided to come to the hospital for further evaluation and treatment. Chest x-ray and CT angiogram of the chest showed bilateral pneumonia bibasilar pulmonary atelectasis. And reactive lymphadenopathy. O2 saturation on room air was as low as 84%, as the patient required to be placed on oxygen, and she is now on 3 L nasal cannula with O2 saturation of 93% patient was noted to have relative leukopenia, relative thrombocytopenia and lymphopenia, elevated LDH of 891 and elevated C-reactive protein of 71. Her pro calcitonin was 0.08, normal. And she had borderline elevated troponin. Obviously the patient is out of the window for REM, and she does not qualify for toci, patient does qualify for Decadron, and a Covid 19 cocktail, and this was already started. Progress note dated 10/25/2020. This is a 65-year-old female, admitted with a diagnosis of acute hypoxemic respiratory failure secondary to COVID 19 pneumonia. She also has a history of rheumatoid arthritis, hypothyroidism, and both neutropenia and thrombocytopenia secondary to COVID infection. She was seen by my partner yesterday in consultation. She was not a candidate for REM. The patient did receive IV Decadron, Lovenox, bronchodilators, and vitamins. She is currently on 3 L nasal cannula, with a saturation of 92%. White count was 8.7, hemoglobin 11.1, hematocrit 33.1, and a platelet count was normal. Sodium, potassium, chloride, CO2, anion gap were all normal. BUN was 24, with a creatinine 0.79. Pro- calcitonin level was 0.06. CT angiogram showed no evidence of pulmonary embolism but did show bilateral patchy pneumonia. Progress note dated 10/28/2020. 65-year-old female, admitted with a diagnosis of acute hypoxemic respiratory failure secondary to COVID 19 pneumonia. The patient has a history of rheumatoid arthritis, hypothyroidism, and both neutropenia and thrombocytopenia, secondary to coronavirus infection. Currently she is on 3 L, saturation 96%. Her temperature is 97.6. No new labs today to review. Also, no new chest x-ray s to review. She clinically is feeling much better. She still short of breath when she exerts himself, but when she is resting or still, she feels just fine. Objective - Vital Signs Vital signs: Vital Signs Temp 97.6 F 10/28/20 16:00 Pulse 84 10/28/20 16:00 Resp 20 10/28/20 16:00 BP 132/77 10/28/20 16:00 Pulse Ox 96 10/28/20 16:00 Intake & Output 10/27/20 10/28/20 10/28/20 18:59 06:59 18:59 Intake Total 336 220 365 Balance 336 220 365 Weight 77.7 kg Intake: Oral 336 220 365 Other: # Voids 1 1 3 - Exam No acute distress, oriented 3. Currently on 3 L nasal cannula. Saturations 96 %. No use of accessory muscles. HEENT examination is grossly unremarkable. Neck supple. Full range of motion. No adenopathy thyromegaly or neck vein distention. Cardiovascular examination reveals regular rhythm rate. S1-S2 normal. No S3 or S4. No discernible murmur noted. Heart rate 84 bpm. Lungs reveal scattered rhonchi and scattered bilateral crackles. No wheezes of note. Breath sounds are equal bilaterally. Abdomen soft bowel sounds are heard. No masses or tenderness. Extremities are intact. No cyanosis clubbing or edema. Skin is without rash or lesion. Neurologic examination is brief but nonfocal. - Labs CBC & Chem 7: 10/27/20 07:26 10/27/20 07:26 Labs: Abnormal Lab Results - Last 24 Hours (Table) 10/27/20 10/27/20 10/28/20 Range/Units 07:26 20:16 11:46 POC Glucose (mg/dL) 142 H 126 H (75-99) mg/dL Ferritin 302.1 H (10.0-291.0) ng/mL 10/28/20 Range/Units 16:44 POC Glucose (mg/dL) 141 H (75-99) mg/dL Ferritin (10.0-291.0) ng/mL Microbiology - Last 24 Hours (Table) 10/25/20 18:45 Blood Culture - Preliminary Blood No Growth after 48 hours 10/25/20 18:36 Blood Culture - Preliminary Blood No Growth after 48 hours Assessment and Plan Assessment: Acute hypoxemic respiratory failure secondary to COVID 19 pneumonitis. History of rheumatoid arthritis. History of hypothyroidism. Plan: Plan dated 10/27/2020. The patient remains on albuterol inhaler, vitamin C, vitamin D3, Decadron, Lovenox, and zinc. The patient appears to be doing relatively well. The patient is currently only on 3 L nasal cannula. We will continue to follow along and make recommendations were appropriate. Prognosis is guarded. Additional recommendations and suggestions to follow. Plan dated 10/28/2020. Currently, the patient appears to be doing relatively well. She remains on an albuterol inhaler, vitamin C, vitamin D3, Decadron, Lovenox, and zinc. She was not a candidate for REM. The patient seems be doing relatively well. I did asked her to get the walk around in the room and one in bed, move around, right side down, left side, laying supine, and trying to lay prone. This will improve her oxygenation. Additional recommendations and suggestions are forthcoming. Hopeful discharge soon. Time with Patient: Less than 30
[2020-10-28 20:37] LABS: Glucose,Whole Blood 128 mg/dL (75-99)
[2020-10-28] MEDS: QUEtiapine 50 MG TAB PO SCH (20:38)
[2020-10-29 06:05] LABS: Glucose,Whole Blood 96 mg/dL (75-99)
[2020-10-29] MEDS: LEVOTHYROXINE 100 MCG TAB PO SCH (06:40)
[2020-10-29] MEDS: ALBUTEROL HFA INHALER INHALATION PRN ×2 (08:01→12:00)
[2020-10-29] MEDS: ATORVASTATIN 20 MG TAB PO SCH (09:18)
[2020-10-29] MEDS: ZINC SULFATE 220 MG CAP PO SCH (09:18)
[2020-10-29] MEDS: DIVALPROEX 500 MG TABLET.DR PO SCH (09:18)
[2020-10-29] MEDS: ENOXAPARIN 40 MG/0.4 ML SYRINGE SQ SCH (09:18)
[2020-10-29] MEDS: DEXAMETHASONE SOD PHOSPHATE 10 MG/ML 1 ML VIAL IV SCH (09:18)
[2020-10-29] MEDS: CHOLECALCIFEROL 10 MCG (400 IU) TABLET PO SCH (09:18)
[2020-10-29] MEDS: DULoxetine HCL 30 MG CAPSULE.DR PO SCH (09:18)
[2020-10-29] MEDS: ASCORBIC ACID 500 MG TAB PO SCH (09:18)
[2020-10-29 09:54] VITALS: TEMP 97.4
[2020-10-29 11:57] LABS: Glucose,Whole Blood 104 mg/dL (75-99)
[2020-10-29 13:13] VITALS: BP 139/71; PULSE 80; RESP 18
--- NOTE | 2020-10-29 14:15 | P.DS ---
Providers Date of admission: 10/25/20 17:50 Attending physician: Sophia Gonzalez Consults: 10/25/20 17:57 Consult Physician Stat Consulting Provider: Franc Lucia Consult Reason/Comments: covid pneumonia, hypoxia Do you want consulting provider notified?: Yes Primary care physician: Stated None Hospital Course: Patient is admitted for the Covid19 pneumonia patient remains on 3 L of oxygen. Patient is presently on Decadron and covid vitamins. Social work was consulted because of the family's concern regarding her home situation patient troponins trended down no further intervention troponin elevation is secondary to infection. Patient can be transferred out of cardiac floor without telemetry. 10/28/2020 Patient is saturating at 96% on 3 L will try to wean off oxygen. Family is trying to get guardianship as patient is not making ideations and her home situation is not really well. 10/29/2020 Patient is off oxygen. Patient is being discharged to subacute rehabitation. Patient is being discharged on 5 more days of Decadron. Patient was on fludrocortisone before admission, unsure patient had history of atrial insufficiency but anyway patient already need to restart back on protocol dis oriented and taper down and may need to be reevaluated for adrenal insufficiency as an outpatient. PHYSICAL EXAMINATION: GENERAL: The patient is alert and oriented x3, not in any acute distress. Well developed, well nourished. HEENT: Pupils are round and equally reacting to light. EOMI. No scleral icterus. No conjunctival pallor. Normocephalic, atraumatic. No pharyngeal erythema. No thyromegaly. CARDIOVASCULAR: S1 and S2 present. No murmurs, rubs, or gallops. PULMONARY: Chest is clear to auscultation, no wheezing or crackles. ABDOMEN: Soft, nontender, nondistended, normoactive bowel sounds. No palpable organomegaly. MUSCULOSKELETAL: No joint swelling or deformity. EXTREMITIES: No cyanosis, clubbing, or pedal edema. NEUROLOGICAL: Gross neurological examination did not reveal any focal deficits. SKIN: No rashes. Note: Because of COVID 19 isolation, some of the history and physical exam findings are indirect and obtained from nursing staff, and other physician examinations to avoid unnecessary contact with the patient. Assessment and Plan Plan: -Covid 19 pneumonia: Continue with the Decadron, Covid vitamins. Patient is presently not on oxygen. -Troponin elevation secondary to hypoxia and infection as mentioned above -Hypothyroidism -hyperlipidemia -Rheumatoid arthritis Patient Condition at Discharge: Fair Plan - Discharge Summary Discharge Rx Participant: No New Discharge Prescriptions: New Dexamethasone [Decadron] 6 mg PO DAILY #5 tablet Zinc Sulfate [Orazinc] 220 mg PO DAILY cap Albuterol Inhaler [Ventolin Hfa Inhaler] 2 puff INHALATION RT-QID PRN puff PRN Reason: Shortness Of Breath Or Wheezing Ascorbic Acid [Vitamin C] 500 mg PO DAILY tab Cholecalciferol [Vitamin D3 (10 Mcg = 400 Iu)] 10 mcg PO DAILY tablet Continue Simvastatin [Zocor] 40 mg PO DAILY metHOTREXate sodium [Methotrexate] 20 mg PO FR Divalproex [Depakote] 500 mg PO BID Multivitamins, Thera [Multivitamin (formulary)] 1 tab PO DAILY Ibuprofen [Motrin Ib] 400 mg PO Q6H PRN PRN Reason: Fever And/ Or Pain Acetaminophen [Tylenol Arthritis] 1,300 mg PO Q6H PRN PRN Reason: Fever And/ Or Pain DULoxetine HCL [Cymbalta] 30 mg PO DAILY QUEtiapine [SEROquel] 150 mg PO HS Levothyroxine Sodium [Synthroid] 100 mcg PO DAILY Discontinued Fludrocortisone [Florinef] 0.1 mg PO DAILY #30 tab Discharge Medication List Simvastatin [Zocor] 40 mg PO DAILY 09/28/15 [History] Divalproex [Depakote] 500 mg PO BID 02/11/16 [History] metHOTREXate sodium [Methotrexate] 20 mg PO FR 02/11/16 [History] Multivitamins, Thera [Multivitamin (formulary)] 1 tab PO DAILY 03/25/20 [History] Acetaminophen [Tylenol Arthritis] 1,300 mg PO Q6H PRN 10/25/20 [History] DULoxetine HCL [Cymbalta] 30 mg PO DAILY 10/25/20 [History] Ibuprofen [Motrin Ib] 400 mg PO Q6H PRN 10/25/20 [History] Levothyroxine Sodium [Synthroid] 100 mcg PO DAILY 10/25/20 [History] QUEtiapine [SEROquel] 150 mg PO HS 10/25/20 [History] Albuterol Inhaler [Ventolin Hfa Inhaler] 2 puff INHALATION RT-QID PRN puff 10/29/20 [Rx] Ascorbic Acid [Vitamin C] 500 mg PO DAILY tab 10/29/20 [Rx] Cholecalciferol [Vitamin D3 (10 Mcg = 400 Iu)] 10 mcg PO DAILY tablet 10/29/20 [Rx] Dexamethasone [Decadron] 6 mg PO DAILY #5 tablet 10/29/20 [Rx] Zinc Sulfate [Orazinc] 220 mg PO DAILY cap 10/29/20 [Rx] Follow up Appointment(s)/Referral(s): Chriss Dwyer MD [STAFF PHYSICIAN] - 1 Week Discharge Disposition: TRANSFER TO SNF/ECF
--- NOTE | 2020-10-29 20:10 | PN ---
PROGRESS NOTE PULMONARY/CRITICAL CARE PROGRESS NOTE: DATE OF SERVICE: October 29, 2020. A 65-year-old female with a history of acute hypoxemic respiratory failure secondary to COVID-19 pneumonia, and rheumatoid arthritis, as well as hypothyroidism. Currently, the patient seems to be doing relatively well. Sh remains on 2 L nasal cannula. She is getting appropriate medications including albuterol inhaler, vitamin C, vitamin D3, Decadron, Lovenox, and zinc. She seems to be tolerating the medication relatively well. I have asked her to move about in bed, lying on her back, right side, left side, and stomach if possible. No new laboratory data today to report. No new chest x-ray to report today. PHYSICAL EXAMINATION: VITAL SIGNS: Current vital signs are reviewed. Temperature 97.4, heart rate 80, respiratory rate 18, blood pressure 139/71, mean 93, 2 L saturation 92%. Appears in no acute distress. No respiratory distress. HEENT: Examination is grossly unremarkable. NECK: Supple. Full range of motion. No adenopathy. Neck veins are flat. CARDIOVASCULAR: Examination reveals regular rhythm and rate. Heart rate 80. S1, S2 normal. No S3, S4, or murmur. LUNGS: Reveal some bibasilar crackles. A few scattered rhonchi. Breath sounds equal. ABDOMEN: Soft. Bowel sounds are heard. EXTREMITIES: Intact. No cyanosis, clubbing, or edema. SKIN: Without rash. NEUROLOGIC: Examination is brief but nonfocal. MEDICATIONS: All of her medications are reviewed. ASSESSMENT: 1. Acute hypoxemic respiratory failure secondary to COVID-19 pneumonitis. 2. History of rheumatoid arthritis. 3. History of hypothyroidism. PLAN: The patient will continue on oxygen therapy, vitamins, Decadron and Lovenox. Additional recommendations and suggestions are forthcoming. Prognosis is guarded. We will continue to follow. MMODL / IJN: [id number] /
== END 2020-10-29 16:27 | DRG 177 ==
LOC: EC 14:09 → 3SCARD 17:50
PROVIDERS: ADMIT Hospitalist; ATTEND Hospitalist
DX: U07.1 COVID-19 (principal); J96.01 Acute respiratory failure with hypoxia; J12.82 Pneumonia due to coronavirus disease 2019; F31.9 Bipolar disorder, unspecified; K21.9 Gastro-esophageal reflux disease without esophagitis; F41.0 Panic disorder [episodic paroxysmal anxiety]; Z87.891 Personal history of nicotine dependence; Z88.0 Allergy status to penicillin; E03.9 Hypothyroidism, unspecified; E78.5 Hyperlipidemia, unspecified; M06.9 Rheumatoid arthritis, unspecified; G47.33 Obstructive sleep apnea (adult) (pediatric); Z86.73 Personal history of transient ischemic attack (TIA), and cerebral infarction without residual deficits; I10 Essential (primary) hypertension; D69.59 Other secondary thrombocytopenia; D72.810 Lymphocytopenia
CPT/HCPCS: 36415; 71046; 71275; 80048; 80053; 81003; 82550; 82728; 83605; 83615; 83735; 83880; 84132; 84145; 84484; 85025; 85379; 85610; 85730; 86140; 87040; 87635; 93005; 94640; 96360; 96361; 99285

== ENCOUNTER → 2023-01-13 | Outpatient (CLI) | payer MEDICARE, OTHER ==
--- NOTE | 2023-01-13 15:17 | CT ---
EXAMINATION TYPE: CT left knee - [facility] Protocol DATE OF EXAM: 01/13/2023 COMPARISON: None HISTORY: left knee surgical planning CT DLP: 431.[address] of the lower extremities was performed from the hips through the ankles. Bone an d soft tissue window settings are reviewed. FINDINGS: There is severe degenerative change noted about the left knee involving all 3 compartments. There is extensive spur formation noted about the margins of the medial and lateral femoral condyles as well a s the margins of the tibial plateau. Patellar spurring is noted. Multiple loose bodies are seen. Ther e is no evidence for fracture or malalignment. Mild degenerative changes seen about the hip joints. IMPRESSION: 1. Surgical planning CT of the lower extremities with advanced osteoarthritis about the left knee.
== END | disposition home or self-care (01) ==
LOC: RADCTMAIN 13:58
PROVIDERS: ATTEND Orthopaedic Surgery
DX: Z01.818 Encounter for other preprocedural examination (principal); M17.12 Unilateral primary osteoarthritis, left knee

== ENCOUNTER → 2023-02-21 | Outpatient (CLI) | payer MEDICARE, OTHER ==
--- NOTE | 2023-02-21 17:37 | US ---
EXAMINATION TYPE: US venous doppler duplex LE LT DATE OF EXAM: 02/21/2023 5:03 PM COMPARISON: NONE CLINICAL INDICATION: Female, 67 years old with history of I80.9 PHLEBITIS AND THROMBOPHLEBITIS OF UNS PECIFIED; post op knee surgery. SIDE PERFORMED: Left TECHNIQUE: The lower extremity deep venous system is examined utilizing real time linear array sonog durga with graded compression, doppler sonography and color-flow sonography. VESSELS IMAGED: Common Femoral Vein Deep Femoral Vein Greater Saphenous Vein * Femoral Vein Popliteal Vein Small Saphenous Vein * Proximal Calf Veins (* superficial vessels) Left Leg: Negative for DVT. There is an anechoic area medial left knee 4.1 x 4.1 x 4.7 cm. IMPRESSION: 1. No evidence for DVT within the left lower extremity imaged from the groin to the upper calf. 2. Large cystic area along the medial aspect of the knee measuring up to 4.7 cm. Some differential co nsiderations include a Riley's cyst, ganglion cyst, residual parameniscal cyst, or postoperative sero ma. Further clinical correlation recommended.
== END | disposition home or self-care (01) ==
LOC: RADUSWWP 16:39
PROVIDERS: ATTEND Orthopaedic Surgery
DX: I80.9 Phlebitis and thrombophlebitis of unspecified site (principal); M25.562 Pain in left knee; Z96.652 Presence of left artificial knee joint; Z47.1 Aftercare following joint replacement surgery

== ENCOUNTER 2023-05-20 10:57 | Day surgery (SDC) | payer MEDICARE, OTHER ==
[~2023-05-20 10:57] MED LIST changes: +ACETAMINOPHEN TAB 500 MG TAB PO PRN; -DEXAMETHASONE SOD PHOSPHATE 10 MG/ML 1 ML VIAL IV ONE; +DEXAMETHASONE SOD PHOSPHATE 10 MG/ML 1 ML VIAL IV PRN; -DEXAMETHASONE SOD PHOSPHATE 4 MG/ML 1 ML VIAL IV ONE; +DOCUSATE 100 MG CAP PO PRN; -FAMOTIDINE 20 MG/2 ML VIAL IV ONE; +FAMOTIDINE 20 MG/2 ML VIAL IVP PRN; +HYDROmorphone 0.5 MG/0.5 ML SYRINGE IVP PRN; +KETOROLAC 15 MG/ML 1 ML VIAL IVP PRN; -LACTATED RINGERS 1,000 ML IV SCH; -LIDOCAINE 1% 20 ML VIAL (10MG/ML) FOR IV START INTRADERMA PRN; -ONDANSETRON 4 MG/2 ML VIAL IVP ONE; +ONDANSETRON 4 MG/2 ML VIAL IVP PRN; +ROPIVACAINE/EPI/CLONIDINE/KET 50 ML SYRINGE MISCELLANE PRN; -SCOPOLAMINE 1.5MG/72HR PATCH TRANSDERM ONE; +TRANEXAMIC 1,000 MG/100ML-NACL 1,000 MG in SALINE 1 100ML.BAG IV PRN; +TRANEXAMIC 1,000 MG/100ML-NACL 1,000 MG in SALINE 1 100ML.BAG IVPB PRN; +VANCOMYCIN 1,000 MG in SODIUM CHLORIDE 0.9% 250 ML IVPB PRN; -ceFAZolin 2 GM in SODIUM CHLORIDE 0.9% 100 ML IVPB ONE; -metroNIDAZOLE-NS PMX 500 MG in SALINE 1 100ML.BAG IVPB ONE; +oxyCODONE ER 10 MG TAB.ER.12H PO PRN
[2023-05-20] MEDS: LACTATED RINGERS 1,000 ML IV SCH ×3 (11:59→20:26)
--- NOTE | 2023-05-20 12:57 | P.ANPRN ---
Procedure Note - Anesthesia - Nerve Block Performed Right Adductor Canal Single Time Out Performed: Yes Date of Procedure: 05/20/23 Procedure Start Time: 12:19 Procedure Stop Time: 12:24 Location of Patient: PreOp Indication: Acute Post-Operative Pain, Requested by Surgeon Sedation Type: Sedate with meaningful contact maintained Preparation: Sterile Prep, Sterile Dressing Position: Supine Catheter: None Needle Types: Facet Needle Gauge: 20 Ultrasound used to visualize needle placement: Yes Ultrasound used to observe medication spread: Yes Injectate: 0.5% Ropivacaine (see comment for volume) (20 ml + decadron 2 mg) Blood Aspirated: No Pain Paresthesia on Injection Noted: No Resistance on Injection: Normal Image Stored and Saved: Yes Events: Uneventful and Well Tolerated Right iPack Single Time Out Performed: Yes Date of Procedure: 05/20/23 Procedure Start Time: 12: Procedure Stop Time: 12:33 Location of Patient: PreOp Indication: Acute Post-Operative Pain, Requested by Surgeon Sedation Type: Sedate with meaningful contact maintained Preparation: Sterile Prep, Sterile Dressing Position: Left Lateral Catheter: None Needle Types: Facet Needle Gauge: 20 Ultrasound used to visualize needle placement: Yes Ultrasound used to observe medication spread: Yes Injectate: 0.5% Ropivacaine (see comment for volume) (10 ml + decadron 2 mg) Blood Aspirated: No Pain Paresthesia on Injection Noted: No Resistance on Injection: Normal Image Stored and Saved: Yes Events: Uneventful and Well Tolerated
[2023-05-20] MEDS ORDERED: ROPIVACAINE 5 MG/ML 30 ML VIAL ONE (13:11)
[2023-05-20] MEDS ORDERED: MIDAZOLAM 2 MG/2 ML VIAL ONE (13:11)
[2023-05-20] MEDS ORDERED: TRANEXAMIC 1,000 MG/100ML-NACL PREMIX BAG ONE (13:11)
[2023-05-20] MEDS ORDERED: PROPOFOL 10 MG/ML 20 ML VIAL IV ONE (13:11)
[2023-05-20] MEDS ORDERED: DEXAMETHASONE SOD PHOSPHATE 4 MG/ML 1 ML VIAL ONE (13:11)
[2023-05-20] MEDS ORDERED: ePHEDrine 50 MG/ML 1 ML VIAL ONE (13:11)
[2023-05-20] MEDS ORDERED: PHENYLEPHRINE-0.9% NACL SYG 1,000 MCG/10 ML SYRINGE ONE (13:11)
[2023-05-20] MEDS ORDERED: LACTATED RINGERS 1,000 ML IV ONE (14:23)
[2023-05-20] MEDS ORDERED: HYDROmorphone 0.5 MG/0.5 ML SYRINGE IVP PRN ×3 (15:41)
[2023-05-20] MEDS ORDERED: hydrOXYzine pamoate 25 MG CAP PO PRN (15:41)
[2023-05-20] MEDS ORDERED: NALOXONE 0.4 MG/ML 1 ML VIAL IV PRN (15:41)
--- NOTE | 2023-05-20 15:42 | P.OP ---
Date of Procedure: 05/20/23 Preoperative Diagnosis: 1. Severe right knee osteoarthritis 2. Rheumatoid arthritis on methotrexate 3. History of cigarette smoking Postoperative Diagnosis: Same Procedure(s) Performed: 1. Right total knee arthroplasty 2. Computer assisted musculoskeletal navigation using CT/MRI images 3. Application of negative pressure incisional wound VAC less than 50 cm, right knee, incision measuring 15 cm (An incisional wound VAC was utilized due to the history of cigarette smoking and rheumatoid arthritis) Implants: 1. [place] [employer] CR Femur Size #2 2. [employer] [place] Tibial Base Size #3 3. [employer] CS poly Size #3, 11-mm 4. [place] [employer] all poly patella, Size #29 Anesthesia: regional, spinal Surgeon: Trever Almeida Building Services Engineer #1: Imelda Wright Estimated Blood Loss (ml): 150 IV fluids (ml): 1,300 Pathology: none sent Condition: stable Disposition: PACU Indications for Procedure: The patient is a very pleasant 67-year-old female with a medical history signif icant for rheumatoid arthritis and cigarette smoking. She previously underwent a left total knee replacement by me and did well with this. She went on to develop severe pain in her right knee and had x-ray findings showing severe arthritis. I long discussion with the patient on treatment. The patient having previously undergone a total knee replacement requested proceeding with surgery. We again discussed her elevated risk of having a complication particularly cigarette smoking and rheumatoid arthritis. I counseled the patient to quit smoking but she said she was unable to fully quit. Due to severity of her arthritis and pain I agreed to proceed with a total knee replacement. The patient acknowledges her elevated risk. I strongly encouraged her to quit smoking in the perioperative period I met with the patient preoperatively in the office setting and discussed treatment of their symptomatic knee arthritis. They failed a long course of nonsurgical treatment and elected to proceed with an elective total knee replacement. I discussed the potential risks and complications at length and gave them ample time to ask questions. Risks discussed included: risks from anesthesia, superficial site surgical infection, acute and/or chronic periprosthetic joint infection, delayed wound healing, drainage, wound necrosis, instability, stiffness, stiffness requiring manipulation and/or revision surgery, damage to local blood vessels or nerves, aseptic loosening of the implants, extensor mechanism issues including disruption, patellar maltracking, avascular necrosis etc., continued or worsened knee pain, generalized dissatisfaction with surgical outcome, need for revision surgery, an inability to regain preinjury level of function, DVT, PE, other medical complications, and possibly loss of life or limb. The patient voiced their understanding that while these are the most common complications other less common complications are possible. They provided both their verbal and written consent to go forward with surgery. Operative Findings: Severe tricompartmental osteoarthritis with full-thickness cartilage loss and multiple large peripheral osteophytes. Description of Procedure: The patient was identified in preoperative holding and the correct operative extremity was verified and marked with a marker. I reviewed the consent form with the patient at length. All of their questions were answered. The patient was given a block by anesthesia. They were then brought back to the operating room. They were transferred onto the operating room table where a general anesthetic, preoperative antibiotics, and tranexamic acid were administered by anesthesia. A tourniquet was applied to the proximal aspect of the operative extremity. The contralateral extremity was padded under the heel and secured to the operating room table with a nonsterile blue towel and tape. The ipsilateral arm was carefully draped across the patient's chest and secured with a pillow and foam. A post was applied over the lateral aspect of the ipsilateral thigh and a bolster was placed under the ipsilateral foot. I verified that the operative extremity was stable and the knee was flexed to 90. The operative extremity was then placed in a leg richey, nonsterile drapes were applied, and the extremity was prepped and draped sterilely in the standard sterile fashion. Prior to starting surgery timeout was performed identifying the correct patient, operative extremity, and procedure. The leg was then elevated, exsanguinated with an Esmarch bandage, and the tourniquet was inflated. An anterior midline incision was made sharply with a scalpel. Once I had dissected deep to the superficial fascial layer medial and lateral flaps were elevated. A medial parapatellar arthrotomy was created. Upon opening the knee joint there were diffuse arthritic changes in all 3 compartments. The anterior horn of the medial meniscus were sharply released and a medial release was performed around the posterior medial corner of the knee to facilitate retractor placement. The fat pad was excised with electrocautery. The patella was found to be severely arthritic and a provisional cut was made with a sagittal saw to facilitate mobilization of the extensor mechanism during the procedure. Remnants of the ACL and PCL were then excised from the notch. 4 mm pins were then placed within the incision in the medial distal femur and proximal tibia. Arrays were applied to the pins and I verified they were completely tightened. The knee was then registered with the Neolinear robot and manipulations in implant position were made to balance the knee and opitmize implant position. Using the Dov robotic saw all cuts were made in accordance with our plan. After all bony fragments had been removed the cuts were verified with the planar probe. The tibia was then subluxed forward and sized. The knee was brought into flexion and a lamina clutch rebuilder was placed to allow removal of the meniscal remnants both medially and laterally as well as posterior osteophytes. Local anesthetic was then infiltrated around the joint capsule. Trial implants were then placed within the knee. Range of motion and collateral ligament tension was then evaluated. Adjustments in implant size and position were then made accordingly. Once the knee was felt to be appropriately balanced the Dov pins were removed. The patella was then recut, sized, and punched. A trial patellar button was then placed. With the trial components in place, the patella tracked midline. The femur was then drilled and the trial component removed. The trial tibial component was then appropriately rotated, pinned, and prepared for the keel. All trial components were then removed from the knee. The knee was thoroughly irrigated with pulsatile lavage. Cement was prepared via vacuum mixing in a bowl on the back table. I then hand pressurized cement into the femur and tibia and placed the implants beginning with the tibial base tray and poly liner, femoral component, and finally the patellar button. All extruded cement was removed including from the pin sites. Once the cement had hardened the knee was evaluated one final time with the final polyethylene liner in place. The knee had full extension and flexion and felt stable to varus and valgus stress t hroughout the arc of motion. The tourniquet was released and with the tourniquet down the patella tracked midline. All bleeders were controlled with electrocautery. The knee was then soaked for 3 minutes with a dilute Betadine soak. The knee was thoroughly irrigated using 3 L of sterile saline and pulsatile lavage. A deep drain was placed. The extensor mechanism was then reapproximated using pop off Vicryl sutures followed by a running barbed suture. The knee was then closed in layers with a 0 strata fix for the deep fascial layer, 2-0 strata fix for the superficial subcutaneous layer and Monocryl and Steri-Strips for the skin. A sterile dressing and drain sponge were applied - due to the patient's history of cigarette smoking and rheumatoid arthritis and incisional wound VAC was placed over the closed incision. I verified that all instrument, sponge, and sharp counts were correct. The patient was then transferred off the operating room table, extubated, and brought to recovery having tolerated the procedure well. Imelda Wright PA-C was required as a skilled therapeutic assistant due to the complexity of the procedure for patient positioning, draping, retraction, placement of hardwa re, and closure of wound. PLAN: The patient can weight-bear as tolerated on the operative extremity. DVT prophylaxis with aspirin 81 mg twice a day based on preoperative risk stratification. Follow-up in the office in 2 weeks for wound check and x-rays of the knee including an AP and lateral.
[2023-05-20] MEDS ORDERED: oxyCODONE-APAP 5-325MG 1 EACH TAB PO PRN (15:45)
--- NOTE | 2023-05-20 16:04 | XR ---
EXAMINATION TYPE: XR knee limited RT DATE OF EXAM: 05/20/2023 4:00 PM INDICATION: Patient age:Female; 67 years old; Reason for study: Evaluation for Postop abnormality and alignment; H. COMPARISON: CT right knee 04/01/2023 TECHNIQUE: The Right knee(s) was examined in frontal and crosstable lateral projections. FINDINGS: Postsurgical changes from total right knee arthroplasty with distal femoral and proximal tibial components. Hardware appears intact with appropriate alignment. There is associated soft tissu e gas and edema. Surgical drain is identified coursing posterior to the patella. No acute fracture or dislocation. IMPRESSION: Postsurgical changes from total knee arthroplasty. Hardware appears intact with appropriate alignment .
[2023-05-20] MEDS: NICOTINE 21MG/24HR PATCH TRANSDERM SCH (17:48)
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
[2023-05-20 19:31] VITALS: RESP 16
[2023-05-20] MEDS ORDERED: IPRATROPIUM-ALBUTEROL 3 ML NEB INHALATION PRN (19:49)
[2023-05-20] MEDS: DULoxetine HCL 30 MG CAPSULE.DR PO SCH (20:27)
[2023-05-20] MEDS: DIVALPROEX 500 MG TABLET.DR PO SCH (20:27)
[2023-05-20] MEDS: ASPIRIN 81 MG PO SCH (20:27)
[2023-05-20] MEDS ORDERED: SENNOSIDES-DOCUSATE SODIUM 1 EACH TAB PO SCH (21:00)
[2023-05-20] MEDS ORDERED: QUEtiapine 400 MG TAB PO SCH (21:00)
[2023-05-20] MEDS ORDERED: ATORVASTATIN 20 MG TAB PO SCH (21:00)
[2023-05-20] MEDS: IPRATROPIUM-ALBUTEROL 3 ML NEB INHALATION SCH (21:09)
[2023-05-21] MEDS: LACTATED RINGERS 1,000 ML IV SCH (03:47)
[2023-05-21] MEDS ORDERED: LEVOTHYROXINE 112 MCG TAB PO SCH (06:30)
--- NOTE | 2023-05-21 07:44 | P.PN ---
Subjective Progress Note Date: 05/21/23 Patient is doing well this morning. She has no complaints. Her only concern is hypotension with blood pressures in the 100s over 60s, but she denies chest pain, shortness of breath, or feeling lightheaded. She has minimal pain in her knee. Objective - Vital Signs Vital signs: Vital Signs Temp 98.8 F 05/21/23 02:00 Pulse 91 05/21/23 02:00 Resp 16 05/21/23 02:00 BP 96/59 05/21/23 02:00 Pulse Ox 93 L 05/21/23 02:00 FiO2 Intake & Output 05/20/23 05/21/23 05/21/23 18:59 06:59 18:59 Intake Total 1950 Output Total 150 260 Balance 1800 -260 Weight 60.1 kg Intake: IV 1950 Output: Drainage 260 Right 260 Estimated Blood Loss 150 Other: # Voids 4 - Exam The patient is resting comfortably in her bed. She is alert and able to answer questions. She has no apparent distress. A focused exam of the right lower extremity was conducted. On inspection there is mild swelling over the knee. Her Hemovac is in place. His was removed without difficulty. The incisional wound VAC is also in place with good seal. The thigh and calf are soft. Femoral nerve function is intact. Distally she is able to actively plantarflex and dorsiflex her ankles and her toes. Assessment and Plan Assessment: Postoperative day #1 status post right total knee replacement Rheumatoid arthritis on methotrexate Cigarette smoking COPD History of left total knee replacement, did well Plan: 1. Weight-bear as tolerated right lower extremity, up with assistance and a walker 2. DVT prophylaxis with aspirin 81 mg twice a day 4 weeks 3. Antibiotic prophylaxis with 2 doses of postoperative Ancef followed by doxycycline 100 mg twice a day until her incision heals given her high risk 4. Hemovac drain pulled this morning, leave incisional wound VAC in place 5. Appreciate internal medicine's assistance with preoperative medical management 6. Physical therapy for gait training 7. Dispo: We'll plan on discharging the patient home later today once she passes physical therapy and her pain is controlled.
--- NOTE | 2023-05-21 07:45 | P.DS ---
Providers Date of admission: 05/20/2023 Attending physician: Trever Almeida Consults: 05/20/23 16:50 Consult Physician Routine Consulting Provider: Lucille Ceballos Consult Reason/Comments: Medical management Do you want consulting provider notified?: Yes Primary care physician: Bhumi Mcneill [facility] Course: The patient is a pleasant 67-year-old female who was admitted yesterday under my care and was taken to the operating room for a right total knee replacement. Following an uncomplicated surgery she was transferred to the orthopedic floor. She received 2 doses of postoperative antibiotics. She was transitioned from IV to oral pain medication. She was seen and evaluated by internal medicine. Her Hemovac drain was pulled on postoperative day #1. She worked with physical t herapy. She ultimately did well and was cleared for discharge home. Plan - Discharge Summary Discharge Rx Participant: Yes New Discharge Prescriptions: New Aspirin 81 mg PO BID 30 Days #60 tab Docusate [Colace] 100 mg PO BID #60 capsule Omeprazole 40 mg PO DAILY 30 Days #30 cap Doxycycline Monohydrate 100 mg PO BID 14 Days #28 cap oxyCODONE HCL/ACETAMINOPHEN [Percocet 5-325 mg] 1 tab PO Q4HR PRN 7 Days #32 tab PRN Reason: Pain Diclofenac Sodium [Voltaren] 75 mg PO BID 30 Days #60 tab oxyCODONE HCL/ACETAMINOPHEN [Percocet 5-325 mg] 1 tab PO Q4HR PRN 7 Days #32 tab PRN Reason: Pain No Action Simvastatin [Zocor] 40 mg PO HS metHOTREXate sodium 20 mg PO FR Divalproex [Depakote] 500 mg PO BID DULoxetine HCL [Cymbalta] 30 mg PO BID QUEtiapine [SEROquel] 400 mg PO HS Levothyroxine Sodium [Synthroid] 112 mcg PO QAM Folic Acid 0.8 mg PO QAM Cholecalciferol [Vitamin D3 (10 Mcg = 400 Iu)] 10 mcg PO QAM Mupirocin 2% Oint [Bactroban 2% Oint] 1 applic NASAL DIRECTED HYDROcodone/APAP 5-325MG [[place] 5-325] 1 tab PO BID PRN PRN Reason: Pain Alendronate Sodium [Fosamax] 70 mg PO FR Discharge Medication List Simvastatin [Zocor] 40 mg PO HS 09/28/15 [History] Divalproex [Depakote] 500 mg PO BID 02/11/16 [History] metHOTREXate sodium 20 mg PO FR 02/11/16 [History] DULoxetine HCL [Cymbalta] 30 mg PO BID 10/25/20 [History] Levothyroxine Sodium [Synthroid] 112 mcg PO QAM 10/25/20 [History] QUEtiapine [SEROquel] 400 mg PO HS 10/25/20 [History] Cholecalciferol [Vitamin D3 (10 Mcg = 400 Iu)] 10 mcg PO QAM 02/08/23 [History] Folic Acid 0.8 mg PO QAM 02/08/23 [History] HYDROcodone/APAP 5-325MG [[place] 5-325] 1 tab PO BID PRN 02/08/23 [History] Alendronate Sodium [Fosamax] 70 mg PO FR 05/19/23 [History] Mupirocin 2% Oint [Bactroban 2% Oint] 1 applic NASAL DIRECTED 05/19/23 [History] Aspirin 81 mg PO BID 30 Days #60 tab 05/20/23 [Rx] Diclofenac Sodium [Voltaren] 75 mg PO BID 30 Days #60 tab 05/20/23 [Rx] Docusate [Colace] 100 mg PO BID #60 capsule 05/20/23 [Rx] Doxycycline Monohydrate 100 mg PO BID 14 Days #28 cap 05/20/23 [Rx] Omeprazole 40 mg PO DAILY 30 Days #30 cap 05/20/23 [Rx] oxyCODONE HCL/ACETAMINOPHEN [Percocet 5-325 mg] 1 tab PO Q4HR PRN 7 Days #32 tab 05/20/23 [Rx] oxyCODONE HCL/ACETAMINOPHEN [Percocet 5-325 mg] 1 tab PO Q4HR PRN 7 Days #32 tab 05/20/23 [Rx] Follow up Appointment(s)/Referral(s): Trever Almeida MD [Medical Doctor] - 1 Week Activity/Diet/Wound Care/Special Instructions: Weight bear to tolerance on operative extremity with a walker. Keep wound VAC in place until follow-up in the office. Call the office with any questions or concerns regarding the wound VAC. Take pain medication as prescribed. If additional pain medication is needed, please call your pain doctor, (Dr. Mcintosh at [facility]). Take aspirin 81mg twice a day x 4 weeks for blood clot prevention. Take antibiotics as prescribed. Follow-up in the office in 1 week at [facility] for wound VAC removal. Call the office with any questions or concerns, Discharge Disposition: HOME WITH HOME HEALTH SERVICES
[2023-05-21] MEDS: IPRATROPIUM-ALBUTEROL 3 ML NEB INHALATION SCH (08:00)
[2023-05-21 08:02] VITALS: BP 104/64; TEMP 98.6
[2023-05-21 08:22] VITALS: PULSE 90
[2023-05-21] MEDS: NICOTINE 21MG/24HR PATCH TRANSDERM SCH (08:34)
[2023-05-21] MEDS: ASPIRIN 81 MG PO SCH (08:34)
[2023-05-21] MEDS: DIVALPROEX 500 MG TABLET.DR PO SCH (08:34)
[2023-05-21] MEDS: DULoxetine HCL 30 MG CAPSULE.DR PO SCH (08:34)
--- NOTE | 2023-05-21 08:52 | P.PN ---
Subjective Progress Note Date: 05/21/23 Hospital course: Patient is a very pleasant 67-year-old female with a past medical history of hypertension, hyperlipidemia, COPD with continued nicotine dependence, hypothyroidism, rheumatoid arthritis on immunomodulators, and osteoarthritis. She is currently status post right total knee arthroplasty with application of negative pressure and incisional wound VAC secondary to patient's history of cigarette smoking and rheumatoid arthritis. We have been consulted for medical management throughout patient's hospitalization. Physical exam: Patient seen and fully evaluated at bedside this morning. Patient tearful was reporting uncontrolled pain at this time. Patient very agitated and ready to go home at this time. Denies having any other complaints at this time. RN notifi ed and patient medicated for pain and after additional pain medication was administered patient reporting much improvement and control of postoperative pain. Medically, patient stable for discharge home with home care. Vital signs reviewed and stable. General: Nontoxic, no distress and appears stated age. Derm: Skin warm and dry, normal coloration for ethnicity. Head: Atraumatic, normocephalic and symmetric. Eyes: EOMs intact, no lid lag, and anicteric sclera Mouth: no lip lesions, mucus membranes moist Cardiovascular: regular rate and rhythm with normal S1S2, no murmur, positive posterior tibial pulses bilaterally, and cap refill < 2 seconds. Lungs: Respirations even, regular, and unlabored on room air. Lungs CTA bilaterally, no rhonchi, no rales, no wheezing, and no accessory muscle usage. Abdominal: soft, nontender to palpation, no guarding, no appreciable organomegaly Ext: Movement and sensation intact.. No gross muscle atrophy, no edema, no contractures. Postoperative dressing/Tegaderm with wound VAC in place to right knee. Neuro: Speech clear, face symmetrical and CN II-XII grossly intact with no noted focal neuro deficits Psych: Alert and oriented to person, place, time, and situation. Appropriate and pleasant affect. Assessment and Plan of Care: Postoperative blood loss anemia, expected and stable finding Leukocytosis, postoperative leukocytosis reactive secondary to surgical procedure Status post right total knee arthroplasty with application of negative pressure and incisional wound VAC secondary to patient's history of cigarette smoking and rheumatoid arthritis -Management per primary admitting orthopedic surgery team including wound/dressing/wound VAC care, pain management, DVT prophylaxis, weightbearing, and PT/OT. -Currently DVT prophylaxis with aspirin 81 mg twice daily. Hypomagnesemia Magnesium 1.7. Orders placed for Mag-Ox 400 mg by mouth 1 dose. COPD with continued nicotine dependence -Recommend smoking cessation. Order placed for nicotine patch 21 mg transdermal patch daily -Order placed for duo nebs as needed for shortness of breath and/or wheezing. Hypothyroidism -Continue daily medication regimen with levothyroxine 112 g daily. Rheumatoid arthritis -Hold methotrexate and Fosamax at this time may resume once cleared vital orthopedic surgery team. Hyperlipidemia -Continue daily medication regimen with simvastatin 40 mg nightly. Anxiety/depression patient to continue daily medication regimen with Depakote 500 mg twice daily, Cymbalta 30 mg twice daily, and Seroquel 400 mg nightly. -Depakote levels therapeutic 65.7. Data reviewed: Postoperative Labs Reviewed. CBC showing mild ketoacidosis with WBC count of 12.69 and normocytic anemia with postoperative hemoglobin 9.4 and preoperative hemoglobin of 10.5. BMP was unremarkable. Liver profile showing no significant abnormalities. Valproic acid level therapeutic at 65.7. Magnesium was slightly low at 1.7. Vital signs reviewed. Blood pressure 104/64, heart rate 89, respiratory rate 16, temp 98.6F, and SpO2 of 97% on room air. Patient is cleared from medical perspective for discharge home with no further recommendations once cleared by primary admitting orthopedic surgery team. Thank you for allowing us to participate in the care of this pleasant patient. Do not hesitate to contact us with questions. Someone can be reached from the [facility] hospitalist group all hours of the day at [phone] or via [employer]. Patient was seen independently by Nurse Practitioner. This document was prepared using [employer] dictation software. Please allow for errors in order planner while rare they do occur Anupam Aviles NP rendered care for this patient independently, reviewed the findings and plan as documented in the note above. I did not physically speak with or examine the patient on this date. . Objective - Vital Signs Vital signs: Vital Signs Temp 98.6 F 05/21/23 06:38 Pulse 90 05/21/23 08:13 Resp 16 05/21/23 06:38 BP 104/64 05/21/23 06:38 Pulse Ox 97 05/21/23 06:38 FiO2 Intake & Output 05/20/23 05/21/23 05/21/23 18:59 06:59 18:59 Intake Total 1950 Output Total 150 260 Balance 1800 -260 Weight 60.1 kg Intake: IV 1950 Output: Drainage 260 Right 260 Estimated Blood Loss 150 Other: # Voids 4 - Labs CBC & Chem 7: 05/21/23 05:33 05/21/23 05:33
[2023-05-21] MEDS ORDERED: FOLIC ACID 1 MG TAB PO SCH (09:00)
[2023-05-21 09:49] LABS: BUN/Creat Ratio 18.43 Ratio (12.00-20.00); Blood Urea Nitrogen 12.9 mg/dL (9.0-27.0); Chloride 107 mmol/L (96-109); Glucose 105 mg/dL (70-110); Magnesium 1.7 mg/dL (1.5-2.4); Potassium 3.8 mmol/L (3.5-5.5); Sodium 140 mmol/L (135-145)
[2023-05-21 09:50] LABS: ALT 9 U/L (8-44); AST 11 U/L (13-35); Albumin/Globulin Ratio 1.88 Ratio (1.60-3.17); Alkaline Phosphatase 41 U/L (41-126); Calcium 8.3 mg/dL (8.7-10.3); Carbon Dioxide 22.9 mmol/L (21.6-31.8); Globulin 1.6 d/dL (1.6-3.3); Total Bilirubin <0.2 mg/dL (0.3-1.2); Total Protein 4.6 d/dL (6.2-8.2)
[2023-05-21 10:11] LABS: Basophils # (A) 0.02 X 10*3/uL (0.00-0.10); Basophils % (A) 0.2 %; Eosinophils # (A) 0 X 10*3/uL (0.04-0.35); Eosinophils % (A) 0 %; HCT 28.3 % (37.2-46.3); HGB 9.4 d/dL (12.0-15.0); Lymphocytes # (A) 0.98 X 10*3/uL (0.90-5.00); Lymphocytes % (A) 7.7 %; MCH 31.9 pg (27.0-32.0); MCHC 33.2 d/dL (32.0-37.0); MCV 95.9 FL (80.0-97.0); Monocytes # (A) 1.18 X 10*3/uL (0.20-1.00); Monocytes % (A) 9.3 %; NRBC Per 100 WBC 0 X 10*3/uL (0.00-0.01); Neutrophils # (A) 10.44 X 10*3/uL (1.80-7.70); Neutrophils % (A) 82.2 %; Platelet Count 166 X 10*3/uL (140-440); RBC 2.95 X 10*6/uL (4.10-5.20); RDW 14.4 % (11.5-14.5); WBC 12.69 X 10*3/uL (4.50-10.00)
[2023-05-21] MEDS ORDERED: MAGNESIUM OXIDE 400 MG TAB PO STA (10:17)
== END 2023-05-21 11:06 | disposition home health service (06) ==
LOC: OR 10:57 → 4SSUR 15:36 → OR 05-21 11:06
PROVIDERS: ATTEND Orthopaedic Surgery
DX: M17.11 Unilateral primary osteoarthritis, right knee (principal); D62 Acute posthemorrhagic anemia; E03.9 Hypothyroidism, unspecified; E78.5 Hyperlipidemia, unspecified; E83.42 Hypomagnesemia; F32.A Depression, unspecified; F41.9 Anxiety disorder, unspecified; G47.33 Obstructive sleep apnea (adult) (pediatric); I10 Essential (primary) hypertension; J44.9 Chronic obstructive pulmonary disease, unspecified; M06.9 Rheumatoid arthritis, unspecified; F17.210 Nicotine dependence, cigarettes, uncomplicated; Z79.82 Long term (current) use of aspirin; Z79.890 Hormone replacement therapy; Z79.899 Other long term (current) drug therapy; Z96.651 Presence of right artificial knee joint
CPT/HCPCS: 0055T; 27447; S2900; 64447; 64999; 80053; 80164; 83735; 85025; 94640

== ENCOUNTER 2023-09-14 17:41 | Emergency (ER) | payer MEDICARE, OTHER ==
[2023-09-14 18:34] VITALS: PULSE 90
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
[2023-09-14 19:12] LABS: Basophils % (A) 0 %; Eosinophils # (A) 0.1 k/uL (0-0.7); Eosinophils % (A) 1 %; HCT 41.4 % (34.0-46.0); HGB 13.7 gm/dL (11.4-16.0); Lymphocytes # (A) 1.3 k/uL (1.0-4.8); Lymphocytes % (A) 13 %; MCH 31.2 pg (25.0-35.0); MCV 94.5 fL (80.0-100.0); Monocytes # (A) 0.5 k/uL (0-1.0); Monocytes % (A) 4 %; Neutrophils # (A) 8.4 k/uL (1.3-7.7); Neutrophils % (A) 81 %; Platelet Count 204 k/uL (150-450); RBC 4.38 m/uL (3.80-5.40); RDW 15.7 % (11.5-15.5); WBC 10.4 k/uL (3.8-10.6)
[2023-09-14 19:23] LABS: ALT 13 U/L (4-34); African American GFR (CKD) 90 (>60 ml/min/1.73 sqM); Alkaline Phosphatase 65 U/L (38-126); Anion Gap 7 mmol/L; Blood Urea Nitrogen 19 mg/dL (7-17); Calcium 9.2 mg/dL (8.4-10.2); Carbon Dioxide 23 mmol/L (22-30); Chloride 110 mmol/L (98-107); Glucose 92 mg/dL (74-99); Non-African American GFR(CKD) 78 (>60 ml/min/1.73 sqM); Sodium 140 mmol/L (137-145); Total Bilirubin 0.4 mg/dL (0.2-1.3)
[2023-09-14 19:39] LABS: AST 24 U/L (14-36); Potassium 4.2 mmol/L (3.5-5.1); Total Protein 6.9 g/dL (6.3-8.2)
[2023-09-14 19:50] LABS: Appearance,Urine Cloudy (Clear); Bacteria,Urine Occasional /hpf; Bilirubin,Urine Negative (Negative); Blood,Urine Negative (Negative); Color,Urine Light Yellow; Glucose,Urine (UA) Negative (Negative); Hyaline Casts,Urine 31 /lpf (0-2); Ketones,Urine Negative (Negative); Leukocyte Esterase,Urine Trace (Negative); Mucus,Urine Many /hpf; Nitrite,Urine Negative (Negative); Protein,Urine Trace (Negative); RBC,Urine 2 /hpf (0-5); Specific Gravity,Urine 1.016 (1.001-1.035); Squamous Epithelial Cell,Urine 20 /hpf (0-4); Urobilinogen,Urine <2.0 mg/dL (<2.0); WBC,Urine 4 /hpf (0-5)
--- NOTE | 2023-09-14 19:50 | XR ---
EXAMINATION TYPE: XR knee complete RT DATE OF EXAM: 09/14/2023 6:54 PM CLINICAL INDICATION:Female, 68 years old with history of fall; [facility] COMPARISON: None. TECHNIQUE: XR knee complete RT; examined in Frontal, lateral and oblique projections. FINDINGS: Status post total knee arthroplasty changes with hardware in appropriate alignment and in tact. No evidence of fracture. IMPRESSION: Status post total knee arthroplasty changes with hardware intact and appropriate alignment. No fractu res identified.
--- NOTE | 2023-09-14 20:01 | CT ---
EXAMINATION TYPE: CT brain cspine wo con CT DLP: 1339.9 mGycm, Automated exposure control for dose reduction was used. DATE OF EXAM: 09/14/2023 6:53 PM COMPARISON: 03/26/2020 CLINICAL INDICATION:Female, 68 years old with history of fall; Fell TECHNIQUE: Brain: Multiple axial CT images of the brain were obtained without IV contrast. Cspine: Axial CT images from the skull base to the inferior aspect of T2 we obtained without intraven ous contrast. Coronal and sagittal reformatted images were also reviewed. FINDINGS: Brain: Extra-axial spaces: No abnormal extra-axial fluid collections. Ventricular system: Dilatation in proportion to cerebral atrophy. Cerebral parenchyma: Cerebral atrophy. No acute intraparenchymal hemorrhage or mass effect. The cannon -white junction is well differentiated. Scattered hypoattenuating areas are seen within the white mat ter. Cerebellum: Unremarkable. Mass effect: No evidence of midline shift. Intracranial vasculature: Atherosclerotic calcifications of the intracranial vessels. Soft tissues: Normal. Calvarium/osseous structures: No depressed skull fracture. Paranasal sinuses and mastoid air cells: Clear. Visualized orbits: Orbital contents are intact. Cervical spine: Fracture: None. Osseous structures: Multilevel degenerative disc disease changes with endplate spurring and disc oste ophyte complex's. Vertebral alignment: Within normal limits. Spinal canal/Neural Foramina: Disc osteophyte complexes at C5-C7 with at least mild spinal canal sten osis. No evidence for significant neural foraminal stenosis. Neck soft tissues: Prevertebral soft tissues are within normal limits. Other: The airway is patent. Atherosclerosis of the carotid bifurcations. Moderate centrilobular emph ysema changes in lung apices. IMPRESSION: 1. No acute intracranial process. 2. Nonspecific white matter changes, likely secondary to chronic small vessel ischemic disease. 3. No evidence of cervical spine fracture. 4. Mild to moderate multilevel degenerative disc disease.
[2023-09-14] MEDS: DIPH,PERTUS(ACELL)TETVAC-LF 0.5 ML VIAL IM ONE (20:26)
[2023-09-14] MEDS: ACETAMINOPHEN TAB 500 MG TAB PO STA (20:28)
[2023-09-14 20:50] VITALS: BP 122/63; RESP 20; TEMP 98.7
== END 2023-09-14 20:53 | disposition home or self-care (01) ==
LOC: EC 17:41
DX: S06.0XAA Concussion with loss of consciousness status unknown, initial encounter (principal); I10 Essential (primary) hypertension; J44.9 Chronic obstructive pulmonary disease, unspecified; G47.33 Obstructive sleep apnea (adult) (pediatric); F41.9 Anxiety disorder, unspecified; F31.9 Bipolar disorder, unspecified; E78.5 Hyperlipidemia, unspecified; E03.9 Hypothyroidism, unspecified; F17.200 Nicotine dependence, unspecified, uncomplicated; Z79.890 Hormone replacement therapy; Z79.899 Other long term (current) drug therapy; Z23 Encounter for immunization; W01.110A Fall on same level from slipping, tripping and stumbling with subsequent striking against sharp glass, initial encounter
CPT/HCPCS: 36415; 70450; 72125; 80053; 81001; 85025; 90471; 90715; 93005; 99285

== ENCOUNTER 2024-02-08 16:38 | Emergency (ER) | payer MEDICARE ==
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
[2024-02-08] MEDS: SODIUM CHLORIDE 0.9% 1,000 ML IV STA (17:36)
[2024-02-08 17:37] LABS: Basophils % (A) 0 %; Eosinophils # (A) 0.1 k/uL (0-0.7); Eosinophils % (A) 2 %; HGB 13.6 gm/dL (11.4-16.0); Lymphocytes # (A) 1.4 k/uL (1.0-4.8); Lymphocytes % (A) 30 %; MCH 31.7 pg (25.0-35.0); MCHC 32.3 g/dL (31.0-37.0); MCV 98.2 fL (80.0-100.0); Mean Platelet Volume 8.5; Monocytes # (A) 0.3 k/uL (0-1.0); Monocytes % (A) 7 %; Neutrophils # (A) 2.9 k/uL (1.3-7.7); Neutrophils % (A) 60 %; Platelet Count 171 k/uL (150-450); RBC 4.28 m/uL (3.80-5.40); RDW 15.2 % (11.5-15.5); WBC 4.8 k/uL (3.8-10.6)
[2024-02-08 17:55] LABS: Prothrombin Time 10.9 sec (10.0-12.5)
[2024-02-08 18:02] LABS: ALT 22 U/L (4-34); AST 29 U/L (14-36); African American GFR (CKD) 72 (>60 ml/min/1.73 sqM); Albumin 3.7 g/dL (3.5-5.0); Alkaline Phosphatase 55 U/L (38-126); Anion Gap 8 mmol/L; Blood Urea Nitrogen 21 mg/dL (7-17); Calcium 9.4 mg/dL (8.4-10.2); Carbon Dioxide 22 mmol/L (22-30); Chloride 110 mmol/L (98-107); Glucose 89 mg/dL (74-99); Non-African American GFR(CKD) 63 (>60 ml/min/1.73 sqM); Phosphorus 3.3 mg/dL (2.5-4.5); Sodium 140 mmol/L (137-145); Total Bilirubin 0.5 mg/dL (0.2-1.3); Total Protein 6.2 g/dL (6.3-8.2)
[2024-02-08 18:10] LABS: NT-Pro-B-Type Natriuretic Pept 68 pg/mL
[2024-02-08 18:20] LABS: Partial Thromboplastin Time 21.2 sec (22.0-30.0)
[2024-02-08 19:53] VITALS: PULSE 80; RESP 18
--- NOTE | 2024-02-08 19:58 | CT ---
EXAMINATION TYPE: CT ChestAbdPelvis w con CT DLP: 662.6 mGycm, Automated exposure control for dose reduction was used. DATE OF EXAM: 02/08/2024 7:28 PM COMPARISON: CTs dating back to 04/28/2016. CLINICAL INDICATION:Female, 68 years old with history of weak; PHH, Weakness. Technique: CT ChestAbdPelvis w con; Multiple axial images were obtained. Two-dimensional coronal and sagittal reconstructions were obtained. Contrast used:80 mL of Isovue 300 with IV Contrast, Oral contrast used: without Oral Contrast Findings: CHEST: LUNGS/ PLEURA: Paraseptal emphysema changes most proximal lung apices. No focal consolidation, pneumo thorax or pleural effusion. AIRWAY: Patent and unremarkable. HEART: Size within normal limits. Atherosclerosis coronary arteries and mitral valve annular calcific ations. MEDIASTINUM: No gross evidence of adenopathy. VASCULATURE: No aortic aneurysm. MUSCULOSKELETAL: Mild disc degeneration changes are present throughout the thoracolumbar spine. SOFT TISSUES/LYMPH NODES: Unremarkable. LOWER NECK: No significant findings. ABDOMEN: ABDOMEN LIVER: Unremarkable GALLBLADDER AND BILE DUCTS: Unremarkable. PANCREAS: Pancreatic body low attenuating 13 mm lesion. SPLEEN: Unremarkable. ADRENAL GLANDS: Unremarkable. KIDNEYS AND URETERS: No evidence of hydronephrosis or renal calculus. The ureters are unremarkable. PELVIS BLADDER: Unremarkable REPRODUCTIVE: Unremarkable. ABDOMEN & PELVIS STOMACH AND BOWEL: No evidence of bowel obstruction. Scattered colonic diverticula. The appendix is n ormal. PERITONEUM: No evidence of pneumoperitoneum or free fluid. VASCULATURE: No evidence of aortic aneurysm. MUSCULOSKELETAL: No acute osseous abnormalities LYMPH NODES: No gross evidence for lymphadenopathy. SOFT TISSUE/ABDOMINAL WALL: Unremarkable IMPRESSION: 1. No evidence for acute thoracic or abdominal process. 2. Pancreatic body lesion which is stable back to at least 2015 and is technically indeterminate. Fi ndings favor indolent process such as side branch intraductal papillary mucinous neoplasm versus othe r cystic neoplasm. 3. Colonic diverticulosis. 4. Mild emphysema. 5. Mild coronary artery atherosclerosis.
[2024-02-08 21:01] LABS: Appearance,Urine Clear (Clear); Bacteria,Urine Rare /hpf; Bilirubin,Urine Negative (Negative); Blood,Urine Negative (Negative); Color,Urine Yellow; Glucose,Urine (UA) Negative (Negative); Ketones,Urine Trace (Negative); Leukocyte Esterase,Urine Small (Negative); Mucus,Urine Occasional /hpf; Nitrite,Urine Negative (Negative); PH, Urine 6.5 (5.0-8.0); Protein,Urine Trace (Negative); RBC,Urine <1 /hpf (0-5); Specific Gravity,Urine 1.028 (1.001-1.035); Squamous Epithelial Cell,Urine 3 /hpf (0-4); WBC,Urine 1 /hpf (0-5)
[2024-02-08 22:15] VITALS: BP 128/79; TEMP 97.8
== END 2024-02-08 22:19 | disposition home or self-care (01) ==
LOC: EC 16:38
DX: R53.1 Weakness (principal); F17.200 Nicotine dependence, unspecified, uncomplicated
CPT/HCPCS: 36415; 93005; 83880; 80053; 82550; 83735; 84100; 84484; 85025; 85610; 85730; 81001; 71260; 74177; 99285; 96360; Q9967

== ENCOUNTER 2024-02-13 19:17 | Inpatient (IN) | payer MEDICARE ==
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
--- NOTE | 2024-02-13 21:19 | XR ---
EXAMINATION TYPE: XR chest 2V DATE OF EXAM: 02/13/2024 9:07 PM CLINICAL INDICATION:Female, 68 years old with history of Fall. COMPARISON: Chest radiograph 01/26/2020 TECHNIQUE: XR chest 2V frontal and lateral view. FINDINGS: Prominence of the interstitial markings seen bilaterally. No focal consolidations, pleural effusions or pneumothorax. The cardiomediastinal silhouette is unremarkable. No acute osseous abnormalities. IMPRESSION: No acute cardiopulmonary disease/process.
--- NOTE | 2024-02-13 21:21 | XR ---
EXAMINATION TYPE: XR Hip RT and AP Pelvis DATE OF EXAM: 02/13/2024 9:07 PM CLINICAL INDICATION:Female, 68 years old with history of Fall; [facility] COMPARISON: Lumbar spine radiograph the same day. TECHNIQUE: XR Hip RT and AP Pelvis; hip was examined in the frontal and lateral projections and a AP pelvis. FINDINGS: Degenerative changes of the bony pelvis and bilateral hips. No acute fractures. No dislocation. Parti ally visualized nonobstructive nonspecific bowel gas pattern. IMPRESSION: No acute process.
--- NOTE | 2024-02-13 21:24 | XR ---
EXAMINATION TYPE: XR lumbar spine 2 or 3V DATE OF EXAM: 02/13/2024 9:07 PM CLINICAL INDICATION:Female, 68 years old with history of Fall; H COMPARISON: None TECHNIQUE: XR lumbar spine 2 or 3V - Frontal, lateral and coned in L5-S1 lateral views of the spine. FINDINGS: No evidence of any acute osseous pathology. No evidence of loss of vertebral body height i s seen. There is normal alignment of the lumbar vertebral bodies. Mild degeneration changes throughou t the spine. IMPRESSION: 1. No acute fracture. 2. Mild multilevel disc degeneration.
--- NOTE | 2024-02-13 21:27 | XR ---
EXAMINATION TYPE: XR sacrum coccyx DATE OF EXAM: 02/13/2024 9:07 PM CLINICAL INDICATION:Female, 68 years old with history of Fall; [facility] COMPARISON: Hip radiograph of the same day. TECHNIQUE: XR sacrum coccyx, examined in frontal and lateral projections. FINDINGS: There is no evidence of fracture or dislocation. No abnormal calcifications are present. Mu ltilevel degenerative changes of the lower spine. IMPRESSION: No acute osseous pathology.
--- NOTE | 2024-02-13 21:41 | CT ---
EXAMINATION TYPE: CT brain cspine wo con CT DLP: 1230.5 mGycm, Automated exposure control for dose reduction was used. DATE OF EXAM: 02/13/2024 9:13 PM COMPARISON: None. CLINICAL INDICATION:Female, 68 years old with history of Fall; Fall TECHNIQUE: Brain: Multiple axial CT images of the brain were obtained without IV contrast. Cspine: Axial CT images from the skull base to the inferior aspect of T2 we obtained without intraven ous contrast. Coronal and sagittal reformatted images were also reviewed. . FINDINGS: Brain: Extra-axial spaces: No abnormal extra-axial fluid collections. Ventricular system: Within normal limits Cerebral parenchyma: No acute intraparenchymal hemorrhage or mass effect. The cannon-white junction is well differentiated. Cerebellum: Unremarkable. Mass effect: No evidence of midline shift. Intracranial vasculature: Atherosclerotic calcifications of the intracranial vessels. Soft tissues: Normal. Calvarium/osseous structures: No depressed skull fracture. Paranasal sinuses and mastoid air cells: Clear. Visualized orbits: Orbital contents are intact. Cervical spine: Fracture: No acute fractures. Osseous structures: Mild disc degenerative disease. Vertebral alignment: Within normal limits. Spinal canal/Neural Foramina: Few disc osteophyte complex is seen with no evidence of significant spi nal canal narrowing. No evidence for significant neural foraminal stenosis. Neck soft tissues: Prevertebral soft tissues are within normal limits. Other: The airway is patent. Small areas of attenuation seen along the posterior trachea likely relat ed to mucous secretions. The lung apices are clear. Bilateral centrilobular emphysematous changes. IMPRESSION: 1. No acute intracranial process. 2. No evidence of acute cervical spine fracture. 3. Mild multilevel degenerative disc disease. 4. Centrilobular emphysema.
[2024-02-13 22:49] LABS: Basophils % (A) 0 %; Eosinophils # (A) 0.2 k/uL (0-0.7); Eosinophils % (A) 3 %; HCT 41.7 % (34.0-46.0); HGB 13.6 gm/dL (11.4-16.0); Lymphocytes # (A) 1.8 k/uL (1.0-4.8); Lymphocytes % (A) 32 %; MCH 31.6 pg (25.0-35.0); MCHC 32.6 g/dL (31.0-37.0); MCV 96.7 fL (80.0-100.0); Mean Platelet Volume 8.1; Monocytes # (A) 0.3 k/uL (0-1.0); Monocytes % (A) 5 %; Neutrophils # (A) 3.2 k/uL (1.3-7.7); Neutrophils % (A) 58 %; Platelet Count 146 k/uL (150-450); RBC 4.31 m/uL (3.80-5.40); RDW 14.8 % (11.5-15.5); WBC 5.5 k/uL (3.8-10.6)
[2024-02-13] MEDS: KETOROLAC 15 MG/ML 1 ML VIAL IVP STA (22:49)
[2024-02-13] MEDS: SODIUM CHLORIDE 0.9% 1,000 ML IV STA (22:49)
[2024-02-13 23:03] LABS: ALT 32 U/L (4-34); AST 71 U/L (14-36); African American GFR (CKD) >90 (>60 ml/min/1.73 sqM); Albumin 3.8 g/dL (3.5-5.0); Alcohol <10 mg/dL; Alkaline Phosphatase 63 U/L (38-126); Anion Gap 8 mmol/L; Blood Urea Nitrogen 20 mg/dL (7-17); Calcium 9.2 mg/dL (8.4-10.2); Carbon Dioxide 23 mmol/L (22-30); Chloride 108 mmol/L (98-107); Glucose 72 mg/dL (74-99); Magnesium 1.9 mg/dL (1.6-2.3); Non-African American GFR(CKD) 82 (>60 ml/min/1.73 sqM); Phosphorus 2.8 mg/dL (2.5-4.5); Sodium 139 mmol/L (137-145); Total Bilirubin 0.8 mg/dL (0.2-1.3); Total Protein 6.3 g/dL (6.3-8.2)
[2024-02-13 23:07] LABS: Prothrombin Time 10.7 sec (10.0-12.5)
[2024-02-13 23:08] LABS: Potassium 2.7 mmol/L (3.5-5.1)
[2024-02-13 23:09] LABS: Creatine Kinase 1486 U/L (30-135)
[2024-02-13] MEDS ORDERED: ONDANSETRON 4 MG/2 ML VIAL IVP PRN (23:20)
[2024-02-13] MEDS ORDERED: IBUPROFEN 400 MG TAB PO PRN (23:20)
[2024-02-13] MEDS ORDERED: MORPHINE SULFATE 4 MG/ML SYRINGE IV PRN (23:20)
[2024-02-13] MEDS ORDERED: HYDROcodone/APAP 5-325MG 1 EACH TAB PO PRN (23:20)
[2024-02-13] MEDS ORDERED: ACETAMINOPHEN TAB 325 MG TAB PO PRN (23:20)
[2024-02-13] MEDS ORDERED: NALOXONE 0.4 MG/ML 1 ML VIAL IV PRN (23:20)
[2024-02-13 23:40] LABS: Partial Thromboplastin Time 21.2 sec (22.0-30.0)
[2024-02-14] MEDS: POTASSIUM CHLORIDE ER 20 MEQ TAB.ER PO STA (00:10)
[2024-02-14] MEDS: POTASSIUM CHLORIDE 20 MEQ in WATER FOR INJECTION 1 100ML.BAG IVPB STA (00:14)
[2024-02-14] MEDS: SODIUM CHLORIDE 0.9% 1,000 ML IV SCH (00:21)
[2024-02-14 01:10] LABS: Appearance,Urine Cloudy (Clear); Bacteria,Urine Rare /hpf; Bilirubin,Urine Negative (Negative); Blood,Urine Negative (Negative); Budding Yeast,Urine Few /hpf; Color,Urine Yellow; Glucose,Urine (UA) Negative (Negative); Ketones,Urine 1+ (Negative); Leukocyte Esterase,Urine Moderate (Negative); Mucus,Urine Occasional /hpf; Nitrite,Urine Negative (Negative); PH, Urine 6.5 (5.0-8.0); Protein,Urine Trace (Negative); RBC,Urine 2 /hpf (0-5); Specific Gravity,Urine 1.019 (1.001-1.035); Squamous Epithelial Cell,Urine 40 /hpf (0-4); WBC,Urine 6 /hpf (0-5)
[2024-02-14 01:24] LABS: Amphetamine Screen,Urine Not Detected (NotDetected); Barbiturate Screen,Urine Not Detected (NotDetected); Benzodiazepines Screen,Urine Not Detected (NotDetected); Cocaine Screen,Urine Not Detected (NotDetected); Methadone Screen, Urine Not Detected (NotDetected); Opiate Screen,Urine Not Detected (NotDetected); Oxycodone Screen, Urine Not Detected (NotDetected); Phencyclidine Screen,Urine Not Detected (NotDetected); Tricyclic Antidepressant,Urine Detected (NotDetected); Urn Cannabinoid Scrn Detected (NotDetected)
[2024-02-14 01:37] LABS: Glucose,Whole Blood 152 mg/dL (70-110)
[2024-02-14] MEDS: LORazepam 2 MG/ML INJ IV STA (01:41)
[2024-02-14] MEDS: QUEtiapine 400 MG TAB PO STA (03:39)
[2024-02-14] MEDS: SODIUM CHLORIDE 0.9% 1,000 ML IV STA (03:41)
[2024-02-14] MEDS: SODIUM CHLORIDE 0.9% 500 ML 500 ML IV STA (05:49)
[2024-02-14 08:30] LABS: Basophils # (A) 0.02 X 10*3/uL (0.00-0.10); Basophils % (A) 0.4 %; Eosinophils # (A) 0.17 X 10*3/uL (0.04-0.35); Eosinophils % (A) 3.3 %; HGB 12.1 g/dL (12.0-15.0); Lymphocytes # (A) 1.58 X 10*3/uL (0.90-5.00); MCH 31.9 pg (27.0-32.0); MCHC 33.6 g/dL (32.0-37.0); Mean Platelet Volume 12.1 FL (9.5-12.2); Monocytes # (A) 0.62 X 10*3/uL (0.20-1.00); Monocytes % (A) 12.2 %; NRBC Per 100 WBC 0 X 10*3/uL (0.00-0.01); Neutrophils % (A) 52.9 %; Platelet Count 139 X 10*3/uL (140-440); RBC 3.79 X 10*6/uL (4.10-5.20); RDW 15.3 % (11.5-14.5)
[2024-02-14 08:54] LABS: BUN/Creat Ratio 23.25 Ratio (12.00-20.00); Blood Urea Nitrogen 18.6 mg/dL (9.0-27.0); Calcium 8.2 mg/dL (8.7-10.3); Carbon Dioxide 22.1 mmol/L (21.6-31.8); Chloride 111 mmol/L (96-109); Glucose 84 mg/dL (70-110); Potassium 2.9 mmol/L (3.5-5.5); Sodium 143 mmol/L (135-145)
[2024-02-14 08:56] LABS: Creatine Kinase 1238 U/L (26-186)
[2024-02-14] MEDS: PANTOPRAZOLE 40 MG/10 ML VIAL IV SCH (09:25)
[2024-02-14] MEDS: DIVALPROEX 500 MG TABLET.DR PO SCH (13:22)
[2024-02-14] MEDS: POTASSIUM CHLORIDE ER 20 MEQ TAB.ER PO SCH (13:22)
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
[2024-02-14] MEDS: HEPARIN SODIUM,PORCINE 5,000 UNIT/ML 1 ML VIAL SQ SCH (20:46)
[2024-02-14] MEDS: DULoxetine HCL 30 MG CAPSULE.DR PO SCH (20:46)
[2024-02-14] MEDS: ATORVASTATIN 20 MG TAB PO SCH (20:46)
[2024-02-14] MEDS: QUEtiapine 200 MG TAB PO SCH (20:48)
[2024-02-14] MEDS: KETOROLAC 15 MG/ML 1 ML VIAL IVP PRN (20:57)
[2024-02-15 08:32] LABS: Basophils # (A) 0.03 X 10*3/uL (0.00-0.10); Basophils % (A) 0.6 %; Eosinophils # (A) 0.19 X 10*3/uL (0.04-0.35); HCT 32.7 % (37.2-46.3); HGB 11.1 g/dL (12.0-15.0); Lymphocytes # (A) 2.52 X 10*3/uL (0.90-5.00); Lymphocytes % (A) 53.1 %; MCH 32.4 pg (27.0-32.0); MCHC 33.9 g/dL (32.0-37.0); MCV 95.3 FL (80.0-97.0); Mean Platelet Volume 11.8 FL (9.5-12.2); Monocytes # (A) 0.41 X 10*3/uL (0.20-1.00); Monocytes % (A) 8.6 %; NRBC Per 100 WBC 0 X 10*3/uL (0.00-0.01); Neutrophils # (A) 1.58 X 10*3/uL (1.80-7.70); Neutrophils % (A) 33.3 %; Platelet Count 148 X 10*3/uL (140-440); RBC 3.43 X 10*6/uL (4.10-5.20); RDW 15.7 % (11.5-14.5); WBC 4.75 X 10*3/uL (4.50-10.00)
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
[2024-02-15 09:14] LABS: Magnesium 1.7 mg/dL (1.5-2.4)
[2024-02-15 09:34] LABS: Blood Urea Nitrogen 5.7 mg/dL (9.0-27.0); Calcium 7.8 mg/dL (8.7-10.3); Carbon Dioxide 21.2 mmol/L (21.6-31.8); Chloride 114 mmol/L (96-109); Creatine Kinase 536 U/L (26-186); Glucose 90 mg/dL (70-110); Potassium 3.5 mmol/L (3.5-5.5); Sodium 144 mmol/L (135-145)
[2024-02-15] MEDS ORDERED: Potassium Replacement Protocol 1 EACH MISC MISCELLANE PRN (09:47)
[2024-02-15] MEDS: FOLIC ACID 1 MG TAB PO SCH (12:51)
[2024-02-15] MEDS: POTASSIUM CHLORIDE ER 20 MEQ TAB.ER PO SCH (12:51)
--- NOTE | 2024-02-15 17:56 | MR ---
EXAMINATION TYPE: MR lumbar spine wo con DATE OF EXAM: 02/15/2024 5:21 PM CLINICAL INDICATION:Female, 68 years old with history of Gait imbalance, frequent falls, spasticity; PHH, Imbalance, frequent falls, spasticity COMPARISON: None TECHNIQUE: Multi planar, multi sequence imaging was performed utilizing: T1-weighted, T2-weighted, a nd turbo inversion recovery imaging of the lumbar spine. IV Contrast: (None if empty) FINDINGS: Alignment: The lumbar vertebral bodies have preserved heights with grade 1 anterolisthesis of L4 on L 5. Cord: The conus medullaris and the distal spinal cord appear unremarkable with regards to their signa l intensity and morphology. Bones/Discs: Mild degeneration changes throughout the spine with osteophyte formation and facet joint arthropathy. Intervertebral disc signal is maintained. No abnormal inversion recovery signal to sugg est bony edema. T12-L1: No evidence of significant spinal canal stenosis or neural foraminal stenosis. L1-L2: No evidence of significant spinal canal stenosis or neural foraminal stenosis. L2-L3: Central disc protrusion without significant spinal canal neural foraminal stenosis. L3-L4: Dis c bulge and facet joint arthropathy result in mild spinal canal and mild bilateral neural foraminal s tenosis. L4-L5: Disc uncovering from grade 1 anterolisthesis and facet joint arthropathy with mild spinal danni l stenosis and mild to moderate bilateral neural foraminal stenosis. L5-S1: The disc has a rounded posterior morphology without significant spinal canal stenosis. Facet j oint arthropathy with mild to moderate bilateral neural foraminal stenosis. No significant spinal canal or neural foraminal stenosis in the remainder of the visualized levels. Other findings: None. IMPRESSION: 1. No definitive evidence of disc herniation or significant spinal canal stenosis. 2. Mild to moderate disc degeneration with associated osteoarthritic changes. 3. Grade 1 anterolisthesis of L4 and L5. 4. Central disc protrusion at L2-L3 without significant spinal canal neural foraminal stenosis.
--- NOTE | 2024-02-16 05:04 | P.PN ---
Subjective Progress Note Date: 02/15/24 This is a pleasant 68-year-old female with medical history significant for pain, Parkinsons, COPD, hypertension, hyperlipidemia, rheumatoid arthritis, sleep apnea, vertigo, anxiety/bipolar/depression/panic disorder. Patient is a current smoker. Patient comes into the hospital with complaints of weakness and falls. Patient has had evidence of multiple falls, concerned neighbors called for a well check. Patient was found at home by EMS there was multiple empty bottles of alcohol and cigarettes and there was no food in the house for her or her pet. There were reports of open capsules of Cymbalta and evidence of possibly other medications that had been crushed up. Patient was complaining of pain to her right hip and tailbone difficulty ambulating with her walker and unsure whether she does have any traumatic injury or hit her head. She was in the ER 5 days ago secondary to fall and abdominal pain as well patient was having generalized weakness. Patient was discharged from the ER at that time. Chest x-ray reveals no acute cardiopulmonary process. Multiple xrays taken of spine, hip, pelvic, and coccyx. No acute fractures noted there is mild multilevel disc degeneration. Cervical spine CT reveals no acute intracranial process no evidence of acute cervical spine fracture there is centrilobular emphysema noted. EG reveals normal sinus rhythm with a heart rate of [address] or T wave changes. Blood work reveals an unremarkable blood count panel, platelets are slightly low at 146 and this is likely due to the alcohol use, AST of 71, ALT of 32, sodium of 139, potassium of 2.7, BUN of 20, creatinine of 0.75, glucose of 72, creat kinase of 1486, troponin level was negative. Urinalysis is not suggestive of infection there is urine drug toxicology positive for tricyclic antidepressants as well as marijuana. The medical history was obtained from the patient's chart as patient is currently lethargic and fatigued at this time difficult to arouse and gather a history from patient's son Aureliano was called left a voicemail. Patient is asking to go home otherwise is not able to give any additional history and unable to complete a review of systems. 02/15/2024 Patient is seen in follow-up this morning currently sleeping although arousable. Patient is much more alert today than yesterday. Patient undergoing neurological workup and currently awaiting an MRI of the cervical spine. Ammonia level is improving and electrolytes being replaced and improved we will follow-up with repeat labs and continue to monitor closely. Currently awaiting PT/OT therapy evaluation as well as case management/social work as patient will likely need ECF on discharge. Review of systems: Constitutional: reports of fatigue, no fever, or chills Cardiovascular: No reports of chest pain or palpitations Respiratory: No reports of shortness of breath or cough GI: No reports of nausea, vomiting, or diarrhea, reports not much of an appetite : No reports of dysuria or retention Neurovascular: reports of generalized weakness. All medications have been reviewed PHYSICAL EXAMINATION: GENERAL: The patient is asleep although arousable, alert and oriented x2, not in any acute distress. Well developed, thin build, elderly appearing. Fatigued but much more awake today HEENT: Pupils are round and equally reacting to light. EOMI. No scleral icterus. No conjunctival pallor. Normocephalic, atraumatic. No pharyngeal erythema. No thyromegaly. CARDIOVASCULAR: S1 and S2 present. No murmurs, rubs, or gallops. PULMONARY: Chest is clear to auscultation, no wheezing or crackles. ABDOMEN: Soft, nontender, nondistended, normoactive bowel sounds. No palpable organomegaly. MUSCULOSKELETAL: No joint swelling or deformity. EXTREMITIES: No cyanosis, clubbing, or pedal edema. NEUROLOGICAL: Gross neurological examination did not reveal any focal deficits. Diffuse weakness SKIN: No rashes. Assessment: Generalized weakness and medical debility with frequent falls likely due to alcoholism and polysubstance abuse concern for possible seizure-like activity patient may be in a postictal state as she is maintained on Lamictal and Depakote outpatient however patient does not endorse a seizure-like history when asked but she is confused at this time. History of Parkinson's contributing to her ability to ambulate safely, patient does use a walker has been having frequent falls at home Possible seizure disorder patient is maintained on Lamictal and Depakote as mentioned we will maintain levels and neurology following. Altered mental status acute metabolic and toxic encephalopathy Hypokalemia secondary to poor oral intake will replace, improving 3.5 today Mild acute rhabdo secondary to falls, and likely prolonged downtime. Continue IV hydration and repeat CK level is trending down History of chronic pain History of COPD History of hypertension History of hyperlipidemia History rheumatoid arthritis maintained on methotrexate which is being held History of hypothyroidism History of sleep apnea with CPAP use History of vertigo History of anxiety/bipolar/depression/panic disorder Chronic nicotine use GI prophylaxis DVT prophylaxis Full Code Plan: Patient is continued on IV hydration and repeat labs including potassium and magnesium have improved and will continue to for protocol Ammonia level improved and will continue current regimen and follow-up with re peat labs CK trending down. Consult placed to PT/OT therapy Case management/social work consult as patient will likely need ECF on discharge. Social issues at home Monitor for any signs of withdrawal as patient was noted to take multiple medications as well as being a heavy drinker Overall prognosis is guarded. The impression and plan of care has been dictated by Cortney Vazquez, Nurse Practitioner as directed. Dr. Moose MD I have performed a history and physical examination and medical decision making of this patient, discussed the same with the dictator, and agree with the dictators assessment and plan as written, documented as a scribe. Based on total visit time, I have performed more than 50% of this visit. Objective - Vital Signs Vital signs: Vital Signs Temp 98.7 F 02/15/24 07:07 Pulse 69 02/15/24 07:07 Resp 16 02/15/24 07:07 BP 116/70 02/15/24 07:07 Pulse Ox 93 L 02/15/24 07:07 FiO2 Intake & Output 02/14/24 02/15/24 02/15/24 18:59 06:59 18:59 Intake Total 520 240 Balance 520 240 Intake: Oral 520 240 Other: Voiding Method Bedside Commode Diaper Incontinent # Voids 2 2 - Labs CBC & Chem 7: 02/15/24 06:27 02/15/24 06:27 Labs: Abnormal Lab Results - Last 24 Hours (Table) 02/14/24 02/14/24 02/15/24 Range/Units 15:13 15:13 06:27 RBC 3.43 L (4.10-5.20) X 10*6/uL Hgb 11.1 L (12.0-15.0) g/dL Hct 32.7 L (37.2-46.3) % MCH 32.4 H (27.0-32.0) pg RDW 15.7 H (11.5-14.5) % Neutrophils # 1.58 L (1.80-7.70) X 10*3/uL Chloride (96-109) mmol/L Carbon Dioxide (21.6-31.8) mmol/L BUN (9.0-27.0) mg/dL BUN/Creatinine Ratio (12.00-20.00) Ratio Calcium (8.7-10.3) mg/dL Ammonia 60 H (<30) umol/L Creatine Kinase (26-186) U/L Procalcitonin 0.12 H (0.02-0.09) ng/mL 02/15/24 02/15/24 Range/Units 06:27 06:27 RBC (4.10-5.20) X 10*6/uL Hgb (12.0-15.0) g/dL Hct (37.2-46.3) % MCH (27.0-32.0) pg RDW (11.5-14.5) % Neutrophils # (1.80-7.70) X 10*3/uL Chloride 114 H (96-109) mmol/L Carbon Dioxide 21.2 L (21.6-31.8) mmol/L BUN 5.7 L (9.0-27.0) mg/dL BUN/Creatinine Ratio 9.50 L (12.00-20.00) Ratio Calcium 7.8 L (8.7-10.3) mg/dL Ammonia 35 H (<30) umol/L Creatine Kinase 536 H (26-186) U/L Procalcitonin (0.02-0.09) ng/mL
[2024-02-16 07:43] VITALS: TEMP 97.8
[2024-02-16 07:55] LABS: Basophils % (A) 1 %; Eosinophils # (A) 0.2 k/uL (0-0.7); Eosinophils % (A) 4 %; HCT 39.5 % (34.0-46.0); HGB 12.8 gm/dL (11.4-16.0); Hypochromasia Slight; Lymphocytes # (A) 2.4 k/uL (1.0-4.8); Lymphocytes % (A) 48 %; MCHC 32.5 g/dL (31.0-37.0); MCV 98.5 fL (80.0-100.0); Macrocytosis Slight; Mean Platelet Volume 7.9; Monocytes # (A) 0.3 k/uL (0-1.0); Monocytes % (A) 6 %; Neutrophils % (A) 40 %; Platelet Count 217 k/uL (150-450); RBC 4.01 m/uL (3.80-5.40); RDW 15.3 % (11.5-15.5); WBC 4.9 k/uL (3.8-10.6)
[2024-02-16 08:02] LABS: ALT 26 U/L (4-34); AST 39 U/L (14-36); African American GFR (CKD) >90 (>60 ml/min/1.73 sqM); Albumin 3.5 g/dL (3.5-5.0); Albumin/Globulin Ratio 1.3; Alkaline Phosphatase 66 U/L (38-126); Anion Gap 5 mmol/L; Blood Urea Nitrogen 3 mg/dL (7-17); Calcium 8.8 mg/dL (8.4-10.2); Carbon Dioxide 26 mmol/L (22-30); Chloride 108 mmol/L (98-107); Creatine Kinase 470 U/L (30-135); Globulin 2.6 g/dL; Glucose 95 mg/dL (74-99); Magnesium 1.7 mg/dL (1.6-2.3); Non-African American GFR(CKD) >90 (>60 ml/min/1.73 sqM); Potassium 3.6 mmol/L (3.5-5.1); Sodium 139 mmol/L (137-145); Total Bilirubin 0.6 mg/dL (0.2-1.3); Total Protein 6.1 g/dL (6.3-8.2)
--- NOTE | 2024-02-16 09:00 | P.PN ---
Subjective Progress Note Date: 02/15/24 Patient was seen for a follow-up. Patient is much more alert and awake. Patient states that she walks with a walker. Objective - Vital Signs Vital signs: Vital Signs Temp 98.2 F 02/15/24 12:01 Pulse 80 02/15/24 12:01 Resp 16 02/15/24 12:01 BP 116/72 02/15/24 12:01 Pulse Ox 97 02/15/24 12:01 FiO2 Intake & Output 02/14/24 02/15/24 02/15/24 18:59 06:59 18:59 Intake Total 520 240 Balance 520 240 Intake: Oral 520 240 Other: Voiding Method Bedside Commode Bedside Commode Diaper Diaper Incontinent Incontinent # Voids 2 2 - Exam Patient is alert and awake. Speech and language functions are normal. Cranial nerves significant for left facial asymmetry from previous Topete's palsy. On muscle strength testing, there is no pronator drift and the strength is normal in the arms and legs distally and proximally. Patient continues to have bilateral Babinski. Sensory to touch is equal. No ataxia for [id number] testing. - Labs CBC & Chem 7: 02/16/24 07:38 02/16/24 07:38 Labs: Abnormal Lab Results - Last 24 Hours (Table) 02/14/24 02/15/24 02/15/24 Range/Units 15:13 06:27 06:27 RBC 3.43 L (4.10-5.20) X 10*6/uL Hgb 11.1 L (12.0-15.0) g/dL Hct 32.7 L (37.2-46.3) % MCH 32.4 H (27.0-32.0) pg RDW 15.7 H (11.5-14.5) % Neutrophils # 1.58 L (1.80-7.70) X 10*3/uL Chloride 114 H (96-109) mmol/L Carbon Dioxide 21.2 L (21.6-31.8) mmol/L BUN 5.7 L (9.0-27.0) mg/dL BUN/Creatinine Ratio 9.50 L (12.00-20.00) Ratio Calcium 7.8 L (8.7-10.3) mg/dL Ammonia (<30) umol/L Creatine Kinase 536 H (26-186) U/L Procalcitonin 0.12 H (0.02-0.09) ng/mL 02/15/24 Range/Units 06:27 RBC (4.10-5.20) X 10*6/uL Hgb (12.0-15.0) g/dL Hct (37.2-46.3) % MCH (27.0-32.0) pg RDW (11.5-14.5) % Neutrophils # (1.80-7.70) X 10*3/uL Chloride (96-109) mmol/L Carbon Dioxide (21.6-31.8) mmol/L BUN (9.0-27.0) mg/dL BUN/Creatinine Ratio (12.00-20.00) Ratio Calcium (8.7-10.3) mg/dL Ammonia 35 H (<30) umol/L Creatine Kinase (26-186) U/L Procalcitonin (0.02-0.09) ng/mL Assessment and Plan Assessment: * Frequent falls, with gait imbalance, unclear cause. Patient has spasticity in the lower limbs, and walks with a wide base unsteady gait. No evidence of B12 deficiency. Patient does have folate deficiency. * History of left Topete's palsy * Altered mental status, likely due to metabolic encephalopathy. Patient has elevated ammonia 60, which may be the cause. * Hypokalemia, resolved * Rhabdomyolysis, improving * Marijuana use * History of bipolar disorder * Rheumatoid arthritis * Hyperlipidemia Plan: * B12 919, folate 4.40, MMA, repeat CK 536. Start folate replacement 1 mg daily. * Depakote level 20.0. Lamictal level 10.9 (2-15). Patient does not know the dose of Lamictal she is taking. We will call her pharmacy for the current dose of Lamictal. Her balance could be off because of Lamictal, as the levels are in the upper limits of normal range. Lamictal was recently admitted to the regimen. Lamictal currently on hold. * Patient's altered mental status could be related to elevated ammonia 60. Repeat ammonia level in the morning. Elevated ammonia could be related to Depakote. * CT head revealed no acute process. * CT of the cervical spine revealed no fracture, mild multilevel degenerative disc disease. * MRI of the lumbar spine revealed no definitive evidence of disc herniation or significant spinal canal stenosis. Mild to moderate disc degeneration with associated osteoarthritic changes. Grade 1 anterolisthesis of L4 and L5. Central disc protrusion at L2-L3 without significant spinal canal or neural foraminal stenosis. I personally reviewed MR agree with the findings. * PT, OT evaluate gait.
[2024-02-16 12:31] VITALS: BP 183/97; PULSE 78; RESP 16
--- NOTE | 2024-02-18 11:10 | P.PN ---
Subjective Progress Note Date: 02/16/24 Patient was seen for a follow-up. Patient is now fully alert and awake. Patient's gait has much improved. Patient states that she walks with a walker. She is not walking with wide-base as much. I called patient's pharmacy, [facility], and it appeared that Lamictal was started on 02/06/2024. Patient took 25 mg tablet at bedtime for 1 week and then on second break she took 2 tablets at bedtime and on the third week she started with 3 tablets at bedtime. As patient is already on Depakote, the significant interaction with Lamictal, which produced acute Lamictal toxicity. Objective - Vital Signs Vital signs: Vital Signs Temp 97.8 F 02/16/24 12:19 Pulse 78 02/16/24 12:19 Resp 16 02/16/24 12:19 BP 183/97 02/16/24 12:19 Pulse Ox 98 02/16/24 12:19 FiO2 Intake & Output 02/15/24 02/16/24 02/16/24 18:59 06:59 18:59 Intake Total 590 Balance 590 Intake: Oral 590 Other: Voiding Method Bedside Commode Toilet Toilet Diaper Bedside Commode Bedside Commode Incontinent Diaper Diaper Incontinent Incontinent # Voids 2 2 - Exam Patient is alert and awake. Speech and language functions are normal. Cranial nerves significant for left facial asymmetry from previous Topete's palsy. On muscle strength testing, there is no pronator drift and the strength is normal in the arms and legs distally and proximally. Patient continues to have bilateral Babinski. Sensory to touch is equal. No ataxia for [id number] testing. Patient's gait has much improved. She is walking much steady, with a walker, with less wide base. She agrees that her balance is much improved. - Labs CBC & Chem 7: 02/16/24 07:38 02/16/24 07:38 Labs: Abnormal Lab Results - Last 24 Hours (Table) 02/16/24 02/16/24 Range/Units 07:38 07:38 Chloride 108 H (98-107) mmol/L BUN 3 L (7-17) mg/dL AST 39 H (14-36) U/L Ammonia 38 H (<30) umol/L Creatine Kinase 470 H (30-135) U/L Total Protein 6.1 L (6.3-8.2) g/dL Assessment and Plan Assessment: * Frequent falls, with gait imbalance, likely due to Lamictal toxicity. Patient was started on Lamictal on 02/06/2024. Lamictal and Depakote have significant drug interaction, and Lamictal has to be started slowly. Patient therefore probably developed Lamictal toxicity as her levels were quite high at 10.9 (2-15), producing Lamictal toxicity and frequent falls. * Folate deficiency * History of left Topete's palsy * Altered mental status, likely due to metabolic encephalopathy. Patient has elevated ammonia 60, which may be the cause. * Hypokalemia, resolved * Rhabdomyolysis, improving * Marijuana use * History of bipolar disorder * Rheumatoid arthritis * Hyperlipidemia Plan: * B12 919, folate 4.40, MMA < 0.10, repeat CK 536. Start folate replacement 1 mg daily. * Depakote level 20.0. Lamictal level 10.9 (2-15). I called patient's [facility], and it appeared that Lamictal was newly started on 02/06/2024. Patient took 25 mg tablet at bedtime for 1 week and then on second week she took 2 tablets at bedtime and on the third week she started with 3 tablets at bedtime. As patient is already on Depakote, there is sig nificant interaction with Lamictal, which produced acute Lamictal toxicity. * Stop Lamictal. * Patient's altered mental status could be related to elevated ammonia 60. Repeat ammonia level in the morning. Elevated ammonia could be related to Depakote. * CT head revealed no acute process. * CT of the cervical spine revealed no fracture, mild multilevel degenerative disc disease. * MRI of the lumbar spine revealed no definitive evidence of disc herniation or significant spinal canal stenosis. Mild to moderate disc degeneration with associated osteoarthritic changes. Grade 1 anterolisthesis of L4 and L5. Central disc protrusion at L2-L3 without significant spinal canal or neural foraminal stenosis. I personally reviewed MR agree with the findings. * PT, OT evaluate gait. * Neurologically clear for discharge.
--- NOTE | 2024-02-20 09:35 | P.DS ---
Providers Date of admission: 02/13/24 23:22 Expected date of discharge: 02/16/24 Attending physician: Dandy Gregory MD Consults: 02/14/24 13:17 Consult Physician Routine Consulting Provider: Razia Rizvi Consult Reason/Comments: Altered mental status Do you want consulting provider notified?: Yes Primary care physician: Bhumi Mcneill Hospital Course: Final diagnosis Generalized weakness and medical debility with frequent falls likely due to alcoholism and polysubstance abuse History of Parkinson's contributing to her ability to ambulate safely, patient does use a walker has been having frequent falls at home Possible seizure disorder patient is maintained on Lamictal and Depakote Altered mental status acute metabolic and toxic encephalopathy, improved Hypokalemia secondary to poor oral intake will replace, improved Mild acute rhabdo secondary to falls, and likely prolonged downtime. Improved History of chronic pain History of COPD History of hypertension History of hyperlipidemia History rheumatoid arthritis maintained on methotrexate which is being held History of hypothyroidism History of sleep apnea with CPAP use History of vertigo History of anxiety/bipolar/depression/panic disorder Chronic nicotine use GI prophylaxis DVT prophylaxis Full Code Discharge disposition Patient is being discharged in a stable condition with guarded prognosis to home with home care. Patient will follow-up with Dr. Mcneill in the outpatient setting upon discharge. Patient is to continue with current medications and also recommending close outpatient follow-up as scheduled with neurology. Total time taken is greater than 35 minutes. Hospital course This is a 68-year-old female who was recently admitted with increased weakness, frequent falls and altered mental status with metabolic encephalopathy. Patient undergoing extensive neurological workup with concerns of possible polysubstance and concerns of possible EtOH. Patient with acute rhabdomyolysis and had a fall with unknown downtime and was found altered and naked. Patient's mentation significantly improved and weakness is improved and able to walk with a walker independently. Estranged son is concerned as they have a poor relationship and he was attempting to work with her with helping with her medications and medical needs although they have a very distant relationship. Patient being arranged for outpatient follow-up with neurology along with possible APS and home care in the outpatient setting. Patient has been cleared by neurology recommending outpatient follow-up with neurologist. Please refer to other consultation notes for further HPI. Currently no reports of chest pain, shortness of breath, or palpitations. Patient is afebrile. No reports of nausea or vomiting and patient is tolerating diet. Patient will be discharged home today. Guarded prognosis and high risk for readmissions Physical exam: Gen: This is a 68-year-old female who is awake, alert and oriented x 3, thin built, elderly appearing, unkempt HEENT: Head is atraumatic, normocephalic. Pupils equal, round. Sclerae is anicteric. NECK: Supple. No JVD. No lymphadenopathy. No thyromegaly. LUNGS: Diminished breath sounds bilaterally otherwise clear to auscultation. No wheezes or rhonchi. No intercostal retractions. HEART: S1, S2 are muffled ABDOMEN: Soft. Bowel sounds are present. No masses. No tenderness. EXTREMITIES: No pedal edema. No calf tenderness. NEUROLOGICAL: Patient is awake, alert and oriented x3. Cranial nerves 2 through 12 are grossly intact. Please refer to medication reconciliation sheet for a list of medications. The impression and plan of care has been dictated by Cortney Vazquez, Nurse Practitioner as directed. Dr. Carlos MD I have performed a history and examination and MDM of this patient, discussed the same with the dictator, and agree with the dictator's assessment and plan as written ,documented as a scribe. Based on total visit time, I have performed more than 50% of the visit. Patient Condition at Discharge: Fair Plan - Discharge Summary New Discharge Prescriptions: New Folic Acid 1 mg PO DAILY #30 tab Acetaminophen Tab [Tylenol] 650 mg PO Q6HR PRN tab PRN Reason: Mild Pain Or Fever > 100.5 Thiamine [Vitamin B-1] 100 mg PO DAILY #30 tablet Continue Simvastatin [Zocor] 40 mg PO HS Divalproex [Depakote] 500 mg PO BID DULoxetine HCL [Cymbalta] 30 mg PO BID QUEtiapine FUMARATE [SEROquel XR] 400 mg PO HS rOPINIRole HCL [Requip] 0.5 - 1 mg PO HS Discontinued metHOTREXate sodium [Methotrexate] 25 mg PO Q7DAYS lamoTRIgine [LaMICtal] See Taper PO HS Discharge Medication List Simvastatin [Zocor] 40 mg PO HS 09/28/15 [History] Divalproex [Depakote] 500 mg PO BID 02/11/16 [History] DULoxetine HCL [Cymbalta] 30 mg PO BID 10/25/20 [History] QUEtiapine FUMARATE [SEROquel XR] 400 mg PO HS 02/14/24 [History] rOPINIRole HCL [Requip] 0.5 - 1 mg PO HS 02/14/24 [History] Acetaminophen Tab [Tylenol] 650 mg PO Q6HR PRN tab 02/16/24 [Rx] Folic Acid 1 mg PO DAILY #30 tab 02/16/24 [Rx] Thiamine [Vitamin B-1] 100 mg PO DAILY #30 tablet 02/16/24 [Rx] Follow up Appointment(s)/Referral(s): Bhumi Mcneill DO [Primary Care Provider] - 1-2 days (please call the office to set up a follow up appointment) [facility] Visiting Nurse, [NON-STAFF] - As Needed Ambulatory/Diagnostic Orders: Comprehensive Metabolic Panel [LAB.AMB] Time Frame: 3 Days, Location: None Selected Patient Instructions/Handouts: Hypokalemia (DC), Rhabdomyolysis (DC), Fall Prevention (DC) Activity/Diet/Wound Care/Special Instructions: Activity limited until follow-up Follow-up with primary care provider on discharge Follow-up [facility] outpatient Follow-up with neurology Discharge Disposition: HOME WITH HOME HEALTH SERVICES
== END 2024-02-16 14:50 | disposition home health service (06) | DRG 640 ==
LOC: EC 19:17 → 5NMEDONC 23:22
PROVIDERS: ADMIT Family Medicine; ATTEND Family Medicine
DX: E87.6 Hypokalemia (principal); G92.8 Other toxic encephalopathy; G93.41 Metabolic encephalopathy; E53.8 Deficiency of other specified B group vitamins; G20.A1 Parkinson's disease without dyskinesia, without mention of fluctuations; R62.7 Adult failure to thrive; F10.20 Alcohol dependence, uncomplicated; F31.9 Bipolar disorder, unspecified; M06.9 Rheumatoid arthritis, unspecified; J43.2 Centrilobular emphysema; T79.6XXA Traumatic ischemia of muscle, initial encounter; F19.10 Other psychoactive substance abuse, uncomplicated; I10 Essential (primary) hypertension; E78.5 Hyperlipidemia, unspecified; F41.0 Panic disorder [episodic paroxysmal anxiety]; H93.19 Tinnitus, unspecified ear; R29.6 Repeated falls; G47.33 Obstructive sleep apnea (adult) (pediatric); G89.29 Other chronic pain; M19.90 Unspecified osteoarthritis, unspecified site; M54.50 Low back pain, unspecified; R13.10 Dysphagia, unspecified; M51.36 Other intervertebral disc degeneration, lumbar region; M25.551 Pain in right hip; F17.210 Nicotine dependence, cigarettes, uncomplicated; Z71.6 Tobacco abuse counseling; Z79.631 Long term (current) use of antimetabolite agent; Z79.899 Other long term (current) drug therapy; Z86.39 Personal history of other endocrine, nutritional and metabolic disease; W01.0XXA Fall on same level from slipping, tripping and stumbling without subsequent striking against object, initial encounter; Z91.81 History of falling
CPT/HCPCS: 36415; 70450; 71046; 72100; 72125; 72148; 72220; 73502; 80048; 80053; 80164; 80175; 80306; 80320; 81001; 82140; 82550; 82607; 82746; 83605; 83735; 83921; 84100; 84132; 84145; 84443; 84484; 85025; 85610; 85730; 93005; 96361; 96365; 96366; 96375; 99285

== ENCOUNTER 2024-09-23 14:29 | Observation (INO) | payer MEDICARE ==
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
[2024-09-23 15:11] LABS: Basophils % (A) 0 %; Eosinophils # (A) 0.1 k/uL (0-0.7); Eosinophils % (A) 1 %; HCT 44.2 % (34.0-46.0); Lymphocytes # (A) 1.5 k/uL (1.0-4.8); Lymphocytes % (A) 19 %; MCH 31.5 pg (25.0-35.0); MCHC 31.8 g/dL (31.0-37.0); Mean Platelet Volume 7.4; Monocytes # (A) 0.3 k/uL (0-1.0); Monocytes % (A) 4 %; Neutrophils % (A) 74 %; Platelet Count 280 k/uL (150-450); RBC 4.46 m/uL (3.80-5.40); RDW 14.2 % (11.5-15.5); WBC 8.1 k/uL (3.8-10.6)
[2024-09-23 15:27] LABS: ALT 19 U/L (4-34); AST 25 U/L (14-36); African American GFR (CKD) 85 (>60 ml/min/1.73 sqM); Albumin 3.8 g/dL (3.5-5.0); Alkaline Phosphatase 59 U/L (38-126); Anion Gap 11 mmol/L; Blood Urea Nitrogen 6 mg/dL (7-17); Carbon Dioxide 21 mmol/L (22-30); Chloride 108 mmol/L (98-107); Glucose 106 mg/dL (74-99); Magnesium 1.6 mg/dL (1.6-2.3); Non-African American GFR(CKD) 73 (>60 ml/min/1.73 sqM); Potassium 3.2 mmol/L (3.5-5.1); Sodium 140 mmol/L (137-145); Total Bilirubin 0.4 mg/dL (0.2-1.3); Total Protein 6.5 g/dL (6.3-8.2)
[2024-09-23 16:31] LABS: Appearance,Urine Clear (Clear); Bilirubin,Urine Negative (Negative); Blood,Urine Negative (Negative); Color,Urine Colorless; Glucose,Urine (UA) Negative (Negative); Ketones,Urine Negative (Negative); Leukocyte Esterase,Urine Negative (Negative); Nitrite,Urine Negative (Negative); Protein,Urine Negative (Negative); Specific Gravity,Urine 1.004 (1.001-1.035); Urobilinogen,Urine <2.0 mg/dL (<2.0)
[2024-09-23 16:54] LABS: T4, Free (Free Thyroxine) 0.54 ng/dL (0.78-2.19)
[2024-09-23] MEDS: POTASSIUM CHLORIDE ER 20 MEQ TAB.ER PO STA (18:10)
[2024-09-23] MEDS: LEVOTHYROXINE IVP 100 MCG/5 ML VIAL IV ONE (18:42)
--- NOTE | 2024-09-23 19:14 | CT ---
EXAMINATION TYPE: CT brain wo con DATE OF EXAM: 09/23/2024 7:01 PM COMPARISON: Prior CT studies, most recently dated 02/13/2024. CLINICAL INDICATION: Female, 69 years old with history of hallucinating, hallucinating, ams TECHNIQUE: Brain: Axial CT images of the brain were obtained with coronal and sagittal reformats created and rev iewed. Contrast used: None. Oral contrast used: None. CT DLP: 1098.5 mGycm, Automated exposure control for dose reduction was used. FINDINGS: Brain: Extra-axial spaces: No abnormal extra-axial fluid collections. Ventricular system: Dilatation in proportion to cerebral atrophy. Cerebral parenchyma: No acute intraparenchymal hemorrhage or mass effect. The cannon-white junction is well differentiated. Scattered hypoattenuating areas are seen within the white matter. Cerebellum: Unremarkable. Mass effect: No evidence of midline shift. Intracranial vasculature: unremarkable Soft tissues: Normal. Calvarium/osseous structures: No depressed skull fracture. Paranasal sinuses and mastoid air cells: Mild scattered paranasal sinus disease. Visualized orbits: Orbital contents are intact. IMPRESSION: No acute intracranial process. [facility], , 09/23/2024 7:12 PM
[2024-09-23] MEDS ORDERED: NALOXONE 0.4 MG/ML 1 ML VIAL IV PRN (20:29)
[2024-09-24 01:30] VITALS: TEMP 98
[2024-09-24] MEDS: LEVOTHYROXINE IVP 100 MCG/5 ML VIAL IV SCH (09:33)
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
--- NOTE | 2024-09-24 12:43 | P.DS ---
Providers Date of admission: 09/23/24 20:29 Attending physician: Sophia Gonzalez Primary care physician: Bhumi Mcneill [facility] Course: 59-year-old female was brought in because of hallucinations. Patient is alert oriented x 3 at this time patient is also found to be in hypothyroidism with elevated TSH patient has not taking any of his medications patient is on multiple medications for bipolar disorder. Patient is alert oriented x 3 although workup for sepsis is negative patient does not have any electrolyte abnormalities her symptoms are probably secondary to noncompliance with medications patient ran out of her medications does not take any, did not take any of her medications for more than a week. REVIEW OF SYSTEMS: All other systems are negative except those mentioned in the HPI PHYSICAL EXAMINATION: GENERAL: The patient is alert and oriented x3, not in any acute distress. Well developed, well nourished. HEENT: Pupils are round and equally reacting to light. EOMI. No scleral icterus. No conjunctival pallor. Normocephalic, atraumatic. No pharyngeal erythema. No thyromegaly. CARDIOVASCULAR: S1 and S2 present. No murmurs, rubs, or gallops. PULMONARY: Chest is clear to auscultation, no wheezing or crackles. ABDOMEN: Soft, nontender, nondistended, normoactive bowel sounds. No palpable organomegaly. MUSCULOSKELETAL: No joint swelling or deformity. EXTREMITIES: No cyanosis, clubbing, or pedal edema. NEUROLOGICAL: Gross neurological examination did not reveal any focal deficits. SKIN: No rashes. Assessment and plan -Hallucinations resolved at this time secondary to noncompliance with medications. Patient will be resumed on medications prescriptions for all her medications were provided and patient will be discharged today there is no evidence of acute metabolic or toxic encephalopathy at this time -Bipolar disorder -Hyperlipidemia -Hypertension -Rheumatoid arthritis did not take her medications for more than a month will be resumed on methotrexate and there is no contraindication at this time -Restless leg syndrome -Hypothyroidism with elevated TSH due to noncompliance with medications patient will be given prescription for 125 mill micrograms of levothyroxine. -Sleep apnea Patient will be discharged today to follow-up with her primary care physician tomorrow Patient Condition at Discharge: Serious Plan - Discharge Summary Discharge Rx Participant: Yes New Discharge Prescriptions: New Levothyroxine Sodium 125 mcg PO DAILY #30 tab Continue Divalproex [Depakote] 500 mg PO BID #60 tab lamoTRIgine [LaMICtal] 25 mg PO HS #60 tab DULoxetine HCL [Cymbalta] 30 mg PO BID #60 cap metHOTREXate sodium [Methotrexate] 25 mg PO FR #30 tab rOPINIRole HCL [Requip] 1 mg PO HS #30 tab QUEtiapine FUMARATE [SEROquel XR] 400 mg PO HS #30 tab Simvastatin [Zocor] 40 mg PO HS #30 tab Discontinued Levothyroxine Sodium [Synthroid] 112 mcg PO DAILY Discharge Medication List DULoxetine HCL [Cymbalta] 30 mg PO BID #60 cap 09/24/24 [Rx] Divalproex [Depakote] 500 mg PO BID #60 tab 09/24/24 [Rx] Levothyroxine Sodium 125 mcg PO DAILY #30 tab 09/24/24 [Rx] QUEtiapine FUMARATE [SEROquel XR] 400 mg PO HS #30 tab 09/24/24 [Rx] Simvastatin [Zocor] 40 mg PO HS #30 tab 09/24/24 [Rx] lamoTRIgine [LaMICtal] 25 mg PO HS #60 tab 09/24/24 [Rx] metHOTREXate sodium [Methotrexate] 25 mg PO FR #30 tab 09/24/24 [Rx] rOPINIRole HCL [Requip] 1 mg PO HS #30 tab 09/24/24 [Rx] Follow up Appointment(s)/Referral(s): Bhumi Mcneill DO [Primary Care Provider] - 1-2 days Discharge Disposition: HOME SELF-CARE
[2024-09-24] MEDS: POTASSIUM CHLORIDE ER 20 MEQ TAB.ER PO STA (13:03)
[2024-09-24] MEDS: DULoxetine HCL 30 MG CAPSULE.DR PO SCH (13:03)
[2024-09-24] MEDS: DIVALPROEX 500 MG TABLET.DR PO SCH (13:04)
[2024-09-24 13:18] VITALS: BP 142/86; PULSE 77; RESP 20
[2024-09-24] MEDS ORDERED: ATORVASTATIN 20 MG TAB PO SCH (21:00)
[2024-09-24] MEDS ORDERED: QUEtiapine 200 MG TAB PO SCH (21:00)
[2024-09-24] MEDS ORDERED: lamoTRIgine 25 MG TAB PO SCH (21:00)
[2024-09-28] MEDS ORDERED: metHOTREXate sodium 2.5 MG TAB PO SCH (09:00)
== END 2024-09-24 16:00 | disposition home or self-care (01) ==
LOC: EC 14:29 → INTOOBSV 20:29 → 5NMEDONC 20:29 → 1SOBS 09-24 03:24 → 5NMEDONC 09-24 06:13
PROVIDERS: ADMIT Hospitalist; ATTEND Hospitalist
DX: R44.3 Hallucinations, unspecified (principal); E87.6 Hypokalemia; F31.9 Bipolar disorder, unspecified; E78.5 Hyperlipidemia, unspecified; I10 Essential (primary) hypertension; M06.9 Rheumatoid arthritis, unspecified; G47.33 Obstructive sleep apnea (adult) (pediatric); E03.9 Hypothyroidism, unspecified; F17.210 Nicotine dependence, cigarettes, uncomplicated; F41.0 Panic disorder [episodic paroxysmal anxiety]; G25.81 Restless legs syndrome; J44.9 Chronic obstructive pulmonary disease, unspecified; Z79.890 Hormone replacement therapy; Z79.899 Other long term (current) drug therapy; Z91.148 Patient's other noncompliance with medication regimen for other reason
CPT/HCPCS: 96376; 96374; 99285; 36415; 93005; 84439; 80053; 84443; 83735; 85025; 81003; 70450; G0378 ×2; J0650 ×2

== ENCOUNTER 2024-11-27 11:42 | Emergency (ER) | payer MEDICARE ==
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
[2024-11-27 13:17] VITALS: BP 168/72; PULSE 70; RESP 18; TEMP 97.9
[2024-11-27 21:06] LABS: Hepatitis A Antibody IgM Nonreactive (Nonreactive); Hepatitis B Core IgM Nonreactive (Nonreactive); Hepatitis B Surface Antigen Nonreactive (Nonreactive); Hepatitis C IgG Antibody Nonreactive (Nonreactive)
[2024-11-27 22:37] LABS: HIV 2 AB Non-Reactive (Non-Reactive); HIV AB P24 Non-Reactive (Non-Reactive); HIV P24 AG Non-Reactive (Non-Reactive)
[2024-11-28 14:31] LABS: C. trachomatis,PCR Negative (Negative); N. gonorrhoeae,PCR Negative (Negative)
== END 2024-11-27 13:38 | disposition home or self-care (01) ==
LOC: EC 11:42
DX: B00.9 Herpesviral infection, unspecified (principal); Z11.3 Encounter for screening for infections with a predominantly sexual mode of transmission; Z76.0 Encounter for issue of repeat prescription; F17.200 Nicotine dependence, unspecified, uncomplicated
CPT/HCPCS: 36415; 80074; 86780; 87390; 87491; 87591; 99283

== ENCOUNTER 2025-01-08 13:37 | Emergency (ER) | payer MEDICARE ==
[2025-01-08 15:16] VITALS: RESP 18
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
[2025-01-08 17:55] LABS: Appearance,Urine Cloudy (Clear); Bilirubin,Urine Negative (Negative); Blood,Urine Negative (Negative); Color,Urine Yellow; Glucose,Urine (UA) Negative (Negative); Hyaline Casts,Urine 11 /lpf (0-2); Ketones,Urine Trace (Negative); Leukocyte Esterase,Urine Negative (Negative); Mucus,Urine Occasional /hpf; Nitrite,Urine Negative (Negative); Protein,Urine Trace (Negative); RBC,Urine 1 /hpf (0-5); Specific Gravity,Urine 1.014 (1.001-1.035); Squamous Epithelial Cell,Urine 2 /hpf (0-4); WBC,Urine 1 /hpf (0-5)
[2025-01-08 18:48] VITALS: BP 159/88; PULSE 87; TEMP 98
[2025-01-09 02:17] LABS: Hepatitis B Surface Antigen Nonreactive (Nonreactive); Hepatitis C IgG Antibody Nonreactive (Nonreactive)
[2025-01-09 03:32] LABS: Hepatitis B Surface AB- Quant 3.5 mIU/mL
[2025-01-09 04:12] LABS: HIV 2 AB Non-Reactive (Non-Reactive); HIV AB P24 Non-Reactive (Non-Reactive); HIV P24 AG Non-Reactive (Non-Reactive)
[2025-01-09 14:14] LABS: C. trachomatis,PCR Negative (Negative)
[2025-01-09 14:18] LABS: N. gonorrhoeae,PCR Negative (Negative)
== END 2025-01-08 18:48 | disposition home or self-care (01) ==
LOC: EC 13:37
DX: Z76.0 Encounter for issue of repeat prescription (principal); T74.21XA Adult sexual abuse, confirmed, initial encounter; F17.200 Nicotine dependence, unspecified, uncomplicated
CPT/HCPCS: 36415; 81001; 86706; 86803; 87340; 87390; 87491; 87591; 99282